=== PATIENT | female | born 1950 | race Caucasian/White ===

== ENCOUNTER → 2018-03-23 08:08 | Outpatient (CLI) | payer MEDICARE, OTHER, SELFPAY ==
[2018-03-23 09:52] LABS: BUN Creatinine Ratio 26.4 (6-22); Estimated Glomerular Filt Rate 49.2 mL/min (>60)
== END ==
PROVIDERS: Family Provider Internal Medicine; PCP Internal Medicine; Visit Provider Specialist
DX: G43.909 Migraine, unspecified, not intractable, without status migrainosus (principal)
CPT/HCPCS: 36415; 82565; 84520

== ENCOUNTER → 2018-03-27 08:02 | Outpatient (CLI) | payer MEDICARE, OTHER, SELFPAY ==
--- NOTE | 2018-03-27 08:05 | DI.MRI.S_ITS ---
PROCEDURE: MR HEAD/BRAIN WO CON INDICATIONS: New onset and worsening head pain, with new gait distruance TECHNIQUE: Non-contrast axial T1 spin echo, axial T2 fast spin echo, sagittal and axial FLAIR, coronal T2 fast spin echo, axial gradient echo, axial diffusion and ADC through the brain. COMPARISON: [facility], MR, STROKE PROTOCOL, 02/09/2013, 11:54. [facility], CT, HEAD WITHOUT CONTRAST, 02/09/2013, 10:01. [facility], MR, STROKE PROTOCOL A, 04/29/2010, 10:59. FINDINGS: Image quality: Excellent. CSF spaces: Ventricles appear symmetric in size and shape. Basal cisterns are patent. No extra-axial fluid collections. Brain: No intracranial bleeds or mass effects. There is mild cerebral volume loss for age. There are mild periventricular and deep white matter chronic small vessel ischemic changes. Brainstem appears normal. Diffusion-weighted images show no acute ischemic insults. No chronic ischemic insults. Normal intravascular flow voids are present. Skull and face: Calvarial bone marrow is normal in signal. Orbits are normal. Sinuses: Sinuses and mastoids are clear. IMPRESSION: 1. No acute intracranial disease process. 2. Mild, diffuse cerebral long loss. 3. Mild periventricular and subcortical white matter chronic microvascular ischemic changes. Dictated by: Saida Meade MD, PhD on 03/27/2018 at 9:22 Approved by: Saida Meade MD, PhD on 03/27/2018 at 9:27
== END ==
PROVIDERS: Family Provider Internal Medicine; PCP Internal Medicine; Visit Provider Specialist
DX: R51 Headache (principal); R26.9 Unspecified abnormalities of gait and mobility
CPT/HCPCS: 70551; 99215

== ENCOUNTER → 2018-04-12 09:51 | Outpatient (CLI) | payer MEDICARE, OTHER, SELFPAY ==
--- NOTE | 2018-04-12 09:53 | DI.MG.S_ITS ---
UNILATERAL RIGHT DIGITAL DIAGNOSTIC MAMMOGRAM SHORT-TERM FOLLOW-UP: 04/12/2018 CLINICAL: Patient returns for a 6 month follow up of the right breast. Family history of breast cancer. Comparison is made to exams dated: 10/08/2017 mammogram, 10/03/2017 mammogram, and 10/19/2015 mammogram - [facility]. The tissue of the right breast is predominantly fatty. There is a stable 3 mm area of clustered dystrophic calcifications in the right breast at 8 o'clock in the retroareolar region. No other significant masses or calcifications are seen in the breast. IMPRESSION: PROBABLY BENIGN The stable 3 mm area of clustered dystrophic calcifications in the right breast are consistent with a degenerating fibroadenoma and are probably benign. A follow-up mammogram in 6 months is recommended. A follow-up mammogram in 6 months is recommended to demonstrate stability. This exam was interpreted at Station ID: [id number]. NOTE: For mammograms, a report in lay terms will be sent to the patient. Approximately 15% of breast malignancies will not be visualized mammographically. In the management of a palpable breast mass, a negative mammogram must not discourage biopsy of a clinically suspicious lesion. Electronically Signed By: Scott [email or web address]:04/12/2018 11:41:52 copy to: [facility] letter sent: Followup Recommended ACR BI-RADS Category 3: Probably benign [id number]
== END ==
PROVIDERS: PCP Internal Medicine
DX: R92.1 Mammographic calcification found on diagnostic imaging of breast (principal); D24.1 Benign neoplasm of right breast; Z80.3 Family history of malignant neoplasm of breast
CPT/HCPCS: 77065; G0279

== ENCOUNTER → 2018-04-19 06:49 | Outpatient (CLI) | payer MEDICARE, OTHER, SELFPAY ==
[2018-04-19 07:59] LABS: Hemoglobin A1C% w Est Avg Glu 6.2 % (4.0-6.0)
[2018-04-19 08:14] LABS: Alanine Aminotransferase 34 IU/L (9-52); Albumin 4.3 g/dL (3.5-5.0); Albumin Globulin Ratio 1.5 (1.0-2.8); Alkaline Phosphatase 89 U/L (38-126); Aspartate Aminotransferase 26 IU/L (14-36); BUN Creatinine Ratio 15.6 (6-22); Bilirubin Total 0.4 mg/dL (0.2-1.3); Blood Urea Nitrogen 14 mg/dL (7-17); Calcium 9.6 mg/dL (8.4-10.2); Carbon Dioxide 28 mmol/L (22-32); Chloride 103 mmol/L (98-107); Estimated Glomerular Filt Rate > 60.0 mL/min (>60); Globulin 2.9 g/dL (1.7-4.1); Glucose 177 mg/dL (80-110); HEMOLYSIS < 15 (0-50); Potassium 5.3 mmol/L (3.4-5.1); Sodium 143 mmol/L (137-145); Total Protein 7.2 g/dL (6.3-8.2)
== END ==
PROVIDERS: PCP Internal Medicine; Visit Provider Internal Medicine
DX: E11.65 Type 2 diabetes mellitus with hyperglycemia (principal)
CPT/HCPCS: 36415; 80053; 83036

== ENCOUNTER 2018-07-10 09:45 | Outpatient (RCR) | payer MEDICARE, OTHER, SELFPAY ==
--- NOTE | 2018-05-15 07:25 | PT.OIE ---
Current Diagnoses Migraine, unspecified, not intractable, without status migrainosus (05/13/18) Cervicalgia (05/13/18) Dizziness and giddiness (05/13/18) Past Surgical History (Last Reviewed 05/14/18 @ 08:01 by Maite Cuellar, PT) History of bilateral salpingo-oophorectomy (BSO) Status post hysterectomy Status post knee surgery Provider Visit Care Team Role Provider Type Misha Jacobson PA-C Primary Care Provider Advanced Water/Wastewater Engineer Specialty: Pain Management Address: [address] [place] [address], [address] Email: Kelvin Crawfrod MD Attending Provider Physician Specialty: Ear, Nose, Throat Address: [address] [place] [address], [id number] Email: Physical Therapy Initial Evaluation PT-OP-A Visit Information Start: 05/13/18 12:41 Freq: Status: Active Protocol: Document 05/13/18 12:45 AMB (Rec: 05/14/18 08:13 AMB [email or web address]) Out-Patient Physical Therapy Visit Information Visit Information Visit Type Initial Evaluation Visit Start Time 12:45 Visit Stop Time 13:30 Total Visit Minutes 45 Visit Number 1 Evaluation Information Evaluation Date 05/13/18 PT-OP-B Current Condition Start: 05/13/18 12:41 Freq: Status: Active Protocol: Document 05/13/18 12:45 AMB (Rec: 05/14/18 10:06 AMB [email or web address]) Current Condition History of Current Condition Current Complaints Falling to the right when turning in the kitchen History of Current Condition The patient has a complicated medical history with autoimmune problems 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 Over the past few years she has had a number of falls, having 2-3 falls in the last 6 months. She also reports a constant headache for the past 4 months that came on suddenly with rolling over in bed to the right (left temporal headache) . She does have a migraine history, but those stopped 12 years ago when she had a hysterectomy. She also reports neck pain, and is unsure if the neck pain came on first and caused the headache, or if the headache is causing the neck pain. History of Sjogren's. Denies nausea/spinning dizziness. Feels like she is being pulled over when turning. Prior Treatments and Tests Brain MRI did not show any cause for dizziness or headache Treatment Goals Patient/Caregiver Goals Decrease falls, imbalance Current Functional Impairments (Reported) Functional Limitations- Mobility/Gait Difficulty walking, cooking ( turning in kitchen) Personal Factors Other Personal Factors That May Effect Neck pain, previous history of Therapy/Recovery migraines, current chronic headache, chronic body pain ( fibromyalgia diagnosis but pt unsure) PT-OP-C Subjective Start: 05/13/18 12:41 Freq: Status: Active Protocol: Document 05/13/18 12:45 AMB (Rec: 05/14/18 08:15 AMB [email or web address]) Patient Questionnaires Dizziness Handicap Inventory DHI Score 44 DHI Functional Impairment 40 to 59% Impaired (Score 40- 59) OP-PT Pain Assessment Comments Pain Comments Chronic pain throughout all 4 extremities is not the focus of this bout of physical therapy PT-OP-D Balance Start: 05/13/18 12:41 Freq: Status: Active Protocol: Document 05/13/18 12:45 AMB (Rec: 05/14/18 08:12 AMB [email or web address]) Balance Tests Romberg Romberg increased ankle sway- unsafe Single Limb Standing Single Limb- Right unable Single Limb- Left unable Tandem Tandem Standing unable PT-OP-E Functional Tests Start: 05/13/18 12:41 Freq: Status: Active Protocol: Document 05/13/18 12:45 AMB (Rec: 05/14/18 10:11 AMB [email or web address]) Functional Tests Dynamic Gait Index (DGI) Score 13 DGI Impairment Rating 40 to <60% Impaired (Score 10- 14) PT-OP-O Vestibular Start: 05/13/18 12:41 Freq: Status: Active Protocol: Document 05/13/18 12:45 AMB (Rec: 05/14/18 08:12 AMB [email or web address]) Vestibular Assessment Visual Testing Smooth Pursuits Horizontal Increased sx Smooth Pursuits Vertical Increased sx Saccades Horizontal WFL Saccades Vertical WFL Thrust Head neck pain Convergence Test Impaired Head Shake unable Vestibulo-Ocular Reflex (VOR1) Negative PT-OP-T Assessment and Plan Start: 05/13/18 12:41 Freq: Status: Active Protocol: Document 07/09/18 12:45 AMB (Rec: 05/14/18 10:15 AMB [email or web address]) Physical Therapy Assessment Rehab Potential Rehabilitation Potential Good Evaluation Complexity Number of Personal Factors/Comorbidities 3 or More Number of Body Systems Impaired 4 or More Clinical Presentation at Evaluation Evolving Impairments Impairments Activity Tolerance Balance Pain Vestibular Goals 2 Impairment Falls Short Term Goal (STG) The patient will improve her DGI score from 13/24 to 18/24 to show improved dynamic balance and reduce her risk of falling. STG Duration 4 weeks Alf Goal (LTG) The patient will perform a pivot turn without loss of balance. LTG Duration 10 weeks 1 Impairment Balance Short Term Goal (STG) The patient will balance with a narrow base of support and turn her head without increasing dizziness. STG Duration 4 weeks Alf Goal (LTG) The patient will turn quickly in the kitchen without a loss of balance. LTG Duration 10 weeks Assessment Summary Assessment The patient attends physical therapy with worsening imbalance over the past few months. She reports chronic imbalance and falls over the past few years. She is not really sure that her balance is worse with the new onset of headache, but is sure that she falls to the right when she turns. Interestingly, her VOR did not initiate symptoms , but pivot turning and turning her head without visual fixation did. She will benefit from vestibular therapy to reduce her risk of falling. Physical Therapy Plan Frequency and Duration Frequency of Treatment 2x/Week Duration of Treatment 10 weeks Plan of Care Start Date 05/13/18 Plan of Care End Date 07/22/18 Therapeutic Interventions Therapeutic Interventions Balance Training Gait Training Home Exercise Program Manual Therapy Neuromuscular Re-education Self-Care/Home Management Therapeutic Activities Therapeutic Exercises Vestibular Rehabilitation Next Visit Focus/Plan Next Note Type Treatment Note
--- NOTE | 2018-05-15 07:25 | PT.OPPOC ---
Current Diagnoses Migraine, unspecified, not intractable, without status migrainosus (05/13/18) Cervicalgia (05/13/18) Dizziness and giddiness (05/13/18) Provider Visit Care Team Role Provider Type Misha Jacobson PA-C Primary Care Provider Advanced Interlacer Specialty: Pain Management Address: [facility] [address], [address] Email: Kelvin Crawford MD Attending Provider Physician Specialty: Ear, Nose, Throat Address: [address] [place] [address], [address] Email: Plan Of Care PT-OP-T Assessment and Plan Start: 05/13/18 12:41 Freq: Status: Active Protocol: Document 05/13/18 12:45 AMB (Rec: 05/14/18 10:15 AMB [email or web address]) Physical Therapy Assessment Rehab Potential Rehabilitation Potential Good Evaluation Complexity Number of Personal Factors/Comorbidities 3 or More Number of Body Systems Impaired 4 or More Clinical Presentation at Evaluation Evolving Impairments Impairments Activity Tolerance Balance Pain Vestibular Goals 2 Impairment Falls Short Term Goal (STG) The patient will improve her DGI score from to 18 to show improved dynamic balance and reduce her risk of falling. STG Duration 4 weeks [facility] Goal (LTG) The patient will perform a pivot turn without loss of balance. LTG Duration 10 weeks 1 Impairment Balance Short Term Goal (STG) The patient will balance with a narrow base of support and turn her head without increasing dizziness. STG Duration 4 weeks [facility] Goal (LTG) The patient will turn quickly in the kitchen without a loss of balance. LTG Duration 10 weeks Assessment Summary Assessment The patient attends physical therapy with worsening imbalance over the past few months. She reports chronic imbalance and falls over the past few years. She is not really sure that her balance is worse with the new onset of headache, but is sure that she falls to the right when she turns. Interestingly, her VOR did not initiate symptoms , but pivot turning and turning her head without visual fixation did. She will benefit from vestibular therapy to reduce her risk of falling. Physical Therapy Plan Frequency and Duration Frequency of Treatment 2x/Week Duration of Treatment 10 weeks Plan of Care Start Date 05/13/18 Plan of Care End Date 07/22/18 Therapeutic Interventions Therapeutic Interventions Balance Training Gait Training Home Exercise Program Manual Therapy Neuromuscular Re-education Self-Care/Home Management Therapeutic Activities Therapeutic Exercises Vestibular Rehabilitation Next Visit Focus/Plan Next Note Type Treatment Note Plan of Care Dates Plan of Care Start Date 05/13/18 Plan of Care End Date 07/22/18 Please Sign and Return: I have reviewed this Plan of Care and certify that the skilled therapy services above are required to meet the patient?s needs. Physician Signature Date Printed Name and Credentials Clinical Instructor Signature Printed Name and Credentials
--- NOTE | 2018-06-24 12:50 | PT.OTN ---
Current Diagnoses Migraine, unspecified, not intractable, without status migrainosus (06/24/18) Cervicalgia (06/24/18) Dizziness and giddiness (06/24/18) Physical Therapy Treatment Note PT-OP-A Visit Information Start: 05/13/18 12:41 Freq: Status: Active Protocol: Document 06/24/18 09:45 AMB (Rec: 06/24/18 12:49 AMB [email or web address]) Out-Patient Physical Therapy Visit Information Visit Information Visit Type Treatment Note Visit Start Time 09:45 Visit Stop Time 10:30 Total Visit Minutes 45 Visit Number 2 Evaluation Information Evaluation Date 05/13/18 PT-OP-B Current Condition Start: 05/13/18 12:41 Freq: Status: Active Protocol: Document 05/13/18 12:45 AMB (Rec: 05/14/18 10:06 AMB [email or web address]) Current Condition History of Current Condition Current Complaints Falling to the right when turning in the kitchen History of Current Condition The patient has a complicated medical history with autoimmune problems 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 Over the past few years she has had a number of falls, having 2-3 falls in the last 6 months. She also reports a constant headache for the past 4 months that came on suddenly with rolling over in bed to the right (left temporal headache) . She does have a migraine history, but those stopped 12 years ago when she had a hysterectomy. She also reports neck pain, and is unsure if the neck pain came on first and caused the headache, or if the headache is causing the neck pain. History of Sjogren's. Denies nausea/spinning dizziness. Feels like she is being pulled over when turning. Prior Treatments and Tests Brain MRI did not show any cause for dizziness or headache Treatment Goals Patient/Caregiver Goals Decrease falls, imbalance Current Functional Impairments (Reported) Functional Limitations- Mobility/Gait Difficulty walking, cooking ( turning in kitchen) Personal Factors Other Personal Factors That May Effect Neck pain, previous history of Therapy/Recovery migraines, current chronic headache, chronic body pain ( fibromyalgia diagnosis but pt unsure) PT-OP-C Subjective Start: 05/13/18 12:41 Freq: Status: Active Protocol: Document 06/24/18 09:45 AMB (Rec: 06/24/18 12:49 AMB [email or web address]) OP-PT Subjective Patient Comments Patient Comments Pt states she went to a chiropractor who was able to get rid of her headache. She has been careful about turning with less speed, so she has had no falls or near falls. PT-OP-D Balance Start: 05/13/18 12:41 Freq: Status: Active Protocol: Document 05/13/18 12:45 AMB (Rec: 05/14/18 08:12 AMB [email or web address]) Balance Tests Romberg Romberg increased ankle sway- unsafe Single Limb Standing Single Limb- Right unable Single Limb- Left unable Tandem Tandem Standing unable PT-OP-E Functional Tests Start: 05/13/18 12:41 Freq: Status: Active Protocol: Document 05/13/18 12:45 AMB (Rec: 05/14/18 10:11 AMB [email or web address]) Functional Tests Dynamic Gait Index (DGI) Score 13 DGI Impairment Rating 40 to <60% Impaired (Score 10- 14) PT-OP-O Vestibular Start: 05/13/18 12:41 Freq: Status: Active Protocol: Document 05/13/18 12:45 AMB (Rec: 05/14/18 08:12 AMB [email or web address]) Vestibular Assessment Visual Testing Smooth Pursuits Horizontal Increased sx Smooth Pursuits Vertical Increased sx Saccades Horizontal WFL Saccades Vertical WFL Thrust Head neck pain Convergence Test Impaired Head Shake unable Vestibulo-Ocular Reflex (VOR1) Negative PT-OP-Q Treatments Start: 05/13/18 12:41 Freq: Status: Active Protocol: Document 06/24/18 09:45 AMB (Rec: 06/24/18 12:49 AMB [email or web address]) Neuro Re-Education Treatment Balance Activities 2 Details Stride stance with HT Comments horizontal/vertical. R foot back more stable. 1 Details Powell foam Reps/Duration 1 min x 4 Comments Eyes closed, eyes open- tends to lose balance L. Vestibular Rehabilitation X1 Viewing Distance From Target 10' Position NBOS, stride stance, WBOS Reps/Duration 30x5 Comments dizziness reproduced PT-OP-T Assessment and Plan Start: 05/13/18 12:41 Freq: Status: Active Protocol: Document 06/24/18 09:45 AMB (Rec: 06/24/18 12:49 AMB [email or web address]) Physical Therapy Assessment Assessment Summary Assessment Pt's headache sx decreased, but continues to have dizziness with head turn activities. Reduced sensation in feet also impairs balance. Physical Therapy Plan Next Visit Focus/Plan Next Note Type Treatment Note Next Visit Plan Progress head turns, eyes closed, foam balance.
--- NOTE | 2018-07-01 13:30 | PT.OTN ---
Current Diagnoses Migraine, unspecified, not intractable, without status migrainosus (07/01/18) Cervicalgia (07/01/18) Dizziness and giddiness (07/01/18) Physical Therapy Treatment Note PT-OP-A Visit Information Start: 05/13/18 12:41 Freq: Status: Active Protocol: Document 07/01/18 09:45 AMB (Rec: 07/01/18 09:46 AMB [id number]) Out-Patient Physical Therapy Visit Information Visit Information Visit Type Treatment Note Visit Start Time 09:45 Visit Stop Time 10:30 Total Visit Minutes 45 Visit Number 3 PT-OP-B Current Condition Start: 05/13/18 12:41 Freq: Status: Active Protocol: Document 05/13/18 12:45 AMB (Rec: 05/14/18 10:06 AMB [email or web address]) Current Condition History of Current Condition Current Complaints Falling to the right when turning in the kitchen History of Current Condition The patient has a complicated medical history with autoimmune problems 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 Over the past few years she has had a number of falls, having 2-3 falls in the last 6 months. She also reports a constant headache for the past 4 months that came on suddenly with rolling over in bed to the right (left temporal headache) . She does have a migraine history, but those stopped 12 years ago when she had a hysterectomy. She also reports neck pain, and is unsure if the neck pain came on first and caused the headache, or if the headache is causing the neck pain. History of Sjogren's. Denies nausea/spinning dizziness. Feels like she is being pulled over when turning. Prior Treatments and Tests Brain MRI did not show any cause for dizziness or headache Treatment Goals Patient/Caregiver Goals Decrease falls, imbalance Current Functional Impairments (Reported) Functional Limitations- Mobility/Gait Difficulty walking, cooking ( turning in kitchen) Personal Factors Other Personal Factors That May Effect Neck pain, previous history of Therapy/Recovery migraines, current chronic headache, chronic body pain ( fibromyalgia diagnosis but pt unsure) PT-OP-C Subjective Start: 05/13/18 12:41 Freq: Status: Active Protocol: Document 07/01/18 09:45 AMB (Rec: 07/01/18 13:28 AMB [email or web address]) OP-PT Subjective Patient Comments Patient Comments Pt reports she had 3 days of headache after last appointment. She feels a clicking in her neck with head turns. PT-OP-D Balance Start: 05/13/18 12:41 Freq: Status: Active Protocol: Document 05/13/18 12:45 AMB (Rec: 05/14/18 08:12 AMB [email or web address]) Balance Tests Romberg Romberg increased ankle sway- unsafe Single Limb Standing Single Limb- Right unable Single Limb- Left unable Tandem Tandem Standing unable PT-OP-E Functional Tests Start: 05/13/18 12:41 Freq: Status: Active Protocol: Document 05/13/18 12:45 AMB (Rec: 05/14/18 10:11 AMB [email or web address]) Functional Tests Dynamic Gait Index (DGI) Score 13 DGI Impairment Rating 40 to <60% Impaired (Score 10- 14) PT-OP-O Vestibular Start: 05/13/18 12:41 Freq: Status: Active Protocol: Document 05/13/18 12:45 AMB (Rec: 05/14/18 08:12 AMB [email or web address]) Vestibular Assessment Visual Testing Smooth Pursuits Horizontal Increased sx Smooth Pursuits Vertical Increased sx Saccades Horizontal WFL Saccades Vertical WFL Thrust Head neck pain Convergence Test Impaired Head Shake unable Vestibulo-Ocular Reflex (VOR1) Negative PT-OP-Q Treatments Start: 05/13/18 12:41 Freq: Status: Active Protocol: Document 07/01/18 09:45 AMB (Rec: 07/01/18 13:28 AMB [email or web address]) Therapeutic Exercises Sitting Exercises 1 Sitting Exercise Name calf, hamstring stretch Comments 30x2 Neuro Re-Education Treatment Balance Activities 4 Details walking with head turns Reps/Duration 10 min Comments horizontal, vertical, diagonal 3 Details Blue foam Comments stride stance, eyes open, eyes closed 2 Details Stride stance with HT Comments horizontal/vertical. R foot back more stable. Vestibular Rehabilitation X1 Viewing Distance From Target 10' Position NBOS, stride stance, WBOS Reps/Duration 30x5 Comments dizziness reproduced PT-OP-T Assessment and Plan Start: 05/13/18 12:41 Freq: Status: Active Protocol: Document 07/01/18 13:29 AMB (Rec: 07/01/18 13:30 AMB [email or web address]) Physical Therapy Assessment Assessment Summary Assessment Did not progress HEP extensively given pt's reaction to last treatment, but did add walking in hallway with headturns. Physical Therapy Plan Next Visit Focus/Plan Next Note Type Treatment Note Next Visit Plan Progress as tolerated.
--- NOTE | 2018-07-12 13:01 | PT.OTN ---
Current Diagnoses Migraine, unspecified, not intractable, without status migrainosus (07/10/18) Cervicalgia (07/10/18) Dizziness and giddiness (07/10/18) Physical Therapy Treatment Note PT-OP-A Visit Information Start: 05/13/18 12:41 Freq: Status: Active Protocol: Document 07/10/18 09:45 AMB (Rec: 07/12/18 13:00 AMB [email or web address]) Out-Patient Physical Therapy Visit Information Visit Information Visit Type Discharge Summary Visit Start Time 09:45 Visit Stop Time 10:30 Total Visit Minutes 45 Visit Number 4 Evaluation Information Evaluation Date 05/13/18 PT-OP-B Current Condition Start: 05/13/18 12:41 Freq: Status: Active Protocol: Document 05/13/18 12:45 AMB (Rec: 05/14/18 10:06 AMB [email or web address]) Current Condition History of Current Condition Current Complaints Falling to the right when turning in the kitchen History of Current Condition The patient has a complicated medical history with autoimmune problems 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 Over the past few years she has had a number of falls, having 2-3 falls in the last 6 months. She also reports a constant headache for the past 4 months that came on suddenly with rolling over in bed to the right (left temporal headache) . She does have a migraine history, but those stopped 12 years ago when she had a hysterectomy. She also reports neck pain, and is unsure if the neck pain came on first and caused the headache, or if the headache is causing the neck pain. History of Sjogren's. Denies nausea/spinning dizziness. Feels like she is being pulled over when turning. Prior Treatments and Tests Brain MRI did not show any cause for dizziness or headache Treatment Goals Patient/Caregiver Goals Decrease falls, imbalance Current Functional Impairments (Reported) Functional Limitations- Mobility/Gait Difficulty walking, cooking ( turning in kitchen) Personal Factors Other Personal Factors That May Effect Neck pain, previous history of Therapy/Recovery migraines, current chronic headache, chronic body pain ( fibromyalgia diagnosis but pt unsure) PT-OP-C Subjective Start: 05/13/18 12:41 Freq: Status: Active Protocol: Document 07/10/18 09:45 AMB (Rec: 07/12/18 13:00 AMB [email or web address]) OP-PT Subjective Patient Comments Patient Comments Pt reports she has been doing well and is ready for d/c. She has not had any feeling of being pulled over lately, she needs to be careful with her balance due to her neuropathy. PT-OP-D Balance Start: 05/13/18 12:41 Freq: Status: Active Protocol: Document 05/13/18 12:45 AMB (Rec: 05/14/18 08:12 AMB [email or web address]) Balance Tests Romberg Romberg increased ankle sway- unsafe Single Limb Standing Single Limb- Right unable Single Limb- Left unable Tandem Tandem Standing unable PT-OP-E Functional Tests Start: 05/13/18 12:41 Freq: Status: Active Protocol: Document 07/10/18 09:45 AMB (Rec: 07/12/18 13:00 AMB [email or web address]) Functional Tests Dynamic Gait Index (DGI) Score 20 DGI Impairment Rating 1 to <20% Impaired (Score 20- 23) PT-OP-O Vestibular Start: 05/13/18 12:41 Freq: Status: Active Protocol: Document 05/13/18 12:45 AMB (Rec: 05/14/18 08:12 AMB [email or web address]) Vestibular Assessment Visual Testing Smooth Pursuits Horizontal Increased sx Smooth Pursuits Vertical Increased sx Saccades Horizontal WFL Saccades Vertical WFL Thrust Head neck pain Convergence Test Impaired Head Shake unable Vestibulo-Ocular Reflex (VOR1) Negative PT-OP-Q Treatments Start: 05/13/18 12:41 Freq: Status: Active Protocol: Document 07/10/18 09:45 AMB (Rec: 07/12/18 13:00 AMB [email or web address]) Neuro Re-Education Treatment Balance Activities 4 Details walking with head turns Reps/Duration 10 min Comments horizontal, vertical, diagonal 3 Details Blue foam Comments stride stance, eyes open, eyes closed 2 Details Stride stance with HT Comments horizontal/vertical. R foot back more stable. Vestibular Rehabilitation X1 Viewing Distance From Target 10' Position NBOS, stride stance, WBOS Reps/Duration 30x5 Comments dizziness reproduced PT-OP-T Assessment and Plan Start: 05/13/18 12:41 Freq: Status: Active Protocol: Document 07/10/18 09:45 AMB (Rec: 07/12/18 13:00 AMB [email or web address]) Physical Therapy Assessment Goals 2 Impairment Falls Short Term Goal (STG) The patient will improve her DGI score from to 18 to show improved dynamic balance and reduce her risk of falling. STG Duration MET Prison Goal (LTG) The patient will perform a pivot turn without loss of balance. LTG Duration MET 1 Impairment Balance Short Term Goal (STG) The patient will balance with a narrow base of support and turn her head without increasing dizziness. STG Duration Progress made Basket Operator Goal (LTG) The patient will turn quickly in the kitchen without a loss of balance. LTG Duration Progress made Assessment Summary Assessment Pt's dynamic gait index score improved dramatically. She no longer has neck pain due to chiropractic treatment, but does have increased dizziness with head turns. Encouraged her to continue with her HEP and to return to walking as she is able. Physical Therapy Plan Discharge Physical Therapy Discharge Reasons Goals Met Discharge Comments Pt is managing her symptoms well, although she continues to have difficulty with head turns and balance due to her neuropathy, she is managing it .
== END 2018-07-24 12:25 ==
LOC: PHYS 09:45
PROVIDERS: PCP Specialist; Visit Provider Otolaryngology
DX: R42 Dizziness and giddiness (principal); G43.909 Migraine, unspecified, not intractable, without status migrainosus; M54.2 Cervicalgia
CPT/HCPCS: 97112; 97162

== ENCOUNTER 2018-07-16 16:48 | Emergency (ER) | payer MEDICARE, OTHER, SELFPAY ==
[2018-07-16 16:50] VITALS: BP 148/75; PULSE 80; RESP 14; TEMP 36.4; O2SAT 98; BMI 31.7
--- NOTE | 2018-07-16 17:04 | ED.NAVMDI ---
HPI - Nausea/Vomiting/Diarrhea <MOY Lopez - Last Filed: 07/16/18 21:26> General Chief complaint: Nausea/Vomiting/Diarrhea Stated complaint: SEVERE DIARRHEA Time Seen by Provider: 07/16/18 17:04 Source: patient Mode of arrival: ambulatory Limitations: no limitations History of Present Illness HPI Narrative: 67-year-old female with history of type 1 diabetes that is a former smoker here for complaint of having diarrhea this afternoon. She reports having a generalized lower left abdominal pain that started yesterday. She denies any trauma to the area. No fevers no chills. Positive p.o. intake. No vomiting. She does report having slight nausea. She denies any flank pain. No urinary symptoms. She describes the diarrhea as being watery. She denies any recent antibiotic use. No recent travel. She denies any other concerns or complaints at this time. Related Data Home Medications Medication Instructions Recorded Confirmed carboxymethylcellulose sodium 2 gtt OU PRN #0 05/09/12 07/16/18 [Refresh Liquigel] sodium chloride [Deep Sea Nasal] 2 spray INTRANASAL PRN PRN #0 05/09/12 07/16/18 aspirin 81 mg PO QDAY #0 05/11/17 07/16/18 niacin 500 mg tablet 500 mg PO DAILY 03/20/18 07/16/18 Disabled [address]ing Permit 1 ea MISCELLANEOUS PRN PRN 07/16/18 07/16/18 [place] 5/16 Inch 1 ea SQ DIRECTED 07/16/18 07/16/18 fluconazole [Diflucan] 150 mg PO QDAY PRN 07/16/18 07/16/18 fluticasone [Flonase Allergy 2 spray INTRANASAL BEDTIME PRN 07/16/18 07/16/18 Relief] insulin aspart U-100 [Novolog 5 - 15 units SQ Q4H PRN 07/16/18 07/16/18 Flexpen U-100 Insulin] insulin detemir U-100 [Levemir 50 units SC QPM 07/16/18 07/16/18 FlexTouch U-100 Insuln] sulfamethoxazole-trimethoprim 1 tab PO BID PRN 07/16/18 07/16/18 Previous Rx's Medication Instructions Recorded lansoprazole 30 mg PO BID #180 ecc 01/14/18 blood sugar diagnostic strips #250 each 03/22/18 clonazepam 1 mg tablet 1 mg PO BID #180 tab 04/22/18 pldzwtkv-drpuwrzle-riezqjjiz 3.5 4 drop OTIC (EAR) TID PRN #10 ml 04/23/18 mg/mL-10,000 unit/mL-1 % ear solution gabapentin 600 mg tablet 600 mg PO QDAY #90 tab 06/07/18 hydrocodone 10 mg-acetaminophen 1 - 2 tab PO Q4HP PRN #200 tab 06/07/18 325 mg tablet nadolol 40 mg tablet 40 mg PO DAILY #90 tab 06/07/18 losartan 100 mg tablet 100 mg PO DAILY #90 tab 06/10/18 albuterol sulfate [Ventolin HFA] 2 puff INH Q4H PRN #8 gm 06/19/18 Allergies Allergy/AdvReac Type Severity Reaction Status Date / Time atorvastatin [ATORVASTATIN] Allergy Unknown Verified 06/14/18 10:04 gemfibrozil [GEMFIBROZIL] Allergy Unknown Verified 06/14/18 10:04 rosuvastatin [ROSUVASTATIN] Allergy Unknown Verified 06/14/18 10:04 tetracycline [TETRACYCLINE] Allergy Unknown Verified 06/14/18 10:04 Milk Containing Products AdvReac Severe GI issues Verified 06/14/18 10:04 [MILK CONTAINING PRODUCTS] carisoprodol [CARISOPRODOL] AdvReac Intermediate DIZZINESS Verified 06/14/18 10:04 duloxetine [DULOXETINE] AdvReac Intermediate DIARRHEA Verified 06/14/18 10:04 fenofibrate [FENOFIBRATE] AdvReac Intermediate rash Verified 06/14/18 10:04 indomethacin [INDOMETHACIN] AdvReac Intermediate GI DISTRESS Verified 06/14/18 10:04 lisinopril [LISINOPRIL] AdvReac Intermediate EDEMA LEGS Verified 06/14/18 10:04 amoxicillin [AMOXICILLIN] AdvReac Mild itching Verified 06/14/18 10:04 Review of Systems <MOY Lopez - Last Filed: 07/16/18 21:26> Constitutional Denies chills, Denies fever(s), Denies lethargy and Denies weakness Eyes Denies change in vision, Denies eye discharge, Denies irritation and Denies loss of vision ENT Ears, Nose, Mouth, and Throat: Denies change in voice, Denies neck pain and Denies sore throat Cardiovascular Denies chest pain, Denies irregular heart rhythm, Denies lightheadedness, Denies palpitations, Denies dyspnea, Denies dyspnea on exertion and Denies orthopnea Respiratory Denies cough, Denies dyspnea, Denies dyspnea on exertion and Denies wheezing Gastrointestinal Gastrointestinal: Reports abdominal pain and Reports diarrhea Genitourinary Denies hematuria, Denies flank pain, Denies urinary incontinence and Denies urinary urgency Musculoskeletal Denies neck pain Integumentary/Breasts Denies pruritus, Denies erythema, Denies rash and Denies wounds Neurologic Denies confusion, Denies loss of vision and Denies weakness Psychiatric Denies anxiety, Denies confusion, Denies depression, Denies homicidal ideation and Denies suicidal ideation Endocrine Denies palpitations Hematologic/Lymphatic Denies easy bruising Allergic/Immunologic Denies wheezing Exam <MOY Lopez - Last Filed: 07/16/18 21:26> Initial Vital Signs Initial Vital Signs: Vital Signs Temperature 97.6 F 07/16/18 16:50 Pulse Rate 80 07/16/18 16:50 Respiratory Rate 14 07/16/18 16:50 Blood Pressure 148/75 H 07/16/18 16:50 Pulse Oximetry 98 07/16/18 16:50 Const General: cooperative and well developed Nutritional Appearance: well nourished Orientation: alert, awake, oriented x3 and not confused [facility] Mouth: oral mucosae normal, oropharynx normal and moist mucous membranes Eyes Conjunctivae: conjunctivae normal Sclera: sclerae normal Pupils: PERRL EOM: EOM intact bilaterally Resp Effort & Inspection: normal respiratory effort, able to speak in complete sentences, no respiratory distress and no use of accessory muscles Auscultation: clear to auscultation bilaterally, no rales, no rhonchi and no wheezes Cardio Rate: regular rate Rhythm: regular rhythm Heart Sounds: no click, no gallops, no murmurs and no rubs Pulses: normal peripheral pulses GI Inspection: non-distended Palpation: soft, no hepatosplenomegaly, No guarding, No pulsatile mass and tender (Tenderness left lower quadrant) Auscultation: normal bowel sounds General: No CVA tenderness Skin General: no rashes or lesions noted, No jaundice and No petechiae Neuro General: alert, oriented x3, gait normal and no focal motor deficits Speech: speech normal <Huang Lanker, DO - Last Filed: 07/16/18 21:49> Initial Vital Signs Initial Vital Signs: Vital Signs Temperature 97.6 F 07/16/18 16:50 Pulse Rate 80 07/16/18 16:50 Respiratory Rate 14 07/16/18 16:50 Blood Pressure 148/75 H 07/16/18 16:50 Pulse Oximetry 98 07/16/18 16:50 Course <MOY Lopez - Last Filed: 07/16/18 21:26> Orders Ordered: ED Orders 07/16/18 17:11 Complete Blood Count AUTO DIFF Stat Comprehensive Metabolic Panel Stat Lipase Stat 07/16/18 17:16 CT abdomen pelvis w con Stat 07/16/18 18:09 Urine Microscopic Stat Discontinued Medications Hydromorphone HCl (Dilaudid) 0.5 mg IV NOW ONE Stop: 07/16/18 17:15 Last Admin: 07/16/18 17:38 Dose: 0.5 mg Sodium Chloride (Normal Saline 0.9%) 1,000 mls @ 1,000 mls/hr IV BOLUS ONE Stop: 07/16/18 18:13 Last Infusion: 07/16/18 19:16 Dose: 0 mls/hr Admin: 07/16/18 17:38 Dose: 1,000 mls/hr Ondansetron HCl (Zofran) 4 mg IV NOW ONE Stop: 07/16/18 17:15 Last Admin: 07/16/18 17:39 Dose: 4 mg Vital Signs - 8 hr 07/16/18 16:50 07/16/18 18:32 07/16/18 19:21 Temperature 97.6 F Pulse Rate 80 74 72 Respiratory Rate 14 17 16 Blood Pressure 148/75 H 129/54 L Blood Pressure [Right Arm] 137/61 Pulse Oximetry 98 97 96 <Huang Zamudio DO - Last Filed: 07/16/18 21:49> Orders Ordered: ED Orders 07/16/18 17:11 Complete Blood Count AUTO DIFF Stat Comprehensive Metabolic Panel Stat Lipase Stat 07/16/18 17:16 CT abdomen pelvis w con Stat 07/16/18 18:09 Urine Microscopic Stat Discontinued Medications Hydromorphone HCl (Dilaudid) 0.5 mg IV NOW ONE Stop: 07/16/18 17:15 Last Admin: 07/16/18 17:38 Dose: 0.5 mg Sodium Chloride (Normal Saline 0.9%) 1,000 mls @ 1,000 mls/hr IV BOLUS ONE Stop: 07/16/18 18:13 Last Infusion: 07/16/18 19:16 Dose: 0 mls/hr Admin: 07/16/18 17:38 Dose: 1,000 mls/hr Ondansetron HCl (Zofran) 4 mg IV NOW ONE Stop: 07/16/18 17:15 Last Admin: 07/16/18 17:39 Dose: 4 mg Vital Signs - 8 hr 07/16/18 16:50 07/16/18 18:32 07/16/18 19:21 Temperature 97.6 F Pulse Rate 80 74 72 Respiratory Rate 14 17 16 Blood Pressure 148/75 H 129/54 L Blood Pressure [Right Arm] 137/61 Pulse Oximetry 98 97 96 MDM - Nausea/Vomiting/Diarrhea <MOY Lopez - Last Filed: 07/16/18 21:26> Lab Data Result diagrams: 07/16/18 17:11 07/16/18 17:11 Lab Results 07/16/18 07/16/18 07/16/18 Range/Units 17:11 17:11 18:09 WBC 9.6 (4.5-11.0) X10^3/uL RBC 4.84 (4.0-5.2) X10^6/uL Hgb 12.2 (12.0-16.0) g/dL Hct 38.3 (36-46) % MCV 79.0 L (80-100) fL MCH 25.1 L (26-34) PG MCHC 31.8 (30-36) % RDW 15.0 H (11.6-14.8) % Plt Count 342 (150-400) X10^3/uL Neut % (Auto) 58.0 (50-75) % Lymph % (Auto) 31.6 (25-40) % [place] % (Auto) 7.2 (3-14) % Eos % (Auto) 2.1 (2-4) % Baso % (Auto) 1.1 (0-2) % Neut # (Auto) 5500 (0723-6634) /uL Sodium 142 (137-145) mmol/L Potassium 4.3 (3.4-5.1) mmol/L Chloride 102 (98-107) mmol/L Carbon Dioxide 27 (22-32) mmol/L BUN 19 H (7-17) mg/dL Creatinine 1.00 (0.52-1.04) mg/dL Estimated GFR 55.0 L (>60) mL/min BUN/Creatinine Ratio 19.0 (6-22) Glucose 186 H (80-110) mg/dL Calcium 9.8 (8.4-10.2) mg/dL Total Bilirubin 0.6 (0.2-1.3) mg/dL AST 29 (14-36) IU/L ALT 25 (9-52) IU/L Alkaline Phosphatase 104 (38-126) U/L Total Protein 8.0 (6.3-8.2) g/dL Albumin 4.7 (3.5-5.0) g/dL Globulin 3.3 (1.7-4.1) g/dL Albumin/Globulin Ratio 1.4 (1.0-2.8) Lipase 112 (23-300) U/L Urine RBC 0-1/hpf (0-5/HPF) Urine WBC 1-5/hpf (0-5/HPF) Ur Squamous Epith Cells 0-1 /hpf Ur Transition Epith Cell 0-1/hpf (0-5/HPF) Urine Bacteria None seen (None) Ur Culture Indicated? Cult not indicated Micro UA Comment Not Reportable Imaging Data CT scan - abdomen: Radiologist's impression: PROCEDURE: CT ABDOMEN PELVIS W CON INDICATIONS: Pain to left lower quadrant. Nausea. Diarrhea TECHNIQUE: After the administration of intravenous contrast, 5 mm thick sections acquired from the diaphragm to the symphysis. 5 mm coronal and sagittal reformats were acquired. For radiation dose reduction, the following was used: automated exposure control, adjustment of mA and/or kV according to patient size. COMPARISON: [facility], CT ABDOMEN/PELVIS WITH CONTRAST, 07/19/2005, 10:46. [facility], CT ABDOMEN/PELVIS WITH CONTRAST, 09/15/2004, 12:45. [facility], CT ABDOMEN/PELVIS WITH CONTRAST, 08/24/2004, 14:35. [facility], CT ABDOMEN/PELVIS WITH CONTRAST, 08/20/2004, 11:31. [facility] , ABDOMEN ACUTE SERIES, 08/12/2017, 7:43. [facility], CR, ABDOMEN ACUTE SERIES, 12/18/2015, 15:08. [facility] CR, ABDOMEN ACUTE SERIES, 10/26/2014, 13:15. [facility], CT, ABDOMEN/PELVIS WITH CONTRAST, 10/09/2014, 15:05. [facility], CR, ABDOMEN ACUTE SERIES, 10/05/2014, 10:40. [facility], US, ABDOMEN COMPLETE, 05/08/2012, 8:34. [facility], CT, ABDOMEN/PELVIS WITH CONTRAST, 08/08/2010, 6:45. [facility], CT, ABDOMEN/PELVIS WITH CONTRAST, 09/28/2006, 13:09. [facility], RG, CT ABDOMEN/PELVIS WITH CONTRAST, 09/11/2006, 9:40. FINDINGS: Image quality: Excellent. ABDOMEN: Lung bases: Lung bases are clear of acute opacities. Calcified granulomas noted in the right lung base which are stable compared to prior examinations. Calcified paraesophageal mediastinal lymph nodes are noted which are stable compared to prior exams.. Heart size is normal. Solid organs: Liver is normal in size and enhancement. Gallbladder is within normal limits. Biliary system is non dilated. Pancreas enhances normally. Spleen is normal in size and enhancement. No adrenal nodules. Kidneys demonstrate normal size and enhancement, without hydronephrosis. Peritoneum and bowel: Circumferential wall thickening involving the distal esophagus. The appendix is normal. Numerous diverticuli noted in the sigmoid colon without evidence of diverticulitis. Circumferential wall thickening noted in the sigmoid colon which we do to under distention versus nonspecific colitis. No abscess identified. No free fluid or air. Nodes and vessels: No retroperitoneal or mesenteric adenopathy by size criteria. Aorta and inferior vena cava are normal in size. Miscellaneous: No ventral hernias. PELVIS: Genitourinary: Bladder wall thickness is normal. Uterus is absent. Miscellaneous: No inguinal hernias or adenopathy. Bones: No suspicious bony lesions. No vertebral body compression fractures. IMPRESSION: 1. Circumferential wall thickening involving the distal esophagus which could represent inflammatory neoplastic process. Recommend endoscopy for further evaluation. 2. Colonic diverticulosis without evidence of acute diverticulitis. 3. Circumferential wall thickening involving the sigmoid colon compatible with under distention versus a nonspecific colitis. 4. The appendix is normal. 5. No free fluid or free air. 6. No dilated loops of bowel. Dictated by: Saida Meade MD, PhD on 07/16/2018 at 18:17 Approved by: Saida Meade MD, PhD on 07/16/2018 at 18:24 [facility] Narrative Medical decision making narrative: CT scan of the abdomen was obtained and shows diverticulosis with no signs of diverticulitis. Small amount of circumferential wall thickening involving the sigmoid colon. CT also showed compression wall thickening of the distal esophagus will have patient see primary care provider for discussion of endoscopy. [id number] Tylenol or Motrin as needed for any discomfort. Cmcl-scb-apiuykn Imodium as needed for diarrhea. CBC and Chem panel were obtained and were unremarkable. Urinalysis was negative for urinary tract infection. Patient was unable to give a stool sample while in the emergency room. She had no diarrhea for the timeframe that she was here. Will have follow-up with primary care provider in the next few days for re-evaluation. For any worsening symptoms return to the emergency room. Will treat conservatively for viral illness. <Huang Zamudio, DO - Last Filed: 07/16/18 21:49> Lab Data Lab Results 07/16/18 07/16/18 07/16/18 Range/Units 17:11 17:11 18:09 WBC 9.6 (4.5-11.0) X10^3/uL RBC 4.84 (4.0-5.2) X10^6/uL Hgb 12.2 (12.0-16.0) g/dL Hct 38.3 (36-46) % MCV 79.0 L (80-100) fL MCH 25.1 L (26-34) PG MCHC 31.8 (30-36) % RDW 15.0 H (11.6-14.8) % Plt Count 342 (150-400) X10^3/uL Neut % (Auto) 58.0 (50-75) % Lymph % (Auto) 31.6 (25-40) % [place] % (Auto) 7.2 (3-14) % Eos % (Auto) 2.1 (2-4) % Baso % (Auto) 1.1 (0-2) % Neut # (Auto) 5500 (7406-9951) /uL Sodium 142 (137-145) mmol/L Potassium 4.3 (3.4-5.1) mmol/L Chloride 102 (98-107) mmol/L Carbon Dioxide 27 (22-32) mmol/L BUN 19 H (7-17) mg/dL Creatinine 1.00 (0.52-1.04) mg/dL Estimated GFR 55.0 L (>60) mL/min BUN/Creatinine Ratio 19.0 (6-22) Glucose 186 H (80-110) mg/dL Calcium 9.8 (8.4-10.2) mg/dL Total Bilirubin 0.6 (0.2-1.3) mg/dL AST 29 (14-36) IU/L ALT 25 (9-52) IU/L Alkaline Phosphatase 104 (38-126) U/L Total Protein 8.0 (6.3-8.2) g/dL Albumin 4.7 (3.5-5.0) g/dL Globulin 3.3 (1.7-4.1) g/dL Albumin/Globulin Ratio 1.4 (1.0-2.8) Lipase 112 (23-300) U/L Urine RBC 0-1/hpf (0-5/HPF) Urine WBC 1-5/hpf (0-5/HPF) Ur Squamous Epith Cells 0-1 /hpf Ur Transition Epith Cell 0-1/hpf (0-5/HPF) Urine Bacteria None seen (None) Ur Culture Indicated? Cult not indicated Micro UA Comment Not Reportable Discharge Plan Departure Patient Disposition: Home Clinical Impression: Diarrhea Discharge Date/Time: 07/16/18 19:22 Interventions: ED Discharge Assessment Last Done: 07/16/18 19:21 Instructions: Diarrhea Activity Restrictions/Additional Instructions: CT the abdomen shows mild thickening of the wall of the sigmoid colon suggesting mild colitis. CT also shows some wall thickening of the distal esophagus recommend obtaining endoscopy discuss this with her primary care provider when you follow up with this for further evaluation. Laboratory results were unremarkable. Signs symptoms presents as viral illness. Use vojj-fhy-zoyyfkz Imodium as needed for diarrhea. Use jzve-jnq-wwiyihk Tylenol or Motrin as needed for any discomfort. Plenty of fluids. Follow up with her primary care provider jules in this week. For any worsening symptoms return to the emergency room. Prescriptions: No Action carboxymethylcellulose sodium [Refresh Liquigel] 1 % Drops, Liquid Gel 2 gtt OU PRN Qty: 0 RF: 0 sodium chloride [Deep Sea Nasal] 44 ML aerosol,spray 2 spray Intranasal PRN PRN (Reason: Congestion) Qty: 0 RF: 0 aspirin 81 MG tablet,delayed release (DR/EC) 81 mg PO QDAY Qty: 0 RF: 0 lansoprazole 30 MG capsule,delayed release(DR/EC) 30 mg PO BID Qty: 180 RF: 3 blood sugar diagnostic [OneTouch Ultra Blue Test Strip] strip .ROUTE .MEDSUPPLY Qty: 250 RF: 11 clonazepam [Klonopin] 1 mg tablet 1 mg PO BID Qty: 180 RF: 1 mfdthili-yvojvzuyi-PY 3.5-10,000-1 mg/mL-unit/mL-% solution 4 drop otic (ear) TID PRN (Reason: ear pain) Qty: 10 RF: 0 gabapentin [Neurontin] 600 mg tablet 600 mg PO QDAY Qty: 90 RF: 3 hydrocodone-acetaminophen 10-325 mg tablet 1 - 2 tab PO Q4HP PRN (Reason: pain) Qty: 200 RF: 0 nadolol 40 mg tablet 40 mg PO DAILY Qty: 90 RF: 3 losartan 100 mg tablet 100 mg PO DAILY Qty: 90 RF: 1 albuterol sulfate [Ventolin HFA] 90 mcg/actuation HFA aerosol inhaler 2 puff INH Q4H PRNQty: 8 RF: 11 fluconazole [Diflucan] 150 MG tablet 150 mg PO QDAY PRN (Reason: YEAST) RF: 0 sulfamethoxazole-trimethoprim 800 MG/160 MG tablet 1 tab PO BID PRN (Reason: INFECTION) RF: 0 fluticasone [Flonase Allergy Relief] 50 mcg/actuation spray,suspension 2 spray Intranasal BEDTIME PRN (Reason: Allergy Symptoms) RF: 0 insulin aspart U-100 [Novolog Flexpen U-100 Insulin] 100 UNIT/1 ML insulin pen 5 - 15 units SQ Q4H PRN (Reason: HIGH BLOOD SUGAR) RF: 0 insulin detemir U-100 [Levemir FlexTouch U-100 Insuln] 100 UNIT/1 ML insulin pen 50 units SC QPM RF: 0 Disabled Parking Permit 1 ea miscellaneous PRN PRN (Reason: PARKING) RF: 0 [place] 5/16 Inch 1 ea SQ DIRECTED RF: 0 niacin 500 mg tablet 500 mg PO DAILY RF: 0 Referrals: Miller,Good R, MD [Primary Care Provider] - <Huang Zamudio DO - Last Filed: 07/16/18 21:49> Cosign ED Attending Makennaature Attestation: I was available for consultation during this patient's emergency department encounter
--- NOTE | 2018-07-16 17:08 | ED_ITS ---
HPI - Nausea/Vomiting/Diarrhea <MOY Lopez - Last Filed: 07/16/18 21:26> General Chief complaint: Nausea/Vomiting/Diarrhea Stated complaint: SEVERE DIARRHEA Time Seen by Provider: 07/16/18 17:04 Source: patient Mode of arrival: ambulatory Limitations: no limitations History of Present Illness HPI Narrative: 67-year-old female with history of type 1 diabetes that is a former smoker here for complaint of having diarrhea this afternoon. She reports having a generalized lower left abdominal pain that started yesterday. She denies any trauma to the area. No fevers no chills. Positive p.o. intake. No vomiting. She does report having slight nausea. She denies any flank pain. No urinary symptoms. She describes the diarrhea as being watery. She denies any recent antibiotic use. No recent travel. She denies any other concerns or complaints at this time. Related Data Home Medications Medication Instructions Recorded Confirmed carboxymethylcellulose sodium 2 gtt OU PRN #0 05/09/12 07/16/18 [Refresh Liquigel] sodium chloride [Deep Sea Nasal] 2 spray INTRANASAL PRN PRN #0 05/09/12 07/16/18 aspirin 81 mg PO QDAY #0 05/11/17 07/16/18 niacin 500 mg tablet 500 mg PO DAILY 03/20/18 07/16/18 Disabled [address]ing Permit 1 ea MISCELLANEOUS PRN PRN 07/16/18 07/16/18 [place] 5/16 Inch 1 ea SQ DIRECTED 07/16/18 07/16/18 fluconazole [Diflucan] 150 mg PO QDAY PRN 07/16/18 07/16/18 fluticasone [Flonase Allergy 2 spray INTRANASAL BEDTIME PRN 07/16/18 07/16/18 Relief] insulin aspart U-100 [Novolog 5 - 15 units SQ Q4H PRN 07/16/18 07/16/18 Flexpen U-100 Insulin] insulin detemir U-100 [Levemir 50 units SC QPM 07/16/18 07/16/18 FlexTouch U-100 Insuln] sulfamethoxazole-trimethoprim 1 tab PO BID PRN 07/16/18 07/16/18 Previous Rx's Medication Instructions Recorded lansoprazole 30 mg PO BID #180 ecc 01/14/18 blood sugar diagnostic strips #250 each 03/22/18 clonazepam 1 mg tablet 1 mg PO BID #180 tab 04/22/18 rhhtembb-puailnqzo-csnmwront 3.5 4 drop OTIC (EAR) TID PRN #10 ml 04/23/18 mg/mL-10,000 unit/mL-1 % ear solution gabapentin 600 mg tablet 600 mg PO QDAY #90 tab 06/07/18 hydrocodone 10 mg-acetaminophen 1 - 2 tab PO Q4HP PRN #200 tab 06/07/18 325 mg tablet nadolol 40 mg tablet 40 mg PO DAILY #90 tab 06/07/18 losartan 100 mg tablet 100 mg PO DAILY #90 tab 06/10/18 albuterol sulfate [Ventolin HFA] 2 puff INH Q4H PRN #8 gm 06/19/18 Allergies Allergy/AdvReac Type Severity Reaction Status Date / Time atorvastatin [ATORVASTATIN] Allergy Unknown Verified 06/14/18 10:04 gemfibrozil [GEMFIBROZIL] Allergy Unknown Verified 06/14/18 10:04 rosuvastatin [ROSUVASTATIN] Allergy Unknown Verified 06/14/18 10:04 tetracycline [TETRACYCLINE] Allergy Unknown Verified 06/14/18 10:04 Milk Containing Products AdvReac Severe GI issues Verified 06/14/18 10:04 [MILK CONTAINING PRODUCTS] carisoprodol [CARISOPRODOL] AdvReac Intermediate DIZZINESS Verified 06/14/18 10: 04 duloxetine [DULOXETINE] AdvReac Intermediate DIARRHEA Verified 06/14/18 10:04 fenofibrate [FENOFIBRATE] AdvReac Intermediate rash Verified 06/14/18 10:04 indomethacin [INDOMETHACIN] AdvReac Intermediate GI DISTRESS Verified 06/14/18 10:04 lisinopril [LISINOPRIL] AdvReac Intermediate EDEMA LEGS Verified 06/14/18 10:04 amoxicillin [AMOXICILLIN] AdvReac Mild itching Verified 06/14/18 10:04 Review of Systems <MOY Lopez - Last Filed: 07/16/18 21:26> Constitutional Denies chills, Denies fever(s), Denies lethargy and Denies weakness Eyes Denies change in vision, Denies eye discharge, Denies irritation and Denies loss of vision ENT Ears, Nose, Mouth, and Throat: Denies change in voice, Denies neck pain and Denies sore throat Cardiovascular Denies chest pain, Denies irregular heart rhythm, Denies lightheadedness, Denies palpitations, Denies dyspnea, Denies dyspnea on exertion and Denies orthopnea Respiratory Denies cough, Denies dyspnea, Denies dyspnea on exertion and Denies wheezing Gastrointestinal Gastrointestinal: Reports abdominal pain and Reports diarrhea Genitourinary Denies hematuria, Denies flank pain, Denies urinary incontinence and Denies urinary urgency Musculoskeletal Denies neck pain Integumentary/Breasts Denies pruritus, Denies erythema, Denies rash and Denies wounds Neurologic Denies confusion, Denies loss of vision and Denies weakness Psychiatric Denies anxiety, Denies confusion, Denies depression, Denies homicidal ideation and Denies suicidal ideation Endocrine Denies palpitations Hematologic/Lymphatic Denies easy bruising Allergic/Immunologic Denies wheezing Exam <MOY Lopez - Last Filed: 07/16/18 21:26> Initial Vital Signs Initial Vital Signs: Vital Signs Temperature 97.6 F 07/16/18 16:50 Pulse Rate 80 07/16/18 16:50 Respiratory Rate 14 07/16/18 16:50 Blood Pressure 148/75 H 07/16/18 16:50 Pulse Oximetry 98 07/16/18 16:50 Const General: cooperative and well developed Nutritional Appearance: well nourished Orientation: alert, awake, oriented x3 and not confused [facility] Mouth: oral mucosae normal, oropharynx normal and moist mucous membranes Eyes Conjunctivae: conjunctivae normal Sclera: sclerae normal Pupils: PERRL EOM: EOM intact bilaterally Resp Effort & Inspection: normal respiratory effort, able to speak in complete sentences, no respiratory distress and no use of accessory muscles Auscultation: clear to auscultation bilaterally, no rales, no rhonchi and no wheezes Cardio Rate: regular rate Rhythm: regular rhythm Heart Sounds: no click, no gallops, no murmurs and no rubs Pulses: normal peripheral pulses GI Inspection: non-distended Palpation: soft, no hepatosplenomegaly, No guarding, No pulsatile mass and tender (Tenderness left lower quadrant) Auscultation: normal bowel sounds General: No CVA tenderness Skin General: no rashes or lesions noted, No jaundice and No petechiae Neuro General: alert, oriented x3, gait normal and no focal motor deficits Speech: speech normal <Huang Lanker, DO - Last Filed: 07/16/18 21:49> Initial Vital Signs Initial Vital Signs: Vital Signs Temperature 97.6 F 07/16/18 16:50 Pulse Rate 80 07/16/18 16:50 Respiratory Rate 14 07/16/18 16:50 Blood Pressure 148/75 H 07/16/18 16:50 Pulse Oximetry 98 07/16/18 16:50 Course <MOY Lopez - Last Filed: 07/16/18 21:26> Orders Ordered: ED Orders 07/16/18 17:11 Complete Blood Count AUTO DIFF Stat Comprehensive Metabolic Panel Stat Lipase Stat 07/16/18 17:16 CT abdomen pelvis w con Stat 07/16/18 18:09 Urine Microscopic Stat Discontinued Medications Hydromorphone HCl (Dilaudid) 0.5 mg IV NOW ONE Stop: 07/16/18 17:15 Last Admin: 07/16/18 17:38 Dose: 0.5 mg Sodium Chloride (Normal Saline 0.9%) 1,000 mls @ 1,000 mls/hr IV BOLUS ONE Stop: 07/16/18 18:13 Last Infusion: 07/16/18 19:16 Dose: 0 mls/hr Admin: 07/16/18 17:38 Dose: 1,000 mls/hr Ondansetron HCl (Zofran) 4 mg IV NOW ONE Stop: 07/16/18 17:15 Last Admin: 07/16/18 17:39 Dose: 4 mg Vital Signs - 8 hr 07/16/18 16:50 07/16/18 18:32 07/16/18 19:21 Temperature 97.6 F Pulse Rate 80 74 72 Respiratory Rate 14 17 16 Blood Pressure 148/75 H 129/54 L Blood Pressure [Right Arm] 137/61 Pulse Oximetry 98 97 96 <Huang Zamudio DO - Last Filed: 07/16/18 21:49> Orders Ordered: ED Orders 07/16/18 17:11 Complete Blood Count AUTO DIFF Stat Comprehensive Metabolic Panel Stat Lipase Stat 07/16/18 17:16 CT abdomen pelvis w con Stat 07/16/18 18:09 Urine Microscopic Stat Discontinued Medications Hydromorphone HCl (Dilaudid) 0.5 mg IV NOW ONE Stop: 07/16/18 17:15 Last Admin: 07/16/18 17:38 Dose: 0.5 mg Sodium Chloride (Normal Saline 0.9%) 1,000 mls @ 1,000 mls/hr IV BOLUS ONE Stop: 07/16/18 18:13 Last Infusion: 07/16/18 19:16 Dose: 0 mls/hr Admin: 07/16/18 17:38 Dose: 1,000 mls/hr Ondansetron HCl (Zofran) 4 mg IV NOW ONE Stop: 07/16/18 17:15 Last Admin: 07/16/18 17:39 Dose: 4 mg Vital Signs - 8 hr 07/16/18 16:50 07/16/18 18:32 07/16/18 19:21 Temperature 97.6 F Pulse Rate 80 74 72 Respiratory Rate 14 17 16 Blood Pressure 148/75 H 129/54 L Blood Pressure [Right Arm] 137/61 Pulse Oximetry 98 97 96 MDM - Nausea/Vomiting/Diarrhea <MOY Lopez - Last Filed: 07/16/18 21:26> Lab Data Result diagrams: 07/16/18 17:11 07/16/18 17:11 Lab Results 07/16/18 07/16/18 07/16/18 Range/Units 17:11 17:11 18:09 WBC 9.6 (4.5-11.0) X10^3/uL RBC 4.84 (4.0-5.2) X10^6/uL Hgb 12.2 (12.0-16.0) g/dL Hct 38.3 (36-46) % MCV 79.0 L (80-100) fL MCH 25.1 L (26-34) PG MCHC 31.8 (30-36) % RDW 15.0 H (11.6-14.8) % Plt Count 342 (150-400) X10^3/uL Neut % (Auto) 58.0 (50-75) % Lymph % (Auto) 31.6 (25-40) % [place] % (Auto) 7.2 (3-14) % Eos % (Auto) 2.1 (2-4) % Baso % (Auto) 1.1 (0-2) % Neut # (Auto) 5500 (6760-9823) /uL Sodium 142 (137-145) mmol/L Potassium 4.3 (3.4-5.1) mmol/L Chloride 102 (98-107) mmol/L Carbon Dioxide 27 (22-32) mmol/L BUN 19 H (7-17) mg/dL Creatinine 1.00 (0.52-1.04) mg/dL Estimated GFR 55.0 L (>60) mL/min BUN/Creatinine Ratio 19.0 (6-22) Glucose 186 H (80-110) mg/dL Calcium 9.8 (8.4-10.2) mg/dL Total Bilirubin 0.6 (0.2-1.3) mg/dL AST 29 (14-36) IU/L ALT 25 (9-52) IU/L Alkaline Phosphatase 104 (38-126) U/L Total Protein 8.0 (6.3-8.2) g/dL Albumin 4.7 (3.5-5.0) g/dL Globulin 3.3 (1.7-4.1) g/dL Albumin/Globulin Ratio 1.4 (1.0-2.8) Lipase 112 (23-300) U/L Urine RBC 0-1/hpf (0-5/HPF) Urine WBC 1-5/hpf (0-5/HPF) Ur Squamous Epith Cells 0-1 /hpf Ur Transition Epith Cell 0-1/hpf (0-5/HPF) Urine Bacteria None seen (None) Ur Culture Indicated? Cult not indicated Micro UA Comment Not Reportable Imaging Data CT scan - abdomen: Radiologist's impression: PROCEDURE: CT ABDOMEN PELVIS W CON INDICATIONS: Pain to left lower quadrant. Nausea. Diarrhea TECHNIQUE: After the administration of intravenous contrast, 5 mm thick sections acquired from the diaphragm to the symphysis. 5 mm coronal and sagittal reformats were acquired. For radiation dose reduction, the following was used: automated exposure control, adjustment of mA and/or kV according to patient size. COMPARISON: [facility], CT ABDOMEN/PELVIS WITH CONTRAST, 07/19/2005, 10 :46. [facility], CT ABDOMEN/PELVIS WITH CONTRAST, 09/15/2004, 12:45. [facility], CT ABDOMEN/PELVIS WITH CONTRAST, 08/24/2004, 14:35. [facility], CT ABDOMEN/PELVIS WITH CONTRAST, 08/20/2004, 11:31. [facility] , ABDOMEN ACUTE SERIES, 08/12/2017, 7:43. [facility], CR, ABDOMEN ACUTE SERIES, 12/18/2015 , 15:08. [facility] CR, ABDOMEN ACUTE SERIES, 10/26/2014, 13:15. [facility], CT, ABDOMEN/PELVIS WITH CONTRAST, 10/09/2014, 15:05. [facility], CR, ABDOMEN ACUTE SERIES, 10/05/2014, 10:40. [facility], [place], ABDOMEN COMPLETE, 05/08/2012, 8: 34. [facility], CT, ABDOMEN/PELVIS WITH CONTRAST, 08/08/2010, 6:45. [facility], CT, ABDOMEN/PELVIS WITH CONTRAST, 09/28/2006, 13:09. [facility], [facility], CT ABDOMEN/PELVIS WITH CONTRAST, 09/11/2006, 9:40. FINDINGS: Image quality: Excellent. ABDOMEN: Lung bases: Lung bases are clear of acute opacities. Calcified granulomas noted in the right lung base which are stable compared to prior examinations. Calcified paraesophageal mediastinal lymph nodes are noted which are stable compared to prior exams.. Heart size is normal. Solid organs: Liver is normal in size and enhancement. Gallbladder is within normal limits. Biliary system is non dilated. Pancreas enhances normally. Spleen is normal in size and enhancement. No adrenal nodules. Kidneys demonstrate normal size and enhancement, without hydronephrosis. Peritoneum and bowel: Circumferential wall thickening involving the distal esophagus. The appendix is normal. Numerous diverticuli noted in the sigmoid colon without evidence of diverticulitis. Circumferential wall thickening noted in the sigmoid colon which we do to under distention versus nonspecific colitis. No abscess identified. No free fluid or air. Nodes and vessels: No retroperitoneal or mesenteric adenopathy by size criteria. Aorta and inferior vena cava are normal in size. Miscellaneous: No ventral hernias. PELVIS: Genitourinary: Bladder wall thickness is normal. Uterus is absent. Miscellaneous: No inguinal hernias or adenopathy. Bones: No suspicious bony lesions. No vertebral body compression fractures. IMPRESSION: 1. Circumferential wall thickening involving the distal esophagus which could represent inflammatory neoplastic process. Recommend endoscopy for further evaluation. 2. Colonic diverticulosis without evidence of acute diverticulitis. 3. Circumferential wall thickening involving the sigmoid colon compatible with under distention versus a nonspecific colitis. 4. The appendix is normal. 5. No free fluid or free air. 6. No dilated loops of bowel. Dictated by: Saida Meade MD, PhD on 07/16/2018 at 18:17 Approved by: Saida Meade MD, PhD on 07/16/2018 at 18:24 [facility] Narrative Medical decision making narrative: CT scan of the abdomen was obtained and shows diverticulosis with no signs of diverticulitis. Small amount of circumferential wall thickening involving the sigmoid colon. CT also showed compression wall thickening of the distal esophagus will have patient see primary care provider for discussion of endoscopy. Nmsi-[id number] Tylenol or Motrin as needed for any discomfort. Bvfz-[id number] Imodium as needed for diarrhea. CBC and Chem panel were obtained and were unremarkable. Urinalysis was negative for urinary tract infection. Patient was unable to give a stool sample while in the emergency room. She had no diarrhea for the timeframe that she was here. Will have follow-up with primary care provider in the next few days for re-evaluation. For any worsening symptoms return to the emergency room. Will treat conservatively for viral illness. <Huang Zamudio, DO - Last Filed: 07/16/18 21:49> Lab Data Lab Results 07/16/18 07/16/18 07/16/18 Range/Units 17:11 17:11 18:09 WBC 9.6 (4.5-11.0) X10^3/uL RBC 4.84 (4.0-5.2) X10^6/uL Hgb 12.2 (12.0-16.0) g/dL Hct 38.3 (36-46) % MCV 79.0 L (80-100) fL MCH 25.1 L (26-34) PG MCHC 31.8 (30-36) % RDW 15.0 H (11.6-14.8) % Plt Count 342 (150-400) X10^3/uL Neut % (Auto) 58.0 (50-75) % Lymph % (Auto) 31.6 (25-40) % [place] % (Auto) 7.2 (3-14) % Eos % (Auto) 2.1 (2-4) % Baso % (Auto) 1.1 (0-2) % Neut # (Auto) 5500 (0509-6736) /uL Sodium 142 (137-145) mmol/L Potassium 4.3 (3.4-5.1) mmol/L Chloride 102 (98-107) mmol/L Carbon Dioxide 27 (22-32) mmol/L BUN 19 H (7-17) mg/dL Creatinine 1.00 (0.52-1.04) mg/dL Estimated GFR 55.0 L (>60) mL/min BUN/Creatinine Ratio 19.0 (6-22) Glucose 186 H (80-110) mg/dL Calcium 9.8 (8.4-10.2) mg/dL Total Bilirubin 0.6 (0.2-1.3) mg/dL AST 29 (14-36) IU/L ALT 25 (9-52) IU/L Alkaline Phosphatase 104 (38-126) U/L Total Protein 8.0 (6.3-8.2) g/dL Albumin 4.7 (3.5-5.0) g/dL Globulin 3.3 (1.7-4.1) g/dL Albumin/Globulin Ratio 1.4 (1.0-2.8) Lipase 112 (23-300) U/L Urine RBC 0-1/hpf (0-5/HPF) Urine WBC 1-5/hpf (0-5/HPF) Ur Squamous Epith Cells 0-1 /hpf Ur Transition Epith Cell 0-1/hpf (0-5/HPF) Urine Bacteria None seen (None) Ur Culture Indicated? Cult not indicated Micro UA Comment Not Reportable Discharge Plan Departure Patient Disposition: Home Clinical Impression: Diarrhea Discharge Date/Time: 07/16/18 19:22 Interventions: ED Discharge Assessment Last Done: 07/16/18 19:21 Instructions: Diarrhea Activity Restrictions/Additional Instructions: CT the abdomen shows mild thickening of the wall of the sigmoid colon suggesting mild colitis. CT also shows some wall thickening of the distal esophagus recommend obtaining endoscopy discuss this with her primary care provider when you follow up with this for further evaluation. Laboratory results were unremarkable. Signs symptoms presents as viral illness. Use over- the-counter Imodium as needed for diarrhea. Use [id number] Tylenol or Motrin as needed for any discomfort. Plenty of fluids. Follow up with her primary care provider jules in this week. For any worsening symptoms return to the emergency room. Prescriptions: No Action carboxymethylcellulose sodium [Refresh Liquigel] 1 % Drops, Liquid Gel 2 gtt OU PRN Qty: 0 RF: 0 sodium chloride [Deep Sea Nasal] 44 ML aerosol,spray 2 spray Intranasal PRN PRN (Reason: Congestion) Qty: 0 RF: 0 aspirin 81 MG tablet,delayed release (DR/EC) 81 mg PO QDAY Qty: 0 RF: 0 lansoprazole 30 MG capsule,delayed release(DR/EC) 30 mg PO BID Qty: 180 RF: 3 blood sugar diagnostic [OneTouch Ultra Blue Test Strip] strip .ROUTE .MEDSUPPLY Qty: 250 RF: 11 clonazepam [Klonopin] 1 mg tablet 1 mg PO BID Qty: 180 RF: 1 fcvjjpyl-aiujpldjx-JX 3.5-10,000-1 mg/mL-unit/mL-% solution 4 drop otic (ear) TID PRN (Reason: ear pain) Qty: 10 RF: 0 gabapentin [Neurontin] 600 mg tablet 600 mg PO QDAY Qty: 90 RF: 3 hydrocodone-acetaminophen 10-325 mg tablet 1 - 2 tab PO Q4HP PRN (Reason: pain) Qty: 200 RF: 0 nadolol 40 mg tablet 40 mg PO DAILY Qty: 90 RF: 3 losartan 100 mg tablet 100 mg PO DAILY Qty: 90 RF: 1 albuterol sulfate [Ventolin HFA] 90 mcg/actuation HFA aerosol inhaler 2 puff INH Q4H PRNQty: 8 RF: 11 fluconazole [Diflucan] 150 MG tablet 150 mg PO QDAY PRN (Reason: YEAST) RF: 0 sulfamethoxazole-trimethoprim 800 MG/160 MG tablet 1 tab PO BID PRN (Reason: INFECTION) RF: 0 fluticasone [Flonase Allergy Relief] 50 mcg/actuation spray,suspension 2 spray Intranasal BEDTIME PRN (Reason: Allergy Symptoms) RF: 0 insulin aspart U-100 [Novolog Flexpen U-100 Insulin] 100 UNIT/1 ML insulin pen 5 - 15 units SQ Q4H PRN (Reason: HIGH BLOOD SUGAR) RF: 0 insulin detemir U-100 [Levemir FlexTouch U-100 Insuln] 100 UNIT/1 ML insulin pen 50 units SC QPM RF: 0 Disabled Parking Permit 1 ea miscellaneous PRN PRN (Reason: PARKING) RF: 0 [place] 5/16 Inch 1 ea SQ DIRECTED RF: 0 niacin 500 mg tablet 500 mg PO DAILY RF: 0 Referrals: Miller,Good R, MD [Primary Care Provider] - <Huang Zamudio DO - Last Filed: 07/16/18 21:49> Cosign ED Attending Makennaature Attestation: I was available for consultation during this patient's emergency department encounter
--- NOTE | 2018-07-16 17:16 | DI.CT.S_ITS ---
PROCEDURE: CT ABDOMEN PELVIS W CON INDICATIONS: Pain to left lower quadrant. Nausea. Diarrhea TECHNIQUE: After the administration of intravenous contrast, 5 mm thick sections acquired from the diaphragm to the symphysis. 5 mm coronal and sagittal reformats were acquired. For radiation dose reduction, the following was used: automated exposure control, adjustment of mA and/or kV according to patient size. COMPARISON: [facility], , CT ABDOMEN/PELVIS WITH CONTRAST, 07/19/2005, 10:46. [facility], , CT ABDOMEN/PELVIS WITH CONTRAST, 09/15/2004, 12:45. [facility], CT ABDOMEN/PELVIS WITH CONTRAST, 08/24/2004, 14:35. [facility], CT ABDOMEN/PELVIS WITH CONTRAST, 08/20/2004, 11:31. [facility], ABDOMEN ACUTE SERIES, 08/12/2017, 7:43. [facility], ABDOMEN ACUTE SERIES, 12/18/2015, 15:08. [facility], ABDOMEN ACUTE SERIES, 10/26/2014, 13:15. [facility], CT, ABDOMEN/PELVIS WITH CONTRAST, 10/09/2014, 15:05. [facility], ABDOMEN ACUTE SERIES, 10/05/2014, 10:40. [facility], [place], ABDOMEN COMPLETE, 05/08/2012, 8:34. [facility], CT, ABDOMEN/PELVIS WITH CONTRAST, 08/08/2010, 6:45. [facility], CT, ABDOMEN/PELVIS WITH CONTRAST, 09/28/2006, 13:09. [facility], CT ABDOMEN/PELVIS WITH CONTRAST, 09/11/2006, 9:40. FINDINGS: Image quality: Excellent. ABDOMEN: Lung bases: Lung bases are clear of acute opacities. Calcified granulomas noted in the right lung base which are stable compared to prior examinations. Calcified paraesophageal mediastinal lymph nodes are noted which are stable compared to prior exams.. Heart size is normal. Solid organs: Liver is normal in size and enhancement. Gallbladder is within normal limits. Biliary system is non dilated. Pancreas enhances normally. Spleen is normal in size and enhancement. No adrenal nodules. Kidneys demonstrate normal size and enhancement, without hydronephrosis. Peritoneum and bowel: Circumferential wall thickening involving the distal esophagus. The appendix is normal. Numerous diverticuli noted in the sigmoid colon without evidence of diverticulitis. Circumferential wall thickening noted in the sigmoid colon which we do to under distention versus nonspecific colitis. No abscess identified. No free fluid or air. Nodes and vessels: No retroperitoneal or mesenteric adenopathy by size criteria. Aorta and inferior vena cava are normal in size. Miscellaneous: No ventral hernias. PELVIS: Genitourinary: Bladder wall thickness is normal. Uterus is absent. Miscellaneous: No inguinal hernias or adenopathy. Bones: No suspicious bony lesions. No vertebral body compression fractures. IMPRESSION: 1. Circumferential wall thickening involving the distal esophagus which could represent inflammatory neoplastic process. Recommend endoscopy for further evaluation. 2. Colonic diverticulosis without evidence of acute diverticulitis. 3. Circumferential wall thickening involving the sigmoid colon compatible with under distention versus a nonspecific colitis. 4. The appendix is normal. 5. No free fluid or free air. 6. No dilated loops of bowel. Dictated by: Saida Meade MD, PhD on 07/16/2018 at 18:17 Approved by: Saida Meade MD, PhD on 07/16/2018 at 18:24
[2018-07-16 17:24] LABS: Add Manual Diff / Slide Review NO; Basophils Percent Auto 1.1 % (0-2); Eosinophils Percent Auto 2.1 % (2-4); Hematocrit 38.3 % (36-46); Hemoglobin 12.2 g/dL (12.0-16.0); Lymphocytes Percent Auto 31.6 % (25-40); Mean Corpuscular HGB Conc 31.8 % (30-36); Mean Corpuscular Hemoglobin 25.1 PG (26-34); Monocytes Percent Auto 7.2 % (3-14); Neutrophils Absolute Auto 5500 /uL (3000-5900); Platelet Count 342 X10^3/uL (150-400); Red Blood Cell Count 4.84 X10^6/uL (4.0-5.2); White Blood Cell Count 9.6 X10^3/uL (4.5-11.0)
[2018-07-16 17:35] LABS: Alanine Aminotransferase 25 IU/L (9-52); Albumin 4.7 g/dL (3.5-5.0); Albumin Globulin Ratio 1.4 (1.0-2.8); Alkaline Phosphatase 104 U/L (38-126); Aspartate Aminotransferase 29 IU/L (14-36); Bilirubin Total 0.6 mg/dL (0.2-1.3); Blood Urea Nitrogen 19 mg/dL (7-17); Calcium 9.8 mg/dL (8.4-10.2); Carbon Dioxide 27 mmol/L (22-32); Chloride 102 mmol/L (98-107); Globulin 3.3 g/dL (1.7-4.1); Glucose 186 mg/dL (80-110); HEMOLYSIS < 15 (0-50); Lipase 112 U/L (23-300); Potassium 4.3 mmol/L (3.4-5.1); Sodium 142 mmol/L (137-145)
[2018-07-16] MEDS: SODIUM CHLORIDE 0.9% 1,000 ML 1000 ML IV (17:38)
[2018-07-16] MEDS: HYDROMORPHONE 1 MG INJ 0.5 MG IV (17:38)
[2018-07-16] MEDS: ONDANSETRON 4 MG/2 ML INJ IV (17:39)
[2018-07-16 18:22] LABS: Bacteria Urine None Seen
[2018-07-16 18:32] VITALS: BP 137/61; PULSE 74; RESP 17; O2SAT 97
[2018-07-16 18:58] LABS: Culture Indicated Urine Cult Not Indicated; RBC Urine 0-1/HPF (0-5/HPF); Squamous Epithelial Cell Urine 0-1 /HPF; Transitional Epi Cells Urine 0-1/HPF (0-5/HPF); WBC Urine 1-5/HPF (0-5/HPF)
[2018-07-16 19:21] VITALS: BP 129/54; PULSE 72; RESP 16; O2SAT 96
== END 2018-07-16 19:22 | disposition home or self-care (01) ==
PROVIDERS: Emergency Provider Nurse Practitioner Family; PCP Internal Medicine
DX: R19.7 Diarrhea, unspecified (principal)
CPT/HCPCS: 36591; 74177; 80053; 81015; 83690; 85025; 96361; 96374; 96375; 99283; 99285; J1170; J2405; Q9967

== ENCOUNTER → 2018-07-17 11:24 | Outpatient (CLI) | payer MEDICARE, OTHER, SELFPAY | PROVIDERS: PCP Internal Medicine; Visit Provider Internal Medicine | DX: R19.7 Diarrhea, unspecified (principal) | CPT/HCPCS: 87015; 87045; 87205; 87427; 87899 ==

== ENCOUNTER → 2018-07-17 14:14 | Outpatient (CLI) | payer MEDICARE, OTHER, SELFPAY | PROVIDERS: PCP Internal Medicine; Visit Provider Internal Medicine | DX: R19.7 Diarrhea, unspecified (principal) | CPT/HCPCS: 86677 ==

== ENCOUNTER → 2018-07-19 13:49 | Outpatient (CLI) | payer MEDICARE, OTHER, SELFPAY | PROVIDERS: Family Provider Nurse Practitioner Family; PCP Internal Medicine; Visit Provider Internal Medicine | DX: R10.9 Unspecified abdominal pain (principal); R14.2 Eructation; R19.7 Diarrhea, unspecified | CPT/HCPCS: 83013 ==

== ENCOUNTER 2018-07-25 09:45 | Emergency (ER) | payer MEDICARE, OTHER, SELFPAY ==
[2018-07-25] VITALS (7 sets, daily range): BP systolic 125–142; BP diastolic 48–71; PULSE 68–78; RESP 13–18; TEMP 37.2; O2SAT 97–100
[2018-07-25] MEDS: SODIUM CHLORIDE 0.9% 1,000 ML 150 ML IV (11:49)
[2018-07-25 11:55] LABS: Add Manual Diff / Slide Review NO; Basophils Percent Auto 0.8 % (0-2); Eosinophils Percent Auto 1.7 % (2-4); Hematocrit 36.3 % (36-46); Hemoglobin 11.7 g/dL (12.0-16.0); Lymphocytes Percent Auto 28.2 % (25-40); Mean Corpuscular HGB Conc 32.1 % (30-36); Mean Corpuscular Hemoglobin 25.4 PG (26-34); Mean Corpuscular Volume 79.2 fL (80-100); Monocytes Percent Auto 6.9 % (3-14); Neutrophils Absolute Auto 4900 /uL (3000-5900); Neutrophils Percent Auto 62.4 % (50-75); Platelet Count 301 X10^3/uL (150-400); Red Blood Cell Count 4.59 X10^6/uL (4.0-5.2); Red Cell Distribution Width 15.6 % (11.6-14.8); White Blood Cell Count 7.9 X10^3/uL (4.5-11.0)
[2018-07-25 12:11] LABS: Alanine Aminotransferase 24 IU/L (9-52); Albumin 4.5 g/dL (3.5-5.0); Albumin Globulin Ratio 1.4 (1.0-2.8); Alkaline Phosphatase 93 U/L (38-126); Aspartate Aminotransferase 31 IU/L (14-36); BUN Creatinine Ratio 15.5 (6-22); Bilirubin Total 0.4 mg/dL (0.2-1.3); Blood Urea Nitrogen 17 mg/dL (7-17); Calcium 9.6 mg/dL (8.4-10.2); Carbon Dioxide 25 mmol/L (22-32); Chloride 105 mmol/L (98-107); Estimated Glomerular Filt Rate 49.2 mL/min (>60); Globulin 3.2 g/dL (1.7-4.1); Glucose 108 mg/dL (80-110); HEMOLYSIS < 15 (0-50); Lipase 92 U/L (23-300); Potassium 4.7 mmol/L (3.4-5.1); Sodium 142 mmol/L (137-145); Total Protein 7.7 g/dL (6.3-8.2)
--- NOTE | 2018-07-25 12:51 | ED.ABDPAIN ---
HPI - Abdominal Pain <MOY Lopez - Last Filed: 07/25/18 21:40> General Chief Complaint: Abdominal Pain Stated Complaint: DEHYDRATED, PAIN IN STOMACH Time Seen by Provider: 07/25/18 12:51 Source: patient Mode of arrival: ambulatory Limitations: no limitations History of Present Illness HPI narrative: 67-year-old female with history of type 2 diabetes and fibromyalgia as a former smoker. here for complaint of generalized abdominal pain over the past couple of weeks. She also reports that she is having sinus congestion. She was seen by me for same symptoms on the 16 of July. She had a complete workup at that time with normal lab results. CT did show some thickening of the esophageal wall and colon wall. She reports that she did give a stool sample to the lab and was negative for pathogens. However they were not able to complete a C diff is a did not have anough sample. She also reports she has had continued diarrhea for the same timeframe. She denies any fevers over she states she does has some chills. She was recently put on a Bactrim to treat her sinus condition by her primary care provider Dr. Miller. Positive p.o. intake. She states that she is currently eating soft foods. MD complaint: abdominal pain Related Data Home Medications Medication Instructions Recorded Confirmed carboxymethylcellulose sodium 2 gtt OU PRN #0 05/09/12 07/25/18 [Refresh Liquigel] sodium chloride [Deep Sea Nasal] 2 spray INTRANASAL PRN PRN #0 05/09/12 07/25/18 aspirin 81 mg PO QDAY #0 05/11/17 07/25/18 niacin 500 mg tablet 500 mg PO DAILY 03/20/18 07/25/18 Disabled [address]ing Permit 1 ea MISCELLANEOUS PRN PRN 07/16/18 07/25/18 [place] 5/16 Inch 1 ea SQ DIRECTED 07/16/18 07/25/18 fluconazole [Diflucan] 150 mg PO QDAY PRN 07/16/18 07/25/18 fluticasone [Flonase Allergy 2 spray INTRANASAL BEDTIME PRN 07/16/18 07/25/18 Relief] insulin aspart U-100 [Novolog 5 - 15 units SQ Q4H PRN 07/16/18 07/25/18 Flexpen U-100 Insulin] insulin detemir U-100 [Levemir 50 units SC QPM 07/16/18 07/25/18 FlexTouch U-100 Insuln] sulfamethoxazole-trimethoprim 1 tab PO BID PRN 07/16/18 07/25/18 albuterol sulfate [Ventolin HFA] 2 puff INH Q4H PRN 07/25/18 07/25/18 Previous Rx's Medication Instructions Recorded lansoprazole 30 mg PO BID #180 ecc 01/14/18 blood sugar diagnostic strips #250 each 03/22/18 clonazepam 1 mg tablet 1 mg PO BID #180 tab 04/22/18 ehqbtsto-[id number]-ynygxduxs 3.5 4 drop OTIC (EAR) TID PRN #10 ml 04/23/18 mg/mL-10,000 unit/mL-1 % ear solution gabapentin 600 mg tablet 600 mg PO QDAY #90 tab 06/07/18 hydrocodone 10 mg-acetaminophen 1 - 2 tab PO Q4HP PRN #200 tab 06/07/18 325 mg tablet nadolol 40 mg tablet 40 mg PO DAILY #90 tab 06/07/18 valsartan 160 mg tablet 160 mg PO DAILY #90 tab 07/19/18 Allergies Allergy/AdvReac Type Severity Reaction Status Date / Time atorvastatin [ATORVASTATIN] Allergy Unknown Verified 07/19/18 13:58 gemfibrozil [GEMFIBROZIL] Allergy Unknown Verified 07/19/18 13:58 rosuvastatin [ROSUVASTATIN] Allergy Unknown Verified 07/19/18 13:58 tetracycline [TETRACYCLINE] Allergy Unknown Verified 07/19/18 13:58 Milk Containing Products AdvReac Severe GI issues Verified 07/19/18 13:58 [MILK CONTAINING PRODUCTS] carisoprodol [CARISOPRODOL] AdvReac Intermediate DIZZINESS Verified 07/19/18 13:58 duloxetine [DULOXETINE] AdvReac Intermediate DIARRHEA Verified 07/19/18 13:58 fenofibrate [FENOFIBRATE] AdvReac Intermediate rash Verified 07/19/18 13:58 indomethacin [INDOMETHACIN] AdvReac Intermediate GI DISTRESS Verified 07/19/18 13:58 lisinopril [LISINOPRIL] AdvReac Intermediate EDEMA LEGS Verified 07/19/18 13:58 amoxicillin [AMOXICILLIN] AdvReac Mild itching Verified 07/19/18 13:58 Review of Systems <MOY Lopez - Last Filed: 07/25/18 21:40> Constitutional Reports chills and Denies fever(s) Eyes Denies change in vision, Denies eye discharge, Denies irritation and Denies loss of vision ENT Ears, Nose, Mouth, and Throat: Denies change in voice, Reports nasal discharge, Denies neck pain and Reports sore throat Cardiovascular Denies chest pain, Denies irregular heart rhythm, Denies lightheadedness, Denies palpitations, Denies dyspnea, Denies dyspnea on exertion and Denies orthopnea Respiratory Denies cough, Denies dyspnea, Denies dyspnea on exertion and Denies wheezing Gastrointestinal Gastrointestinal: Reports abdominal pain and Reports diarrhea Genitourinary Denies hematuria, Denies flank pain, Denies urinary incontinence and Denies urinary urgency Musculoskeletal Denies neck pain Integumentary/Breasts Denies pruritus, Denies erythema, Denies rash and Denies wounds Neurologic Denies confusion and Denies loss of vision Psychiatric Denies anxiety, Denies confusion, Denies depression, Denies homicidal ideation and Denies suicidal ideation Endocrine Denies palpitations Allergic/Immunologic Denies wheezing Exam <Chase Mittal [facility] [place] - Last Filed: 07/25/18 21:40> Initial Vital Signs Initial Vital Signs: Vital Signs Temperature 99.0 F 07/25/18 10:23 Pulse Rate 71 07/25/18 10:23 Respiratory Rate 16 07/25/18 10:23 Blood Pressure 133/60 07/25/18 10:23 Pulse Oximetry 99 07/25/18 10:23 Const General: cooperative and well developed Nutritional Appearance: well nourished Orientation: alert, awake, oriented x3 and not confused [facility] Mouth: oral mucosae normal, oropharynx normal and moist mucous membranes Eyes General: appearance normal, both eyes and all related structures Eyelids: eyelids normal Conjunctivae: conjunctivae normal Sclera: sclerae normal Pupils: PERRL EOM: EOM intact bilaterally Resp Effort & Inspection: normal respiratory effort, able to speak in complete sentences, no respiratory distress and no use of accessory muscles Auscultation: clear to auscultation bilaterally, no rales, no rhonchi and no wheezes Cardio Rate: regular rate Rhythm: regular rhythm Heart Sounds: no click, no gallops, no murmurs and no rubs Pulses: normal peripheral pulses GI Inspection: non-distended Palpation: soft, no hepatosplenomegaly, No guarding, No pulsatile mass and tender (Generalized tenderness) Auscultation: normal bowel sounds General: No CVA tenderness Skin General: no rashes or lesions noted, No jaundice and No petechiae Neuro General: alert, oriented x3, gait normal and no focal motor deficits Speech: speech normal <Chika Blue DO - Last Filed: 07/28/18 07:51> Initial Vital Signs Initial Vital Signs: Vital Signs Temperature 99.0 F 07/25/18 10:23 Pulse Rate 71 07/25/18 10:23 Respiratory Rate 16 07/25/18 10:23 Blood Pressure 133/60 07/25/18 10:23 Pulse Oximetry 99 07/25/18 10:23 Course <MOY Lopez - Last Filed: 07/25/18 21:40> Orders Ordered: Discontinued Medications Sodium Chloride (Normal Saline 0.9%) 1,000 mls @ 150 mls/hr IV CONT RUBY Last Infusion: 07/25/18 14:51 Dose: 150 mls/hr Admin: 07/25/18 11:49 Dose: 150 mls/hr Vital Signs - 8 hr 07/25/18 14:43 07/25/18 14:52 Pulse Rate 78 76 Respiratory Rate 18 17 Blood Pressure 132/64 Blood Pressure [Right Arm] 132/64 Pulse Oximetry 100 99 <Chika Blue DO - Last Filed: 07/28/18 07:51> Orders Ordered: Discontinued Medications Sodium Chloride (Normal Saline 0.9%) 1,000 mls @ 150 mls/hr IV CONT RUBY Last Infusion: 07/25/18 14:51 Dose: 150 mls/hr Admin: 07/25/18 11:49 Dose: 150 mls/hr Vital Signs - 8 hr 07/25/18 14:43 07/25/18 14:52 Pulse Rate 78 76 Respiratory Rate 18 17 Blood Pressure 132/64 Blood Pressure [Right Arm] 132/64 Pulse Oximetry 100 99 MDM - Abdominal Pain <MOY Lopez - Last Filed: 07/25/18 21:40> Lab Data Result diagrams: 07/25/18 11:40 07/25/18 11:40 Lab Results 07/25/18 07/25/18 07/27/18 Range/Units 11:40 11:40 11:18 WBC 7.9 (4.5-11.0) X10^3/uL RBC 4.59 (4.0-5.2) X10^6/uL Hgb 11.7 L (12.0-16.0) g/dL Hct 36.3 (36-46) % MCV 79.2 L (80-100) fL MCH 25.4 L (26-34) PG MCHC 32.1 (30-36) % RDW 15.6 H (11.6-14.8) % Plt Count 301 (150-400) X10^3/uL Neut % (Auto) 62.4 (50-75) % Lymph % (Auto) 28.2 (25-40) % [place] % (Auto) 6.9 (3-14) % Eos % (Auto) 1.7 L (2-4) % Baso % (Auto) 0.8 (0-2) % Neut # (Auto) 4900 (7413-3738) /uL Sodium 142 (137-145) mmol/L Potassium 4.7 (3.4-5.1) mmol/L Chloride 105 (98-107) mmol/L Carbon Dioxide 25 (22-32) mmol/L BUN 17 (7-17) mg/dL Creatinine 1.10 H (0.52-1.04) mg/dL Estimated GFR 49.2 L (>60) mL/min BUN/Creatinine Ratio 15.5 (6-22) Glucose 108 (80-110) mg/dL Calcium 9.6 (8.4-10.2) mg/dL Total Bilirubin 0.4 (0.2-1.3) mg/dL AST 31 (14-36) IU/L ALT 24 (9-52) IU/L Alkaline Phosphatase 93 (38-126) U/L Total Protein 7.7 (6.3-8.2) g/dL Albumin 4.5 (3.5-5.0) g/dL Globulin 3.2 (1.7-4.1) g/dL Albumin/Globulin Ratio 1.4 (1.0-2.8) Lipase 92 (23-300) U/L C. difficile Tox (PCR) Negative for c. diff Point of care testing: Urine Dip Bedside Urine Glucose Negative Bedside Urine Bilirubin - Negative Bedside Urine Ketone - Negative Urine Specific [place] 1.025 Bedside Urine Occult Blood - Negative Bedside Urine pH 5.5 Bedside Urine Protein - Negative Bedside Urine Urobilinogen - Negative Bedside Urine Nitrite - Negative Bedside Urine Leukocytes - Negative Esterase MDM Narrative Medical decision making narrative: Laboratory results today were unremarkable. Acute abdominal series was obtained and shows Mild interstitial prominence throughout no infiltrate is seen. Abdominal x-ray was negative for any acute findings. Discussed case with Dr. Jacobo who is induction heat treater for Dr. Miller who recommends the patient give C diff sample and have follow-up with primary care office. in the next couple of days. C diff was ordered. She was given a few cups to provide sample. She will see the primary care office beginning of next week. She will also follow up for surgery for endoscopy. Current prescribed medications as prescribed. For any worsening symptoms return to the emergency room. <Chika Blue, DO - Last Filed: 07/28/18 07:51> Lab Data Lab Results 07/25/18 07/25/18 07/27/18 Range/Units 11:40 11:40 11:18 WBC 7.9 (4.5-11.0) X10^3/uL RBC 4.59 (4.0-5.2) X10^6/uL Hgb 11.7 L (12.0-16.0) g/dL Hct 36.3 (36-46) % MCV 79.2 L (80-100) fL MCH 25.4 L (26-34) PG MCHC 32.1 (30-36) % RDW 15.6 H (11.6-14.8) % Plt Count 301 (150-400) X10^3/uL Neut % (Auto) 62.4 (50-75) % Lymph % (Auto) 28.2 (25-40) % [place] % (Auto) 6.9 (3-14) % Eos % (Auto) 1.7 L (2-4) % Baso % (Auto) 0.8 (0-2) % Neut # (Auto) 4900 (6650-0233) /uL Sodium 142 (137-145) mmol/L Potassium 4.7 (3.4-5.1) mmol/L Chloride 105 (98-107) mmol/L Carbon Dioxide 25 (22-32) mmol/L BUN 17 (7-17) mg/dL Creatinine 1.10 H (0.52-1.04) mg/dL Estimated GFR 49.2 L (>60) mL/min BUN/Creatinine Ratio 15.5 (6-22) Glucose 108 (80-110) mg/dL Calcium 9.6 (8.4-10.2) mg/dL Total Bilirubin 0.4 (0.2-1.3) mg/dL AST 31 (14-36) IU/L ALT 24 (9-52) IU/L Alkaline Phosphatase 93 (38-126) U/L Total Protein 7.7 (6.3-8.2) g/dL Albumin 4.5 (3.5-5.0) g/dL Globulin 3.2 (1.7-4.1) g/dL Albumin/Globulin Ratio 1.4 (1.0-2.8) Lipase 92 (23-300) U/L C. difficile Tox (PCR) Negative for c. diff Point of care testing: Urine Dip Bedside Urine Glucose Negative Bedside Urine Bilirubin - Negative Bedside Urine Ketone - Negative Urine Specific [place] 1.025 Bedside Urine Occult Blood - Negative Bedside Urine pH 5.5 Bedside Urine Protein - Negative Bedside Urine Urobilinogen - Negative Bedside Urine Nitrite - Negative Bedside Urine Leukocytes - Negative Esterase Discharge Plan Departure Patient Disposition: Home Clinical Impression: Abdominal pain Discharge Date/Time: 07/25/18 14:54 Interventions: ED Discharge Assessment Last Done: 07/25/18 14:52 Instructions: DI for Abdominal Pain-Adult Activity Restrictions/Additional Instructions: Laboratory results today were unremarkable. Abdominal and chest x-ray shows mild interstitial prominence no signs of pneumonia otherwise is normal. Discussed case with the primary care office who recommends C diff testing. Provide sample to the laboratory for further evaluation. Follow up with primary care office in the next few days for re-evaluation. Follow up with surgery to continue process for endoscopy. Currently prescribed medications as prescribed and pain management regimen as needed for discomfort for any worsening symptoms return to the emergency room. Prescriptions: No Action carboxymethylcellulose sodium [Refresh Liquigel] 1 % Drops, Liquid Gel 2 gtt OU PRN Qty: 0 RF: 0 sodium chloride [Deep Sea Nasal] 44 ML aerosol,spray 2 spray Intranasal PRN PRN (Reason: Congestion) Qty: 0 RF: 0 aspirin 81 MG tablet,delayed release (DR/EC) 81 mg PO QDAY Qty: 0 RF: 0 lansoprazole 30 MG capsule,delayed release(DR/EC) 30 mg PO BID Qty: 180 RF: 3 blood sugar diagnostic [OneTouch Ultra Blue Test Strip] strip .ROUTE .MEDSUPPLY Qty: 250 RF: 11 clonazepam [Klonopin] 1 mg tablet 1 mg PO BID Qty: 180 RF: 1 rghmspic-xwmjsvutk-FU 3.5-10,000-1 mg/mL-unit/mL-% solution 4 drop otic (ear) TID PRN (Reason: ear pain) Qty: 10 RF: 0 gabapentin [Neurontin] 600 mg tablet 600 mg PO QDAY Qty: 90 RF: 3 hydrocodone-acetaminophen 10-325 mg tablet 1 - 2 tab PO Q4HP PRN (Reason: pain) Qty: 200 RF: 0 nadolol 40 mg tablet 40 mg PO DAILY Qty: 90 RF: 3 valsartan 160 mg tablet 160 mg PO DAILY Qty: 90 RF: 1 albuterol sulfate [Ventolin HFA] 90 mcg/actuation HFA aerosol inhaler 2 puff INH Q4H PRN (Reason: Shortness Of Breath) RF: 0 fluconazole [Diflucan] 150 MG tablet 150 mg PO QDAY PRN (Reason: YEAST) RF: 0 sulfamethoxazole-trimethoprim 800 MG/160 MG tablet 1 tab PO BID PRN (Reason: INFECTION) RF: 0 fluticasone [Flonase Allergy Relief] 50 mcg/actuation spray,suspension 2 spray Intranasal BEDTIME PRN (Reason: Allergy Symptoms) RF: 0 insulin aspart U-100 [Novolog Flexpen U-100 Insulin] 100 UNIT/1 ML insulin pen 5 - 15 units SQ Q4H PRN (Reason: HIGH BLOOD SUGAR) RF: 0 insulin detemir U-100 [Levemir FlexTouch U-100 Insuln] 100 UNIT/1 ML insulin pen 50 units SC QPM RF: 0 Disabled Parking Permit 1 ea miscellaneous PRN PRN (Reason: PARKING) RF: 0 [place] 5/16 Inch 1 ea SQ DIRECTED RF: 0 niacin 500 mg tablet 500 mg PO DAILY RF: 0 Referrals: Good Miller MD [Primary Care Provider] - <Chika Blue, DO - Last Filed: 07/28/18 07:51> Cosign ED Attending Cosignature Attestation: I was immediately available in the department for consultation. This documentation has been reviewed and I agree with assessment and plan. Supervised by Chika Blue DO
--- NOTE | 2018-07-25 12:57 | DI.RAD.S_ITS ---
PROCEDURE: XR ACUTE ABDOMEN SERIES INDICATIONS: Cough and abdominal pain TECHNIQUE: One view chest and two views of the abdomen were acquired. COMPARISON: [facility], CR, CHEST 2 VIEW, 07/06/2016, 11:58. [facility], CT, CT ABDOMEN PELVIS W CON, 07/16/2018, 17:46. [facility], CR, ABDOMEN ACUTE SERIES, 08/12/2017, 7:43. FINDINGS: Surgical changes and devices: None. Chest: Mild interstitial prominence is seen. No focal infiltrates are seen. Heart size is normal. No pleural effusions. No pneumoperitoneum. Abdomen: Bowel gas pattern is normal. No suspicious calcifications. Visualized solid organ contours appear normal. Bones: No suspicious bony lesions. Age-appropriate bony degenerative changes are seen. IMPRESSION: Interstitial prominence is seen throughout. The interstitial prominence is nonspecific, yet may be related to pulmonary edema. A nonobstructive bowel gas pattern is seen. As clinically appropriate, please consider a repeat plain film study or a dedicated CT of the abdomen and pelvis, if the patient's symptoms persist or worsen. Dictated by: Emmanuel Mejia M.D. on 07/25/2018 at 13:47 Approved by: Emmanuel Mejia M.D. on 07/25/2018 at 13:49
[2018-07-27 12:30] LABS: Clostridium Difficile Tox PCR Negative for C. diff
== END 2018-07-25 14:54 | disposition home or self-care (01) ==
PROVIDERS: Emergency Medicine; Emergency Provider Nurse Practitioner Family; Family Provider Nurse Practitioner Family; PCP Internal Medicine
DX: R10.9 Unspecified abdominal pain (principal)
CPT/HCPCS: 36415; 36591; 74022; 80053; 81003; 83690; 85025; 87493; 96360; 96361; 99284

== ENCOUNTER → 2018-07-27 11:12 | Outpatient (CLI) | payer MEDICARE, OTHER, SELFPAY | PROVIDERS: PCP Internal Medicine; Visit Provider Internal Medicine | DX: Z53.9 Procedure and treatment not carried out, unspecified reason (principal) ==

== ENCOUNTER → 2018-08-09 11:04 | Outpatient (CLI) | payer MEDICARE, OTHER, SELFPAY ==
--- NOTE | 2018-08-09 11:07 | DI.CT.S_ITS ---
PROCEDURE: CT CHEST HIGH RESOLUTION INDICATIONS: Interstitial lung disease, dyspnea TECHNIQUE: Noncontrast 1.0 and 5.0 mm thick contiguous axial sections from the pulmonary apex to the posterior costophrenic angles, with 7 mm thick coronal and sagittal MIP reformats. 1 mm thick dynamic expiratory images acquired through the upper, mid, and lower lungs. 1.0 mm thick axial sections acquired from the micha to the posterior costophrenic angles in the prone end-inspiration position. For radiation dose reduction, the following was used: automated exposure control, adjustment of mA and/or kV according to patient size. COMPARISON: None. FINDINGS: Image quality: Excellent. Lungs: Biapical scarring is seen. Thickened interlobular septa and periphery of bilateral lung barriga are seen with patchy ground glass opacities predominantly in upper lobes suggestive of small airway disease/pneumonitis. Scarring/atelectasis in right lower lung field is seen with small calcified granuloma in right lower lobe measures 8 and 4 mm in size. Small calcified granuloma also seen in left lung base along oblique fissure, and measures 2-3 mm in size. No gross soft tissue density nodule is seen. Central and peripheral airways are patent and are normal in caliber. Pleura: No pleural effusions or pneumothorax. Mediastinum: Heart size is normal. No pericardial effusion. Thoracic aorta and central pulmonary arteries are normal in size. Esophagus is normal in caliber. Bones and chest wall: No suspicious bony lesions. No vertebral body compression fractures. Abdomen: Visualized upper abdominal solid organs and bowel loops appear normal. IMPRESSION: 1. Mildly increased interstitial lung reticular markings and subtle patchy groundglass opacity scattered in the periphery of bilateral lung barriga with normally involving bilateral upper lobes suggestive of mild pneumonitis versus early small airway disease. No focal infiltrate, pleural effusion or pneumothorax. 2. No gross mediastinal or hilar adenopathy. 3. Calcified granuloma seen in bilateral lower lung barriga likely represent prior granulomatous disease. Dictated by: Yimi Alfaro M.D. on 08/09/2018 at 13:18 Approved by: Yimi Alfaro M.D. on 08/09/2018 at 13:27
== END ==
PROVIDERS: PCP Internal Medicine; Visit Provider Internal Medicine
DX: J84.9 Interstitial pulmonary disease, unspecified (principal); R06.00 Dyspnea, unspecified
CPT/HCPCS: 71250

== ENCOUNTER 2018-08-23 07:47 | Day surgery (SDC) | payer MEDICARE, OTHER, SELFPAY ==
[2018-08-23 08:22] VITALS: BP 122/62; PULSE 62; RESP 17; TEMP 35.9; O2SAT 95; BMI 31.7
[2018-08-23] MEDS: SODIUM CHLORIDE 0.9% 1,000 ML 200 ML IV (08:22)
--- NOTE | 2018-08-23 10:23 | PM.PREOP ---
Pre-operative Note Interval Note Pre-op Check: Yes History & Physical Reviewed by Physician and Yes Exam Performed Changes: Yes H&P completed within 30 days and has changed as indicated here:: Glucose 146 this morning
--- NOTE | 2018-08-23 10:50 | PM.OP.ENDO ---
Operative Date/Time/Diagnoses Date of procedure: 08/23/18 Time of procedure: 10:50 Pre-op diagnosis: Abnormal CT scan. Occasional dysphagia. Post-op diagnosis: same Procedure & Clinicians Study performed: EGD with through the scope balloon dilatation to 15 mm diameter Same procedure as scheduled: Yes Indications: Evaluate abnormality seen on CT scan. Treat any cause of dysphagia. Surgeon: Gabriele Gardiner Procedure Notes SCOAP/Timeout: Performed Procedure in detail: The patient had topical anesthetic applied to oropharynx. She was placed in left lateral decubitus position and underwent IV sedation directed by the surgeon consisting of fentanyl and Versed. A bite block was inserted and the scope was advanced through it into the esophagus. The proximal esophagus was unremarkable. GE junction was noted at 38 cm from the incisors. It was difficult to dilate with air of the distal esophagus. There was no abnormality though of the mucosal lining.. The stomach insufflated well. There were no lesions seen in the body, antrum or at the incisura. The pyloric channel was patent. The duodenum was unremarkable to the 3rd part. The scope was brought back into the stomach and retroflexed. The proximal stomach normal in appearance. There was no hiatal hernia seen.. The scope was straightened and brought out through the esophagus again. No lesions were seen at the GE junction. I passed a 12-15 mm diameter balloon dilator through the scope and gradually dilated the distal esophagus. At 15 mm the balloon did seem to dilate the distal esophagus and was not against the arzola. The balloon dilator was removed and the area examined. There was no evidence of any perforation or split. The scope was removed and the patient tolerated the procedure well. Scope withdrawal time: Not applicable Sedation minutes: 14 Findings: other findings (Difficult to insufflate distal esophagus. Dilated to 15 mm diameter.) Specimen(s): none sent Complications: none Recommendations: Continue medication(s) Follow up: as needed Disposition: PACU
[2018-08-23 11:00] VITALS: BP 107/64; PULSE 65; RESP 13; TEMP 36.3; O2SAT 95
[2018-08-23] MEDS: TETRACAINE/BENZOCAINE/BUTAMBEN (CETACAINE) BOTTLE 1 SPRAY TOP (11:04)
[2018-08-23] MEDS: LIDOCAINE 4% SOLN 50 ML 20 ML TOP (11:05)
[2018-08-23] MEDS: MIDAZOLAM 5 MG/5 ML VIAL IV (11:06)
[2018-08-23] MEDS: fentaNYL 250 MCG/5 ML INJ IV (11:07)
[2018-08-23 11:25] VITALS: BP 124/64; PULSE 65; RESP 15; TEMP 35.9; O2SAT 98
== END 2018-08-23 11:30 | disposition home or self-care (01) ==
PROVIDERS: PCP Internal Medicine; Visit Provider Specialist
PROC: 0DJ08ZZ Inspection of Upper Intestinal Tract, Via Natural or Artificial Opening Endoscopic (ICD-10-PCS; CPT 43235; principal; 2018-08-23 09:45)
DX: R13.10 Dysphagia, unspecified (principal); R93.3 Abnormal findings on diagnostic imaging of other parts of digestive tract; Z87.891 Personal history of nicotine dependence; E11.9 Type 2 diabetes mellitus without complications; Z79.4 Long term (current) use of insulin; M35.00 Sjogren syndrome, unspecified; I10 Essential (primary) hypertension
CPT/HCPCS: 43249; 99152; J2250; J3010

== ENCOUNTER → 2018-09-11 06:57 | Outpatient (CLI) | payer MEDICARE, OTHER, SELFPAY ==
[2018-09-11 08:33] LABS: Add Manual Diff / Slide Review NO; Basophils Percent Auto 0.4 % (0-2); Hematocrit 38.3 % (36-46); Hemoglobin 11.9 g/dL (12.0-16.0); Lymphocytes Percent Auto 29.3 % (25-40); Mean Corpuscular HGB Conc 31.2 % (30-36); Mean Corpuscular Hemoglobin 24.7 PG (26-34); Mean Corpuscular Volume 79.4 fL (80-100); Monocytes Percent Auto 6.2 % (3-14); Neutrophils Absolute Auto 4500 /uL (3000-5900); Neutrophils Percent Auto 61.1 % (50-75); Platelet Count 290 X10^3/uL (150-400); Red Blood Cell Count 4.82 X10^6/uL (4.0-5.2); Red Cell Distribution Width 15.4 % (11.6-14.8); White Blood Cell Count 7.3 X10^3/uL (4.5-11.0)
[2018-09-11 08:55] LABS: Hemoglobin A1C% w Est Avg Glu 6.5 % (4.0-6.0)
[2018-09-11 08:58] LABS: Alanine Aminotransferase 23 IU/L (9-52); Albumin 4.5 g/dL (3.5-5.0); Albumin Globulin Ratio 1.4 (1.0-2.8); Alkaline Phosphatase 80 U/L (38-126); Aspartate Aminotransferase 23 IU/L (14-36); BUN Creatinine Ratio 21.1 (6-22); Bilirubin Total 0.3 mg/dL (0.2-1.3); Blood Urea Nitrogen 19 mg/dL (7-17); Calcium 9.2 mg/dL (8.4-10.2); Carbon Dioxide 27 mmol/L (22-32); Chloride 105 mmol/L (98-107); Estimated Glomerular Filt Rate > 60.0 mL/min (>60); Globulin 3.2 g/dL (1.7-4.1); Glucose 140 mg/dL (80-110); HEMOLYSIS < 15 (0-50); Potassium 4.6 mmol/L (3.4-5.1); Sodium 144 mmol/L (137-145); Total Protein 7.7 g/dL (6.3-8.2)
[2018-09-11 09:06] LABS: Free T4, Direct Thyroxine 1.03 ng/dL (0.78-2.19)
[2018-09-11 09:20] LABS: Thyroid Stimulating Hormone 0.64 uIU/mL (0.47-4.68)
== END ==
PROVIDERS: PCP Internal Medicine; Visit Provider Internal Medicine
DX: E11.9 Type 2 diabetes mellitus without complications (principal); J84.9 Interstitial pulmonary disease, unspecified; R06.02 Shortness of breath
CPT/HCPCS: 36415; 80053; 83036; 84439; 84443; 85025

== ENCOUNTER → 2018-10-10 11:12 | Outpatient (CLI) | payer MEDICARE, OTHER, SELFPAY ==
[2018-10-10 13:19] LABS: HEMOLYSIS < 15 (0-50); Iron 37 ug/dL (37-170)
[2018-10-10 13:31] LABS: Percent Iron Saturation 9 % (15-50); Total Iron Binding Capacity 408 ug/dL (265-497); Transferrin 330 mg/dL (206-381)
[2018-10-10 17:00] LABS: Ferritin 10.2 ng/mL (11.1-264)
== END ==
PROVIDERS: PCP Internal Medicine; Visit Provider Internal Medicine
DX: D64.9 Anemia, unspecified (principal); E61.1 Iron deficiency
CPT/HCPCS: 36415; 82728; 83540; 83550

== ENCOUNTER → 2018-10-23 14:39 | Outpatient (CLI) | payer MEDICARE, OTHER, SELFPAY ==
--- NOTE | 2018-10-23 14:40 | DI.MG.S_ITS ---
BILATERAL DIGITAL DIAGNOSTIC MAMMOGRAM 3D/2D: 10/23/2018 CLINICAL: Patient returns for 6 month follow up of right breast, due for bilateral exam. Family history of breast cancer. Comparison is made to exams dated: 04/12/2018 mammogram, 10/08/2017 mammogram, and 10/03/2017 mammogram - Located [facility]. The tissue of both breasts is predominantly fatty. There is a stable 3 mm area of clustered dystrophic calcifications in the right breast at 8 o'clock in the retroareolar region. No other significant masses, calcifications, or other findings are seen in either breast. IMPRESSION: The stable 3 mm area of clustered dystrophic calcifications in the right breast are benign. There is no mammographic evidence of malignancy. A 1 year screening mammogram is recommended. This exam was interpreted at Station ID: [id number]. NOTE: For mammograms, a report in lay terms will be sent to the patient. Approximately 15% of breast malignancies will not be visualized mammographically. In the management of a palpable breast mass, a negative mammogram must not discourage biopsy of a clinically suspicious lesion. Electronically Signed By: Monique Portillo M.D. lk/:10/23/2018 15:14:00 copy to: Good Miller letter sent: Normal Exam ACR BI-RADS Category 2: Benign Finding(s) [id number]
== END ==
PROVIDERS: PCP Internal Medicine
DX: R92.1 Mammographic calcification found on diagnostic imaging of breast (principal); Z80.3 Family history of malignant neoplasm of breast
CPT/HCPCS: 77066; G0279

== ENCOUNTER → 2019-03-18 06:54 | Outpatient (CLI) | payer MEDICARE, OTHER, SELFPAY ==
[2019-03-18 08:25] LABS: Add Manual Diff / Slide Review NO; Basophils Absolute Auto 0 /uL (0-100); Basophils Percent Auto 0.6 % (0-2); Eosinophils Absolute Auto 200 /uL (0-450); Eosinophils Percent Auto 4.2 % (2-4); Hematocrit 41.6 % (36-46); Hemoglobin 13.7 g/dL (12.0-16.0); Lymphocytes Absolute Auto 2000 /uL (1100-4500); Lymphocytes Percent Auto 33.9 % (25-40); Mean Corpuscular HGB Conc 32.8 % (30-36); Mean Corpuscular Hemoglobin 28.9 PG (26-34); Mean Corpuscular Volume 87.9 fL (80-100); Monocytes Absolute Auto 500 /uL (0-900); Monocytes Percent Auto 7.7 % (3-14); Neutrophils Absolute Auto 3100 /uL (1500-7000); Neutrophils Percent Auto 53.6 % (50-75); Platelet Count 270 X10^3/uL (150-400); Red Blood Cell Count 4.73 X10^6/uL (4.0-5.2); Red Cell Distribution Width 13.9 % (11.6-14.8); White Blood Cell Count 5.8 X10^3/uL (4.5-11.0)
[2019-03-18 08:33] LABS: Hemoglobin A1C% w Est Avg Glu 6.1 % (4.0-6.0)
[2019-03-18 09:06] LABS: HEMOLYSIS < 15 (0-50); Iron 61 ug/dL (37-170)
[2019-03-18 09:08] LABS: Alanine Aminotransferase 21 IU/L (9-52); Albumin 4.2 g/dL (3.5-5.0); Albumin Globulin Ratio 1.4 (1.0-2.8); Alkaline Phosphatase 78 U/L (38-126); Aspartate Aminotransferase 24 IU/L (14-36); BUN Creatinine Ratio 17.8 (6-22); Bilirubin Total 0.5 mg/dL (0.2-1.3); Blood Urea Nitrogen 16 mg/dL (7-17); Calcium 9.3 mg/dL (8.4-10.2); Carbon Dioxide 29 mmol/L (22-32); Chloride 101 mmol/L (98-107); Estimated Glomerular Filt Rate > 60.0 mL/min (>60); Glucose 121 mg/dL (80-110); HEMOLYSIS < 15 (0-50); Potassium 4.5 mmol/L (3.4-5.1); Sodium 138 mmol/L (137-145); Total Protein 7.2 g/dL (6.3-8.2)
[2019-03-18 09:18] LABS: Percent Iron Saturation 19 % (15-50); Total Iron Binding Capacity 317 ug/dL (265-497); Transferrin 247 mg/dL (206-381)
== END ==
PROVIDERS: PCP Internal Medicine; Visit Provider Internal Medicine
DX: D50.9 Iron deficiency anemia, unspecified (principal); D86.9 Sarcoidosis, unspecified; E11.9 Type 2 diabetes mellitus without complications
CPT/HCPCS: 36415; 80053; 83036; 83540; 83550; 85025

== ENCOUNTER → 2019-06-19 12:21 | Outpatient (CLI) | payer MEDICARE, OTHER, SELFPAY ==
[2019-06-19 12:46] LABS: Blood Urea Nitrogen 19 mg/dL (7-17); Estimated Glomerular Filt Rate 54.8 mL/min (>60)
--- NOTE | 2019-06-19 13:00 | DI.CT.S_ITS ---
PROCEDURE: CT ABDOMEN PELVIS W CON INDICATIONS: GENERALIZED ABDOMINAL PAIN TECHNIQUE: After the administration of oral and intravenous contrast, 5 mm thick sections acquired from the diaphragms to the symphysis. 5 mm thick coronal and sagittal reformats were performed. For radiation dose reduction, the following was used: automated exposure control, adjustment of mA and/or kV according to patient size. COMPARISON: [facility], CT, CT ABDOMEN PELVIS W CON, 07/16/2018, 17:46. FINDINGS: Image quality: Excellent. ABDOMEN: Lung bases: Lung bases are clear. Heart size is normal. Solid organs: Moderate hepatic steatosis Gallbladder contracted otherwise unremarkable. Biliary system is non-dilated. Pancreas enhances normally. Spleen is normal in size and enhancement. No adrenal nodules. Kidneys are normal in size and enhancement, without hydronephrosis. Peritoneum and bowel: There is circumferential lower esophageal wall thickening. No free fluid or air. The appendix is within normal limits. Colonic diverticulosis is seen without evidence of acute complication. Possible long segment wall thickening of the sigmoid colon suggestive of colitis although minimal if any adjacent inflammatory fat stranding. Furthermore, this appears unchanged since 07/06/18. Nodes and vessels: No retroperitoneal or mesenteric adenopathy. Aorta and inferior vena cava are normal in caliber. Miscellaneous: No ventral hernias. There is anterior abdominal wall skin thickening and subcutaneous stranding PELVIS: Genitourinary: Bladder wall thickness is normal. Miscellaneous: No inguinal hernias or adenopathy. Bones: No suspicious bony lesions. No vertebral body compression fractures. 1 cm lytic vertebral body lesion is unchanged. IMPRESSION: Abdominal wall superficial cellulitis, non-specific etiology. Normal appendix. Colonic diverticulosis without evidence of acute diverticulitis. Mild hepatic steatosis. Lower esophageal wall thickening, which could be infectious or inflammatory however cannot exclude esophageal neoplasm. Of note, the appearance is grossly unchanged since 07/16/18. This could be further assessed with endoscopy as clinically warranted. Dictated by: Bimal Zhu M.D. on 06/19/2019 at 17:23 Approved by: Bimal Zhu M.D. on 06/19/2019 at 17:29
== END ==
PROVIDERS: PCP Internal Medicine; Visit Provider Internal Medicine Rheumatology
DX: R10.84 Generalized abdominal pain (principal); M25.50 Pain in unspecified joint; L03.311 Cellulitis of abdominal wall; K57.90 Diverticulosis of intestine, part unspecified, without perforation or abscess without bleeding; K76.0 Fatty (change of) liver, not elsewhere classified
CPT/HCPCS: 36415; 74177; 82565; 84520

== ENCOUNTER 2019-10-13 06:10 | Emergency (ER) | payer MEDICARE, OTHER, SELFPAY ==
[2019-10-13 06:46] VITALS: BP 131/56; PULSE 71; RESP 20; TEMP 36.4; O2SAT 98
[2019-10-13 06:49] LABS: Appearance Urine UA CLOUDY; Bilirubin Urine UA NEGATIVE (NEGATIVE); Color Urine UA YELLOW; Glucose Urine UA NEGATIVE (Negative); Ketones Urine UA NEGATIVE (NEGATIVE); Leukocyte Esterase Urine UA 3+ (NEGATIVE); Nitrite Urine UA NEGATIVE (Negative); Occult Blood Urine UA 1+ (Negative); Protein Urine UA TRACE (Negative); Urobilinogen Urine UA 0.2 E.U./dL (0.2)
[2019-10-13 06:58] VITALS: PULSE 71; RESP 20; TEMP 36.4; O2SAT 98
[2019-10-13 06:58] LABS: Bacteria Urine Many (>30); RBC Urine 1-5/HPF (0-5/HPF); WBC Urine >100/HPF (0-5/HPF)
[2019-10-13 06:59] LABS: Culture Indicated Urine Specimen Cultured
--- NOTE | 2019-10-13 07:45 | ED_ITS ---
HPI - Female Genitourinary General Chief complaint: Urogenital-Female Stated complaint: Thinks she has uti, unable to urinate Time Seen by Provider: 10/13/19 07:11 Source: patient Mode of arrival: Ambulatory Limitations: no limitations History of Present Illness HPI Narrative: Patient is a 68-year-old female who presents with painful frequent urination ongoing for the last 2-3 days. She says that she has been chilled she denies any fever she has no nausea vomiting no flank pain. She has had some left upper quadrant pain ongoing for the last 4-5 days you can actually feel something underneath the skin it is tender in 1 particular area. No erythema no gross drainage. MD Complaint: dysuria and UTI Related Data Home Medications Medication Instructions Recorded Confirmed carboxymethylcellulose sodium 2 gtt OU PRN #0 05/09/12 09/18/19 [Refresh Liquigel] aspirin 81 mg PO QDAY #0 05/11/17 09/18/19 Disabled Parking Permit 1 ea MISCELLANEOUS PRN PRN 07/16/18 09/18/19 [place] 5/16 Inch 1 ea SQ DIRECTED 07/16/18 09/18/19 albuterol sulfate [Ventolin HFA] 2 puff INH Q4H PRN 07/25/18 09/18/19 CBD Oil 20 mg SUBLINGUAL DAILY 04/24/19 09/18/19 desonide 0.05 % topical cream 1 applictn TOP .PRN #30 gram 04/24/19 09/18/19 insulin detemir U-100 100 unit/mL See Rx Instructions SUBCUT DAILY 04/24/19 09/18/19 (3 mL) subcutaneous pen ml prednisone 10 mg tablet 10 mg PO DAILY 04/24/19 09/18/19 cholecalciferol (vitamin D3) 50,000 unit PO QWEEK 09/18/19 09/18/19 50,000 unit capsule Previous Rx's Medication Instructions Recorded dywyvycl-ouzqgoiwg-zclulikzk 3.5 4 drop OTIC (EAR) TID PRN #10 ml 10/08/18 mg/mL-10,000 unit/mL-1 % ear solution estradiol 1 vaginalrin VAG [id number] #1 each 11/12/18 pen needle, diabetic 29 gauge x #30 each 11/19/18 1/2 lansoprazole 30 mg PO BID #180 ecc 12/31/18 fluticasone propionate 50 2 spray INTRANASAL BEDTIME PRN #16 02/18/19 mcg/actuation nasal gram spray,suspension insulin aspart U-100 100 unit/mL See Rx Instructions SUBCUT Q4H PRN 03/11/19 (3 mL) subcutaneous pen #45 ml [place] 31g x 03/20 #300 each 03/27/19 blood sugar diagnostic #250 each 03/27/19 diphenhydramine-viscous 5 - 10 ml PO Q6H PRN #100 ml 04/24/19 lidocain-maalox 1:1:1 fluconazole 150 mg tablet 150 mg PO QDAY PRN #4 tab 04/24/19 nadolol 40 mg tablet 40 mg PO DAILY #90 tab 05/06/19 clonazepam 1 mg tablet 1 mg PO BID #180 tab 06/02/19 Lancets #250 each 06/05/19 valsartan 160 mg tablet 160 mg PO DAILY #90 tab 06/30/19 hydrocodone 10 mg-acetaminophen 1 - 2 tab PO Q4HP PRN #200 tab 08/19/19 325 mg tablet fwrytltbsg-avsghyxcoosmj-geefkxkt 1 cap PO Q8H PRN #90 cap 08/21/19 50 mg-300 mg-40 mg capsule cyclobenzaprine 10 mg tablet 10 mg PO BEDTIME #30 tab 08/21/19 phenazopyridine [Pyridium] 100 mg PO TID PRN #6 tab 10/13/19 sulfamethoxazole-trimethoprim 1 tab PO BID 5 Days #10 tab 10/13/19 [Bactrim DS] Allergies Allergy/AdvReac Type Severity Reaction Status Date / Time atorvastatin [ATORVASTATIN] Allergy Unknown Verified 09/18/19 11:24 gemfibrozil [GEMFIBROZIL] Allergy Unknown Verified 09/18/19 11:24 rosuvastatin [ROSUVASTATIN] Allergy Unknown Verified 09/18/19 11:24 tetracycline [TETRACYCLINE] Allergy Unknown Verified 09/18/19 11:24 Milk Containing Products AdvReac Severe GI issues Verified 09/18/19 11:24 [MILK CONTAINING PRODUCTS] carisoprodol [CARISOPRODOL] AdvReac Intermediate DIZZINESS Verified 09/18/19 11: 24 duloxetine [DULOXETINE] AdvReac Intermediate DIARRHEA Verified 09/18/19 11:24 fenofibrate [FENOFIBRATE] AdvReac Intermediate rash Verified 09/18/19 11:24 indomethacin [INDOMETHACIN] AdvReac Intermediate GI DISTRESS Verified 09/18/19 11:24 lisinopril [LISINOPRIL] AdvReac Intermediate EDEMA LEGS Verified 09/18/19 11:24 amoxicillin [AMOXICILLIN] AdvReac Mild itching Verified 09/18/19 11:24 Review of Systems Review of Systems Narrative: GENERAL: Denies chills, fatigue, malaise, fever, sweats, travel HEENT: Denies sinus pain, ear pain, sore throat, difficulty swallowing, neck pain RESPIRATORY: Denies dyspnea, cough, wheezing, hemoptysis, sputum. CARDIOVASCULAR: Denies chest pain, palpitations, orthopnea, edema GASTROINTESTINAL: Denies nausea, vomiting, abdominal pain, diarrhea, constipation, melena. : See HPI MUSCULOSKELETAL: Denies weakness, joint pain, or bony pain SKIN: No rash, no erythema, no pruritus NEUROLOGIC: Denies weakness, dizziness, headache, numbness, change in speech, confusion PSYCHIATRIC: No concerning psychosocial issues. 12 point review of systems is negative except for those stated above and HPI Patient History Medical History (Updated 10/13/19 @ 07:50 by Angelica Navarro DO) Abnormal CXR (chest x-ray) (Inactive 1981) Abnormal Pap smear of cervix (Resolved 1984) Anemia (Resolved) Ankle pain (Inactive 1994) Asthma (Chronic) Atrophic vaginitis (Chronic 11/24/14) Chronic back pain (Chronic 1999) Diverticular disease (Inactive 1999) Diverticulosis of colon (Chronic 06/16/11) Eczema (Chronic) Essential hypertension (Chronic 11/23/15) Fibroids (Resolved 2002) Fibromyalgia (Chronic 06/16/11) Foot pain (Inactive 2004) Fractures (Inactive 1972) Gastroparesis (Chronic 2009) GERD (gastroesophageal reflux disease) (Chronic) Hayfever (Chronic) Hepatitis A (Resolved 1989) History of heavy periods (Resolved) Hyperlipidemia (Inactive) Hypertension (Inactive 2004) Inner ear inflammation (Inactive) Intractable migraine without aura and with status migrainosus (Chronic) Irritable bowel syndrome (Chronic 06/16/11) Legionella pneumonia (Inactive 1981) Liver disease (Inactive) Malaise and fatigue (Chronic 07/13/15) MCTD (mixed connective tissue disease) (Inactive) Measles (Resolved 1958) Mixed hyperlipidemia (Chronic 06/16/11) Mumps (Resolved 1958) Ovarian cyst (Inactive 1984) Painful menstrual periods (Resolved) Polymyalgia rheumatica (Inactive) Recurrent sinusitis (Inactive 2004) RLS (restless legs syndrome) (Chronic 2004) Rubella (Resolved 1958) Sarcoidosis (Inactive 1983) Seizure, temporal lobe (Inactive 1984) Sjogren's syndrome (Chronic 10/01/15) Sjogren's syndrome (Inactive) Type 2 diabetes mellitus with hyperglycemia (Chronic 06/16/11) Type 2 diabetes mellitus without complication (Chronic 04/10/16) Vitamin deficiency (Chronic) Surgical History Anesthesia complication (Resolved) History of abdominal surgery (Resolved 2008) History of abdominal surgery (Resolved 1981) History of bilateral salpingo-oophorectomy (BSO) History of colonoscopy (Resolved 12/17/14) History of esophagogastroduodenoscopy (EGD) (Resolved 12/2014) History of lung biopsy (Resolved 1983) History of lung biopsy (Resolved 1981) History of oophorectomy (Resolved) Status post hysterectomy (Resolved 2004) Status post knee surgery (Resolved 2012) alcohol intake frequency: 0-2 drinks per day Substance Use Type: does not use Exam Initial Vital Signs Initial Vital Signs: Vital Signs Temperature 97.6 F 10/13/19 06:46 Pulse Rate 71 10/13/19 06:46 Respiratory Rate 20 10/13/19 06:46 Blood Pressure 131/56 L 10/13/19 06:46 Pulse Oximetry 98 10/13/19 06:46 GENERAL: Alert well-appearing female HEENT: Head atraumatic,EOMI, pupils reactive, face symmetric CARDIOVASCULAR: Regular rate and rhythm without murmurs, rubs or gallops. RESPIRATORY: Breath sounds equal bilaterally, no wheezes rales or rhonchi. ABDOMEN: Soft, nontender. Normoactive bowel sounds all 4 quadrants. No guarding or rebound. Tender left upper quadrant small possible 1 cm cyst or lipoma felt. No erythema no abscess no induration : No flank pain EXTREMITIES: Normal range of motion, no clubbing or edema. Neurovascularly intact NEUROLOGICAL: Alert and oriented x4.Normal gait and speech. Cranial nerves II through XII grossly intact. SKIN: Warm, dry, no laceration, no petechiae, no rashes or lesions. Course Orders Ordered: ED Orders 10/13/19 06:40 Urinalysis and Microscopic Stat Urine Culture Stat Vital Signs Vital signs: Vital Signs - 8 hr 10/13/19 06:46 10/13/19 06:58 Temperature 97.6 F 97.6 F Pulse Rate 71 71 Respiratory Rate 20 20 Blood Pressure [Left Arm] 131/56 L Pulse Oximetry 98 98 MDM - Female Genitourinary Lab Data Labs: Lab Results 10/13/19 Range/Units 06:40 Urine Color Yellow Urine Appearance Cloudy Urine pH 6.0 (4.5-8.0) Ur Specific [place] 1.010 (1.000-1.035) Urine Protein Trace H (Negative) Urine Glucose (UA) Negative (Negative) g/dL Urine Ketones Negative (NEGATIVE) Urine Occult Blood 1+ H (Negative) Urine Nitrate Negative (Negative) Urine Bilirubin Negative (NEGATIVE) Urine Urobilinogen 0.2 (0.2) E.U./dL Ur Leukocyte Esterase 3+ H (NEGATIVE) Urine RBC 1-5/hpf (0-5/HPF) Urine WBC >100/hpf H (0-5/HPF) Urine Bacteria Many (>30) H (None) Ur Culture Indicated? Specimen cultured Point of Care Testing Glucose POC 130 MDM Narrative Medical decision making narrative: Patient is afebrile does not appear septic or toxic. She already has an appointment with her PCP in 2-3 days. Discharge Plan Departure Patient Disposition: Home Clinical Impression: Acute UTI Instructions: DI for Urinary Tract Infection (UTI) Activity Restrictions/Additional Instructions: *You have been diagnosed with UTI *What to do: Increase fluid intake *Continue to take medications as directed Bactrim 1 tablet twice a day for 5 days Primary DM 3 times a day only needed to for painful or burning sensation *Follow up with your primary care provider in 2-3 days *Return to ER if you should have increasing chills, persistent vomiting, increasing abdominal pain or any new, worsening or concerning symptoms Prescriptions: New sulfamethoxazole-trimethoprim [Bactrim DS] 800-160 mg tablet 1 tab PO BID 5 Days Qty: 10 RF: 0 phenazopyridine [Pyridium] 100 mg tablet 100 mg PO TID PRN (Reason: pain) Qty: 6 RF: 0 No Action carboxymethylcellulose sodium [Refresh Liquigel] 1 % Drops, Liquid Gel 2 gtt OU PRN Qty: 0 RF: 0 aspirin 81 MG tablet,delayed release (DR/EC) 81 mg PO QDAY Qty: 0 RF: 0 panosrhr-kjpgyhnis-KS 3.5-10,000-1 mg/mL-unit/mL-% solution 4 drop otic (ear) TID PRN (Reason: ear pain) Qty: 10 RF: 3 estradiol [Estring] 2 mg (7.5 mcg /24 hour) ring 1 vaginalrin VAG [id number] Qty: 1 RF: 3 (DME) pen needle, diabetic [Ultra-Thin II Ins Pen [place]] 29 gauge x 1/2 needle See Dose Instructions .ROUTE .MEDSUPPLY Qty: 30 RF: 0 lansoprazole 30 mg capsule,delayed release(DR/EC) 30 mg PO BID Qty: 180 RF: 3 fluticasone propionate [Flonase Allergy Relief] 50 mcg/actuation spray,suspension 2 spray Intranasal BEDTIME PRN (Reason: Allergy Symptoms) Qty: 16 RF: 3 Novolog Flexpen U-100 Insulin 100 unit/mL insulin pen See Rx Instructions subcut Q4H PRN (Reason: HIGH BLOOD SUGAR) Qty: 45 RF: 11 nadolol 40 mg tablet 40 mg PO DAILY Qty: 90 RF: 3 clonazepam [Klonopin] 1 mg tablet 1 mg PO BID Qty: 180 RF: 1 valsartan 160 mg tablet 160 mg PO DAILY Qty: 90 RF: 1 hydrocodone-acetaminophen 10-325 mg tablet 1 - 2 tab PO Q4HP PRN (Reason: pain) Qty: 200 RF: 0 Levemir FlexTouch U-100 Insuln 100 unit/mL (3 mL) insulin pen See Rx Instructions SUBCUT DAILY RF: 0 prednisone 10 mg tablet 10 mg PO DAILY RF: 0 CBD Oil 20 mg sublingual DAILY RF: 0 desonide 0.05 % cream 1 applictn TOP .PRN Qty: 30 RF: 0 diphenhydramine-viscous lidocain-maalox 1:1:1 5 - 10 ml PO Q6H PRN (Reason: mouth pain) Qty: 100 RF: 0 fluconazole [Diflucan] 150 mg tablet 150 mg PO QDAY PRN (Reason: YEAST) Qty: 4 RF: 2 cholecalciferol (vitamin D3) 50,000 unit capsule 50,000 unit PO QWEEK RF: 0 (DME) OneTouch Ultra Blue Test Strip strip See Dose Instructions .ROUTE .MEDSUPPLY Qty: 250 RF: 11 (DME) [place] 31g x 5/16 Qty: 300 RF: 3 (DME) Lancets Qty: 250 RF: 4 sadufcdnqg-wvgajfrbldiry-oahg [Fioricet] 50-300-40 mg capsule 1 cap PO Q8H PRN (Reason: headache) Qty: 90 RF: 0 cyclobenzaprine 10 mg tablet 10 mg PO BEDTIME Qty: 30 RF: 3 albuterol sulfate [Ventolin HFA] 90 mcg/actuation HFA aerosol inhaler 2 puff INH Q4H PRN (Reason: Shortness Of Breath) RF: 0 Disabled Parking Permit 1 ea miscellaneous PRN PRN (Reason: PARKING) RF: 0 [place] 5/16 Inch 1 ea SQ DIRECTED RF: 0 Referrals: Good Miller MD [Primary Care Provider] -
[2019-10-13 08:30] VITALS: RESP 18
== END 2019-10-13 08:30 | disposition home or self-care (01) ==
PROVIDERS: Emergency Provider Emergency Medicine; PCP Internal Medicine
DX: N39.0 Urinary tract infection, site not specified (principal)
CPT/HCPCS: 81001; 82962; 87077; 87086; 87186; 99282; 99283

== ENCOUNTER → 2019-11-14 10:07 | Outpatient (CLI) | payer MEDICARE, OTHER, SELFPAY ==
[2019-11-14 12:16] LABS: Vitamin D 25 Hydroxy (D3) 29.9 ng/mL (30.0-100.0)
== END ==
PROVIDERS: Family Provider Internal Medicine; PCP Internal Medicine; Visit Provider Internal Medicine Rheumatology
DX: E55.9 Vitamin D deficiency, unspecified (principal)
CPT/HCPCS: 36415; 82306

== ENCOUNTER → 2019-12-15 07:02 | Outpatient (CLI) | payer MEDICARE, OTHER, SELFPAY ==
[2019-12-15 08:47] LABS: Alanine Aminotransferase 26 IU/L (<35); Albumin 4.6 g/dL (3.5-5.0); Albumin Globulin Ratio 1.4 (1.0-2.8); Alkaline Phosphatase 97 U/L (38-126); Aspartate Aminotransferase 31 IU/L (14-36); BUN Creatinine Ratio 18.8 (6-22); Bilirubin Total 0.6 mg/dL (0.2-1.3); Blood Urea Nitrogen 15 mg/dL (7-17); Calcium 9.7 mg/dL (8.4-10.2); Carbon Dioxide 28 mmol/L (22-32); Chloride 103 mmol/L (98-107); Estimated Glomerular Filt Rate > 60.0 mL/min (>60); Globulin 3.4 g/dL (1.7-4.1); Glucose 164 mg/dL (80-110); HEMOLYSIS < 15 (0-50); Potassium 4.7 mmol/L (3.4-5.1); Sodium 141 mmol/L (137-145)
[2019-12-15 09:21] LABS: TSH w/ Reflex to FT4 0.77 uIU/mL (0.47-4.68)
== END ==
PROVIDERS: Family Provider Internal Medicine; PCP Internal Medicine; Referring Provider Internal Medicine; Visit Provider Internal Medicine
DX: E11.9 Type 2 diabetes mellitus without complications (principal); E78.2 Mixed hyperlipidemia; G89.29 Other chronic pain; M54.9 Dorsalgia, unspecified; R53.81 Other malaise; R53.83 Other fatigue
CPT/HCPCS: 36415; 80053; 83036; 84443

== ENCOUNTER 2019-12-28 13:22 | Emergency (ER) | payer MEDICARE, OTHER, SELFPAY ==
[2019-12-28 13:26] VITALS: BP 129/71; PULSE 78; RESP 20; TEMP 36.3; O2SAT 96
[2019-12-28 14:21] LABS: Add Manual Diff / Slide Review NO; Basophils Absolute Auto 0 /uL (0-100); Basophils Percent Auto 0.4 % (0-2); Eosinophils Absolute Auto 100 /uL (0-450); Eosinophils Percent Auto 1.6 % (2-4); Hematocrit 41.8 % (36-46); Hemoglobin 13.7 g/dL (12.0-16.0); Lymphocytes Absolute Auto 2100 /uL (1100-4500); Lymphocytes Percent Auto 23.2 % (25-40); Mean Corpuscular HGB Conc 32.7 % (30-36); Mean Corpuscular Hemoglobin 29.1 PG (26-34); Mean Corpuscular Volume 89.2 fL (80-100); Monocytes Absolute Auto 600 /uL (0-900); Monocytes Percent Auto 6.4 % (3-14); Neutrophils Absolute Auto 6100 /uL (1500-7000); Neutrophils Percent Auto 68.4 % (50-75); Platelet Count 248 X10^3/uL (150-400); Red Blood Cell Count 4.69 X10^6/uL (4.0-5.2); Red Cell Distribution Width 13.7 % (11.6-14.8); White Blood Cell Count 8.9 X10^3/uL (4.5-11.0)
[2019-12-28 14:30] LABS: Appearance Urine UA CLEAR; Bilirubin Urine UA NEGATIVE (NEGATIVE); Color Urine UA YELLOW; Glucose Urine UA NEGATIVE (Negative); Ketones Urine UA NEGATIVE (NEGATIVE); Leukocyte Esterase Urine UA TRACE (NEGATIVE); Nitrite Urine UA NEGATIVE (Negative); Occult Blood Urine UA TRACE-INTACT (Negative); Protein Urine UA NEGATIVE (Negative); Urobilinogen Urine UA 0.2 E.U./dL (0.2)
[2019-12-28 14:31] LABS: RBC Urine None Seen (0-5/HPF)
[2019-12-28 14:33] LABS: Amylase 59 U/L (30-110)
[2019-12-28 14:34] LABS: pH Urine UA 5.5 (4.5-8.0)
[2019-12-28 14:34] LABS: Alanine Aminotransferase 23 IU/L (<35); Albumin 4.3 g/dL (3.5-5.0); Albumin Globulin Ratio 1.3 (1.0-2.8); Alkaline Phosphatase 89 U/L (38-126); Aspartate Aminotransferase 27 IU/L (14-36); BUN Creatinine Ratio 18.6 (6-22); Bilirubin Total 0.2 mg/dL (0.2-1.3); Blood Urea Nitrogen 13 mg/dL (7-17); Calcium 9.6 mg/dL (8.4-10.2); Carbon Dioxide 27 mmol/L (22-32); Chloride 104 mmol/L (98-107); Estimated Glomerular Filt Rate > 60.0 mL/min (>60); Globulin 3.2 g/dL (1.7-4.1); Glucose 185 mg/dL (80-110); HEMOLYSIS < 15 (0-50); Lipase 108 U/L (23-300); Potassium 4.2 mmol/L (3.4-5.1); Sodium 141 mmol/L (137-145); Total Protein 7.5 g/dL (6.3-8.2)
[2019-12-28 14:36] LABS: Amorphous Sediment Urine 1+; Squamous Epithelial Cell Urine 0-1 /HPF (0-5/HPF); WBC Urine 1-5/HPF (0-5/HPF)
[2019-12-28 14:37] LABS: Bacteria Urine Occasional (0-1); Culture Indicated Urine Specimen Cultured
--- NOTE | 2019-12-28 14:44 | DI.CT.S_ITS ---
PROCEDURE: CT ABDOMEN PELVIS W CON INDICATIONS: LLQ pain TECHNIQUE: After the administration of oral and intravenous contrast, 5 mm thick sections acquired from the diaphragms to the symphysis. 5 mm thick coronal and sagittal reformats were performed. For radiation dose reduction, the following was used: automated exposure control, adjustment of mA and/or kV according to patient size. COMPARISON: [facility], CT, CT ABDOMEN PELVIS W CON, 06/19/2019, 13:13. [facility], CT, CT ABDOMEN PELVIS W CON, 07/16/2018, 17:46. [facility], CT, ABDOMEN/PELVIS WITH CONTRAST, 08/08/2010, 6:45. FINDINGS: Image quality: Diagnostic. ABDOMEN: Lung bases: Lung bases are clear. Heart size is normal. Solid organs: Liver is normal in size and enhancement. Gallbladder is not enlarged rather quickly evaluated on CT. Biliary system is non-dilated. Pancreas enhances normally. Spleen is normal in size and enhancement. No adrenal nodules. Kidneys are normal in size and enhancement, without hydronephrosis. Peritoneum and bowel: Mild prominence of the wall of the distal esophagus is evident. There is a small hiatal hernia. The stomach is otherwise unremarkable. The small bowel loops are nondilated. An appendicolith is seen within the appendix, which is otherwise within normal limits. Extensive distal colonic diverticulosis is identified. Areas of wall thickening are present involving the sigmoid colon with mild adjacent hyperemia within the mesentery. Moderate residual stool seen within the colon. There is no free fluid, loculated fluid collection or free air. Subcutaneous edema overlying the anterior margins of the abdomen within the supraumbilical region is similar to the previous exam and probably represents injection sites. Nodes and vessels: No retroperitoneal or mesenteric adenopathy. Aorta and inferior vena cava are normal in caliber. There is aortic atherosclerosis. Bones: No acute fracture or suspicious osseous lesion is identified. Age-appropriate degenerative changes are noted. PELVIS: Genitourinary: Bladder wall thickness is normal. The uterus is surgically absent. The ovaries are not definitely identified, which may be related to atrophy or prior surgical excision. Miscellaneous: No inguinal hernias or adenopathy. No free fluid or loculated fluid collections are present. Bones: No suspicious bony lesions. No acute pelvic fractures are identified. IMPRESSION: 1. Extensive distal colonic diverticulosis with mild areas of patchy wall thickening of the sigmoid colon. Very early diverticulitis cannot be completely excluded and clinical correlation is recommended. 2. Possible constipation. No bowel obstruction. 3. Wall thickening of the distal esophagus may represent esophagitis. There is a small hiatal hernia. Dictated by: Nathanael Garcia M.D. on 12/28/2019 at 14:26 Approved by: Nathanael Garcia M.D. on 12/28/2019 at 14:29
[2019-12-28 14:49] LABS: Lactate (Lactic Acid) 1.2 mmol/L (0.7-2.1)
[2019-12-28] MEDS: ONDANSETRON 4 MG/2 ML INJ IV (15:04)
[2019-12-28] MEDS: MORPHINE 2 MG/ML INJ IV (15:05)
[2019-12-28] MEDS: SODIUM CHLORIDE 0.9% 1,000 ML 1000 ML IV (15:05)
[2019-12-28 15:10] VITALS: BP 162/77; PULSE 67; RESP 18; O2SAT 99
[2019-12-28 15:30] VITALS: BP 168/70; PULSE 70; RESP 18; O2SAT 98
[2019-12-28 15:59] VITALS: BP 172/76; PULSE 68; RESP 18; O2SAT 98
[2019-12-28 16:00] VITALS: BP 169/80; PULSE 69; RESP 18; O2SAT 97
--- NOTE | 2019-12-28 16:15 | ED.ABDPAIN ---
HPI - Abdominal Pain <Chika FernandesMIRIAM bernalP-BC - Last Filed: 12/28/19 18:25> General Chief Complaint: Abdominal Pain Stated Complaint: abd pain, loose stools Time Seen by Provider: 12/28/19 13:40 Source: patient and family Mode of arrival: Ambulatory Limitations: no limitations History of Present Illness HPI narrative: The patient is a 69-year-old female nonsmoker with history of diverticulitis who presents with a chief complaint of lower abdominal pain, loose stools for 2 days, nausea no vomiting. She tried Pepto-Bismol and it did not help. She denies any blood in her stool. She states she is able to eat and drink okay. She denies any fevers. She denies any chest pain or shortness of breath. She denies any dysuria urgency or frequency. She states that the pain is in her left lower quadrant, radiating across her abdomen. Related Data Home Medications Medication Instructions Recorded Confirmed carboxymethylcellulose sodium 2 gtt OU PRN #0 05/09/12 12/22/19 [Refresh Liquigel] aspirin 81 mg PO QDAY #0 05/11/17 12/22/19 Disabled Parking Permit 1 ea MISCELLANEOUS PRN PRN 07/16/18 12/22/19 Cornelia 5/16 Inch 1 ea SQ DIRECTED 07/16/18 12/22/19 albuterol sulfate [Ventolin HFA] 2 puff INH Q4H PRN 07/25/18 12/22/19 CBD Oil 20 mg SUBLINGUAL DAILY 04/24/19 12/22/19 desonide 0.05 % topical cream 1 applictn TOP .PRN #30 gram 04/24/19 12/22/19 insulin detemir U-100 100 unit/mL See Rx Instructions SUBCUT DAILY 04/24/19 12/22/19 (3 mL) subcutaneous pen ml vit C 250 mg-E 200 unit-zinc 40 1 tab PO BID 10/16/19 12/22/19 mg-copper 1 mf-vpimgs-hirkpd capsule olmesartan 40 mg tablet 40 mg PO DAILY tab 11/14/19 12/22/19 Previous Rx's Medication Instructions Recorded nzlvaotk-apissyfrq-csvokenyk 3.5 4 drop OTIC (EAR) TID PRN #10 ml 10/08/18 mg/mL-10,000 unit/mL-1 % ear solution estradiol 1 vaginalrin VAG [id number] #1 each 11/12/18 pen needle, diabetic 29 gauge x #30 each 11/19/18 1/2 lansoprazole 30 mg PO BID #180 ecc 12/31/18 fluticasone propionate 50 2 spray INTRANASAL BEDTIME PRN #16 02/18/19 mcg/actuation nasal gram spray,suspension insulin aspart U-100 100 unit/mL See Rx Instructions SUBCUT Q4H PRN 03/11/19 (3 mL) subcutaneous pen #45 ml Cornelia 31g x 03/20 #300 each 03/27/19 blood sugar diagnostic #250 each 03/27/19 diphenhydramine-viscous 5 - 10 ml PO Q6H PRN #100 ml 04/24/19 lidocain-maalox 1:1:1 fluconazole 150 mg tablet 150 mg PO QDAY PRN #4 tab 04/24/19 nadolol 40 mg tablet 40 mg PO DAILY #90 tab 05/06/19 Lancets #250 each 06/05/19 nmkcwkxsdm-ngjrrbvopixrb-dswzplyc 1 cap PO Q8H PRN #90 cap 08/21/19 50 mg-300 mg-40 mg capsule cyclobenzaprine 10 mg tablet 10 mg PO BEDTIME #30 tab 08/21/19 clonazepam 1 mg tablet 1 mg PO BID #180 tab 12/22/19 hydrocodone 10 mg-acetaminophen 1 - 2 tab PO Q4HP PRN #200 tab 12/22/19 325 mg tablet ciprofloxacin HCl [Cipro] 500 mg PO BID #20 tab 12/28/19 metronidazole 500 mg PO Q8H 10 Days #30 tab 12/28/19 ondansetron 4 mg PO Q6H PRN #20 tab 12/28/19 Allergies Allergy/AdvReac Type Severity Reaction Status Date / Time atorvastatin [ATORVASTATIN] Allergy Unknown Verified 12/22/19 11:16 gemfibrozil [GEMFIBROZIL] Allergy Unknown Verified 12/22/19 11:16 rosuvastatin [ROSUVASTATIN] Allergy Unknown Verified 12/22/19 11:16 tetracycline [TETRACYCLINE] Allergy Unknown Verified 12/22/19 11:16 Milk Containing Products AdvReac Severe GI issues Verified 12/22/19 11:16 [MILK CONTAINING PRODUCTS] carisoprodol [CARISOPRODOL] AdvReac Intermediate DIZZINESS Verified 12/22/19 11:16 duloxetine [DULOXETINE] AdvReac Intermediate DIARRHEA Verified 12/22/19 11:16 fenofibrate [FENOFIBRATE] AdvReac Intermediate rash Verified 12/22/19 11:16 indomethacin [INDOMETHACIN] AdvReac Intermediate GI DISTRESS Verified 12/22/19 11:16 lisinopril [LISINOPRIL] AdvReac Intermediate EDEMA LEGS Verified 12/22/19 11:16 amoxicillin [AMOXICILLIN] AdvReac Mild itching Verified 12/22/19 11:16 Review of Systems <EILEEN Hatch - Last Filed: 12/28/19 18:25> Review of Systems Narrative: GENERAL: See HPI HEENT: Denies sinus pain, ear pain, sore throat, difficulty swallowing, dizziness. RESPIRATORY: Denies dyspnea, cough, wheezing, hemoptysis, sputum. CARDIOVASCULAR: Denies chest pain, palpitations, orthopnea, edema, GASTROINTESTINAL: See HPI : Denies dysuria, frequency, incontinence, hematuria, urinary retention. MUSCULOSKELETAL: denies weakness, joint pain, or bony pain SKIN: Denies rash, skin lesions, or other NEUROLOGIC: Denies weakness, headache, numbness, change in speech, confusion, seizures, incoordination. PSYCHIATRIC: No concerning psychosocial issues. 12 point review of systems is negative except for those stated above Patient History <EILEEN Hatch - Last Filed: 12/28/19 18:25> Medical History Abnormal CXR (chest x-ray) (Inactive 1981) Abnormal Pap smear of cervix (Resolved 1984) Anemia (Resolved) Ankle pain (Inactive 1994) Asthma (Chronic) Atrophic vaginitis (Chronic 11/24/14) Chronic back pain (Chronic 1999) Diverticular disease (Inactive 1999) Diverticulosis of colon (Chronic 06/16/11) Eczema (Chronic) Essential hypertension (Chronic 11/23/15) Fibroids (Resolved 2002) Fibromyalgia (Chronic 06/16/11) Foot pain (Inactive 2004) Fractures (Inactive 1972) Gastroparesis (Chronic 2009) GERD (gastroesophageal reflux disease) (Chronic) Hayfever (Chronic) Hepatitis A (Resolved 1989) History of heavy periods (Resolved) Hyperlipidemia (Inactive) Hypertension (Inactive 2004) Inner ear inflammation (Inactive) Intractable migraine without aura and with status migrainosus (Chronic) Irritable bowel syndrome (Chronic 06/16/11) Legionella pneumonia (Inactive 1981) Liver disease (Inactive) Malaise and fatigue (Chronic 07/13/15) MCTD (mixed connective tissue disease) (Inactive) Measles (Resolved 1958) Mixed hyperlipidemia (Chronic 06/16/11) Mumps (Resolved 1958) Ovarian cyst (Inactive 1984) Painful menstrual periods (Resolved) Polymyalgia rheumatica (Inactive) Recurrent sinusitis (Inactive 2004) RLS (restless legs syndrome) (Chronic 2004) Rubella (Resolved 1958) Sarcoidosis (Inactive 1983) Seizure, temporal lobe (Inactive 1984) Sjogren's syndrome (Chronic 10/01/15) Sjogren's syndrome (Inactive) Type 2 diabetes mellitus with hyperglycemia (Chronic 06/16/11) Type 2 diabetes mellitus without complication (Chronic 04/10/16) Vitamin deficiency (Chronic) Surgical History Anesthesia complication (Resolved) History of abdominal surgery (Resolved 2008) History of abdominal surgery (Resolved 1981) History of bilateral salpingo-oophorectomy (BSO) History of colonoscopy (Resolved 12/17/14) History of esophagogastroduodenoscopy (EGD) (Resolved 12/2014) History of lung biopsy (Resolved 1983) History of lung biopsy (Resolved 1981) History of oophorectomy (Resolved) Status post hysterectomy (Resolved 2004) Status post knee surgery (Resolved 2012) Family History Child Age: 50 Hx of Sjogren's disease Child Age: 48 Migraines Father Prostate cancer Cancer Heart disease Stroke Mother Diabetes mellitus Heart disease Hypertension Sister Uterine cancer Grandmother No problems noted. Grandfather Sepsis Grandmother No problems noted. Grandfather Bright's disease Sister Heart block Heart disease Social History marital status: number of children: 3 household members: spouse lives independently: Yes caregiver/support person: No housing: house pets and animals: Yes education level: college (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 fredrick/sikhism: Nondenominational leisure activities: exercise, reading and other (Photography, drawing, cooking, gardening) Smoking Status: Former smoker Tobacco: How many years used: 18 (off and on) Smokeless tobacco user: other (cigarettes) quit status: quit date established (1985) second hand exposure: No alcohol intake: never substance use type: does not use and marijuana (For headaches.) Smoking Status: Former smoker alcohol intake frequency: 0-2 drinks per day Substance Use Type: does not use Exam <XIOMARA Hatch-BC - Last Filed: 12/28/19 18:25> Narrative Exam Narrative: GENERAL: This is a well-nourished, well-developed patient, in no acute distress HEAD: Atraumatic. Normocephalic. No temporal or scalp tenderness. EYES: Pupils equal round and reactive. Extraocular motions intact. No scleral icterus. No injection or drainage. ENT: Nose without bleeding, purulent drainage or septal hematoma. Throat without erythema, tonsillar hypertrophy or exudate. Uvula midline. Airway patent. NECK: Trachea midline. No JVD or lymphadenopathy. Supple, nontender, no meningeal signs. CARDIOVASCULAR: Regular rate and rhythm without murmurs, gallops, or rubs. RESPIRATORY: Clear to auscultation. Breath sounds equal bilaterally. No wheezes, rales, or rhonchi. No cough. No increased respiratory effort. No accessory muscle use. GASTROINTESTINAL: Abdomen soft, active bowel sounds all 4 quadrants, nondistended. No hepato-splenomegaly, or palpable masses. Pain to palpation with left lower quadrant palpation with guarding. Otherwise abdomen soft and nontender EXTREMITIES: No clubbing, cyanosis, or edema. No joint tenderness, effusion, or edema noted. BACK: Nontender without deformity or crepitance. No flank tenderness. NEURO: AOx3. SKIN: No rash or erythema. Initial Vital Signs Initial Vital Signs: Vital Signs Temperature 97.4 F L 12/28/19 13:26 Pulse Rate 78 12/28/19 13:26 Respiratory Rate 20 12/28/19 13:26 Blood Pressure 129/71 12/28/19 13:26 Pulse Oximetry 96 12/28/19 13:26 <Jamir Julien DO - Last Filed: 12/28/19 20:00> Initial Vital Signs Initial Vital Signs: Vital Signs Temperature 97.4 F L 12/28/19 13:26 Pulse Rate 78 12/28/19 13:26 Respiratory Rate 20 12/28/19 13:26 Blood Pressure 129/71 12/28/19 13:26 Pulse Oximetry 96 12/28/19 13:26 Course <Chika Menchaca VOCATIONAL REHABILITATION TECHNICIAN-BC - Last Filed: 12/28/19 18:25> Orders Ordered: ED Orders 12/28/19 14:06 Urinalysis and Microscopic Stat Urine Culture Stat 12/28/19 14:09 Amylase Stat Complete Blood Count AUTO DIFF Stat Comprehensive Metabolic Panel Stat Lactate (Lactic Acid) Stat Lipase Stat 12/28/19 14:44 CT abdomen pelvis w con Stat Discontinued Medications Hydrocodone Bitart/Acetaminophen ([place] 5/325) 2 tab PO NOW ONE Stop: 12/28/19 15:50 Last Admin: 12/28/19 16:30 Dose: 2 tab Documented by: LAUREN Ciprofloxacin (Cipro) 500 mg PO NOW ONE Stop: 12/28/19 15:50 Last Admin: 12/28/19 16:30 Dose: 500 mg Documented by: LAUREN Sodium Chloride (Normal Saline 0.9%) 1,000 mls @ 1,000 mls/hr IV BOLUS ONE Stop: 12/28/19 15:18 Last Infusion: 12/28/19 16:30 Dose: 0 mls/hr Documented by: Admin: 12/28/19 15:05 Dose: 1,000 mls/hr Documented by: JUSTIN Metronidazole (Metronidazole) 500 mg PO NOW ONE Stop: 12/28/19 15:50 Last Admin: 12/28/19 16:30 Dose: 500 mg Documented by: LAUREN Morphine Sulfate (Morphine) 2 mg IV NOW ONE Stop: 12/28/19 13:59 Last Admin: 12/28/19 15:05 Dose: 2 mg Documented by: JUSTIN Ondansetron HCl (Zofran) 4 mg IV NOW ONE Stop: 12/28/19 13:59 Last Admin: 12/28/19 15:04 Dose: 4 mg Documented by: JUSTIN Vital Signs Vital signs: Vital Signs - 8 hr 12/28/19 13:26 12/28/19 15:10 12/28/19 15:30 Temperature 97.4 F L Pulse Rate 78 67 70 Respiratory Rate 20 18 18 Blood Pressure 129/71 Blood Pressure [Left Arm] 162/77 H 168/70 H Pulse Oximetry 96 99 98 12/28/19 15:59 12/28/19 16:00 Temperature Pulse Rate 68 69 Respiratory Rate 18 18 Blood Pressure Blood Pressure [Left Arm] 172/76 H 169/80 H Pulse Oximetry 98 97 <Jamir Julien, DO - Last Filed: 12/28/19 20:00> Orders Ordered: ED Orders 12/28/19 14:06 Urinalysis and Microscopic Stat Urine Culture Stat 12/28/19 14:09 Amylase Stat Complete Blood Count AUTO DIFF Stat Comprehensive Metabolic Panel Stat Lactate (Lactic Acid) Stat Lipase Stat 12/28/19 14:44 CT abdomen pelvis w con Stat Discontinued Medications Hydrocodone Bitart/Acetaminophen ([place] 5/325) 2 tab PO NOW ONE Stop: 12/28/19 15:50 Last Admin: 12/28/19 16:30 Dose: 2 tab Documented by: LAUREN Ciprofloxacin (Cipro) 500 mg PO NOW ONE Stop: 12/28/19 15:50 Last Admin: 12/28/19 16:30 Dose: 500 mg Documented by: LAUREN Sodium Chloride (Normal Saline 0.9%) 1,000 mls @ 1,000 mls/hr IV BOLUS ONE Stop: 12/28/19 15:18 Last Infusion: 12/28/19 16:30 Dose: 0 mls/hr Documented by: Admin: 12/28/19 15:05 Dose: 1,000 mls/hr Documented by: JUSTIN Metronidazole (Metronidazole) 500 mg PO NOW ONE Stop: 12/28/19 15:50 Last Admin: 12/28/19 16:30 Dose: 500 mg Documented by: LAUREN Morphine Sulfate (Morphine) 2 mg IV NOW ONE Stop: 12/28/19 13:59 Last Admin: 12/28/19 15:05 Dose: 2 mg Documented by: JUSTIN Ondansetron HCl (Zofran) 4 mg IV NOW ONE Stop: 12/28/19 13:59 Last Admin: 12/28/19 15:04 Dose: 4 mg Documented by: JUSTIN Vital Signs Vital signs: Vital Signs - 8 hr 12/28/19 13:26 12/28/19 15:10 12/28/19 15:30 Temperature 97.4 F L Pulse Rate 78 67 70 Respiratory Rate 20 18 18 Blood Pressure 129/71 Blood Pressure [Left Arm] 162/77 H 168/70 H Pulse Oximetry 96 99 98 12/28/19 15:59 12/28/19 16:00 Temperature Pulse Rate 68 69 Respiratory Rate 18 18 Blood Pressure Blood Pressure [Left Arm] 172/76 H 169/80 H Pulse Oximetry 98 97 MDM - Abdominal Pain <MIRIAM HatchP- - Last Filed: 12/28/19 18:25> Lab Data Result diagrams: 12/28/19 14:09 12/28/19 14:09 Labs: Lab Results 12/28/19 12/28/19 12/28/19 Range/Units 14:06 14:09 14:09 WBC 8.9 (4.5-11.0) X10^3/uL RBC 4.69 (4.0-5.2) X10^6/uL Hgb 13.7 (12.0-16.0) g/dL Hct 41.8 (36-46) % MCV 89.2 (80-100) fL MCH 29.1 (26-34) PG MCHC 32.7 (30-36) % RDW 13.7 (11.6-14.8) % Plt Count 248 (150-400) X10^3/uL Neut % (Auto) 68.4 (50-75) % Lymph % (Auto) 23.2 L (25-40) % Lipscomb % (Auto) 6.4 (3-14) % Eos % (Auto) 1.6 L (2-4) % Baso % (Auto) 0.4 (0-2) % Neut # (Auto) 6100 (5285-2981) /uL Lymph # (Auto) 2100 (9966-8854) /uL Lipscomb # (Auto) 600 (0-900) /uL Eos # (Auto) 100 (0-450) /uL Baso # (Auto) 0 (0-100) /uL Sodium 141 (137-145) mmol/L Potassium 4.2 (3.4-5.1) mmol/L Chloride 104 (98-107) mmol/L Carbon Dioxide 27 (22-32) mmol/L BUN 13 (7-17) mg/dL Creatinine 0.70 (0.52-1.04) mg/dL Estimated GFR > 60.0 (>60) mL/min BUN/Creatinine Ratio 18.6 (6-22) Glucose 185 H (80-110) mg/dL Lactate (0.7-2.1) mmol/L Calcium 9.6 (8.4-10.2) mg/dL Total Bilirubin 0.2 (0.2-1.3) mg/dL AST 27 (14-36) IU/L ALT 23 (<35) IU/L Alkaline Phosphatase 89 (38-126) U/L Total Protein 7.5 (6.3-8.2) g/dL Albumin 4.3 (3.5-5.0) g/dL Globulin 3.2 (1.7-4.1) g/dL Albumin/Globulin Ratio 1.3 (1.0-2.8) Amylase (30-110) U/L Lipase 108 (23-300) U/L Urine Color Yellow Urine Appearance Clear Urine pH 5.5 (4.5-8.0) Ur Specific [place] 1.010 (1.000-1.035) Urine Protein Negative (Negative) Urine Glucose (UA) Negative (Negative) g/dL Urine Ketones Negative (NEGATIVE) Urine Occult Blood Trace-intact (Negative) Urine Nitrate Negative (Negative) Urine Bilirubin Negative (NEGATIVE) Urine Urobilinogen 0.2 (0.2) E.U./dL Ur Leukocyte Esterase Trace H (NEGATIVE) Urine RBC None seen (0-5/HPF) Urine WBC 1-5/hpf (0-5/HPF) Ur Squamous Epith Cells 0-1 /hpf (0-5/HPF) Amorphous Sediment 1+ Urine Bacteria Occasional (0-1) D (None) Ur Culture Indicated? Specimen cultured 12/28/19 12/28/19 Range/Units 14:09 14:09 WBC (4.5-11.0) X10^3/uL RBC (4.0-5.2) X10^6/uL Hgb (12.0-16.0) g/dL Hct (36-46) % MCV (80-100) fL MCH (26-34) PG MCHC (30-36) % RDW (11.6-14.8) % Plt Count (150-400) X10^3/uL Neut % (Auto) (50-75) % Lymph % (Auto) (25-40) % Lipscomb % (Auto) (3-14) % Eos % (Auto) (2-4) % Baso % (Auto) (0-2) % Neut # (Auto) (2601-1160) /uL Lymph # (Auto) (3742-9384) /uL Lipscomb # (Auto) (0-900) /uL Eos # (Auto) (0-450) /uL Baso # (Auto) (0-100) /uL Sodium (137-145) mmol/L Potassium (3.4-5.1) mmol/L Chloride (98-107) mmol/L Carbon Dioxide (22-32) mmol/L BUN (7-17) mg/dL Creatinine (0.52-1.04) mg/dL Estimated GFR (>60) mL/min BUN/Creatinine Ratio (6-22) Glucose (80-110) mg/dL Lactate 1.2 (0.7-2.1) mmol/L Calcium (8.4-10.2) mg/dL Total Bilirubin (0.2-1.3) mg/dL AST (14-36) IU/L ALT (<35) IU/L Alkaline Phosphatase (38-126) U/L Total Protein (6.3-8.2) g/dL Albumin (3.5-5.0) g/dL Globulin (1.7-4.1) g/dL Albumin/Globulin Ratio (1.0-2.8) Amylase 59 (30-110) U/L Lipase (23-300) U/L Urine Color Urine Appearance Urine pH (4.5-8.0) Ur Specific [place] (1.000-1.035) Urine Protein (Negative) Urine Glucose (UA) (Negative) g/dL Urine Ketones (NEGATIVE) Urine Occult Blood (Negative) Urine Nitrate (Negative) Urine Bilirubin (NEGATIVE) Urine Urobilinogen (0.2) E.U./dL Ur Leukocyte Esterase (NEGATIVE) Urine RBC (0-5/HPF) Urine WBC (0-5/HPF) Ur Squamous Epith Cells (0-5/HPF) Amorphous Sediment Urine Bacteria (None) Ur Culture Indicated? Imaging Data CT scan - abdomen/pelvis: Radiologist's Impression: [address] [place] [id number] Scan Report Signed Patient: Nuris Sanchez [facility]#: [id number] : 9Acct:[id number] Age/Sex: 69 / FDate of Service: 12/28/19 Loc: ED Accession Number: [id number] Procedure: CT abdomen pelvis w con Ordering Provider: Chika Menchaca [facility]- PROCEDURE: CT ABDOMEN PELVIS W CON INDICATIONS: LLQ pain TECHNIQUE: After the administration of oral and intravenous contrast, 5 mm thick sections acquired from the diaphragms to the symphysis. 5 mm thick coronal and sagittal reformats were performed. For radiation dose reduction, the following was used: automated exposure control, adjustment of mA and/or kV according to patient size. COMPARISON: [facility], CT, CT ABDOMEN PELVIS W CON, 06/19/2019, 13:13. [facility], CT, CT ABDOMEN PELVIS W CON, 07/16/2018, 17:46. [facility], CT, ABDOMEN/PELVIS WITH CONTRAST, 08/08/2010, 6:45. FINDINGS: Image quality: Diagnostic. ABDOMEN: Lung bases: Lung bases are clear. Heart size is normal. Solid organs: Liver is normal in size and enhancement. Gallbladder is not enlarged rather quickly evaluated on CT. Biliary system is non-dilated. Pancreas enhances normally. Spleen is normal in size and enhancement. No adrenal nodules. Kidneys are normal in size and enhancement, without hydronephrosis. Peritoneum and bowel: Mild prominence of the wall of the distal esophagus is evident. There is a small hiatal hernia. The stomach is otherwise unremarkable. The small bowel loops are nondilated. An appendicolith is seen within the appendix, which is otherwise within normal limits. Extensive distal colonic diverticulosis is identified. Areas of wall thickening are present involving the sigmoid colon with mild adjacent hyperemia within the mesentery. Moderate residual stool seen within the colon. There is no free fluid, loculated fluid collection or free air. Subcutaneous edema overlying the anterior margins of the abdomen within the supraumbilical region is similar to the previous exam and probably represents injection sites. Nodes and vessels: No retroperitoneal or mesenteric adenopathy. Aorta and inferior vena cava are normal in caliber. There is aortic atherosclerosis. Bones: No acute fracture or suspicious osseous lesion is identified. Age-appropriate degenerative changes are noted. PELVIS: Genitourinary: Bladder wall thickness is normal. The uterus is surgically absent. The ovaries are not definitely identified, which may be related to atrophy or prior surgical excision. Miscellaneous: No inguinal hernias or adenopathy. No free fluid or loculated fluid collections are present. Bones: No suspicious bony lesions. No acute pelvic fractures are identified. IMPRESSION: 1. Extensive distal colonic diverticulosis with mild areas of patchy wall thickening of the sigmoid colon. Very early diverticulitis cannot be completely excluded and clinical correlation is recommended. 2. Possible constipation. No bowel obstruction. 3. Wall thickening of the distal esophagus may represent esophagitis. There is a small hiatal hernia. Dictated by: Nathanael Garcia M.D. on 12/28/2019 at 14:26 Approved by: Nathanael Garcia M.D. on 12/28/2019 at 14:29 MDM Narrative Medical decision making narrative: The patient is a 69-year-old female with history of diverticulitis who presents with a chief complaint of lower abdominal pain, soft stools, nausea no vomiting. She is afebrile and hemodynamically stable throughout her stay in the emergency department. She has significant pain to left lower quadrant palpation, and her CT cannot rule out very early diverticulitis. She does have clinical correlation for diverticulitis. Thus we elected to treat for diverticulitis with Flagyl and Cipro, which the patient states she has tolerated before. She was able to tolerate 1st dose of Flagyl and Cipro in the emergency department. It is reassuring that she has no fever, no leukocytosis, is able to tolerate food and fluids. I discussed at length dietary changes with diverticulitis. Encourage PCP follow-up in the next few days. Patient states understanding. Of note the patient has a urinary tract infection on urinalysis and micro, and the Cipro used to treat her diverticulitis should provide coverage for this. Patient has no questions or concerns upon discharge and states understanding of return precautions as well as follow-up care. She was discharged home with her <Jamir Julien, DO - Last Filed: 12/28/19 20:00> Lab Data Labs: Lab Results 12/28/19 12/28/19 12/28/19 Range/Units 14:06 14:09 14:09 WBC 8.9 (4.5-11.0) X10^3/uL RBC 4.69 (4.0-5.2) X10^6/uL Hgb 13.7 (12.0-16.0) g/dL Hct 41.8 (36-46) % MCV 89.2 (80-100) fL MCH 29.1 (26-34) PG MCHC 32.7 (30-36) % RDW 13.7 (11.6-14.8) % Plt Count 248 (150-400) X10^3/uL Neut % (Auto) 68.4 (50-75) % Lymph % (Auto) 23.2 L (25-40) % [place]comb % (Auto) 6.4 (3-14) % Eos % (Auto) 1.6 L (2-4) % Baso % (Auto) 0.4 (0-2) % Neut # (Auto) 6100 (1644-6482) /uL Lymph # (Auto) 2100 (0455-5913) /uL [place]comb # (Auto) 600 (0-900) /uL Eos # (Auto) 100 (0-450) /uL Baso # (Auto) 0 (0-100) /uL Sodium 141 (137-145) mmol/L Potassium 4.2 (3.4-5.1) mmol/L Chloride 104 (98-107) mmol/L Carbon Dioxide 27 (22-32) mmol/L BUN 13 (7-17) mg/dL Creatinine 0.70 (0.52-1.04) mg/dL Estimated GFR > 60.0 (>60) mL/min BUN/Creatinine Ratio 18.6 (6-22) Glucose 185 H (80-110) mg/dL Lactate (0.7-2.1) mmol/L Calcium 9.6 (8.4-10.2) mg/dL Total Bilirubin 0.2 (0.2-1.3) mg/dL AST 27 (14-36) IU/L ALT 23 (<35) IU/L Alkaline Phosphatase 89 (38-126) U/L Total Protein 7.5 (6.3-8.2) g/dL Albumin 4.3 (3.5-5.0) g/dL Globulin 3.2 (1.7-4.1) g/dL Albumin/Globulin Ratio 1.3 (1.0-2.8) Amylase (30-110) U/L Lipase 108 (23-300) U/L Urine Color Yellow Urine Appearance Clear Urine pH 5.5 (4.5-8.0) Ur Specific [place] 1.010 (1.000-1.035) Urine Protein Negative (Negative) Urine Glucose (UA) Negative (Negative) g/dL Urine Ketones Negative (NEGATIVE) Urine Occult Blood Trace-intact (Negative) Urine Nitrate Negative (Negative) Urine Bilirubin Negative (NEGATIVE) Urine Urobilinogen 0.2 (0.2) E.U./dL Ur Leukocyte Esterase Trace H (NEGATIVE) Urine RBC None seen (0-5/HPF) Urine WBC 1-5/hpf (0-5/HPF) Ur Squamous Epith Cells 0-1 /hpf (0-5/HPF) Amorphous Sediment 1+ Urine Bacteria Occasional (0-1) D (None) Ur Culture Indicated? Specimen cultured 12/28/19 12/28/19 Range/Units 14:09 14:09 WBC (4.5-11.0) X10^3/uL RBC (4.0-5.2) X10^6/uL Hgb (12.0-16.0) g/dL Hct (36-46) % MCV (80-100) fL MCH (26-34) PG MCHC (30-36) % RDW (11.6-14.8) % Plt Count (150-400) X10^3/uL Neut % (Auto) (50-75) % Lymph % (Auto) (25-40) % [place] % (Auto) (3-14) % Eos % (Auto) (2-4) % Baso % (Auto) (0-2) % Neut # (Auto) (1480-1032) /uL Lymph # (Auto) (1012-7443) /uL [place]comb # (Auto) (0-900) /uL Eos # (Auto) (0-450) /uL Baso # (Auto) (0-100) /uL Sodium (137-145) mmol/L Potassium (3.4-5.1) mmol/L Chloride (98-107) mmol/L Carbon Dioxide (22-32) mmol/L BUN (7-17) mg/dL Creatinine (0.52-1.04) mg/dL Estimated GFR (>60) mL/min BUN/Creatinine Ratio (6-22) Glucose (80-110) mg/dL Lactate 1.2 (0.7-2.1) mmol/L Calcium (8.4-10.2) mg/dL Total Bilirubin (0.2-1.3) mg/dL AST (14-36) IU/L ALT (<35) IU/L Alkaline Phosphatase (38-126) U/L Total Protein (6.3-8.2) g/dL Albumin (3.5-5.0) g/dL Globulin (1.7-4.1) g/dL Albumin/Globulin Ratio (1.0-2.8) Amylase 59 (30-110) U/L Lipase (23-300) U/L Urine Color Urine Appearance Urine pH (4.5-8.0) Ur Specific [place] (1.000-1.035) Urine Protein (Negative) Urine Glucose (UA) (Negative) g/dL Urine Ketones (NEGATIVE) Urine Occult Blood (Negative) Urine Nitrate (Negative) Urine Bilirubin (NEGATIVE) Urine Urobilinogen (0.2) E.U./dL Ur Leukocyte Esterase (NEGATIVE) Urine RBC (0-5/HPF) Urine WBC (0-5/HPF) Ur Squamous Epith Cells (0-5/HPF) Amorphous Sediment Urine Bacteria (None) Ur Culture Indicated? Discharge Plan Departure Patient Disposition: Home Clinical Impression: Diverticulitis, Acute UTI Discharge Date/Time: 12/28/19 16:50 Instructions: Diverticulitis, DI for Diverticulitis, DI for Urinary Tract Infection (UTI) Activity Restrictions/Additional Instructions: As discussed, your CT is concerning for early diverticulitis. Urine also shows signs of infection. I sent two antibiotics to [facility] in [facility]. I also sent a prescription of nausea medication. Please come back to the emergency department for any acute concerns such as inability keep down your fluids or antibiotics Please follow-up with primary care provider in the next few days Prescriptions: New ondansetron 4 mg tablet,disintegrating 4 mg PO Q6H PRN (Reason: nausea and vomiting) Qty: 20 RF: 0 ciprofloxacin HCl [Cipro] 500 mg tablet 500 mg PO BID Qty: 20 RF: 0 metronidazole 500 mg tablet 500 mg PO Q8H 10 Days Qty: 30 RF: 0 No Action carboxymethylcellulose sodium [Refresh Liquigel] 1 % Drops, Liquid Gel 2 gtt OU PRN Qty: 0 RF: 0 aspirin 81 MG tablet,delayed release (DR/EC) 81 mg PO QDAY Qty: 0 RF: 0 nbdfxnqt-awnsbwewi-BG 3.5-10,000-1 mg/mL-unit/mL-% solution 4 drop otic (ear) TID PRN (Reason: ear pain) Qty: 10 RF: 3 estradiol [Estring] 2 mg (7.5 mcg /24 hour) ring 1 vaginalrin VAG [id number] Qty: 1 RF: 3 (DME) pen needle, diabetic [Ultra-Thin II Ins Pen Cornelia] 29 gauge x 1/2 needle See Dose Instructions .ROUTE .MEDSUPPLY Qty: 30 RF: 0 lansoprazole 30 mg capsule,delayed release(DR/EC) 30 mg PO BID Qty: 180 RF: 3 fluticasone propionate [Flonase Allergy Relief] 50 mcg/actuation spray,suspension 2 spray Intranasal BEDTIME PRN (Reason: Allergy Symptoms) Qty: 16 RF: 3 Novolog Flexpen U-100 Insulin 100 unit/mL insulin pen See Rx Instructions subcut Q4H PRN (Reason: HIGH BLOOD SUGAR) Qty: 45 RF: 11 nadolol 40 mg tablet 40 mg PO DAILY Qty: 90 RF: 3 Levemir FlexTouch U-100 Insuln 100 unit/mL (3 mL) insulin pen See Rx Instructions SUBCUT DAILY RF: 0 CBD Oil 20 mg sublingual DAILY RF: 0 desonide 0.05 % cream 1 applictn TOP .PRN Qty: 30 RF: 0 diphenhydramine-viscous lidocain-maalox 1:1:1 5 - 10 ml PO Q6H PRN (Reason: mouth pain) Qty: 100 RF: 0 fluconazole [Diflucan] 150 mg tablet 150 mg PO QDAY PRN (Reason: YEAST) Qty: 4 RF: 2 PreserVision AREDS-2 [id number] ez-igza-eq-mg capsule 1 tab PO BID RF: 0 olmesartan 40 mg tablet 40 mg PO DAILY RF: 0 clonazepam [Klonopin] 1 mg tablet 1 mg PO BID Qty: 180 RF: 1 hydrocodone-acetaminophen 10-325 mg tablet 1 - 2 tab PO Q4HP PRN (Reason: pain) Qty: 200 RF: 0 (DME) OneTouch Ultra Blue Test Strip strip See Dose Instructions .ROUTE .MEDSUPPLY Qty: 250 RF: 11 (DME) Cornelia 31g x 5/16 Qty: 300 RF: 3 (DME) Lancets Qty: 250 RF: 4 pvahtfwryp-csofwrtyjttnh-gmly [Fioricet] 50-300-40 mg capsule 1 cap PO Q8H PRN (Reason: headache) Qty: 90 RF: 0 cyclobenzaprine 10 mg tablet 10 mg PO BEDTIME Qty: 30 RF: 3 albuterol sulfate [Ventolin HFA] 90 mcg/actuation HFA aerosol inhaler 2 puff INH Q4H PRN (Reason: Shortness Of Breath) RF: 0 Disabled Parking Permit 1 ea miscellaneous PRN PRN (Reason: PARKING) RF: 0 Cornelia 5/16 Inch 1 ea SQ DIRECTED RF: 0 Referrals: Good Miller MD [Primary Care Provider] -
[2019-12-28] MEDS: CIPROFLOXACIN 500 MG TABLET PO (16:30)
[2019-12-28] MEDS: metroNIDAZOLE 250 MG TABLET 500 MG PO (16:30)
[2019-12-28] MEDS: HYDROCODONE/ACET 5/325 TABLET 2 TAB PO (16:30)
== END 2019-12-28 16:50 | disposition home or self-care (01) ==
PROVIDERS: Emergency Medicine; Emergency Provider Nurse Practitioner Family; Family Provider Internal Medicine; PCP Internal Medicine
DX: K57.92 Diverticulitis of intestine, part unspecified, without perforation or abscess without bleeding (principal); N39.0 Urinary tract infection, site not specified; R11.0 Nausea
CPT/HCPCS: 36415; 74177; 80053; 81001; 82150; 83605; 83690; 85025; 87086; 96361; 96374; 96375; 99284; 99285; J2270; J2405; Q9967

== ENCOUNTER 2020-01-16 09:11 | Emergency (ER) | payer MEDICARE, OTHER, SELFPAY ==
[2020-01-16 09:22] VITALS: BP 165/70; PULSE 73; RESP 16; TEMP 36.9; O2SAT 96; BMI 29.9
[2020-01-16 09:54] LABS: Add Manual Diff / Slide Review NO; Basophils Absolute Auto 100 /uL (0-100); Basophils Percent Auto 0.8 % (0-2); Eosinophils Absolute Auto 200 /uL (0-450); Eosinophils Percent Auto 2.3 % (2-4); Hematocrit 41.1 % (36-46); Hemoglobin 13.6 g/dL (12.0-16.0); Lymphocytes Absolute Auto 2200 /uL (1100-4500); Lymphocytes Percent Auto 28.9 % (25-40); Mean Corpuscular HGB Conc 33.1 % (30-36); Mean Corpuscular Hemoglobin 29.5 PG (26-34); Mean Corpuscular Volume 89.1 fL (80-100); Monocytes Absolute Auto 500 /uL (0-900); Monocytes Percent Auto 7.1 % (3-14); Neutrophils Absolute Auto 4500 /uL (1500-7000); Neutrophils Percent Auto 60.9 % (50-75); Platelet Count 261 X10^3/uL (150-400); Red Blood Cell Count 4.61 X10^6/uL (4.0-5.2); Red Cell Distribution Width 13.9 % (11.6-14.8); White Blood Cell Count 7.4 X10^3/uL (4.5-11.0)
[2020-01-16 09:59] LABS: Prothrombin Time 11.5 SECONDS (10.1-12.7)
[2020-01-16 10:02] LABS: Bacteria Urine Few (2-10); Culture Indicated Urine Specimen Cultured; PTT Partial Thromboplastin Tim 31 SECONDS (26.4-36.2); RBC Urine 5-10/HPF (0-5/HPF); Squamous Epithelial Cell Urine 1-5 /HPF (0-5/HPF); WBC Urine 10-30/HPF (0-5/HPF)
[2020-01-16 10:04] LABS: Alanine Aminotransferase 22 IU/L (<35); Albumin 4.2 g/dL (3.5-5.0); Albumin Globulin Ratio 1.3 (1.0-2.8); Alkaline Phosphatase 80 U/L (38-126); Aspartate Aminotransferase 32 IU/L (14-36); BUN Creatinine Ratio 14.7 (6-22); Bilirubin Total 0.4 mg/dL (0.2-1.3); Blood Urea Nitrogen 10 mg/dL (7-17); Calcium 9.3 mg/dL (8.4-10.2); Carbon Dioxide 26 mmol/L (22-32); Chloride 104 mmol/L (98-107); Estimated Glomerular Filt Rate > 60.0 mL/min (>60); Globulin 3.3 g/dL (1.7-4.1); Glucose 173 mg/dL (80-110); HEMOLYSIS 21 (0-50); Lipase 82 U/L (23-300); Potassium 4.4 mmol/L (3.4-5.1); Sodium 137 mmol/L (137-145); Total Protein 7.5 g/dL (6.3-8.2)
--- NOTE | 2020-01-16 10:23 | ED_ITS ---
HPI - Abdominal Pain General Chief Complaint: Abdominal Pain Stated Complaint: symptoms came back from diverticulitis Time Seen by Provider: 01/16/20 10:02 Source: patient Mode of arrival: Ambulatory History of Present Illness HPI narrative: HPI: The patient is a 69-year-old female who presents to the emergency department with diffuse abdominal pain and diarrhea. The patient states that she was diagnosed to have diverticulitis on December 29 admitted to the hospital in treated. She states that she has been on a liquid diet and slowly has advanced her diet. She states that she was treated with antibiotics through January 07. Her her diarrhea never went away. It eventually became soft. She has had a couple of normal bowel movements but most often her stool is a consistency of a liquid paced to watery. She has even tried probiotics. For the last several days prior to admission she has had liquid bowel movements. She has been admitted in the past for diverticulitis and was diagnosed to have Clostridium difficile. She currently has had intermittent chills but denies any fever sweats. She has a mild headache. She has had nausea but no vomiting. Her abdominal pain is consistent with cramps. She has had no urinary symptoms. She states that she just feels sick and ill. Most of her discomfort is on the left side. The patient is a former smoker quitting 37 years ago. She does not vapor drink alcohol or use any drugs. She states that she has an autoimmune disorder Sjogren's syndrome but denies crest syndrome. She has had Legionella before and sarcoidosis of the lung. The patient complains of left ear pain and earache. Related Data Home Medications Medication Instructions Recorded Confirmed carboxymethylcellulose sodium 2 gtt OU PRN #0 05/09/12 12/22/19 [Refresh Liquigel] aspirin 81 mg PO QDAY #0 05/11/17 12/22/19 Disabled Parking Permit 1 ea MISCELLANEOUS PRN PRN 07/16/18 12/22/19 Napoleon 5/16 Inch 1 ea SQ DIRECTED 07/16/18 12/22/19 albuterol sulfate [Ventolin HFA] 2 puff INH Q4H PRN 07/25/18 12/22/19 CBD Oil 20 mg SUBLINGUAL DAILY 04/24/19 12/22/19 desonide 0.05 % topical cream 1 applictn TOP .PRN #30 gram 04/24/19 12/22/19 insulin detemir U-100 100 unit/mL 70 SUBCUT DAILY ml 04/24/19 12/22/19 (3 mL) subcutaneous pen vit C 250 mg-E 200 unit-zinc 40 1 tab PO BID 10/16/19 12/22/19 mg-copper 1 ej-ozauza-ttinup capsule ciclopirox 1 % TOPICAL QPM 01/16/20 01/16/20 clobetasol 1 applic TOPICAL DIRECTED PRN 01/16/20 01/16/20 olmesartan 40 mg PO DAILY 01/16/20 01/16/20 Previous Rx's Medication Instructions Recorded estradiol 1 vaginalrin VAG [id number] #1 each 11/12/18 pen needle, diabetic 29 gauge x #30 each 11/19/18 1/ lansoprazole 30 mg PO BID #180 ecc 12/31/18 fluticasone propionate 50 2 spray INTRANASAL BEDTIME PRN #16 02/18/19 mcg/actuation nasal gram spray,suspension insulin aspart U-100 100 unit/mL See Rx Instructions SUBCUT Q4H PRN 03/11/19 (3 mL) subcutaneous pen #45 ml blood sugar diagnostic #250 each 03/27/19 diphenhydramine-viscous 5 - 10 ml PO Q6H PRN #100 ml 04/24/19 lidocain-maalox 1:1:1 fluconazole 150 mg tablet 150 mg PO QDAY PRN #4 tab 04/24/19 nadolol 40 mg tablet 40 mg PO DAILY #90 tab 05/06/19 Lancets #250 each 06/05/19 ebtzmgfjxv-fbjxculcrkcyr-xwjmhvjd 1 cap PO Q8H PRN #90 cap 08/21/19 50 mg-300 mg-40 mg capsule cyclobenzaprine 10 mg tablet 10 mg PO BEDTIME #30 tab 08/21/19 clonazepam 1 mg tablet 1 mg PO BID #180 tab 12/22/19 hydrocodone 10 mg-acetaminophen 1 - 2 tab PO Q4HP PRN #200 tab 12/22/19 325 mg tablet ondansetron 4 mg PO Q6H PRN #20 tab 12/28/19 Napoleon 31g x 03/20 #300 each 01/13/20 myxthwqg-nzkahozbn-wktnkumup 3.5 4 drop OTIC (EAR) TID PRN #10 ml 01/13/20 mg/mL-10,000 unit/mL-1 % ear solution dicyclomine 20 mg PO QID #15 tab 01/16/20 ibuprofen 600 mg PO Q6H PRN #20 tab 01/16/20 loperamide 2 mg PO Q4H PRN #14 tab 01/16/20 ondansetron HCl [Zofran] 4 mg PO Q6H PRN #10 tab 01/16/20 vancomycin 125 mg capsule 125 mg PO QID 10 Days #40 cap 01/17/20 Allergies Allergy/AdvReac Type Severity Reaction Status Date / Time atorvastatin [ATORVASTATIN] Allergy Unknown Verified 01/16/20 09:22 gemfibrozil [GEMFIBROZIL] Allergy Unknown Verified 01/16/20 09:22 rosuvastatin [ROSUVASTATIN] Allergy Unknown Verified 01/16/20 09:22 tetracycline [TETRACYCLINE] Allergy Unknown Verified 01/16/20 09:22 Milk Containing Products AdvReac Severe GI issues Verified 01/16/20 09:22 [MILK CONTAINING PRODUCTS] carisoprodol [CARISOPRODOL] AdvReac Intermediate DIZZINESS Verified 01/16/20 0 9:22 duloxetine [DULOXETINE] AdvReac Intermediate DIARRHEA Verified 01/16/20 09:22 fenofibrate [FENOFIBRATE] AdvReac Intermediate rash Verified 01/16/20 09:22 indomethacin [INDOMETHACIN] AdvReac Intermediate GI DISTRESS Verified 01/16/20 09:22 lisinopril [LISINOPRIL] AdvReac Intermediate EDEMA LEGS Verified 01/16/20 09:22 amoxicillin [AMOXICILLIN] AdvReac Mild itching Verified 01/16/20 09:22 Review of Systems Review of Systems Narrative: Her review of systems were all negative except for those mentioned in the history of present illness. Patient History Medical History Abnormal CXR (chest x-ray) (Inactive 1981) Abnormal Pap smear of cervix (Resolved 1984) Anemia (Resolved) Ankle pain (Inactive 1994) Asthma (Chronic) Atrophic vaginitis (Chronic 11/24/14) Chronic back pain (Chronic 1999) Diverticular disease (Inactive 1999) Diverticulosis of colon (Chronic 06/16/11) Eczema (Chronic) Essential hypertension (Chronic 11/23/15) Fibroids (Resolved 2002) Fibromyalgia (Chronic 06/16/11) Foot pain (Inactive 2004) Fractures (Inactive 1972) Gastroparesis (Chronic 2009) GERD (gastroesophageal reflux disease) (Chronic) Hayfever (Chronic) Hepatitis A (Resolved 1989) History of heavy periods (Resolved) Hyperlipidemia (Inactive) Hypertension (Inactive 2004) Inner ear inflammation (Inactive) Intractable migraine without aura and with status migrainosus (Chronic) Irritable bowel syndrome (Chronic 06/16/11) Legionella pneumonia (Inactive 1981) Liver disease (Inactive) Malaise and fatigue (Chronic 07/13/15) MCTD (mixed connective tissue disease) (Inactive) Measles (Resolved 1958) Mixed hyperlipidemia (Chronic 06/16/11) Mumps (Resolved 1958) Ovarian cyst (Inactive 1984) Painful menstrual periods (Resolved) Polymyalgia rheumatica (Inactive) Recurrent sinusitis (Inactive 2004) RLS (restless legs syndrome) (Chronic 2004) Rubella (Resolved 1958) Sarcoidosis (Inactive 1983) Seizure, temporal lobe (Inactive 1984) Sjogren's syndrome (Chronic 10/01/15) Sjogren's syndrome (Inactive) Type 2 diabetes mellitus with hyperglycemia (Chronic 06/16/11) Type 2 diabetes mellitus without complication (Chronic 04/10/16) Vitamin deficiency (Chronic) Surgical History Anesthesia complication (Resolved) History of abdominal surgery (Resolved 2008) History of abdominal surgery (Resolved 1981) History of bilateral salpingo-oophorectomy (BSO) History of colonoscopy (Resolved 12/17/14) History of esophagogastroduodenoscopy (EGD) (Resolved 12/2014) History of lung biopsy (Resolved 1983) History of lung biopsy (Resolved 1981) History of oophorectomy (Resolved) Status post hysterectomy (Resolved 2004) Status post knee surgery (Resolved 2012) Family History Child Age: 50 Hx of Sjogren's disease Child Age: 48 Migraines Father Prostate cancer Cancer Heart disease Stroke Mother Diabetes mellitus Heart disease Hypertension Sister Uterine cancer Grandmother No problems noted. Grandfather Sepsis Grandmother No problems noted. Grandfather Bright's disease Sister Heart block Heart disease Social History marital status: number of children: 3 household members: spouse lives independently: Yes caregiver/support person: No housing: house pets and animals: Yes education level: college ([employer].) occupational status: other (Retired) Previous occupational history: [employer] and [employer] work fredrick/orthodoxy: [employer] leisure activities: exercise, reading and other (Photography, drawing, cooking, gardening) Smoking Status: Former smoker Tobacco: How many years used: 18 (off and on) Smokeless tobacco user: other (cigarettes) quit status: quit date established (1985) second hand exposure: No alcohol intake: never substance use type: does not use and marijuana (For headaches.) Smoking Status: Former smoker alcohol intake frequency: 0-2 drinks per day Substance Use Type: does not use Exam Narrative Exam Narrative: PHYSICAL EXAM: CONSTITUTIONAL: Awake, Alert, Oriented, Coherent, Cooperative in NAD. Does not appear toxic or ill. HEAD: AT/NC EENT: PERRL, FROM of eyes, no discharge, the patient is tender over her left mastoid and tender over her left temporomandibular joint. Her tympanic membrane is dull and quite but there is no erythema or signs of infection. Oral mucosa is moist and pink, posterior pharynx is without erythema or exudate. NECK: Supple, no obvious JVD, Trachea is midline without stridor, no palpable LN . SPINE: No gross deformity, no palpable tenderness of the cervical, thoracic, lumbar or sacral spine. No CVA tenderness. THORAX: No deformity, retractions, chest wall tenderness LUNGS: Clear with symmetrical breath sounds without respiratory distress HEART: Normal heart tones, regular rhythm and rate without murmur. ABDOMEN: Soft exquisitely tender in the epigastrium with mild guarding. She is tender in the left lower quadrant right upper quadrant. Bowel sounds are normal. At no costovertebral angle tenderness. EXTREMITIES: No edema, cyanosis, deformity or tenderness. SKIN: No rash, bruising, petechiae or purpura. NEURO: Awake, alert, oriented, conversive, cranial nerves II-XII are symmetrical and normal, moves all 4 extremities and is ambulatory Initial Vital Signs Initial Vital Signs: Vital Signs Temperature 98.5 F 01/16/20 09:22 Pulse Rate 73 01/16/20 09:22 Respiratory Rate 16 01/16/20 09:22 Blood Pressure 165/70 H 01/16/20 09:22 Pulse Oximetry 96 01/16/20 09:22 Course Course Course Narrative: [address] of her abdomen again she shows concent juan mural thickening in the far distal esophagus but this pattern has been previously seen on multiple prior abdominal pelvic CT scans. It remains stable. There is debris within the distention of the esophagus but this level is not seen. Endoscopies would provide the most accurate assessment of that area. Sigmoid diverticulosis moderate in severity is again seen without acute diverticulitis. CTs of the patient's mastoids right and left are both negative and unremarkable. The patient's stool screen remains pending as well as the Clostridium difficile. The patient has been informed of these findings. 1409 Dr. Miller was called and will call back to discuss the patient. She has chronic problems with chronic diarrhea and persistent diverticulosis without evidence of diverticulitis. She has left otalgia as well as I urinary tract infection. The patient has a history of C diff and treating her with antibiotics main make this worse. I will discuss the patient and his plan of care with Dr. Miller. 1418 I discussed the patient with Dr. kelle dawkins. He states to discharge the patient home he agrees with my up plan to place her on Bentyl for a cramps arm loperamide for her diarrhea and arm Zofran for nausea and or vomiting. He advised her to call the office and they will follow-up with the GI panel and further evaluation. Orders Ordered: Discontinued Medications Dicyclomine HCl (Bentyl) 20 mg PO NOW ONE Stop: 01/16/20 10: Last Admin: 01/16/20 10:45 Dose: 20 mg Documented by: ANDERSON Morphine Sulfate (Morphine) 4 mg IV NOW ONE Stop: 01/16/20 10: Last Admin: 01/16/20 10:45 Dose: 4 mg Documented by: ANDERSON Ondansetron HCl (Zofran) 4 mg IV NOW ONE Stop: 01/16/20 10: Last Admin: 01/16/20 10:45 Dose: 4 mg Documented by: SCANSHON Vital Signs Vital signs: Vital Signs - 8 hr 01/16/20 09:22 01/16/20 12:49 Temperature 98.5 F Pulse Rate 73 63 Respiratory Rate 16 12 Blood Pressure 165/70 H Blood Pressure [Left Arm] 146/66 H Pulse Oximetry 96 97 MDM - Abdominal Pain Lab Data Result diagrams: 01/16/20 09:40 01/16/20 09:40 Labs: Lab Results 01/16/20 01/16/20 01/16/20 Range/Units 09:40 09:40 09:40 WBC 7.4 (4.5-11.0) X10^3/uL RBC 4.61 (4.0-5.2) X10^6/uL Hgb 13.6 (12.0-16.0) g/dL Hct 41.1 (36-46) % MCV 89.1 (80-100) fL MCH 29.5 (26-34) PG MCHC 33.1 (30-36) % RDW 13.9 (11.6-14.8) % Plt Count 261 (150-400) X10^3/uL Neut % (Auto) 60.9 (50-75) % Lymph % (Auto) 28.9 (25-40) % [place] % (Auto) 7.1 (3-14) % Eos % (Auto) 2.3 (2-4) % Baso % (Auto) 0.8 (0-2) % Neut # (Auto) 4500 (8217-5917) /uL Lymph # (Auto) 2200 (4173-6312) /uL [place] # (Auto) 500 (0-900) /uL Eos # (Auto) 200 (0-450) /uL Baso # (Auto) 100 (0-100) /uL PT 11.5 (10.1-12.7) SECONDS INR 1.0 (0.9-1.3) APTT 31 (26.4-36.2) SECONDS Sodium 137 (137-145) mmol/L Potassium 4.4 (3.4-5.1) mmol/L Chloride 104 (98-107) mmol/L Carbon Dioxide 26 (22-32) mmol/L BUN 10 (7-17) mg/dL Creatinine 0.68 (0.52-1.04) mg/dL Estimated GFR > 60.0 (>60) mL/min BUN/Creatinine Ratio 14.7 (6-22) Glucose 173 H (80-110) mg/dL Calcium 9.3 (8.4-10.2) mg/dL Total Bilirubin 0.4 (0.2-1.3) mg/dL AST 32 (14-36) IU/L ALT 22 (<35) IU/L Alkaline Phosphatase 80 (38-126) U/L Total Protein 7.5 (6.3-8.2) g/dL Albumin 4.2 (3.5-5.0) g/dL Globulin 3.3 (1.7-4.1) g/dL Albumin/Globulin Ratio 1.3 (1.0-2.8) Lipase 82 (23-300) U/L Urine RBC (0-5/HPF) Urine WBC (0-5/HPF) Ur Squamous Epith Cells (0-5/HPF) Urine Bacteria (None) Ur Culture Indicated? 01/16/20 Range/Units 09:40 WBC (4.5-11.0) X10^3/uL RBC (4.0-5.2) X10^6/uL Hgb (12.0-16.0) g/dL Hct (36-46) % MCV (80-100) fL MCH (26-34) PG MCHC (30-36) % RDW (11.6-14.8) % Plt Count (150-400) X10^3/uL Neut % (Auto) (50-75) % Lymph % (Auto) (25-40) % [place] % (Auto) (3-14) % Eos % (Auto) (2-4) % Baso % (Auto) (0-2) % Neut # (Auto) (1018-6315) /uL Lymph # (Auto) (8494-9120) /uL [place] # (Auto) (0-900) /uL Eos # (Auto) (0-450) /uL Baso # (Auto) (0-100) /uL PT (10.1-12.7) SECONDS INR (0.9-1.3) APTT (26.4-36.2) SECONDS Sodium (137-145) mmol/L Potassium (3.4-5.1) mmol/L Chloride (98-107) mmol/L Carbon Dioxide (22-32) mmol/L BUN (7-17) mg/dL Creatinine (0.52-1.04) mg/dL Estimated GFR (>60) mL/min BUN/Creatinine Ratio (6-22) Glucose (80-110) mg/dL Calcium (8.4-10.2) mg/dL Total Bilirubin (0.2-1.3) mg/dL AST (14-36) IU/L ALT (<35) IU/L Alkaline Phosphatase (38-126) U/L Total Protein (6.3-8.2) g/dL Albumin (3.5-5.0) g/dL Globulin (1.7-4.1) g/dL Albumin/Globulin Ratio (1.0-2.8) Lipase (23-300) U/L Urine RBC 5-10/hpf H (0-5/HPF) Urine WBC 10-30/hpf H (0-5/HPF) Ur Squamous Epith Cells 1-5 /hpf (0-5/HPF) Urine Bacteria Few (2-10) H (None) Ur Culture Indicated? Specimen cultured Point of care testing: Urine Dip Bedside Urine Glucose Negative Bedside Urine Bilirubin - Negative Bedside Urine Ketone - Negative Urine Specific [place] 1.020 Bedside Urine Occult Blood +/- Bedside Urine pH 5.5 Bedside Urine Protein - Negative Bedside Urine Urobilinogen - Negative Bedside Urine Nitrite - Negative Bedside Urine Leukocytes + 70 Esterase Discharge Plan Departure Patient Disposition: Home Clinical Impression: Fibromyalgia, Diarrhea in adult patient, Diverticulosis of colon without diverticulitis Otalgia Qualifiers: Laterality: left Qualified Code(s): H92.02 - Otalgia, left ear Sjogren's syndrome Qualifiers: Sjogren's organ involvement: unspecified organ involvement Qualified Code(s): M35.00 - Sicca syndrome, unspecified TMJ arthralgia Qualifiers: Laterality: left Qualified Code(s): M26.622 - Arthralgia of left temporomandi bular joint Discharge Date/Time: 01/16/20 15:12 Instructions: Diarrhea (Alternative Therapy), DI for Temporomandibular Disorder, DI for Diverticulosis Activity Restrictions/Additional Instructions: 1. Make sure you are not taking any antibiotics at this time. Your records suggest that you are still on Cipro. 2. Follow-up with Dr. Miller and call his office for follow-up appointment. He will follow-up with the stool cultures and GI panel. 3. Keep herself hydrated by drinking for 2-4 L of fluid per day. 4. As we previously discussed your CT of the abdomen shows that you have d iverticulosis without diverticulitis and that you have a dilated esophagus. The CTs of your mastoid process and external auditory canals are normal. You will need to follow-up with ENT as referred. For the pain and discomfort take ibuprofen 600 mg every 6 hours. 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 Take Zofran as prescribed for nausea and vomiting. Take the loperamide for diarrhea as prescribed. Take Bentyl/dicyclomine for abdominal cramps and pain a s prescribed. Prescriptions: New ibuprofen 600 mg tablet 600 mg PO Q6H PRN (Reason: fever or pain) Qty: 20 RF: 0 dicyclomine 20 mg tablet 20 mg PO QID Qty: 15 RF: 0 loperamide 2 mg tablet 2 mg PO Q4H PRN (Reason: loose stool) Qty: 14 RF: 0 ondansetron HCl [Zofran] 4 mg tablet 4 mg PO Q6H PRN (Reason: nausea and vomiting) Qty: 10 RF: 0 No Action carboxymethylcellulose sodium [Refresh Liquigel] 1 % Drops, Liquid Gel 2 gtt OU PRN Qty: 0 RF: 0 aspirin 81 MG tablet,delayed release (DR/EC) 81 mg PO QDAY Qty: 0 RF: 0 estradiol [Estring] 2 mg (7.5 mcg /24 hour) ring 1 vaginalrin VAG [id number] Qty: 1 RF: 3 (DME) pen needle, diabetic [Ultra-Thin II Ins Pen Napoleon] 29 gauge x 1/2 needle See Dose Instructions .ROUTE .MEDSUPPLY Qty: 30 RF: 0 lansoprazole 30 mg capsule,delayed release(DR/EC) 30 mg PO BID Qty: 180 RF: 3 fluticasone propionate [Flonase Allergy Relief] 50 mcg/actuation spray,suspension 2 spray Intranasal BEDTIME PRN (Reason: Allergy Symptoms) Qty: 16 RF: 3 Novolog Flexpen U-100 Insulin 100 unit/mL insulin pen See Rx Instructions subcut Q4H PRN (Reason: HIGH BLOOD SUGAR) Qty: 45 RF: 11 nadolol 40 mg tablet 40 mg PO DAILY Qty: 90 RF: 3 eemzrfqb-lodkdfxhz-FL 3.5-10,000-1 mg/mL-unit/mL-% solution 4 drop otic (ear) TID PRN (Reason: ear pain) Qty: 10 RF: 3 (DME) Napoleon 31g x 5/16 Qty: 300 RF: 3 vancomycin [Vancocin] 125 mg capsule 125 mg PO QID 10 Days Qty: 40 RF: 2 Levemir FlexTouch U-100 Insuln 100 unit/mL (3 mL) insulin pen 70 SUBCUT DAILY RF: 0 CBD Oil 20 mg sublingual DAILY RF: 0 desonide 0.05 % cream 1 applictn TOP .PRN Qty: 30 RF: 0 diphenhydramine-viscous lidocain-maalox 1:1:1 5 - 10 ml PO Q6H PRN (Reason: mouth pain) Qty: 100 RF: 0 fluconazole [Diflucan] 150 mg tablet 150 mg PO QDAY PRN (Reason: YEAST) Qty: 4 RF: 2 PreserVision AREDS-2 [id number] vw-ghuq-qx-mg capsule 1 tab PO BID RF: 0 clonazepam [Klonopin] 1 mg tablet 1 mg PO BID Qty: 180 RF: 1 hydrocodone-acetaminophen 10-325 mg tablet 1 - 2 tab PO Q4HP PRN (Reason: pain) Qty: 200 RF: 0 (DME) OneTouch Ultra Blue Test Strip strip See Dose Instructions .ROUTE .MEDSUPPLY Qty: 250 RF: 11 (DME) Lancets Qty: 250 RF: 4 sxkasnrrsi-zmhtpmmzeqsxd-qbup [Fioricet] 50-300-40 mg capsule 1 cap PO Q8H PRN (Reason: headache) Qty: 90 RF: 0 cyclobenzaprine 10 mg tablet 10 mg PO BEDTIME Qty: 30 RF: 3 albuterol sulfate [Ventolin HFA] 90 mcg/actuation HFA aerosol inhaler 2 puff INH Q4H PRN (Reason: Shortness Of Breath) RF: 0 clobetasol 0.05 % solution 1 applic TOPICAL DIRECTED PRN (Reason: as directed) RF: 0 olmesartan 40 mg tablet 40 mg PO DAILY RF: 0 ciclopirox 1 % shampoo 1 % TOPICAL QPM RF: 0 Disabled [address]ing Permit 1 ea miscellaneous PRN PRN (Reason: PARKING) RF: 0 Napoleon 5/16 Inch 1 ea SQ DIRECTED RF: 0 ondansetron 4 mg tablet,disintegrating 4 mg PO Q6H PRN (Reason: nausea and vomiting) Qty: 20 RF: 0 Referrals: Good Miller MD [Primary Care Provider] -
--- NOTE | 2020-01-16 10:24 | DI.CT.S_ITS ---
PROCEDURE: CT MASTOID TEMPORAL INDICATIONS: severe left ear pain tender mastoid process COMPARISON: None. TECHNIQUE: Noncontrast 0.6 mm thick direct axial and coronal sections acquired through each temporal bone separately. FINDINGS: Image quality: Excellent. RIGHT: External auditory canal: Canal has a normal appearance. Middle ear: The middle ear structures, including the ossicles and tympanic membrane, appear normal. No abnormal fluid or soft tissue density. Inner ear: Inner ear is normally formed and appears unremarkable. Facial nerve appears normal throughout is course. Mastoids: Mastoid air cells are clear. LEFT: External auditory canal: Canal has a normal appearance. Middle ear: The middle ear structures, including the ossicles and tympanic membrane, appear normal. No abnormal fluid or soft tissue density. Inner ear: Inner ear is normally formed and appears unremarkable. Facial nerve appears normal throughout its course. Mastoids: Mastoid air cells are clear. MISCELLANEOUS: Visualized surrounding bones appear unremarkable. Visualized intracranial structures, including the cerebellopontine angle cisterns, appear normal. IMPRESSION: Unremarkable exam. Dictated by: Cassy Mccray M.D. on 01/16/2020 at 12:11 Approved by: Cassy Mccray M.D. on 01/16/2020 at 12:24
[2020-01-16] MEDS: MORPHINE 4 MG/ML INJ IV (10:45)
[2020-01-16] MEDS: ONDANSETRON 4 MG/2 ML INJ IV (10:45)
[2020-01-16] MEDS: DICYCLOMINE 10 MG CAPSULE 20 MG PO (10:45)
--- NOTE | 2020-01-16 10:53 | DI.CT.S_ITS ---
PROCEDURE: CT ABDOMEN PELVIS W CON INDICATIONS: persistent abdominal pain, LLQ, epigastrium with diarrhea hx diverticulitis TECHNIQUE: After the administration of intravenous contrast, 5 mm thick sections acquired from the diaphragm to the symphysis. 5 mm coronal and sagittal reformats were acquired. For radiation dose reduction, the following was used: automated exposure control, adjustment of mA and/or kV according to patient size. COMPARISON: [facility], CT, ABDOMEN/PELVIS WITH CONTRAST, 08/08/2010, 6:45. [facility], CT, ABDOMEN/PELVIS WITH CONTRAST, 10/09/2014, 15:05. [facility], CT, CT ABDOMEN PELVIS W CON, 07/16/2018, 17:46. [facility], CT, CT ABDOMEN PELVIS W CON, 12/28/2019, 15:06. [facility], CT, CT ABDOMEN PELVIS W CON, 06/19/2019, 13:13. FINDINGS: Image quality: Excellent. ABDOMEN: Lung bases: Lung bases are clear. Heart size is normal. 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 Solid organs: Liver is normal in size and enhancement. Gallbladder appears normal. Biliary system is non dilated. Pancreas enhances normally. Spleen is normal in size and enhancement. No adrenal nodules. Kidneys demonstrate normal size and enhancement, without hydronephrosis. Peritoneum and bowel: Bowel loops demonstrate normal wall thickness and caliber. No free fluid or air. Nodes and vessels: No retroperitoneal or mesenteric adenopathy by size criteria. Aorta and inferior vena cava are normal in size. Miscellaneous: No ventral hernias. PELVIS: Genitourinary: Bladder wall thickness is normal. Miscellaneous: No inguinal hernias or adenopathy. Moderate diverticulosis but without evidence of acute diverticulitis. Bones: No suspicious bony lesions. No vertebral body compression fractures. IMPRESSION: 1. Again noted is concentric mural thickening of the far distal esophagus but this pattern has been previously seen on multiple prior abdominal/pelvic CT scans and has remained stable in appearance since approximately 2009. Debris within and distention of the esophagus above this level is not seen. Endoscopy would provide the most accurate assessment of that area if clinically warranted. 2. Sigmoid diverticulosis, moderate in severity, is again seen without acute diverticulitis. Dictated by: Duran Brown M.D. on 01/16/2020 at 11:50 Approved by: Duran Brown M.D. on 01/16/2020 at 11:54
[2020-01-16 12:49] VITALS: BP 146/66; PULSE 63; RESP 12; O2SAT 97
[2020-01-16 14:56] VITALS: PULSE 91; RESP 16; O2SAT 94
[2020-01-16 15:02] VITALS: BP 141/103; PULSE 70; RESP 18; O2SAT 98
== END 2020-01-16 15:12 | disposition home or self-care (01) ==
PROVIDERS: Emergency Provider Emergency Medicine; Family Provider Internal Medicine; PCP Internal Medicine
DX: K57.90 Diverticulosis of intestine, part unspecified, without perforation or abscess without bleeding (principal); R19.7 Diarrhea, unspecified; M79.7 Fibromyalgia; H92.02 Otalgia, left ear; M35.00 Sjogren syndrome, unspecified; M26.622 Arthralgia of left temporomandibular joint
CPT/HCPCS: 36415; 70480; 74177; 80053; 81003; 81015; 83690; 85025; 85610; 85730; 87086; 96374; 96375; 99284; J2270; J2405; Q9967

== ENCOUNTER → 2020-01-17 07:49 | Outpatient (CLI) | payer MEDICARE, OTHER, SELFPAY ==
[2020-01-17 12:21] LABS: Adenovirus F 40/41 Not Detected (Not Detect); Astrovirus Not Detected (Not Detect); Campylobacter Not Detected (Not Detect); Clostridium difficile toxin AB Detected (Not Detect); Cryptosporidium Not Detected (Not Detect); Cyclospora cayetanensis Not Detected (Not Detect); Entamoeba histolytica Not Detected (Not Detect); Enteroaggregative E.coli Not Detected (Not Detect); Enteropathogenic E.coli Not Detected (Not Detect); Enterotoxigenic E.coli It/st Not Detected (Not Detect); Giardia lamblia Not Detected (Not Detect); Norovirus GI/GII Not Detected (Not Detect); Plesiomonsa shigelloides Not Detected (Not Detect); Rotavirus A Not Detected (Not Detect); Salmonella Not Detected (Not Detect); Sapovirus Not Detected (Not Detect); Shiga-like toxin-prod E.coli Not Detected (Not Detect); Shigella/Enteroinvasive E.coli Not Detected (Not Detect); Vibrio Not Detected (Not Detect); Vibrio cholerae Not Detected (Not Detect); Yersinia enterocolitica Not Detected (Not Detect)
== END ==
PROVIDERS: Family Provider Internal Medicine; PCP Internal Medicine; Referring Provider Emergency Medicine; Visit Provider Emergency Medicine
DX: A09 Infectious gastroenteritis and colitis, unspecified (principal); R19.7 Diarrhea, unspecified
CPT/HCPCS: 87177; 87507

== ENCOUNTER → 2020-04-20 12:49 | Outpatient (CLI) | payer MEDICARE, OTHER, SELFPAY ==
--- NOTE | 2020-04-20 12:51 | DI.RAD.S_ITS ---
PROCEDURE: XR CHEST 2V INDICATIONS: shortness of breath TECHNIQUE: 2 views of the chest were acquired. COMPARISON: [facility], CHEST 2 VIEW, 07/06/2016, 11:58. [facility], CHEST 1 VIEW, 10/09/2014, 14:10. FINDINGS: Surgical changes and devices: None. Lungs and pleura: Lungs are clear. No pleural effusions or pneumothorax. Mediastinum: Mediastinal contours are normal. Heart size is normal. Bones and chest wall: No suspicious bony abnormalities. Soft tissues appear unremarkable. IMPRESSION: Normal for age, source of current shortness of breath symptoms is not seen. Dictated by: Duran Brown M.D. on 04/20/2020 at 12:39 Approved by: Duran Brown M.D. on 04/20/2020 at 12:40
[2020-04-20 13:49] LABS: Add Manual Diff / Slide Review NO; Basophils Absolute Auto 0 /uL (0-100); Basophils Percent Auto 0.4 % (0-2); Eosinophils Absolute Auto 200 /uL (0-450); Eosinophils Percent Auto 2.3 % (2-4); Hematocrit 43.3 % (36-46); Hemoglobin 14.5 g/dL (12.0-16.0); Lymphocytes Absolute Auto 2500 /uL (1100-4500); Lymphocytes Percent Auto 31.9 % (25-40); Mean Corpuscular HGB Conc 33.4 % (30-36); Mean Corpuscular Hemoglobin 29.7 PG (26-34); Mean Corpuscular Volume 88.8 fL (80-100); Monocytes Absolute Auto 600 /uL (0-900); Monocytes Percent Auto 7.3 % (3-14); Neutrophils Absolute Auto 4600 /uL (1500-7000); Neutrophils Percent Auto 58.1 % (50-75); Platelet Count 303 X10^3/uL (150-400); Red Blood Cell Count 4.88 X10^6/uL (4.0-5.2); Red Cell Distribution Width 13.9 % (11.6-14.8); White Blood Cell Count 7.8 X10^3/uL (4.5-11.0)
[2020-04-20 14:09] LABS: Hemoglobin A1C% w Est Avg Glu 6.7 % (4.0-6.0)
[2020-04-20 14:23] LABS: Free T4, Direct Thyroxine 1.23 ng/dL (0.78-2.19)
[2020-04-20 14:37] LABS: Thyroid Stimulating Hormone 1.11 uIU/mL (0.47-4.68)
[2020-04-20 15:31] LABS: Alanine Aminotransferase 27 IU/L (<35); Albumin 4.6 g/dL (3.5-5.0); Albumin Globulin Ratio 1.4 (1.0-2.8); Alkaline Phosphatase 92 U/L (38-126); Aspartate Aminotransferase 31 IU/L (14-36); BUN Creatinine Ratio 22.4 (6-22); Bilirubin Total 0.3 mg/dL (0.2-1.3); Blood Urea Nitrogen 19 mg/dL (7-17); Calcium 10.2 mg/dL (8.4-10.2); Carbon Dioxide 28 mmol/L (22-32); Chloride 101 mmol/L (98-107); Estimated Glomerular Filt Rate > 60.0 mL/min (>60); Globulin 3.3 g/dL (1.7-4.1); Glucose 126 mg/dL (80-110); HEMOLYSIS < 15 (0-50); Potassium 4.9 mmol/L (3.4-5.1); Sodium 137 mmol/L (137-145); Total Protein 7.9 g/dL (6.3-8.2)
[2020-04-29 13:03] LABS: SARS CoV19 IgG Negative
== END ==
PROVIDERS: Family Provider Internal Medicine; PCP Internal Medicine; Referring Provider Internal Medicine; Visit Provider Internal Medicine
DX: R06.02 Shortness of breath (principal); E11.65 Type 2 diabetes mellitus with hyperglycemia; E78.2 Mixed hyperlipidemia; I10 Essential (primary) hypertension; Z79.4 Long term (current) use of insulin; B34.9 Viral infection, unspecified
CPT/HCPCS: 36415; 71046; 80053; 83036; 84439; 84443; 85025; 86769

== ENCOUNTER → 2020-04-24 14:31 | Outpatient (CLI) | payer MEDICARE, OTHER, SELFPAY ==
--- NOTE | 2020-04-24 14:33 | DI.MRI.S_ITS ---
PROCEDURE: MR HEAD/BRAIN WO CON INDICATIONS: headache, occipital TECHNIQUE: Non-contrast axial T1 spin echo, axial T2 fast spin echo, sagittal and axial FLAIR, coronal T2 fast spin echo, axial gradient echo, axial diffusion and ADC through the brain. COMPARISON: [facility], , MR HEAD/BRAIN WO CON, 03/27/2018, 8:19. FINDINGS: Image quality: Excellent. CSF spaces: Ventricles appear symmetric in size and shape. Basal cisterns are patent. No extra-axial fluid collections. Brain: No intracranial bleeds or mass effects. There is mild cerebral volume loss for age. There are minimal periventricular and deep white matter chronic small vessel ischemic changes. Brainstem appears normal. Diffusion-weighted images show no acute ischemic insults. No chronic ischemic insults. Normal intravascular flow voids are present. Skull and face: Calvarial bone marrow is normal in signal. Orbits are normal. Sinuses: Sinuses and mastoids are clear. IMPRESSION: 1. No acute process. No explanation for headache. 2. No recent infarct. 3. Mild volume loss and minimal small vessel ischemic disease. Dictated by: Demian Berry M.D. on 04/26/2020 at 8:59 Approved by: Demian Berry M.D. on 04/26/2020 at 9:00
== END ==
PROVIDERS: Family Provider Internal Medicine; PCP Internal Medicine; Referring Provider Internal Medicine; Visit Provider Internal Medicine
DX: R51 Headache (principal)
CPT/HCPCS: 70551

== ENCOUNTER → 2020-05-22 08:23 | Outpatient (CLI) | payer MEDICARE, OTHER, SELFPAY ==
--- NOTE | 2020-05-22 | DI.MG.S_ITS ---
BILATERAL DIGITAL SCREENING MAMMOGRAM 3D/2D WITH CAD: 05/22/2020 CLINICAL: Routine screening. Comparison is made to exams dated: 10/23/2018 mammogram, 04/12/2018 mammogram, 10/08/2017 mammogram, 10/03/2017 mammogram, and 10/19/2015 mammogram - [facility]. There are scattered fibroglandular elements in both breasts. Current study was also evaluated with a Computer Aided Detection (CAD) system. No significant masses, calcifications, or other findings are seen in either breast. There has been no significant interval change. IMPRESSION: NEGATIVE There is no mammographic evidence of malignancy. A 1 year screening mammogram is recommended. This exam was interpreted at Station ID: [id number]. NOTE: For mammograms, a report in lay terms will be sent to the patient. Approximately 15% of breast malignancies will not be visualized mammographically. In the management of a palpable breast mass, a negative mammogram must not discourage biopsy of a clinically suspicious lesion. Electronically Signed By: Nelson [email or web address]:05/24/2020 07:43:25 copy to: [facility] letter sent: Normal Exam ACR BI-RADS Category 1: Negative [id number]
== END ==
PROVIDERS: Family Provider Internal Medicine; PCP Internal Medicine
DX: Z12.31 Encounter for screening mammogram for malignant neoplasm of breast (principal)
CPT/HCPCS: 77063; 77067

== ENCOUNTER 2020-09-13 15:29 | Emergency (ER) | payer MEDICARE, OTHER, SELFPAY ==
[2020-09-13] VITALS (9 sets, daily range): BP systolic 126–159; BP diastolic 59–70; PULSE 68–74; RESP 12–21; TEMP 36.7; O2SAT 95–97; BMI 29.8
--- NOTE | 2020-09-13 15:38 | DI.RAD.S_ITS ---
PROCEDURE: XR CHEST 1V INDICATIONS: chest pain TECHNIQUE: One view of the chest was acquired. COMPARISON: [facility], CR, XR CHEST 2V, 04/20/2020, 13:02. FINDINGS: Surgical changes and devices: None. Lungs and pleura: Lungs are clear. No pleural effusions or pneumothorax. Mediastinum: Mediastinal contours appear normal. Heart size is mildly enlarged. Bones and chest wall: No suspicious bony lesions. Overlying soft tissues appear unremarkable. IMPRESSION: No acute cardiopulmonary pathology. Dictated by: Yimi Alfaro M.D. on 09/13/2020 at 15:22 Approved by: Yimi Alfaro M.D. on 09/13/2020 at 15:22
[2020-09-13 16:08] LABS: Add Manual Diff / Slide Review NO; Basophils Absolute Auto 100 /uL (0-100); Basophils Percent Auto 0.9 % (0-2); Eosinophils Absolute Auto 200 /uL (0-450); Eosinophils Percent Auto 2.6 % (2-4); Hematocrit 40.8 % (36-46); Hemoglobin 13.5 g/dL (12.0-16.0); Lymphocytes Absolute Auto 2800 /uL (1100-4500); Lymphocytes Percent Auto 38.3 % (25-40); Mean Corpuscular Hemoglobin 29.5 PG (26-34); Mean Corpuscular Volume 89.6 fL (80-100); Monocytes Absolute Auto 500 /uL (0-900); Monocytes Percent Auto 7.2 % (3-14); Neutrophils Absolute Auto 3700 /uL (1500-7000); Platelet Count 273 X10^3/uL (150-400); Red Blood Cell Count 4.56 X10^6/uL (4.0-5.2); Red Cell Distribution Width 14.2 % (11.6-14.8); White Blood Cell Count 7.2 X10^3/uL (4.5-11.0)
[2020-09-13 16:18] LABS: INR 0.9 (0.9-1.3); Prothrombin Time 10.6 SECONDS (10.1-12.7)
[2020-09-13 16:21] LABS: PTT Partial Thromboplastin Tim 32 SECONDS (26.4-36.2)
[2020-09-13 16:22] LABS: Alanine Aminotransferase 28 IU/L (<35); Albumin 4.3 g/dL (3.5-5.0); Albumin Globulin Ratio 1.3 (1.0-2.8); Alkaline Phosphatase 92 U/L (38-126); Aspartate Aminotransferase 32 IU/L (14-36); BUN Creatinine Ratio 15.9 (6-22); Bilirubin Total 0.3 mg/dL (0.2-1.3); Blood Urea Nitrogen 14 mg/dL (7-17); Calcium 9.2 mg/dL (8.4-10.2); Carbon Dioxide 27 mmol/L (22-32); Chloride 104 mmol/L (98-107); Creatine Kinase 49 U/L (30-135); Estimated Glomerular Filt Rate > 60.0 mL/min (>60); Globulin 3.3 g/dL (1.7-4.1); Glucose 199 mg/dL (80-110); HEMOLYSIS < 15 (0-50); Lipase 91 U/L (23-300); Potassium 4.5 mmol/L (3.4-5.1); Sodium 137 mmol/L (137-145); Total Protein 7.6 g/dL (6.3-8.2)
[2020-09-13] MEDS: ONDANSETRON 4 MG/2 ML INJ IV (16:24)
--- NOTE | 2020-09-13 16:27 | DI.CT.S_ITS ---
PROCEDURE: CT HEAD/BRAIN WO CON INDICATIONS: severe headache TECHNIQUE: Noncontrast 4.5 mm thick angled axial sections acquired from the foramen magnum to the vertex, with coronal and sagittal reformats. For radiation dose reduction, the following was used: automated exposure control, adjustment of mA and/or kV according to patient size. COMPARISON: [facility], MR, MR HEAD/BRAIN WO CON, 04/24/2020, 14:42. [facility], CT, HEAD WITHOUT CONTRAST, 02/09/2013, 10:01. FINDINGS: Image quality: Excellent. CSF spaces: Basal cisterns are patent. No extra-axial fluid collections. The ventricles are symmetric in size and shape. Brain: No intracranial bleeds or masses. There is cerebral volume loss for age, with resultant ventricular and sulcal prominence. There are periventricular and deep white matter chronic small vessel ischemic changes. There is intracranial internal carotid artery atherosclerosis. Skull and face: Calvarium and visualized facial bones appear intact, without suspicious lesions. Sinuses: Visualized sinuses and mastoids are clear. IMPRESSION: 1. No CT evidence of acute intracranial pathology. 2. Age-appropriate atrophy and mild white matter chronic small vessel ischemic changes. Finding is not significantly changed from recent MR of the brain. Dictated by: Yimi Alfaro M.D. on 09/13/2020 at 16:21 Approved by: Yimi Alfaro M.D. on 09/13/2020 at 16:23
[2020-09-13 16:33] LABS: Troponin I < 0.012 ng/mL (0.01-0.034)
--- NOTE | 2020-09-13 16:33 | ED.CHESTPAIN ---
HPI - Chest Pain <Sheila Mora PA-C - Last Filed: 09/13/20 20:03> General Chief Complaint: Chest Pain Stated Complaint: HEADACHE NECK AND BACK ACHE Time Seen by Provider: 09/13/20 15:43 Source: patient Mode of arrival: Ambulatory History of Present Illness HPI narrative: Nuris is a 69 yo female that presents with chest tightness, headache, neck pain , and back pain. She denies any known injury. She reports that she just finished a 10 day course of bactrim for a sinus infection. She explains that sinus pain has resolved. After finishing the medication, she developed a severe headache that started behind her eyes, some light sensitivity, nausea. History of migraines but none since she had a hysterectomy years ago. She reports that this headache feels different and is causing her to shake all over. She reports pain is 9/10. She has been self medicating at home with hydrocodone with no relief. She denies hitting her head or fall leading to the pain. She reports that she can't take NSAIDs due to gastroperesis. She reports chest tightness that does not radiate. She denies cardiac history. She has hyperlipidemia, hypertension, and diabetes. She takes determir and aspart for glucose control. She is NPO right now. Pt has taken bactrim in the past without issue. She denies vomiting, diarrhea, abdominal pain. Related Data Home Medications Medication Instructions Recorded Confirmed carboxymethylcellulose sodium 2 gtt OU PRN #0 05/09/12 04/20/20 [Refresh Liquigel] aspirin 81 mg PO QDAY #0 05/11/17 04/20/20 Disabled Parking Permit 1 ea MISCELLANEOUS PRN PRN 07/16/18 04/20/20 [place] 5/16 Inch 1 ea SQ DIRECTED 07/16/18 04/20/20 albuterol sulfate [Ventolin HFA] 2 puff INH Q4H PRN 07/25/18 04/20/20 CBD Oil 20 mg SUBLINGUAL DAILY 04/24/19 04/20/20 desonide 0.05 % topical cream 1 applictn TOP .PRN #30 gram 04/24/19 04/20/20 vit C 250 mg-E 200 unit-zinc 40 1 tab PO BID 10/16/19 04/20/20 mg-copper 1 qt-ypmwan-plicng capsule ciclopirox 1 % TOPICAL QPM 01/16/20 04/20/20 clobetasol 1 applic TOPICAL DIRECTED PRN 01/16/20 04/20/20 Previous Rx's Medication Instructions Recorded estradiol 1 vaginalrin VAG P2TEUBAP #1 each 11/12/18 pen needle, diabetic 29 gauge x #30 each 11/19/18 1/2 diphenhydramine-viscous 5 - 10 ml PO Q6H PRN #100 ml 04/24/19 lidocain-maalox 1:1:1 azucmaxurc-hpxyjmnqiwiaa-hvbqonvt 1 cap PO Q8H PRN #90 cap 08/21/19 50 mg-300 mg-40 mg capsule cyclobenzaprine 10 mg tablet 10 mg PO BEDTIME #30 tab 08/21/19 ondansetron 4 mg PO Q6H PRN #20 tab 12/28/19 [place] 31g x / #300 each 01/13/20 pmevndwf-ouzkhokpv-bxeujkhzm 3.5 4 drop OTIC (EAR) TID PRN #10 ml 01/13/20 mg/mL-10,000 unit/mL-1 % ear solution dicyclomine 20 mg PO QID #15 tab 01/16/20 ibuprofen 600 mg PO Q6H PRN #20 tab 01/16/20 loperamide 2 mg PO Q4H PRN #14 tab 01/16/20 ondansetron HCl [Zofran] 4 mg PO Q6H PRN #10 tab 01/16/20 Lancets #250 each 04/14/20 blood sugar diagnostic See Rx Instructions .ROUTE 04/16/20 .COMPLEX #250 each nadolol 40 mg tablet 40 mg PO DAILY #90 tab 04/27/20 olmesartan 40 mg tablet 40 mg PO DAILY #90 tab 04/27/20 fluconazole 150 mg tablet 150 mg PO QDAY PRN #4 tab 05/19/20 fluticasone propionate 50 2 spray INTRANASAL BEDTIME PRN #16 05/19/20 mcg/actuation nasal gram spray,suspension lansoprazole 30 mg capsule,delayed 30 mg PO BID #180 ecc 05/19/20 release clonazepam 1 mg tablet 1 mg PO BID #180 tab 06/01/20 hydrocodone 10 mg-acetaminophen 1 - 2 tab PO Q4HP PRN #200 tab 07/27/20 325 mg tablet insulin aspart U-100 100 unit/mL 5 - 15 unit SUBCUT Q4H PRN #45 ml 08/17/20 (3 mL) subcutaneous pen insulin detemir U-100 100 unit/mL 70 - 75 unit SUBCUT DAILY #15 ml 08/17/20 (3 mL) subcutaneous pen sulfamethoxazole 800 1 tab PO BID #20 tab 08/31/20 mg-trimethoprim 160 mg tablet Allergies Allergy/AdvReac Type Severity Reaction Status Date / Time atorvastatin [ATORVASTATIN] Allergy Unknown Verified 09/13/20 15:36 gemfibrozil [GEMFIBROZIL] Allergy Unknown Verified 09/13/20 15:36 rosuvastatin [ROSUVASTATIN] Allergy Unknown Verified 09/13/20 15:36 tetracycline [TETRACYCLINE] Allergy Unknown Verified 09/13/20 15:36 Milk Containing Products AdvReac Severe GI issues Verified 09/13/20 15:36 [MILK CONTAINING PRODUCTS] carisoprodol [CARISOPRODOL] AdvReac Intermediate DIZZINESS Verified 09/13/20 15:36 duloxetine [DULOXETINE] AdvReac Intermediate DIARRHEA Verified 09/13/20 15:36 fenofibrate [FENOFIBRATE] AdvReac Intermediate rash Verified 09/13/20 15:36 indomethacin [INDOMETHACIN] AdvReac Intermediate GI DISTRESS Verified 09/13/20 15:36 lisinopril [LISINOPRIL] AdvReac Intermediate EDEMA LEGS Verified 09/13/20 15:36 amoxicillin [AMOXICILLIN] AdvReac Mild itching Verified 04/20/20 11:37 Review of Systems <Sheila Mora PA-C - Last Filed: 09/13/20 20:03> Constitutional Constitutional: Reports chills and Reports headache(s) Eyes Eyes: Reports photophobia ENT Ears, Nose, Mouth, and Throat: Denies dizziness, Reports headache(s) and Reports neck pain Cardiovascular Cardiovascular: Denies dyspnea Comments: chest tightness Respiratory Respiratory: Denies cough and Denies dyspnea Gastrointestinal Gastrointestinal: Reports abdominal pain and Denies belching Genitourinary Genitourinary: Reports system reviewed and no additional complaints, except as documented Musculoskeletal Musculoskeletal: Reports back pain and Reports neck pain Integumentary/Breasts Skin/Breast: Denies rash Neurologic Neurologic: Denies dizziness and Reports headache(s) Hematologic/Lymphatic Hematologic/Lymphatic: Denies easy bleeding and Denies easy bruising Patient History <Sheila Mora PA-C - Last Filed: 09/13/20 20:03> Medical History (Updated 09/13/20 @ 18:18 by Sheila Mora PA-C) Abnormal CXR (chest x-ray) (Inactive 1981) Abnormal Pap smear of cervix (Resolved 1984) Anemia (Resolved) Ankle pain (Inactive 1994) Asthma (Chronic) Atrophic vaginitis (Chronic 11/24/14) Chronic back pain (Chronic 1999) Diverticular disease (Inactive 1999) Diverticulosis of colon (Chronic 06/16/11) Eczema (Chronic) Essential hypertension (Chronic 11/23/15) Fibroids (Resolved 2002) Fibromyalgia (Chronic 06/16/11) Foot pain (Inactive 2004) Fractures (Inactive 1972) Gastroparesis (Chronic 2009) GERD (gastroesophageal reflux disease) (Chronic) Hayfever (Chronic) Hepatitis A (Resolved 1989) History of heavy periods (Resolved) Hyperlipidemia (Inactive) Hypertension (Inactive 2004) Inner ear inflammation (Inactive) Intractable migraine without aura and with status migrainosus (Chronic) Irritable bowel syndrome (Chronic 06/16/11) Legionella pneumonia (Inactive 1981) Liver disease (Inactive) Malaise and fatigue (Chronic 07/13/15) MCTD (mixed connective tissue disease) (Inactive) Measles (Resolved 1958) Mixed hyperlipidemia (Chronic 06/16/11) Mumps (Resolved 1958) Ovarian cyst (Inactive 1984) Painful menstrual periods (Resolved) Polymyalgia rheumatica (Inactive) Recurrent sinusitis (Inactive 2004) RLS (restless legs syndrome) (Chronic 2004) Rubella (Resolved 1958) Sarcoidosis (Inactive 1983) Seizure, temporal lobe (Inactive 1984) Sjogren's syndrome (Chronic 10/01/15) Sjogren's syndrome (Inactive) Type 2 diabetes mellitus with hyperglycemia (Chronic 06/16/11) Type 2 diabetes mellitus without complication (Chronic 04/10/16) Vitamin deficiency (Chronic) Surgical History Anesthesia complication (Resolved) History of abdominal surgery (Resolved 2008) History of abdominal surgery (Resolved 1981) History of bilateral salpingo-oophorectomy (BSO) History of colonoscopy (Resolved 12/17/14) History of esophagogastroduodenoscopy (EGD) (Resolved 12/2014) History of lung biopsy (Resolved 1983) History of lung biopsy (Resolved 1981) History of oophorectomy (Resolved) Status post hysterectomy (Resolved 2004) Status post knee surgery (Resolved 2012) Family History Child Age: 50 Hx of Sjogren's disease Child Age: 48 Migraines Father Prostate cancer Cancer Heart disease Stroke Mother Diabetes mellitus Heart disease Hypertension Sister Uterine cancer Grandmother No problems noted. Grandfather Sepsis Grandmother No problems noted. Grandfather Bright's disease Sister Heart block Heart disease Social History marital status: number of children: 3 household members: spouse lives independently: Yes caregiver/support person: No housing: house pets and animals: Yes education level: college (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1 F 09/13/20 15:36 Pulse Rate 74 09/13/20 15:36 Respiratory Rate 16 09/13/20 15:36 Blood Pressure 159/70 H 09/13/20 15:36 Pulse Oximetry 97 09/13/20 15:36 . Const General: cooperative, healthy appearing, comfortable, well developed and well groomed HENMT Head: normal to inspection Ears: hearing grossly normal bilaterally, external ears normal and TM's normal bilaterally Nose: external nose normal Face and sinus: normal facial exam Mouth: oral mucosae normal Teeth and gingiva: dentition normal and gingiva normal Eyes Eyelids: eyelids normal Conjunctivae: conjunctivae normal Sclera: sclerae normal Neck Neck: full ROM, No anterior neck swelling, No positive Brudzinski's sign and No positive Kernig's sign Chest Chest: normal inspection of the chest Resp Effort & Inspection: normal respiratory effort and able to speak in complete sentences Auscultation: clear to auscultation bilaterally and no wheezes Cardio Rate: regular rate Rhythm: regular rhythm GI Palpation: soft, no hepatosplenomegaly, No firm, No guarding and No tender Back/Spine/Pelvis Cervical Spine: cervical muscular tenderness and cervical spinal tenderness Thoracic/Lumbar Spine: paraspinal tenderness Skin General: no rashes or lesions noted Neuro General: patient alert, patient awake and patient oriented x3 Cognition: normal cognition Speech: speech normal Extrem General: normal to inspection, full ROM and capillary refill normal Psych Appearance: grossly normal Mental Status: mental status grossly normal Speech and Movement: speech and movement normal <Huang Zamudio DO - Last Filed: 09/14/20 07:30> Initial Vital Signs Initial Vital Signs: Vital Signs Temperature 98.1 F 09/13/20 15:36 Pulse Rate 74 09/13/20 15:36 Respiratory Rate 16 09/13/20 15:36 Blood Pressure 159/70 H 09/13/20 15:36 Pulse Oximetry 97 09/13/20 15:36 Scores <Sheila Mora PA-C - Last Filed: 09/13/20 20:03> GCS Holcomb coma scale eye opening: Spontaneous Josy coma scale verbal response: Orientated Josy coma scale motor response: Obey commands Holcomb coma scale total score: 15 Wells' Criteria for PE Clinical signs and symptoms of DVT: No PE is #1 Dx or equally likely: No Heart rate > 100: No Immobilization at least 3 days or surg in previous 4 weeks: No History of PE or DVT: No Hemoptysis: No Malignancy w/Treatment within 6 months or palliative: No Wells' PE Score total: 0 Course <Sheila Mora PA-C - Last Filed: 09/13/20 20:03> Course Course Narrative: 1615: evaluated pt initially, pt had head,neck,back pain. Head CT, cervical and lumbar spine ordered. Pt given zofran for nausea. Reglan and bendadryl ordered for headache. Fluids ordered 1735: evaluted pt again, discused with her that all labs, ekg, and imaging has been normal at this point. She reports that nausea has improved, head, neck and back pain persist, toradol has been ordered, fluids are running 1800: pt reports remarkable improvement with toradol. She would like to be discharged. All labs, imaging returned normal. Orders Ordered: Discontinued Medications Diphenhydramine HCl (Benadryl) 25 mg IV NOW ONE Stop: 09/13/20 16:35 Last Admin: 09/13/20 16:50 Dose: 25 mg Documented by: AV Sodium Chloride (Normal Saline 0.9%) 1,000 mls @ 1,000 mls/hr IV BOLUS ONE Stop: 09/13/20 17:36 Last Infusion: 09/13/20 18:18 Dose: 0 mls/hr Documented by: Admin: 09/13/20 16:50 Dose: 1,000 mls/hr Documented by: AV Ketorolac Tromethamine (Toradol) 30 mg IV NOW ONE Stop: 09/13/20 17:38 Last Admin: 09/13/20 17:42 Dose: 30 mg Documented by: ANDERSON Metoclopramide HCl (Reglan) 10 mg IV NOW ONE Stop: 09/13/20 16:35 Last Admin: 09/13/20 16:51 Dose: 10 mg Documented by: AV Ondansetron HCl (Zofran) 4 mg IV NOW ONE Stop: 09/13/20 16:22 Last Admin: 09/13/20 16:24 Dose: 4 mg Documented by: AV Consultations Consultation #1: Staffed with Dr. Zamudio on presentation, examination, and plan of care Vital Signs Vital signs: Vital Signs - 8 hr 09/13/20 15:36 09/13/20 15:40 09/13/20 16:00 Temperature 98.1 F Pulse Rate 74 74 71 Respiratory Rate 16 18 12 Blood Pressure 159/70 H Pulse Oximetry 97 96 96 09/13/20 16:01 09/13/20 16:30 09/13/20 17:14 Temperature Pulse Rate 71 70 69 Respiratory Rate 14 21 Blood Pressure 155/69 H 126/70 Pulse Oximetry 96 95 97 09/13/20 17:30 09/13/20 17:32 09/13/20 18:00 Temperature Pulse Rate 69 73 68 Respiratory Rate 15 17 15 Blood Pressure 139/64 128/59 L Pulse Oximetry 97 97 97 <Huang Zamudio DO - Last Filed: 09/14/20 07:30> Orders Ordered: Discontinued Medications Diphenhydramine HCl (Benadryl) 25 mg IV NOW ONE Stop: 09/13/20 16:35 Last Admin: 09/13/20 16:50 Dose: 25 mg Documented by: AV Sodium Chloride (Normal Saline 0.9%) 1,000 mls @ 1,000 mls/hr IV BOLUS ONE Stop: 09/13/20 17:36 Last Infusion: 09/13/20 18:18 Dose: 0 mls/hr Documented by: Admin: 09/13/20 16:50 Dose: 1,000 mls/hr Documented by: AV Ketorolac Tromethamine (Toradol) 30 mg IV NOW ONE Stop: 09/13/20 17:38 Last Admin: 09/13/20 17:42 Dose: 30 mg Documented by: ANDERSON Metoclopramide HCl (Reglan) 10 mg IV NOW ONE Stop: 09/13/20 16:35 Last Admin: 09/13/20 16:51 Dose: 10 mg Documented by: AV Ondansetron HCl (Zofran) 4 mg IV NOW ONE Stop: 09/13/20 16:22 Last Admin: 09/13/20 16:24 Dose: 4 mg Documented by: AV Vital Signs Vital signs: Vital Signs - 8 hr 09/13/20 15:36 09/13/20 15:40 09/13/20 16:00 Temperature 98.1 F Pulse Rate 74 74 71 Respiratory Rate 16 18 12 Blood Pressure 159/70 H Pulse Oximetry 97 96 96 09/13/20 16:01 09/13/20 16:30 09/13/20 17:14 Temperature Pulse Rate 71 70 69 Respiratory Rate 14 21 Blood Pressure 155/69 H 126/70 Pulse Oximetry 96 95 97 09/13/20 17:30 09/13/20 17:32 09/13/20 18:00 Temperature Pulse Rate 69 73 68 Respiratory Rate 15 17 15 Blood Pressure 139/64 128/59 L Pulse Oximetry 97 97 97 MDM - Chest Pain <Sheila Mroa PA-C - Last Filed: 09/13/20 20:03> Medical Records Data Attestation: I reviewed the patient's medical records. Lab Data Attestation: I reviewed the patient's lab results. Result diagrams: 09/13/20 15:56 09/13/20 15:56 Labs: Lab Results 09/13/20 09/13/20 09/13/20 Range/Units 15:56 15:56 15:56 WBC 7.2 (4.5-11.0) X10^3/uL RBC 4.56 (4.0-5.2) X10^6/uL Hgb 13.5 (12.0-16.0) g/dL Hct 40.8 (36-46) % MCV 89.6 (80-100) fL MCH 29.5 (26-34) PG MCHC 33.0 (30-36) % RDW 14.2 (11.6-14.8) % Plt Count 273 (150-400) X10^3/uL Neut % (Auto) 51.0 (50-75) % Lymph % (Auto) 38.3 (25-40) % [place] % (Auto) 7.2 (3-14) % Eos % (Auto) 2.6 (2-4) % Baso % (Auto) 0.9 (0-2) % Neut # (Auto) 3700 (3820-1790) /uL Lymph # (Auto) 2800 (8907-4452) /uL [place] # (Auto) 500 (0-900) /uL Eos # (Auto) 200 (0-450) /uL Baso # (Auto) 100 (0-100) /uL PT 10.6 (10.1-12.7) SECONDS INR 0.9 (0.9-1.3) APTT 32 (26.4-36.2) SECONDS Sodium 137 (137-145) mmol/L Potassium 4.5 (3.4-5.1) mmol/L Chloride 104 (98-107) mmol/L Carbon Dioxide 27 (22-32) mmol/L BUN 14 (7-17) mg/dL Creatinine 0.88 (0.52-1.04) mg/dL Estimated GFR > 60.0 (>60) mL/min BUN/Creatinine Ratio 15.9 (6-22) Glucose 199 H (80-110) mg/dL Calcium 9.2 (8.4-10.2) mg/dL Total Bilirubin 0.3 (0.2-1.3) mg/dL AST 32 (14-36) IU/L ALT 28 (<35) IU/L Alkaline Phosphatase 92 (38-126) U/L Total Creatine Kinase 49 (30-135) U/L CK-MB (CK-2) TNP CK-MB (CK-2) Rel Index TNP Troponin I < 0.012 (0.01-0.034) ng/mL Total Protein 7.6 (6.3-8.2) g/dL Albumin 4.3 (3.5-5.0) g/dL Globulin 3.3 (1.7-4.1) g/dL Albumin/Globulin Ratio 1.3 (1.0-2.8) Lipase 91 (23-300) U/L COVID-19 PCR (Negative) 09/13/20 Range/Units 15:56 WBC (4.5-11.0) X10^3/uL RBC (4.0-5.2) X10^6/uL Hgb (12.0-16.0) g/dL Hct (36-46) % MCV (80-100) fL MCH (26-34) PG MCHC (30-36) % RDW (11.6-14.8) % Plt Count (150-400) X10^3/uL Neut % (Auto) (50-75) % Lymph % (Auto) (25-40) % [place] % (Auto) (3-14) % Eos % (Auto) (2-4) % Baso % (Auto) (0-2) % Neut # (Auto) (1828-6918) /uL Lymph # (Auto) (1889-1852) /uL [place] # (Auto) (0-900) /uL Eos # (Auto) (0-450) /uL Baso # (Auto) (0-100) /uL PT (10.1-12.7) SECONDS INR (0.9-1.3) APTT (26.4-36.2) SECONDS Sodium (137-145) mmol/L Potassium (3.4-5.1) mmol/L Chloride (98-107) mmol/L Carbon Dioxide (22-32) mmol/L BUN (7-17) mg/dL Creatinine (0.52-1.04) mg/dL Estimated GFR (>60) mL/min BUN/Creatinine Ratio (6-22) Glucose (80-110) mg/dL Calcium (8.4-10.2) mg/dL Total Bilirubin (0.2-1.3) mg/dL AST (14-36) IU/L ALT (<35) IU/L Alkaline Phosphatase (38-126) U/L Total Creatine Kinase (30-135) U/L CK-MB (CK-2) CK-MB (CK-2) Rel Index Troponin I (0.01-0.034) ng/mL Total Protein (6.3-8.2) g/dL Albumin (3.5-5.0) g/dL Globulin (1.7-4.1) g/dL Albumin/Globulin Ratio (1.0-2.8) Lipase (23-300) U/L COVID-19 PCR Negative (Negative) Imaging Data spine xray #1: Attestation: I personally reviewed and interpreted this imaging study as follows: Radiologist's Impression: [place] [address] XRay Report Signed Patient: Nuris Sanchez MMR#: [id number] : 9Acct:[id number] Age/Sex: 69 / FDate of Service: 09/13/20 Loc: ED Accession Number: [id number] Procedure: XR thoracic spine 3V Ordering Provider: Sheila Mora P.A-C PROCEDURE: XR THORACIC SPINE 3V INDICATIONS: thoracic pain TECHNIQUE: 3 views of the thoracic spine were acquired. COMPARISON: [facility], CT, CT CHEST HIGH RESOLUTION, 08/09/2018, 11:06. FINDINGS: Bones: No fractures or dislocations. No suspicious bony lesions. Twelve pairs of ribs are noted, and appear intact where visualized. The T12 ribs are rudimentary. Soft tissues: No paravertebral stripe thickening. IMPRESSION: No acute thoracic spine fracture identified. Dictated by: Mervin Snyder M.D. on 09/13/2020 at 17:12 Approved by: Mervin Snyder M.D. on 09/13/2020 at 17:15 spine xray #2: Attestation: I personally reviewed and interpreted this imaging study as follows: Radiologist's Impression: [address] [address] XRay Report Signed Patient: Nuris Sanchez [facility]#: [id number] : 9Acct:[id number] Age/Sex: 69 / FDate of Service: 09/13/20 Loc: ED Accession Number: [id number] Procedure: XR cervical spine 2V or 3V Ordering Provider: Sheila Mora P.A-C PROCEDURE: XR CERVICAL SPINE 2V OR 3V INDICATIONS: neck pain TECHNIQUE: 3 views of the cervical spine were acquired. COMPARISON: None. FINDINGS: Bones: No acute fractures or dislocations to the C6 level. The shoulders partially obscure the C7 vertebra. The lateral masses of C1 appear intact on the odontoid view. No suspicious bony lesions. Soft tissues: No prevertebral soft tissue swelling. IMPRESSION: No acute fracture or subluxation in the cervical spine. Dictated by: Mervin Snyder M.D. on 09/13/2020 at 17:10 Approved by: Mervin Snyder M.D. on 09/13/2020 at 17:12 CT scan - head: Attestation: I personally reviewed and interpreted this imaging study as follows: Radiologist's Impression: [address] [address] [address] Scan Report Signed Patient: Nuris Sanchez MMR#: [id number] : 9Acct:[id number] Age/Sex: 69 / FDate of Service: 09/13/20 Loc: ED Accession Number: [id number] Procedure: CT head/brain wo con Ordering Provider: Sheila Mora P.A-C PROCEDURE: CT HEAD/BRAIN WO CON INDICATIONS: severe headache TECHNIQUE: Noncontrast 4.5 mm thick angled axial sections acquired from the foramen magnum to the vertex, with coronal and sagittal reformats. For radiation dose reduction, the following was used: automated exposure control, adjustment of mA and/or kV according to patient size. COMPARISON: [facility], MR, MR HEAD/BRAIN WO CON, 04/24/2020, 14:42. [facility], CT, HEAD WITHOUT CONTRAST, 02/09/2013, 10:01. FINDINGS: Image quality: Excellent. CSF spaces: Basal cisterns are patent. No extra-axial fluid collections. The ventricles are symmetric in size and shape. Brain: No intracranial bleeds or masses. There is cerebral volume loss for age, with resultant ventricular and sulcal prominence. There are periventricular and deep white matter chronic small vessel ischemic changes. There is intracranial internal carotid artery atherosclerosis. Skull and face: Calvarium and visualized facial bones appear intact, without suspicious lesions. Sinuses: Visualized sinuses and mastoids are clear. IMPRESSION: 1. No CT evidence of acute intracranial pathology. 2. Age-appropriate atrophy and mild white matter chronic small vessel ischemic changes. Finding is not significantly changed from recent MR of the brain. Dictated by: Yimi Alfaro M.D. on 09/13/2020 at 16:21 Approved by: Yimi Alfaro M.D. on 09/13/2020 at 16:23 Chest x-ray: Attestation: I personally reviewed and interpreted this imaging study as follows: Radiologist's Impression: [address] [address] XRay Report Signed Patient: Nuris Sanchez MMR#: [id number] : 9Acct:[id number] Age/Sex: 69 / FDate of Service: 09/13/20 Loc: ED Accession Number: [id number] Procedure: XR chest 1V Ordering Provider: Huang Zamudio D.O. PROCEDURE: XR CHEST 1V INDICATIONS: chest pain TECHNIQUE: One view of the chest was acquired. COMPARISON: [facility], , XR CHEST 2V, 04/20/2020, 13:02. FINDINGS: Surgical changes and devices: None. Lungs and pleura: Lungs are clear. No pleural effusions or pneumothorax. Mediastinum: Mediastinal contours appear normal. Heart size is mildly enlarged. Bones and chest wall: No suspicious bony lesions. Overlying soft tissues appear unremarkable. IMPRESSION: No acute cardiopulmonary pathology. Dictated by: Yimi Alfaro M.D. on 09/13/2020 at 15:22 Approved by: Yimi Alfaro M.D. on 09/13/2020 at 15:22 ECG Data Attestation: I personally reviewed and interpreted this ECG as follows: Interpretation: Normal Sinus Rhythm. Vent Rate of [address] changes. HI interval of 178 ms. R bundle branch block identified. Reviewed by Dr. Zamudio per protocol. MDM Narrative Medical decision making narrative: 69 yo female presents with chest, neck, headache, and back pain. Symptoms most likely caused by headache and MSK neck/back pain. Considered acute KS, PE, pneumonia, migraine, brain bleed, or compression fracture. Troponin, chest xray, EKG were not concerning for acute cardiac event. Pt was not tachycardic, not tachypneic, non-hypoxic, low risk for Wells score for PE. Chest xray did not reveal pneumonia. No evidence of systemic infection. Neuro exam was normal. All labs were normal. CT was negative for brain bleed. Point tenderness was not exact. Spine xrays revealed no evidence of abnormalities. All pain improved with toradol. <Huang Zamudio, DO - Last Filed: 09/14/20 07:30> Lab Data Labs: Lab Results 09/13/20 09/13/20 09/13/20 Range/Units 15:56 15:56 15:56 WBC 7.2 (4.5-11.0) X10^3/uL RBC 4.56 (4.0-5.2) X10^6/uL Hgb 13.5 (12.0-16.0) g/dL Hct 40.8 (36-46) % MCV 89.6 (80-100) fL MCH 29.5 (26-34) PG MCHC 33.0 (30-36) % RDW 14.2 (11.6-14.8) % Plt Count 273 (150-400) X10^3/uL Neut % (Auto) 51.0 (50-75) % Lymph % (Auto) 38.3 (25-40) % [place] % (Auto) 7.2 (3-14) % Eos % (Auto) 2.6 (2-4) % Baso % (Auto) 0.9 (0-2) % Neut # (Auto) 3700 (9500-5522) /uL Lymph # (Auto) 2800 (3360-9132) /uL [place] # (Auto) 500 (0-900) /uL Eos # (Auto) 200 (0-450) /uL Baso # (Auto) 100 (0-100) /uL PT 10.6 (10.1-12.7) SECONDS INR 0.9 (0.9-1.3) APTT 32 (26.4-36.2) SECONDS Sodium 137 (137-145) mmol/L Potassium 4.5 (3.4-5.1) mmol/L Chloride 104 (98-107) mmol/L Carbon Dioxide 27 (22-32) mmol/L BUN 14 (7-17) mg/dL Creatinine 0.88 (0.52-1.04) mg/dL Estimated GFR > 60.0 (>60) mL/min BUN/Creatinine Ratio 15.9 (6-22) Glucose 199 H (80-110) mg/dL Calcium 9.2 (8.4-10.2) mg/dL Total Bilirubin 0.3 (0.2-1.3) mg/dL AST 32 (14-36) IU/L ALT 28 (<35) IU/L Alkaline Phosphatase 92 (38-126) U/L Total Creatine Kinase 49 (30-135) U/L CK-MB (CK-2) TNP CK-MB (CK-2) Rel Index TNP Troponin I < 0.012 (0.01-0.034) ng/mL Total Protein 7.6 (6.3-8.2) g/dL Albumin 4.3 (3.5-5.0) g/dL Globulin 3.3 (1.7-4.1) g/dL Albumin/Globulin Ratio 1.3 (1.0-2.8) Lipase 91 (23-300) U/L COVID-19 PCR (Negative) 09/13/20 Range/Units 15:56 WBC (4.5-11.0) X10^3/uL RBC (4.0-5.2) X10^6/uL Hgb (12.0-16.0) g/dL Hct (36-46) % MCV (80-100) fL MCH (26-34) PG MCHC (30-36) % RDW (11.6-14.8) % Plt Count (150-400) X10^3/uL Neut % (Auto) (50-75) % Lymph % (Auto) (25-40) % [place] % (Auto) (3-14) % Eos % (Auto) (2-4) % Baso % (Auto) (0-2) % Neut # (Auto) (9657-7689) /uL Lymph # (Auto) (1559-6860) /uL [place] # (Auto) (0-900) /uL Eos # (Auto) (0-450) /uL Baso # (Auto) (0-100) /uL PT (10.1-12.7) SECONDS INR (0.9-1.3) APTT (26.4-36.2) SECONDS Sodium (137-145) mmol/L Potassium (3.4-5.1) mmol/L Chloride (98-107) mmol/L Carbon Dioxide (22-32) mmol/L BUN (7-17) mg/dL Creatinine (0.52-1.04) mg/dL Estimated GFR (>60) mL/min BUN/Creatinine Ratio (6-22) Glucose (80-110) mg/dL Calcium (8.4-10.2) mg/dL Total Bilirubin (0.2-1.3) mg/dL AST (14-36) IU/L ALT (<35) IU/L Alkaline Phosphatase (38-126) U/L Total Creatine Kinase (30-135) U/L CK-MB (CK-2) CK-MB (CK-2) Rel Index Troponin I (0.01-0.034) ng/mL Total Protein (6.3-8.2) g/dL Albumin (3.5-5.0) g/dL Globulin (1.7-4.1) g/dL Albumin/Globulin Ratio (1.0-2.8) Lipase (23-300) U/L COVID-19 PCR Negative (Negative) Discharge Plan Departure Patient Disposition: Home Clinical Impression: Neck pain Headache Qualifiers: Headache type: unspecified Headache chronicity pattern: acute headache Intractability: not intractable Qualified Code(s): R51.9 - Headache, unspecified Back pain Qualifiers: Back pain location: thoracic back pain Chronicity: acute Back pain laterality: unspecified Qualified Code(s): M54.6 - Pain in thoracic spine Chest pain Qualifiers: Chest pain type: unspecified Qualified Code(s): R07.9 - Chest pain, unspecified Discharge Date/Time: 09/13/20 18:23 Instructions: DI for Low Back Pain, DI for Atypical Chest Pain, DI for Headache, DI for Neck Pain Activity Restrictions/Additional Instructions: Thank you for entrusting me with your care. As discussed, labs, CT, and xrays were all normal. EKG did not show evidence of acute cardiac event. Your symptoms improved with toradol injection, reglan, benadryl, and zofran. You are to f/u within the week with your PCP for further evaluation and management. Return to Ed with any new or worsening symptoms such as worsening chest pain, neck pain, back pain, abdominal pain, fever, shortness of breath, or nausea. Prescriptions: No Action carboxymethylcellulose sodium [Refresh Liquigel] 1 % Drops, Liquid Gel 2 gtt OU PRN Qty: 0 RF: 0 aspirin 81 MG tablet,delayed release (DR/EC) 81 mg PO QDAY Qty: 0 RF: 0 estradiol [Estring] 2 mg (7.5 mcg /24 hour) ring 1 vaginalrin VAG [id number] Qty: 1 RF: 3 (DME) pen needle, diabetic [Ultra-Thin II Ins Pen [place]] 29 gauge x 1/2 needle See Dose Instructions .ROUTE .MEDSUPPLY Qty: 30 RF: 0 gvcpjtmd-vrzdluiyr-GS 3.5-10,000-1 mg/mL-unit/mL-% solution 4 drop otic (ear) TID PRN (Reason: ear pain) Qty: 10 RF: 3 (DME) [place] 31g x 5/16 Qty: 300 RF: 3 (DME) Lancets Qty: 250 RF: 4 blood sugar diagnostic [Glucocard Expression] Strip See Rx Instructions .ROUTE .COMPLEX Qty: 250 RF: 11 nadolol 40 mg tablet 40 mg PO DAILY Qty: 90 RF: 3 olmesartan 40 mg tablet 40 mg PO DAILY Qty: 90 RF: 3 fluconazole [Diflucan] 150 mg tablet 150 mg PO QDAY PRN (Reason: YEAST) Qty: 4 RF: 2 lansoprazole 30 mg capsule,delayed release(DR/EC) 30 mg PO BID Qty: 180 RF: 3 fluticasone propionate [Flonase Allergy Relief] 50 mcg/actuation spray,suspension 2 spray Intranasal BEDTIME PRN (Reason: Allergy Symptoms) Qty: 16 RF: 3 clonazepam [Klonopin] 1 mg tablet 1 mg PO BID Qty: 180 RF: 1 hydrocodone-acetaminophen 10-325 mg tablet 1 - 2 tab PO Q4HP PRN (Reason: pain) Qty: 200 RF: 0 Novolog Flexpen U-100 Insulin 100 unit/mL (3 mL) insulin pen 5 - 15 unit subcut Q4H PRN (Reason: HIGH BLOOD SUGAR) Qty: 45 RF: 11 Levemir FlexTouch U-100 Insuln 100 unit/mL (3 mL) insulin pen 70 - 75 unit SUBCUT DAILY Qty: 15 RF: 11 sulfamethoxazole-trimethoprim 800-160 mg tablet 1 tab PO BID Qty: 20 RF: 2 CBD Oil 20 mg sublingual DAILY RF: 0 desonide 0.05 % cream 1 applictn TOP .PRN Qty: 30 RF: 0 diphenhydramine-viscous lidocain-maalox 1:1:1 5 - 10 ml PO Q6H PRN (Reason: mouth pain) Qty: 100 RF: 0 PreserVision AREDS-2 457-437-73-1 is-bzbo-ie-mg capsule 1 tab PO BID RF: 0 ndwthoheyt-chdxnrbebkblb-rjmw [Fioricet] 50-300-40 mg capsule 1 cap PO Q8H PRN (Reason: headache) Qty: 90 RF: 0 cyclobenzaprine 10 mg tablet 10 mg PO BEDTIME Qty: 30 RF: 3 albuterol sulfate [Ventolin HFA] 90 mcg/actuation HFA aerosol inhaler 2 puff INH Q4H PRN (Reason: Shortness Of Breath) RF: 0 clobetasol 0.05 % solution 1 applic TOPICAL DIRECTED PRN (Reason: as directed) RF: 0 ciclopirox 1 % shampoo 1 % TOPICAL QPM RF: 0 ibuprofen 600 mg tablet 600 mg PO Q6H PRN (Reason: fever or pain) Qty: 20 RF: 0 dicyclomine 20 mg tablet 20 mg PO QID Qty: 15 RF: 0 loperamide 2 mg tablet 2 mg PO Q4H PRN (Reason: loose stool) Qty: 14 RF: 0 ondansetron HCl [Zofran] 4 mg tablet 4 mg PO Q6H PRN (Reason: nausea and vomiting) Qty: 10 RF: 0 Disabled Parking Permit 1 ea miscellaneous PRN PRN (Reason: PARKING) RF: 0 [place] 5/16 Inch 1 ea SQ DIRECTED RF: 0 ondansetron 4 mg tablet,disintegrating 4 mg PO Q6H PRN (Reason: nausea and vomiting) Qty: 20 RF: 0 Referrals: Good Miller MD [Primary Care Provider] - <Huang Zamudio DO - Last Filed: 09/14/20 07:30> Cosign ED Attending Cosignature Attestation: Dr Zamudio Co-Sign Statement: I was available for consultation during this patient's emergency department visit. This chart is signed by myself for administrative purposes only. I did not have direct contact with this patient during this visit. They were seen independently by the APC.
[2020-09-13 16:38] LABS: COVID19 -Nasal RAPID Negative (Negative)
[2020-09-13] MEDS: SODIUM CHLORIDE 0.9% 1,000 ML 1000 ML IV (16:50)
[2020-09-13] MEDS: diphenhydrAMINE 50 MG/ML VIAL 25 MG IV (16:50)
--- NOTE | 2020-09-13 16:50 | DI.RAD.S_ITS ---
PROCEDURE: XR THORACIC SPINE 3V INDICATIONS: thoracic pain TECHNIQUE: 3 views of the thoracic spine were acquired. COMPARISON: [facility], CT, CT CHEST HIGH RESOLUTION, 08/09/2018, 11:06. FINDINGS: Bones: No fractures or dislocations. No suspicious bony lesions. Twelve pairs of ribs are noted, and appear intact where visualized. The T12 ribs are rudimentary. Soft tissues: No paravertebral stripe thickening. IMPRESSION: No acute thoracic spine fracture identified. Dictated by: Mervin Snyder M.D. on 09/13/2020 at 17:12 Approved by: Mervin Snyder M.D. on 09/13/2020 at 17:15
--- NOTE | 2020-09-13 16:50 | DI.RAD.S_ITS ---
PROCEDURE: XR CERVICAL SPINE 2V OR 3V INDICATIONS: neck pain TECHNIQUE: 3 views of the cervical spine were acquired. COMPARISON: None. FINDINGS: Bones: No acute fractures or dislocations to the C6 level. The shoulders partially obscure the C7 vertebra. The lateral masses of C1 appear intact on the odontoid view. No suspicious bony lesions. Soft tissues: No prevertebral soft tissue swelling. IMPRESSION: No acute fracture or subluxation in the cervical spine. Dictated by: Mervin Snyder M.D. on 09/13/2020 at 17:10 Approved by: Mervin Snyder M.D. on 09/13/2020 at 17:12
[2020-09-13] MEDS: METOCLOPRAMIDE 10 MG/2 ML INJ IV (16:51)
[2020-09-13] MEDS: KETOROLAC 60 MG/2 ML VIAL 30 MG IV (17:42)
== END 2020-09-13 18:23 | disposition home or self-care (01) ==
PROVIDERS: Emergency Medicine; Emergency Provider Physician Assistant; Family Provider Internal Medicine; PCP Internal Medicine
DX: R07.9 Chest pain, unspecified (principal); R51.9 Headache, unspecified; M54.2 Cervicalgia; M54.6 Pain in thoracic spine
CPT/HCPCS: 36415; 70450; 71045; 72040; 72072; 80053; 82550; 83690; 84484; 85025; 85610; 85730; 87635; 93005; 96361; 96374; 96375; 99284; J1200; J1885; J2405; J2765

== ENCOUNTER → 2020-11-26 16:52 | Outpatient (CLI) | payer MEDICARE, OTHER, SELFPAY ==
[2020-11-26] MEDS: COVID-19 VACC #1, MRNA(MOD) 100 MCG/0.5 ML VIAL IM (17:11)
== END ==
PROVIDERS: Family Provider Internal Medicine; PCP Internal Medicine; Visit Provider Internal Medicine
DX: Z23 Encounter for immunization (principal)
CPT/HCPCS: 0011A; 91301

== ENCOUNTER → 2020-12-24 10:17 | Outpatient (CLI) | payer MEDICARE, OTHER, SELFPAY ==
[2020-12-24] MEDS: COVID-19 VACC #2, MRNA(MOD) 100 MCG/0.5 ML VIAL IM (10:21)
== END ==
PROVIDERS: Family Provider Internal Medicine; PCP Internal Medicine; Visit Provider Internal Medicine
DX: Z23 Encounter for immunization (principal)
CPT/HCPCS: 0012A; 91301

== ENCOUNTER → 2021-03-14 11:31 | Outpatient (CLI) | payer MEDICARE, OTHER, SELFPAY ==
[2021-03-14 12:18] LABS: Hematocrit 43.7 % (36-46); Hemoglobin 14.3 g/dL (12.0-16.0); Mean Corpuscular HGB Conc 32.7 % (30-36); Mean Corpuscular Hemoglobin 28.8 PG (26-34); Mean Corpuscular Volume 88.1 fL (80-100); Platelet Count 298 X10^3/uL (150-400); Red Blood Cell Count 4.97 X10^6/uL (4.0-5.2); White Blood Cell Count 7.9 X10^3/uL (4.5-11.0)
[2021-03-14 12:36] LABS: Erythrocyte Sedimentation Rate 4 MM/HR (0-20)
[2021-03-14 12:52] LABS: Alanine Aminotransferase 47 IU/L (<35); Albumin 4.5 g/dL (3.5-5.0); Albumin Globulin Ratio 1.5 (1.0-2.8); Alkaline Phosphatase 99 U/L (38-126); Aspartate Aminotransferase 41 IU/L (14-36); BUN Creatinine Ratio 18.3 (6-22); Bilirubin Total 0.3 mg/dL (0.2-1.3); Blood Urea Nitrogen 17 mg/dL (7-17); Calcium 10.3 mg/dL (8.4-10.2); Carbon Dioxide 29 mmol/L (22-32); Chloride 99 mmol/L (98-107); Creatine Kinase 38 U/L (30-135); Estimated Glomerular Filt Rate 59.3 mL/min (>60); Globulin 3.1 g/dL (1.7-4.1); Glucose 125 mg/dL (80-110); HEMOLYSIS < 15 (0-50); Potassium 4.9 mmol/L (3.4-5.1); Sodium 137 mmol/L (137-145); Total Protein 7.6 g/dL (6.3-8.2)
[2021-03-14 12:54] LABS: Rheumatoid Factor < 8.6 IU/mL (<12.0)
[2021-03-14 13:02] LABS: TSH w/ Reflex to FT4 1.08 uIU/mL (0.47-4.68)
[2021-03-16 14:36] LABS: ANA Screen, IFA Negative (.)
== END ==
PROVIDERS: Family Provider Internal Medicine; PCP Internal Medicine; Referring Provider Internal Medicine; Visit Provider Internal Medicine
DX: M25.552 Pain in left hip (principal); M35.00 Sjogren syndrome, unspecified; M79.602 Pain in left arm; M79.10 Myalgia, unspecified site
CPT/HCPCS: 36415; 80053; 82550; 84443; 85027; 85651; 86038; 86140; 86430

== ENCOUNTER 2021-06-25 10:12 | Emergency (ER) | payer MEDICARE, OTHER, SELFPAY ==
[2021-06-25] VITALS (12 sets, daily range): BP systolic 122–166; BP diastolic 65–72; PULSE 60–71; RESP 13–19; TEMP 36.7; O2SAT 95–99; BMI 32.3
[2021-06-25 11:01] LABS: Add Manual Diff / Slide Review NO; Basophils Absolute Auto 100 /uL (0-100); Basophils Percent Auto 0.8 % (0-2); Eosinophils Absolute Auto 200 /uL (0-450); Eosinophils Percent Auto 2.8 % (2-4); Hematocrit 43.1 % (36-46); Hemoglobin 14.1 g/dL (12.0-16.0); Lymphocytes Absolute Auto 2200 /uL (1100-4500); Lymphocytes Percent Auto 25.6 % (25-40); Mean Corpuscular HGB Conc 32.7 % (30-36); Mean Corpuscular Hemoglobin 28.8 PG (26-34); Mean Corpuscular Volume 88.2 fL (80-100); Monocytes Absolute Auto 700 /uL (0-900); Monocytes Percent Auto 7.9 % (3-14); Neutrophils Absolute Auto 5300 /uL (1500-7000); Neutrophils Percent Auto 62.9 % (50-75); Platelet Count 282 X10^3/uL (150-400); Red Blood Cell Count 4.89 X10^6/uL (4.0-5.2); White Blood Cell Count 8.4 X10^3/uL (4.5-11.0)
[2021-06-25] MEDS: SODIUM CHLORIDE 0.9% 1,000 ML 150 ML IV (11:02)
[2021-06-25 11:07] LABS: Alanine Aminotransferase 39 IU/L (<35); Albumin 4.4 g/dL (3.5-5.0); Albumin Globulin Ratio 1.3 (1.0-2.8); Alkaline Phosphatase 91 U/L (38-126); Aspartate Aminotransferase 40 IU/L (14-36); BUN Creatinine Ratio 17.6 (6-22); Bilirubin Total 0.4 mg/dL (0.2-1.3); Blood Urea Nitrogen 16 mg/dL (7-17); Calcium 9.8 mg/dL (8.4-10.2); Carbon Dioxide 26 mmol/L (22-32); Chloride 103 mmol/L (98-107); Estimated Glomerular Filt Rate > 60.0 mL/min (>60); Globulin 3.4 g/dL (1.7-4.1); Glucose 180 mg/dL (80-110); HEMOLYSIS 23 (0-50); Lipase 104 U/L (23-300); Sodium 137 mmol/L (137-145); Total Protein 7.8 g/dL (6.3-8.2)
--- NOTE | 2021-06-25 11:22 | ED.ABDPAIN ---
HPI - Abdominal Pain General Chief Complaint: Abdominal Pain Stated Complaint: Lower Left abd side pain Time Seen by Provider: 06/25/21 11:16 Source: patient Mode of arrival: Ambulatory Limitations: no limitations History of Present Illness HPI narrative: This is a 70-year-old female who comes emergency department with complaint of a couple weeks of right-sided abdominal pain with bloating and feeling her abdomen is hard. Patient states she have a couple bowel movements in would feel better. The pain has since moved to the left side particularly the lower and somewhat in the center. She finds it is worse when she has food. She has had initially normal bowel movements but developed watery diarrhea in the last 12 hours. She is not appreciate any bright red blood or melena. She denies any back or flank pain. She has had some nausea but no vomiting she has been belching or regularly. She has had no fevers but felt slightly chilled. No chest pain. No new shortness of breath. She states she has chronic shortness of breath from her Sjogren's and pulmonary sarcoid which is stable and had actually improved and saw her administrative services assistant last week. She takes chronic pain medication for chronic pain syndrome related to her Sjogren's and joint issues. Two medications for hypertension, she has a history of temporal lobe seizures which she states she takes clonazepam for and is on insulin for diabetes. She does state that she had hysterectomy that required 3 surgeries, initially they attempted to remove multiple fibroids, and a partial hysterectomy, her cervix adhesed to her bowel and they had to be and this was in 3 separate surgeries. She believe she still has her appendix she is not 100% sure she states they may have taken it out with her prior surgeries. She quit smoking tobacco 36 years ago, rare alcohol, no illicit her primary care is Dr. Miller and she follows with pulmonology as well as rheumatology. Related Data Home Medications Medication Instructions Recorded Confirmed carboxymethylcellulose sodium 1 % 2 gtt OU PRN #0 05/09/12 03/14/21 eye liquid gel drops (Refresh Liquigel) aspirin 81 mg tablet,delayed 81 mg PO QDAY #0 05/11/17 03/14/21 release Disabled Parking Permit 1 ea MISCELLANEOUS PRN PRN 07/16/18 03/14/21 Triangle 5/16 Inch 1 ea SQ DIRECTED 07/16/18 03/14/21 desonide 0.05 % topical cream 1 applictn TOP .PRN #30 gram 04/24/19 03/14/21 vit C 250 mg-vit E 90 mg-zinc 40 1 tab PO BID 10/16/19 03/14/21 mg-copper 1 dx-zvtoqo-xyjdcr capsule (PreserVision AREDS-2) clobetasol 0.05 % scalp solution 1 applic TOPICAL DIRECTED PRN 01/16/20 03/14/21 Eyelid Cleansing Wipes 1 ea TOPICAL .once - bid PRN 03/14/21 03/14/21 cyclosporine 0.05 % eye drops in a See Rx Instructions .ROUTE 03/14/21 03/14/21 dropperette .COMPLEX ea ergocalciferol (vitamin D2) 1,250 1,250 mcg PO QWEEK cap 03/14/21 03/14/21 mcg (50,000 unit) capsule ketoconazole 2 % topical cream 1 applic TOPICAL BID g 03/14/21 03/14/21 Previous Rx's Medication Instructions Recorded pen needle, diabetic 29 gauge x #30 each 11/19/18 1/2 (Ultra-Thin II Insulin Pen Triangle) cxlqiymlmf-sqhmudbjkxrjr-qdtgzrmr 1 cap PO Q8H PRN #90 cap 08/21/19 50 mg-300 mg-40 mg capsule (Fioricet) ondansetron 4 mg disintegrating 4 mg PO Q6H PRN #20 tab 12/28/19 tablet ondansetron HCl 4 mg tablet 4 mg PO Q6H PRN #10 tab 01/16/20 (Zofran) Lancets #250 each 04/14/20 fluconazole 150 mg tablet 150 mg PO QDAY PRN #4 tab 05/19/20 (Diflucan) lansoprazole 30 mg capsule,delayed 30 mg PO BID #180 ecc 05/19/20 release insulin aspart U-100 100 unit/mL 5 - 15 unit SUBCUT Q4H PRN #45 ml 08/17/20 (3 mL) subcutaneous pen (Novolog Flexpen U-100 Insulin aspart) unzoqrdg-ogeqexvse-nllyuatyf 3.5 4 drp OTIC (EAR) TID PRN #10 ml 11/09/20 mg/mL-10,000 unit/mL-1 % ear solution albuterol sulfate 90 mcg/actuation 2 puff INHALATION Q4H PRN #18 g 11/25/20 aerosol inhaler (Ventolin HFA) fluticasone propionate 50 2 spray INTRANASAL BEDTIME PRN #16 02/08/21 mcg/actuation nasal gram spray,suspension (Flonase Allergy Relief) blood sugar diagnostic (Glucocard See Rx Instructions .ROUTE 04/20/21 Expression) .COMPLEX #250 each hydrocodone 10 mg-acetaminophen 1 - 2 tab PO Q4HP PRN #200 tab 04/27/21 325 mg tablet nadolol 40 mg tablet 40 mg PO DAILY #90 tab 04/27/21 olmesartan 40 mg tablet 40 mg PO DAILY #90 tab 04/27/21 Triangle 31g x 5/16 #300 each 05/23/21 clonazepam 1 mg tablet (Klonopin) 1 mg PO BID #180 tab 06/07/21 insulin detemir U-100 100 unit/mL 70 - 75 unit SUBCUT DAILY #15 ml 06/09/21 (3 mL) subcutaneous pen (Levemir FlexTouch U-100 Insulin) ciprofloxacin HCl 500 mg tablet 500 mg PO Q12H #20 tab 06/25/21 metronidazole 500 mg tablet 500 mg PO TID #30 tab 06/25/21 (Flagyl) oxycodone 5 mg tablet 5 mg PO Q6H PRN #5 tab 06/25/21 Allergies Allergy/AdvReac Type Severity Reaction Status Date / Time atorvastatin [ATORVASTATIN] Allergy Unknown Verified 03/14/21 10:45 gemfibrozil [GEMFIBROZIL] Allergy Unknown Verified 03/14/21 10:45 rosuvastatin [ROSUVASTATIN] Allergy Unknown Verified 03/14/21 10:45 tetracycline [TETRACYCLINE] Allergy Unknown Verified 03/14/21 10:45 Milk Containing Products AdvReac Severe GI issues Verified 03/14/21 10:45 [MILK CONTAINING PRODUCTS] carisoprodol [CARISOPRODOL] AdvReac Intermediate DIZZINESS Verified 03/14/21 10:45 duloxetine [DULOXETINE] AdvReac Intermediate DIARRHEA Verified 03/14/21 10:45 fenofibrate [FENOFIBRATE] AdvReac Intermediate rash Verified 03/14/21 10:45 indomethacin [INDOMETHACIN] AdvReac Intermediate GI DISTRESS Verified 03/14/21 10:45 influenza virus vaccine tvs AdvReac Intermediate severe sx, Verified 03/14/21 10:45 [id number](65 years up) RAI, N/V, [From Fluzone High-Dose SINUS, (PF)] PLEGM, etc. lisinopril [LISINOPRIL] AdvReac Intermediate EDEMA LEGS Verified 03/14/21 10:45 amoxicillin [AMOXICILLIN] AdvReac Mild itching Verified 03/14/21 10:45 Review of Systems Review of Systems ROS Unobtainable: All systems reviewed & are unremarkable except as noted in HPI and below Patient History Medical History Abnormal CXR (chest x-ray) (1981) Abnormal Pap smear of cervix (1984) Anemia Ankle pain (1994) Asthma Atrophic vaginitis (11/24/14) Chronic back pain (1999) Diverticular disease (1999) Diverticulosis of colon (06/16/11) Eczema Essential hypertension (11/23/15) Fibroids (2002) Fibromyalgia (06/16/11) Foot pain (2004) Fractures (1972) Gastroparesis (2009) GERD (gastroesophageal reflux disease) Hayfever Hepatitis A (1989) History of heavy periods Hyperlipidemia Hypertension (2004) Inner ear inflammation Irritable bowel syndrome (06/16/11) Legionella pneumonia (1981) Liver disease Malaise and fatigue (07/13/15) MCTD (mixed connective tissue disease) Measles (1958) Mixed hyperlipidemia (06/16/11) Mumps (1958) Ovarian cyst (1984) Painful menstrual periods Polymyalgia rheumatica Recurrent sinusitis (2004) RLS (restless legs syndrome) (2004) Rubella (1958) Sarcoidosis (1983) Seizure, temporal lobe (1984) Sjogren's syndrome (10/01/15) Sjogren's syndrome Type 2 diabetes mellitus with hyperglycemia (06/16/11) Type 2 diabetes mellitus without complication (04/10/16) Vitamin deficiency Surgical History Anesthesia complication History of abdominal surgery (2008) History of abdominal surgery (1981) History of bilateral salpingo-oophorectomy (BSO) History of colonoscopy (12/17/14) History of esophagogastroduodenoscopy (EGD) (12/2014) History of lung biopsy (1983) History of lung biopsy (1981) History of oophorectomy Status post hysterectomy (2004) Status post knee surgery (2012) Family History Child Age: 51 Hx of Sjogren's disease Child Age: 49 Migraines Father Prostate cancer Cancer Heart disease Stroke Mother Diabetes mellitus Heart disease Hypertension Sister Uterine cancer Grandmother No problems noted. Grandfather Sepsis Grandmother No problems noted. Grandfather Bright's disease Sister Heart block Heart disease Social History marital status: number of children: 3 household members: spouse lives independently: Yes caregiver/support person: No housing: house pets and animals: Yes education level: college ([employer].) occupational status: other (Retired) Previous occupational history: [employer] and [employer] work [place]/[employer]ism: [employer] leisure activities: exercise, reading and other (Photography, drawing, cooking, gardening) Smoking Status: Former smoker Tobacco: How many years used: 18 (off and on) Smokeless tobacco user: other (cigarettes) quit status: quit date established (1985) second hand exposure: No alcohol intake: never substance use type: does not use and marijuana (For headaches.) Smoking Status: Former smoker alcohol intake frequency: 0-2 drinks per day Substance Use Type: does not use Exam Narrative Exam Narrative: GENERAL: Alert and oriented x three, elderly female in mild distress. HEENT: Head normocephalic, atraumatic, EOMI, pupils reactive, face symmetric, moist mucous membranes NECK: Supple, full range of motion CARDIOVASCULAR: Regular rate and rhythm without murmurs, rubs or gallops. RESPIRATORY: Breath sounds equal bilaterally, no wheezes rales or rhonchi. ABDOMEN: Soft, nondistended, generalized tenderness patient's does tender in right lower, left upper and lower quadrant and suprapubically. Normoactive bowel sounds all 4 quadrants. No guarding or rebound, rigidity, no mass, pulsatile bruit or mass. : No CVA tenderness EXTREMITIES: Normal range of motion, no edema. Neurovascularly intact NEUROLOGICAL: Cranial nerves II through XII grossly intact. Moving all extremities SKIN: Warm, dry, no petechiae, no rashes or lesions. Initial Vital Signs Initial Vital Signs: Vital Signs Temperature 98.1 F 06/25/21 10:36 Pulse Rate 71 06/25/21 10:36 Respiratory Rate 14 06/25/21 10:36 Blood Pressure 143/66 H 06/25/21 10:36 Pulse Oximetry 97 06/25/21 10:36 Course Orders Ordered: ED Orders 06/25/21 10:32 Complete Blood Count AUTO DIFF Stat Comprehensive Metabolic Panel Stat Lipase Stat 06/25/21 10:40 COVID19 -Nasal swab/Pre-Proc Stat 06/25/21 10:51 EKG-12 Lead Stat 06/25/21 11:46 CT abdomen pelvis w con Stat Discontinued Medications Sodium Chloride (Normal Saline 0.9%) 1,000 mls @ 150 mls/hr IV CONT RUBY Last Infusion: 06/25/21 14:11 Dose: 0 mls/hr Documented by: Admin: 06/25/21 11:02 Dose: 150 mls/hr Documented by: ANDREW Morphine Sulfate (Morphine 4 Mg/Ml Inj) 4 mg IV NOW ONE Stop: 06/25/21 11:47 Last Admin: 06/25/21 11:51 Dose: 4 mg Documented by: ANDREW Vital Signs Vital signs: Vital Signs - 8 hr 06/25/21 11:30 06/25/21 11:58 06/25/21 12:00 Pulse Rate 67 67 68 Respiratory Rate 14 19 16 Blood Pressure 122/70 139/72 Pulse Oximetry 98 98 98 06/25/21 12:30 06/25/21 12:55 06/25/21 13:00 Pulse Rate 65 65 61 Respiratory Rate 13 14 13 Blood Pressure 148/68 H 141/65 H Pulse Oximetry 95 96 95 06/25/21 13:30 06/25/21 13:31 06/25/21 14:11 Pulse Rate 62 60 64 Respiratory Rate 14 13 14 Blood Pressure 166/72 H 158/67 H Pulse Oximetry 96 96 99 MDM - Abdominal Pain Lab Data Result diagrams: 06/25/21 10:32 06/25/21 10:32 Labs: Lab Results 06/25/21 06/25/21 06/25/21 Range/Units 10:32 10:32 10:40 WBC 8.4 (4.5-11.0) X10^3/uL RBC 4.89 (4.0-5.2) X10^6/uL Hgb 14.1 (12.0-16.0) g/dL Hct 43.1 (36-46) % MCV 88.2 (80-100) fL MCH 28.8 (26-34) PG MCHC 32.7 (30-36) % RDW 14.0 (11.6-14.8) % Plt Count 282 (150-400) X10^3/uL Neut % (Auto) 62.9 (50-75) % Lymph % (Auto) 25.6 (25-40) % Carlton % (Auto) 7.9 (3-14) % Eos % (Auto) 2.8 (2-4) % Baso % (Auto) 0.8 (0-2) % Neut # (Auto) 5300 (0563-5508) /uL Lymph # (Auto) 2200 (5011-9146) /uL Carlton # (Auto) 700 (0-900) /uL Eos # (Auto) 200 (0-450) /uL Baso # (Auto) 100 (0-100) /uL Sodium 137 (137-145) mmol/L Potassium 5.0 (3.4-5.1) mmol/L Chloride 103 (98-107) mmol/L Carbon Dioxide 26 (22-32) mmol/L BUN 16 (7-17) mg/dL Creatinine 0.91 (0.52-1.04) mg/dL Estimated GFR > 60.0 (>60) mL/min BUN/Creatinine Ratio 17.6 (6-22) Glucose 180 H (80-110) mg/dL Calcium 9.8 (8.4-10.2) mg/dL Total Bilirubin 0.4 (0.2-1.3) mg/dL AST 40 H (14-36) IU/L ALT 39 H (<35) IU/L Alkaline Phosphatase 91 (38-126) U/L Total Protein 7.8 (6.3-8.2) g/dL Albumin 4.4 (3.5-5.0) g/dL Globulin 3.4 (1.7-4.1) g/dL Albumin/Globulin Ratio 1.3 (1.0-2.8) Lipase 104 (23-300) U/L SARS-CoV-2 (PCR) Negative (Negative) Point of care testing: Urine Dip Bedside Urine Glucose Negative Bedside Urine Bilirubin - Negative Bedside Urine Ketone - Negative Bedside Urine Occult Blood - Negative Bedside Urine pH 6 Bedside Urine Protein - Negative Bedside Urine Urobilinogen - Negative Bedside Urine Nitrite - Negative Bedside Urine Leukocytes - Negative Esterase ECG Data Attestation: I personally reviewed and interpreted this ECG as follows: Prior ECG tracings: available for review Interpretation: Patient's EKG is sinus with a right bundle branch which is present on prior EKG [place] 07/25/[address] changes appreciated. Rate of 70 P are 182 QRS of 126 and QTC 442. MDM Narrative Medical decision making narrative: This is a 70-year-old female who comes with complaint of lower abdominal pain for several weeks which has been increasing in intensity, worse with food intake and she has developed watery diarrhea. Location is changed from the right more to the left side and is more generalized on exam. Labs show very mild bump in her 60s which are stable with no other major lab abnormalities. Point of care urine was obtained. CT abdomen pelvis with occluded as patient has had diarrhea with nausea and with her left lower quadrant pain diverticulitis, adhesions or possible partial bowel obstruction are all possibilities. Patient has chronic thickening with diverticulosis but no obvious acute inflammation. No other major changes. Point of care urine is negative. Discharge Plan Departure Patient Disposition: Home Clinical Impression: Mural thickening of sigmoid colon, Abdominal pain Instructions: DI for Abdominal Pain-Adult Activity Restrictions/Additional Instructions: Today shows thickening in the sigmoid, colon/diverticulosis. There is not clear infection this appears stable but after discussion you might benefit from antibiotics. I do recommend that you follow-up for colonoscopy for further evaluation and potential biopsies, chronic thickening can be related to infection, inflammation and autoimmune diseases as well as cancer. Included is referral for General surgery. Call for an appointment. You may take pain medication as prescribed. This medication can make you sleepy do not drive, perform hazardous activities or make any major decisions while taking it. This medication will make you constipated please take a stool softener once to twice daily until stools are soft and regular. Take antibiotics as prescribed. [facility] [place]. Please return for fevers, rapidly worsening pain, persistent vomiting, lightheadedness or passing out, new chest pain, shortness of breath, black or bloody stools or other new or concerning symptoms. Prescriptions: New oxycodone 5 mg tablet 5 mg PO Q6H PRN (Reason: pain) Qty: 5 RF: 0 metronidazole [Flagyl] 500 mg tablet 500 mg PO TID Qty: 30 RF: 0 ciprofloxacin HCl 500 mg tablet 500 mg PO Q12H Qty: 20 RF: 0 No Action carboxymethylcellulose sodium [Refresh Liquigel] 1 % Drops, Liquid Gel 2 gtt OU PRN Qty: 0 RF: 0 aspirin 81 MG tablet,delayed release (DR/EC) 81 mg PO QDAY Qty: 0 RF: 0 (DME) pen needle, diabetic [Ultra-Thin II Ins Pen Triangle] 29 gauge x 1/2 needle See Dose Instructions .ROUTE .MEDSUPPLY Qty: 30 RF: 0 (DME) Lancets Qty: 250 RF: 4 fluconazole [Diflucan] 150 mg tablet 150 mg PO QDAY PRN (Reason: YEAST) Qty: 4 RF: 2 lansoprazole 30 mg capsule,delayed release(DR/EC) 30 mg PO BID Qty: 180 RF: 3 Novolog Flexpen U-100 Insulin 100 unit/mL (3 mL) insulin pen 5 - 15 unit subcut Q4H PRN (Reason: HIGH BLOOD SUGAR) Qty: 45 RF: 11 homngxed-ilvynufoz-BU 3.5-10,000-1 mg/mL-unit/mL-% solution 4 drp otic (ear) TID PRN (Reason: ear pain) Qty: 10 RF: 3 albuterol sulfate [Ventolin HFA] 90 mcg/actuation HFA aerosol inhaler 2 puff inhalation Q4H PRN (Reason: Shortness Of Breath) Qty: 18 RF: 3 fluticasone propionate [Flonase Allergy Relief] 50 mcg/actuation spray,suspension 2 spray Intranasal BEDTIME PRN (Reason: Allergy Symptoms) Qty: 16 RF: 3 Glucocard Expression Strip See Rx Instructions .ROUTE .COMPLEX Qty: 250 RF: 11 olmesartan 40 mg tablet 40 mg PO DAILY Qty: 90 RF: 3 hydrocodone-acetaminophen 10-325 mg tablet 1 - 2 tab PO Q4HP PRN (Reason: pain) Qty: 200 RF: 0 nadolol 40 mg tablet 40 mg PO DAILY Qty: 90 RF: 3 (DME) Triangle 31g x 5/16 Qty: 300 RF: 3 clonazepam [Klonopin] 1 mg tablet 1 mg PO BID Qty: 180 RF: 1 Levemir FlexTouch U-100 Insuln 100 unit/mL (3 mL) insulin pen 70 - 75 unit SUBCUT DAILY Qty: 15 RF: 11 desonide 0.05 % cream 1 applictn TOP .PRN Qty: 30 RF: 0 PreserVision AREDS-2 318-655-90-1 hw-tihx-ht-mg capsule 1 tab PO BID RF: 0 ergocalciferol (vitamin D2) 1,250 mcg (50,000 unit) capsule 1,250 mcg PO QWEEK RF: 0 ketoconazole 2 % cream 1 applic topical BID RF: 0 Restasis 0.05 % dropperette See Rx Instructions .ROUTE .COMPLEX RF: 0 Eyelid Cleansing Wipes 1 ea topical .once - bid PRNRF: 0 ahptrxrmft-odepcnolsfufl-jcgv [Fioricet] 50-300-40 mg capsule 1 cap PO Q8H PRN (Reason: headache) Qty: 90 RF: 0 clobetasol 0.05 % solution 1 applic TOPICAL DIRECTED PRN (Reason: as directed) RF: 0 ondansetron HCl [Zofran] 4 mg tablet 4 mg PO Q6H PRN (Reason: nausea and vomiting) Qty: 10 RF: 0 Disabled Parking Permit 1 ea miscellaneous PRN PRN (Reason: PARKING) RF: 0 Triangle 5/16 Inch 1 ea SQ DIRECTED RF: 0 ondansetron 4 mg tablet,disintegrating 4 mg PO Q6H PRN (Reason: nausea and vomiting) Qty: 20 RF: 0 Referrals: Good Miller MD [Primary Care Provider] -
[2021-06-25 11:28] LABS: COVID19 -Nasal RAPID Negative (Negative)
--- NOTE | 2021-06-25 11:46 | DI.CT.S_ITS ---
PROCEDURE: CT ABDOMEN PELVIS W CON INDICATIONS: first right now LLQ pain, hx adhesions after hyst TECHNIQUE: After the administration of IV contrast, axial sections were acquired from the lung bases to the pubic symphysis. Coronal and sagittal reformats were performed. For radiation dose reduction, the following was used: automated exposure control, adjustment of mA and/or kV according to patient size. COMPARISON: [facility], CT, CT ABDOMEN PELVIS W CON, 01/16/2020, 10:54. FINDINGS: Image quality: Excellent. Lung bases: Unremarkable. A small hiatal hernia is incidentally noted. Heart: No significant findings. ABDOMEN: Liver: Diffuse fatty liver infiltration is noted. Gallbladder: Unremarkable. Biliary ducts: Unremarkable. Pancreas: Unremarkable. Spleen: Unremarkable. Adrenal Glands: Unremarkable. Kidneys and Ureters: Unremarkable. Stomach and Bowel: Stomach, small bowel loops, and colon are unremarkable. Moderate colonic diverticulosis is seen, with chronic appearing wall thickening, which is similar to the prior examination. No significant surrounding inflammatory changes are seen. A normal appendix is incidentally noted. Peritoneum: No abnormal intraperitoneal fluid. No free air. Ventral Wall: No hernia. Soft tissue thickening can be seen involving areas of the anterior abdominal wall. Abdominal Nodes: No retroperitoneal or mesenteric adenopathy by size criteria. Vessels: Aorta and inferior vena cava are normal in size. Atherosclerotic calcification is noted. PELVIS: Pelvic Organs: This patient is status post hysterectomy. No adnexal masses are seen. No significant pelvic inflammatory changes are seen. Bladder: Unremarkable. Pelvic Nodes: No enlarged lymph nodes. Miscellaneous: No inguinal hernias are seen. Bones: This patient has transitional lumbar anatomy. For the purposes of this examination, the level with the vestigial ribs is considered to be T12. By this numbering scheme, the S1 level is partially lumbarized. There is a transitional, rudimentary disc seen at S1-S2. IMPRESSION: No significant left lower quadrant inflammatory changes are seen. Negative for abscess or other significant postoperative complication no significant free fluid can be seen. Generalized sigmoid diverticulosis is seen, with chronic appearing sigmoid thickening and no significant surrounding inflammatory change. The appearance of sigmoid colon is similar to the 01/16/2020 examination. Incidental note is made of: Small hiatal hernia Fatty liver infiltration Normal appendix Transitional lumbar anatomy Dictated by: Emmanuel Mejia M.D. on 06/25/2021 at 11:30 Approved by: Emmanuel Mejia M.D. on 06/25/2021 at 11:34
[2021-06-25] MEDS: MORPHINE 4 MG/ML INJ IV (11:51)
== END 2021-06-25 14:13 | disposition home or self-care (01) ==
PROVIDERS: Emergency Provider Emergency Medicine; Family Provider Internal Medicine; PCP Internal Medicine
DX: R10.30 Lower abdominal pain, unspecified (principal); K63.9 Disease of intestine, unspecified; R19.7 Diarrhea, unspecified; R11.0 Nausea; Z20.822 Contact with and (suspected) exposure to COVID-19
CPT/HCPCS: 36415; 74177; 80053; 81003; 83690; 85025; 87635; 93005; 93010; 96361; 96374; 99284; C9803; J2270; Q9967

== ENCOUNTER → 2021-07-04 14:16 | Outpatient (CLI) | payer MEDICARE, OTHER, SELFPAY ==
[2021-07-04 17:46] LABS: Clostridium Difficile Tox PCR Negative for C. diff (Negative)
== END ==
PROVIDERS: Family Provider Internal Medicine; PCP Internal Medicine; Referring Provider Internal Medicine; Visit Provider Internal Medicine
DX: R19.7 Diarrhea, unspecified (principal)
CPT/HCPCS: 87493

== ENCOUNTER 2021-07-06 09:19 | Emergency (ER) | payer MEDICARE, OTHER, SELFPAY ==
[2021-07-06] VITALS (14 sets, daily range): BP systolic 124–166; BP diastolic 58–77; PULSE 68–80; RESP 16–18; TEMP 35.8; O2SAT 94–99; BMI 30.7
[2021-07-06 10:02] LABS: Add Manual Diff / Slide Review NO; Basophils Absolute Auto 100 /uL (0-100); Basophils Percent Auto 0.7 % (0-2); Eosinophils Absolute Auto 100 /uL (0-450); Eosinophils Percent Auto 1.5 % (2-4); Hematocrit 42.5 % (36-46); Hemoglobin 13.9 g/dL (12.0-16.0); Lymphocytes Absolute Auto 1700 /uL (1100-4500); Lymphocytes Percent Auto 17.1 % (25-40); Mean Corpuscular HGB Conc 32.6 % (30-36); Mean Corpuscular Hemoglobin 28.6 PG (26-34); Mean Corpuscular Volume 87.6 fL (80-100); Monocytes Absolute Auto 600 /uL (0-900); Monocytes Percent Auto 5.9 % (3-14); Neutrophils Absolute Auto 7500 /uL (1500-7000); Neutrophils Percent Auto 74.8 % (50-75); Platelet Count 272 X10^3/uL (150-400); Red Blood Cell Count 4.85 X10^6/uL (4.0-5.2); Red Cell Distribution Width 14.3 % (11.6-14.8); White Blood Cell Count 10.1 X10^3/uL (4.5-11.0)
[2021-07-06 10:13] LABS: Alanine Aminotransferase 23 IU/L (<35); Albumin 4.3 g/dL (3.5-5.0); Albumin Globulin Ratio 1.4 (1.0-2.8); Alkaline Phosphatase 67 U/L (38-126); Aspartate Aminotransferase 42 IU/L (14-36); BUN Creatinine Ratio 13.6 (6-22); Bilirubin Total 0.5 mg/dL (0.2-1.3); Blood Urea Nitrogen 11 mg/dL (7-17); Calcium 8.9 mg/dL (8.4-10.2); Carbon Dioxide 24 mmol/L (22-32); Chloride 105 mmol/L (98-107); Estimated Glomerular Filt Rate > 60.0 mL/min (>60); Globulin 3.1 g/dL (1.7-4.1); Glucose 202 mg/dL (80-110); Lipase 148 U/L (23-300); Potassium 4.9 mmol/L (3.4-5.1); Sodium 137 mmol/L (137-145); Total Protein 7.4 g/dL (6.3-8.2)
[2021-07-06 10:22] LABS: HEMOLYSIS 90 (0-50)
--- NOTE | 2021-07-06 11:18 | ED.ABDPAIN ---
HPI - Abdominal Pain General Chief Complaint: Abdominal Pain Stated Complaint: ABD PAIN/DIAHRREA/POST MEDS Time Seen by Provider: 07/06/21 10:36 Source: patient Mode of arrival: Ambulatory Limitations: no limitations History of Present Illness HPI narrative: This is a 70-year-old female who was seen by myself on June 25, 2010 days prior. Patient returns for complaint of abdominal pain. She states initially started right upper quadrant but has now moved more to the left upper quadrant and left lower. Patient has been afebrile. She has had nausea. She states symptoms seem worse when she eats or takes food. She does note today that she has been told she might have gastroparesis in the past. She has not had vomiting. She has had occasional intermittent diarrhea. No black or bloody stools but notes the angelo coloration and something that looked like leaves. Patient denies any rectal pain. She has had some back pain. She has not any dysuria, urgency or frequency. Patient does have a history of Sjogren and has some chronic shortness of breath which has not worsened. She has not had any cough cold or congestion. She has been afebrile. Of hypertension, temporal lobe seizures an insulin-dependent diabetic. She has had a prior hysterectomy with complications requiring 3 surgeries in total and ultimately was a total hysterectomy. She is unsure if they removed her appendix at that time. Patient has remote use of tobacco, rare alcohol and no illicit. She did have C diff testing on 07/04 which was negative. She has been in contact with her primary care and they are attempting to get her set up with Gastroenterology. It was noted on her last CT have thickening of the sigmoid colon which was chronic and appeared unchanged without other acute changes. At that time patient was covered with antibiotics. She has not had any improvement in her symptoms. Related Data Home Medications Medication Instructions Recorded Confirmed carboxymethylcellulose sodium 1 % 2 gtt OU PRN #0 05/09/12 06/27/21 eye liquid gel drops (Refresh Liquigel) aspirin 81 mg tablet,delayed 81 mg PO QDAY #0 05/11/17 06/27/21 release Disabled Parking Permit 1 ea MISCELLANEOUS PRN PRN 07/16/18 06/27/21 [place] 5/16 Inch 1 ea SQ DIRECTED 07/16/18 06/27/21 desonide 0.05 % topical cream 1 applictn TOP .PRN #30 gram 04/24/19 06/27/21 vit C 250 mg-vit E 90 mg-zinc 40 1 tab PO BID 10/16/19 06/27/21 mg-copper 1 pd-vlwugd-tmvdiq capsule (PreserVision AREDS-2) clobetasol 0.05 % scalp solution 1 applic TOPICAL DIRECTED PRN 01/16/20 06/27/21 Eyelid Cleansing Wipes 1 ea TOPICAL .once - bid PRN 03/14/21 06/27/21 cyclosporine 0.05 % eye drops in a See Rx Instructions .ROUTE 03/14/21 06/27/21 dropperette .COMPLEX ea ergocalciferol (vitamin D2) 1,250 1,250 mcg PO QWEEK cap 03/14/21 06/27/21 mcg (50,000 unit) capsule ketoconazole 2 % topical cream 1 applic TOPICAL BID g 03/14/21 06/27/21 Previous Rx's Medication Instructions Recorded pen needle, diabetic 29 gauge x #30 each 11/19/18 1/2 (Ultra-Thin II Insulin Pen [place]) xjqiyumkne-ngmqrooidtilw-boweddmm 1 cap PO Q8H PRN #90 cap 08/21/19 50 mg-300 mg-40 mg capsule (Fioricet) Lancets #250 each 04/14/20 fluconazole 150 mg tablet 150 mg PO QDAY PRN #4 tab 05/19/20 (Diflucan) insulin aspart U-100 100 unit/mL 5 - 15 unit SUBCUT Q4H PRN #45 ml 08/17/20 (3 mL) subcutaneous pen (Novolog Flexpen U-100 Insulin aspart) xsocvoha-bhmlvobrt-luyyhzxrb 3.5 4 drp OTIC (EAR) TID PRN #10 ml 11/09/20 mg/mL-10,000 unit/mL-1 % ear solution albuterol sulfate 90 mcg/actuation 2 puff INHALATION Q4H PRN #18 g 11/25/20 aerosol inhaler (Ventolin HFA) fluticasone propionate 50 2 spray INTRANASAL BEDTIME PRN #16 02/08/21 mcg/actuation nasal gram spray,suspension (Flonase Allergy Relief) blood sugar diagnostic (Glucocard See Rx Instructions .ROUTE 04/20/21 Expression) .COMPLEX #250 each hydrocodone 10 mg-acetaminophen 1 - 2 tab PO Q4HP PRN #200 tab 04/27/21 325 mg tablet nadolol 40 mg tablet 40 mg PO DAILY #90 tab 04/27/21 olmesartan 40 mg tablet 40 mg PO DAILY #90 tab 04/27/21 [place] 31g x 5/16 #300 each 05/23/21 clonazepam 1 mg tablet (Klonopin) 1 mg PO BID #180 tab 06/07/21 insulin detemir U-100 100 unit/mL 70 - 75 unit SUBCUT DAILY #15 ml 06/09/21 (3 mL) subcutaneous pen (Levemir FlexTouch U-100 Insulin) ciprofloxacin HCl 500 mg tablet 500 mg PO Q12H #20 tab 06/25/21 metronidazole 500 mg tablet 500 mg PO TID #30 tab 06/25/21 (Flagyl) ondansetron 8 mg disintegrating 8 mg PO Q8H PRN 10 Days #30 tab 06/27/21 tablet lansoprazole 30 mg capsule,delayed 30 mg PO BID #180 cap 06/30/21 release oxycodone 5 mg tablet 5 mg PO QID PRN #10 tab 07/06/21 sucralfate 1 gram tablet (Carafate) 1 g PO QACHS #40 tab 07/06/21 Allergies Allergy/AdvReac Type Severity Reaction Status Date / Time atorvastatin [ATORVASTATIN] Allergy Unknown Verified 03/14/21 10:45 gemfibrozil [GEMFIBROZIL] Allergy Unknown Verified 03/14/21 10:45 rosuvastatin [ROSUVASTATIN] Allergy Unknown Verified 03/14/21 10:45 tetracycline [TETRACYCLINE] Allergy Unknown Verified 03/14/21 10:45 Milk Containing Products AdvReac Severe GI issues Verified 03/14/21 10:45 [MILK CONTAINING PRODUCTS] carisoprodol [CARISOPRODOL] AdvReac Intermediate DIZZINESS Verified 03/14/21 10:45 duloxetine [DULOXETINE] AdvReac Intermediate DIARRHEA Verified 03/14/21 10:45 fenofibrate [FENOFIBRATE] AdvReac Intermediate rash Verified 03/14/21 10:45 indomethacin [INDOMETHACIN] AdvReac Intermediate GI DISTRESS Verified 03/14/21 10:45 influenza virus vaccine tvs AdvReac Intermediate severe sx, Verified 03/14/21 10:45 [id number](65 years up) RAI, N/V, [From Fluzone High-Dose SINUS, 2018- (PF)] PLEGM, etc. lisinopril [LISINOPRIL] AdvReac Intermediate EDEMA LEGS Verified 03/14/21 10:45 amoxicillin [AMOXICILLIN] AdvReac Mild itching Verified 03/14/21 10:45 Review of Systems Review of Systems ROS Unobtainable: All systems reviewed & are unremarkable except as noted in HPI and below Patient History Medical History Abnormal CXR (chest x-ray) (1981) Abnormal Pap smear of cervix (1984) Anemia Ankle pain (1994) Asthma Atrophic vaginitis (11/24/14) Chronic back pain (1999) Diverticular disease (1999) Diverticulosis of colon (06/16/11) Eczema Essential hypertension (11/23/15) Fibroids (2002) Fibromyalgia (06/16/11) Foot pain (2004) Fractures (1972) Gastroparesis (2009) GERD (gastroesophageal reflux disease) Hayfever Hepatitis A (1989) History of heavy periods Hyperlipidemia Hypertension (2004) Inner ear inflammation Irritable bowel syndrome (06/16/11) Legionella pneumonia (1981) Liver disease Malaise and fatigue (07/13/15) MCTD (mixed connective tissue disease) Measles (1958) Mixed hyperlipidemia (06/16/11) Mumps (1958) Ovarian cyst (1984) Painful menstrual periods Polymyalgia rheumatica Recurrent sinusitis (2004) RLS (restless legs syndrome) (2004) Rubella (1958) Sarcoidosis (1983) Seizure, temporal lobe (1984) Sjogren's syndrome (10/01/15) Sjogren's syndrome Type 2 diabetes mellitus with hyperglycemia (06/16/11) Type 2 diabetes mellitus without complication (04/10/16) Vitamin deficiency Surgical History Anesthesia complication History of abdominal surgery (2008) History of abdominal surgery (1981) History of bilateral salpingo-oophorectomy (BSO) History of colonoscopy (12/17/14) History of esophagogastroduodenoscopy (EGD) (12/2014) History of lung biopsy (1983) History of lung biopsy (1981) History of oophorectomy Status post hysterectomy (2004) Status post knee surgery (2012) Family History Child Age: 51 Hx of Sjogren's disease Child Age: 49 Migraines Father Prostate cancer Cancer Heart disease Stroke Mother Diabetes mellitus Heart disease Hypertension Sister Uterine cancer Grandmother No problems noted. Grandfather Sepsis Grandmother No problems noted. Grandfather Bright's disease Sister Heart block Heart disease Social History marital status: number of children: 3 household members: spouse lives independently: Yes caregiver/support person: No housing: house pets and animals: Yes education level: college ([employer].) occupational status: other (Retired) Previous occupational history: [employer] and [employer] work [employer]oration: [employer] leisure activities: exercise, reading and other (Photography, drawing, cooking, gardening) Smoking Status: Former smoker Tobacco: How many years used: 18 (off and on) Smokeless tobacco user: other (cigarettes) quit status: quit date established (1985) second hand exposure: No alcohol intake: never substance use type: does not use and marijuana (For headaches.) Smoking Status: Former smoker alcohol intake frequency: 0-2 drinks per day Substance Use Type: does not use Exam Narrative Exam Narrative: GENERAL: Alert and oriented x three, female in mild distress. HEENT: Head normocephalic, atraumatic, EOMI, pupils reactive, face symmetric, moist mucous membranes NECK: Supple, full range of motion CARDIOVASCULAR: Regular rate and rhythm without murmurs, rubs or gallops. RESPIRATORY: Breath sounds equal bilaterally, no wheezes rales or rhonchi. ABDOMEN: Soft, positive left forquadrant tenderness. Normoactive bowel sounds all 4 quadrants. No guarding or rebound, rigidity, no mass. Nondistended. : No CVA tenderness EXTREMITIES: Normal range of motion, no clubbing or edema. Neurovascularly intact NEUROLOGICAL: Cranial nerves II through XII grossly intact. Moving all extremities SKIN: Warm, dry, no petechiae, no rashes or lesions. Initial Vital Signs Initial Vital Signs: Vital Signs Pulse Oximetry 96 07/06/21 09:38 Course Orders Ordered: ED Orders 07/06/21 11:43 CT abdomen pelvis w con Stat XR chest 1V Stat 07/06/21 12:03 EKG-12 Lead Stat 07/06/21 12:05 COVID19 -Nasal swab/Pre-Proc Stat Discontinued Medications Sodium Chloride (Normal Saline 0.9%) 1,000 mls @ 1,000 mls/hr IV BOLUS ONE Stop: 07/06/21 12:17 Last Infusion: 07/06/21 13:38 Dose: 0 mls/hr Documented by: Admin: 07/06/21 11:20 Dose: 1,000 mls/hr Documented by: ALYSSA Morphine Sulfate (Morphine 4 Mg/Ml Inj) 4 mg IV NOW ONE Stop: 07/06/21 11:44 Last Admin: 07/06/21 12:08 Dose: 4 mg Documented by: ALYSSA Vital Signs Vital signs: Vital Signs - 8 hr 07/06/21 12:11 07/06/21 12:13 07/06/21 12:30 Pulse Rate 70 72 71 Blood Pressure 166/77 H Pulse Oximetry 98 99 97 07/06/21 12:36 07/06/21 13:00 07/06/21 13:01 Pulse Rate 76 68 71 Blood Pressure 143/63 H 150/68 H Pulse Oximetry 97 97 97 MDM - Abdominal Pain Lab Data Result diagrams: 07/06/21 09:44 07/06/21 09:44 Labs: Lab Results 07/06/21 07/06/21 07/06/21 Range/Units 09:44 09:44 12:05 WBC 10.1 (4.5-11.0) X10^3/uL RBC 4.85 (4.0-5.2) X10^6/uL Hgb 13.9 (12.0-16.0) g/dL Hct 42.5 (36-46) % MCV 87.6 (80-100) fL MCH 28.6 (26-34) PG MCHC 32.6 (30-36) % RDW 14.3 (11.6-14.8) % Plt Count 272 (150-400) X10^3/uL Neut % (Auto) 74.8 (50-75) % Lymph % (Auto) 17.1 L (25-40) % [place] % (Auto) 5.9 (3-14) % Eos % (Auto) 1.5 L (2-4) % Baso % (Auto) 0.7 (0-2) % Neut # (Auto) 7500 H (9059-6779) /uL Lymph # (Auto) 1700 (7751-5975) /uL [place] # (Auto) 600 (0-900) /uL Eos # (Auto) 100 (0-450) /uL Baso # (Auto) 100 (0-100) /uL Sodium 137 (137-145) mmol/L Potassium 4.9 (3.4-5.1) mmol/L Chloride 105 (98-107) mmol/L Carbon Dioxide 24 (22-32) mmol/L BUN 11 (7-17) mg/dL Creatinine 0.81 (0.52-1.04) mg/dL Estimated GFR > 60.0 (>60) mL/min BUN/Creatinine Ratio 13.6 (6-22) Glucose 202 H (80-110) mg/dL Calcium 8.9 (8.4-10.2) mg/dL Total Bilirubin 0.5 (0.2-1.3) mg/dL AST 42 H (14-36) IU/L ALT 23 (<35) IU/L Alkaline Phosphatase 67 (38-126) U/L Total Protein 7.4 (6.3-8.2) g/dL Albumin 4.3 (3.5-5.0) g/dL Globulin 3.1 (1.7-4.1) g/dL Albumin/Globulin Ratio 1.4 (1.0-2.8) Lipase 148 (23-300) U/L SARS-CoV-2 (PCR) Negative (Negative) Point of care testing: Urine Dip Bedside Urine Glucose Negative Bedside Urine Bilirubin - Negative Bedside Urine Ketone - Negative Urine Specific [place] 1.010 Bedside Urine Occult Blood - Negative Bedside Urine pH 6.0 Bedside Urine Protein - Negative Bedside Urine Urobilinogen 0.2 Bedside Urine Nitrite - Negative Bedside Urine Leukocytes - Negative Esterase Imaging Data Chest x-ray: Radiologist's Impression: [address] [id number] ReportSigned Patient: Nuris Sanchez MMR#: [id number]: 9Acct:[id number]/Sex: 70 / FDate of Service: 07/06/21Loc: EDAccession Number: [id number] Procedure: XR chest 1V Ordering Provider: Chika Blue D.O. PROCEDURE: XR CHEST 1V INDICATIONS: abdominal pain TECHNIQUE: One view of the chest was acquired. COMPARISON: [facility], CR, XR CHEST 1V, 09/13/2020, 16:02. FINDINGS: Surgical changes and devices: None. Lungs and pleura: Lungs are clear. No pleural effusions or pneumothorax. Mediastinum: Mediastinal contours appear normal. Heart size is normal. Bones and chest wall: No suspicious bony lesions. Overlying soft tissues appear unremarkable. IMPRESSION: No acute cardiopulmonary disease process. Dictated by: Saida Meade MD, PhD on 07/06/2021 at 12:12 Approved by: Saida Meade MD, PhD on 07/06/2021 at 12:12 CT scan - abdomen/pelvis: Radiologist's Impression: Launch?[place] [address] CT Scan Report Signed Patient: Nuris Sanchez MR#: [id number] : 1950 Acct:[id number] Age/Sex: 70 / F Date of Service: 07/06/21 Loc: ED Accession Number: [id number] ?? Procedure: CT abdomen pelvis w con Ordering Provider: Chika Blue D.O. PROCEDURE:? CT ABDOMEN PELVIS W CON ? INDICATIONS:? abd pain, LUQ/LLQ and RUQ, intermittent diarrhea ? TECHNIQUE:? After the administration of intravenous contrast, axial sections acquired from the lung bases to the pubic symphysis.? Coronal and sagittal reformats were performed.? For radiation dose reduction, the following was used:? automated exposure control, adjustment of mA and/or kV according to patient size.? ? COMPARISON:? [facility], CT, CT ABDOMEN PELVIS W CON, 12/28/2019, 15:06.? [facility], CT, CT ABDOMEN PELVIS W CON, 01/16/2020, 10:54.? [facility], CT, CT ABDOMEN PELVIS W CON, 06/25/2021, 11:59. ? FINDINGS:? Image quality:? Excellent.? ? Lung bases:? There is a calcified granuloma in the anterior left lung base.? No focal infiltrate or pleural effusion.? There is concentric thickening of the distal esophagus. Heart:? No significant findings. ? ABDOMEN: Liver:? Liver is mildly prominent in size.? There is hepatic steatosis..? ? Gallbladder:? Unremarkable.? ? Biliary ducts:? Unremarkable.? ? Pancreas:? Unremarkable.? ? Spleen:? Unremarkable.? ? Adrenal Glands:? Unremarkable.? ? Kidneys and Ureters:? Unremarkable.? ? ? Stomach and Bowel:? Stomach, small bowel loops, and colon are are normal in caliber.? There are numerous colonic diverticula.? There is mild thickening of the sigmoid colon.? Normal appendix.? Peritoneum:? No abnormal intraperitoneal fluid.? No free air.? ? Ventral Wall: ? No hernias.? Abdominal Nodes:? No retroperitoneal or mesenteric adenopathy by size criteria.? Vessels:? Aorta and inferior vena cava are normal in size.? Mild atherosclerosis. ? PELVIS: Pelvic Organs:? Unremarkable.? ? Bladder:? Unremarkable.? ? Pelvic Nodes: No enlarged lymph nodes.? Miscellaneous: No hernias are seen.? Nonspecific subcutaneous stranding in the anterior abdominal wall. ? ? Bones:? Unremarkable.? IMPRESSION:? ? 1. Sigmoid diverticulosis.? There is mild colonic wall thickening involving sigmoid colon.? Differential diagnosis include mild diverticulosis versus artifact from inadequate distention. ? 2. Concentric thickening of the distal esophagus.? Differential diagnoses include esophagitis, chronic gastroesophageal reflux and esophageal neoplasm.? If clinically indicated, EGD is suggested for follow-up evaluation. ? 3. Hepatic steatosis.? ? ? Dictated by: Balbina Das M.D. on 07/06/2021 at 12:12 ? ? Approved by: Balbina Das M.D. on 07/06/2021 at 12:28? ECG Data Attestation: I personally reviewed and interpreted this ECG as follows: Interpretation: Sinus rhythm, rate of 71 MS 188 QRS of 128 QTC 467. MDM Narrative Medical decision making narrative: This is a 1-year-old female comes with abdominal pain that is been persistent since about June 14. Almost a month. Patient had chronic thickening which appeared unchanged of her sigmoid with reassuring labs on her last visit. She has had a C diff PCR which was negative. Patient continues to have symptoms and notes seems to be worse with ingestion of food. She is on insulin and states that she may have been told she has gastroparesis in the past. Patient has found Carafate helpful in the past. She is on Prevacid twice daily. So prescription for Carafate was given. Patient was encouraged to have EGD and colonoscopy to evaluate for thickening which has been chronic and unchanged and is concerning for possible malignancy. Patient has been in discussion with his physician about following with gastroenterology. Discharge Plan Departure Patient Disposition: Home Clinical Impression: Abdominal pain Instructions: DI for Abdominal Pain-Adult Activity Restrictions/Additional Instructions: Follow-up with your physician for recheck. Your imaging today shows thickening which is unchanged at the sigmoid colon. There is also some thickening in the esophageal area. Continue her Prevacid twice daily. You may find Carafate helpful but to do still need EGD and colonoscopy. I would also recommend following with Gastroenterology for scope is you do have thickening although it appears unchanged in your colon. Referrals included below. Continue home medications as prescribed. You may take Carafate 1 tablet 30 minutes before meals and sleep. Prescription sent to [facility]. Please return for fevers, new or worsening abdominal pain, persistent vomiting, lightheadedness or passing out, black or bloody stools, new chest pain or shortness of breath or other new or concerning symptoms. Prescriptions: New oxycodone 5 mg tablet 5 mg PO QID PRN (Reason: pain) Qty: 10 RF: 0 sucralfate [Carafate] 1 gram tablet 1 g PO QACHS Qty: 40 RF: 0 Discontinued oxycodone 5 mg tablet 5 mg PO Q6H PRN (Reason: pain) Qty: 5 RF: 0 No Action carboxymethylcellulose sodium [Refresh Liquigel] 1 % Drops, Liquid Gel 2 gtt OU PRN Qty: 0 RF: 0 aspirin 81 MG tablet,delayed release (DR/EC) 81 mg PO QDAY Qty: 0 RF: 0 (DME) pen needle, diabetic [Ultra-Thin II Ins Pen [place]] 29 gauge x 1/2 needle See Dose Instructions .ROUTE .MEDSUPPLY Qty: 30 RF: 0 (DME) Lancets Qty: 250 RF: 4 fluconazole [Diflucan] 150 mg tablet 150 mg PO QDAY PRN (Reason: YEAST) Qty: 4 RF: 2 Novolog Flexpen U-100 Insulin 100 unit/mL (3 mL) insulin pen 5 - 15 unit subcut Q4H PRN (Reason: HIGH BLOOD SUGAR) Qty: 45 RF: 11 qyovklel-prrqxksqt-AZ 3.5-10,000-1 mg/mL-unit/mL-% solution 4 drp otic (ear) TID PRN (Reason: ear pain) Qty: 10 RF: 3 albuterol sulfate [Ventolin HFA] 90 mcg/actuation HFA aerosol inhaler 2 puff inhalation Q4H PRN (Reason: Shortness Of Breath) Qty: 18 RF: 3 fluticasone propionate [Flonase Allergy Relief] 50 mcg/actuation spray,suspension 2 spray Intranasal BEDTIME PRN (Reason: Allergy Symptoms) Qty: 16 RF: 3 Glucocard Expression Strip See Rx Instructions .ROUTE .COMPLEX Qty: 250 RF: 11 olmesartan 40 mg tablet 40 mg PO DAILY Qty: 90 RF: 3 hydrocodone-acetaminophen 10-325 mg tablet 1 - 2 tab PO Q4HP PRN (Reason: pain) Qty: 200 RF: 0 nadolol 40 mg tablet 40 mg PO DAILY Qty: 90 RF: 3 (DME) [place] 31g x 5/16 Qty: 300 RF: 3 clonazepam [Klonopin] 1 mg tablet 1 mg PO BID Qty: 180 RF: 1 Levemir FlexTouch U-100 Insuln 100 unit/mL (3 mL) insulin pen 70 - 75 unit SUBCUT DAILY Qty: 15 RF: 11 lansoprazole 30 mg capsule,delayed release(DR/EC) 30 mg PO BID Qty: 180 RF: 3 desonide 0.05 % cream 1 applictn TOP .PRN Qty: 30 RF: 0 PreserVision AREDS-2 933-579-73-1 ro-zlmk-au-mg capsule 1 tab PO BID RF: 0 ergocalciferol (vitamin D2) 1,250 mcg (50,000 unit) capsule 1,250 mcg PO QWEEK RF: 0 ketoconazole 2 % cream 1 applic topical BID RF: 0 [place] 0.05 % dropperette See Rx Instructions .ROUTE .COMPLEX RF: 0 Eyelid Cleansing Wipes 1 ea topical .once - bid PRNRF: 0 jbgzxlpnyy-lyaekvdvrscsw-acta [Fioricet] 50-300-40 mg capsule 1 cap PO Q8H PRN (Reason: headache) Qty: 90 RF: 0 ondansetron 8 mg tablet,disintegrating 8 mg PO Q8H PRN (Reason: nausea and vomiting) 10 Days Qty: 30 RF: 0 clobetasol 0.05 % solution 1 applic TOPICAL DIRECTED PRN (Reason: as directed) RF: 0 metronidazole [Flagyl] 500 mg tablet 500 mg PO TID Qty: 30 RF: 0 ciprofloxacin HCl 500 mg tablet 500 mg PO Q12H Qty: 20 RF: 0 Disabled Parking Permit 1 ea miscellaneous PRN PRN (Reason: PARKING) RF: 0 [place] 5/16 Inch 1 ea SQ DIRECTED RF: 0 Referrals: Luis Felipe Smith MD [Physician] - Good Miller MD [Primary Care Provider] - Quique Pires MD [Physician] -
[2021-07-06] MEDS: SODIUM CHLORIDE 0.9% 1,000 ML 1000 ML IV (11:20)
--- NOTE | 2021-07-06 11:43 | DI.CT.S_ITS ---
PROCEDURE: CT ABDOMEN PELVIS W CON INDICATIONS: abd pain, LUQ/LLQ and RUQ, intermittent diarrhea TECHNIQUE: After the administration of intravenous contrast, axial sections acquired from the lung bases to the pubic symphysis. Coronal and sagittal reformats were performed. For radiation dose reduction, the following was used: automated exposure control, adjustment of mA and/or kV according to patient size. COMPARISON: [facility], CT, CT ABDOMEN PELVIS W CON, 12/28/2019, 15:06. [facility], CT, CT ABDOMEN PELVIS W CON, 01/16/2020, 10:54. [facility], CT, CT ABDOMEN PELVIS W CON, 06/25/2021, 11:59. FINDINGS: Image quality: Excellent. Lung bases: There is a calcified granuloma in the anterior left lung base. No focal infiltrate or pleural effusion. There is concentric thickening of the distal esophagus. Heart: No significant findings. ABDOMEN: Liver: Liver is mildly prominent in size. There is hepatic steatosis.. Gallbladder: Unremarkable. Biliary ducts: Unremarkable. Pancreas: Unremarkable. Spleen: Unremarkable. Adrenal Glands: Unremarkable. Kidneys and Ureters: Unremarkable. Stomach and Bowel: Stomach, small bowel loops, and colon are are normal in caliber. There are numerous colonic diverticula. There is mild thickening of the sigmoid colon. Normal appendix. Peritoneum: No abnormal intraperitoneal fluid. No free air. Ventral Wall: No hernias. Abdominal Nodes: No retroperitoneal or mesenteric adenopathy by size criteria. Vessels: Aorta and inferior vena cava are normal in size. Mild atherosclerosis. PELVIS: Pelvic Organs: Unremarkable. Bladder: Unremarkable. Pelvic Nodes: No enlarged lymph nodes. Miscellaneous: No hernias are seen. Nonspecific subcutaneous stranding in the anterior abdominal wall. Bones: Unremarkable. IMPRESSION: 1. Sigmoid diverticulosis. There is mild colonic wall thickening involving sigmoid colon. Differential diagnosis include mild diverticulosis versus artifact from inadequate distention. 2. Concentric thickening of the distal esophagus. Differential diagnoses include esophagitis, chronic gastroesophageal reflux and esophageal neoplasm. If clinically indicated, EGD is suggested for follow-up evaluation. 3. Hepatic steatosis. Dictated by: Balbina Das M.D. on 07/06/2021 at 12:12 Approved by: Balbina Das M.D. on 07/06/2021 at 12:28
--- NOTE | 2021-07-06 11:43 | DI.RAD.S_ITS ---
PROCEDURE: XR CHEST 1V INDICATIONS: abdominal pain TECHNIQUE: One view of the chest was acquired. COMPARISON: [facility], CR, XR CHEST 1V, 09/13/2020, 16:02. FINDINGS: Surgical changes and devices: None. Lungs and pleura: Lungs are clear. No pleural effusions or pneumothorax. Mediastinum: Mediastinal contours appear normal. Heart size is normal. Bones and chest wall: No suspicious bony lesions. Overlying soft tissues appear unremarkable. IMPRESSION: No acute cardiopulmonary disease process. Dictated by: Saida Meade MD, PhD on 07/06/2021 at 12:12 Approved by: Saida Meade MD, PhD on 07/06/2021 at 12:12
[2021-07-06] MEDS: MORPHINE 4 MG/ML INJ IV (12:08)
[2021-07-06 12:51] LABS: COVID19 -Nasal RAPID Negative (Negative)
== END 2021-07-06 13:40 | disposition home or self-care (01) ==
PROVIDERS: Emergency Provider Emergency Medicine; Family Provider Internal Medicine; PCP Internal Medicine
DX: R10.9 Unspecified abdominal pain (principal); R11.0 Nausea; R19.7 Diarrhea, unspecified; Z20.822 Contact with and (suspected) exposure to COVID-19
CPT/HCPCS: 36415; 71045; 74177; 80053; 81003; 83690; 85025; 87635; 93005; 96361; 96374; 99284; C9803; J2270

== ENCOUNTER → 2021-07-07 12:37 | Outpatient (CLI) | payer MEDICARE, OTHER, SELFPAY ==
[2021-07-07 14:53] LABS: Campylobacter Not Detected (Not Detect); Clostridium difficile toxin AB Not Detected (Not Detect); Enteroaggregative E.coli Not Detected (Not Detect); Enteropathogenic E.coli Not Detected (Not Detect); Plesiomonsa shigelloides Not Detected (Not Detect); Salmonella Not Detected (Not Detect); Vibrio Not Detected (Not Detect); Vibrio cholerae Not Detected (Not Detect); Yersinia enterocolitica Not Detected (Not Detect)
[2021-07-07 14:54] LABS: Adenovirus F 40/41 Not Detected (Not Detect); Astrovirus Not Detected (Not Detect); Cryptosporidium Not Detected (Not Detect); Cyclospora cayetanensis Not Detected (Not Detect); Entamoeba histolytica Not Detected (Not Detect); Enterotoxigenic E.coli It/st Not Detected (Not Detect); Giardia lamblia Not Detected (Not Detect); Norovirus GI/GII Not Detected (Not Detect); Rotavirus A Not Detected (Not Detect); Sapovirus Not Detected (Not Detect); Shiga-like toxin-prod E.coli Not Detected (Not Detect); Shigella/Enteroinvasive E.coli Not Detected (Not Detect)
== END ==
PROVIDERS: Family Provider Internal Medicine; PCP Internal Medicine; Referring Provider Emergency Medicine; Visit Provider Emergency Medicine
DX: R10.9 Unspecified abdominal pain (principal)
CPT/HCPCS: 87507

== ENCOUNTER → 2021-11-14 08:18 | Outpatient (CLI) | payer MEDICARE, OTHER, SELFPAY ==
[2021-11-14 08:50] LABS: COVID19 -Nasal RAPID Negative (Negative)
== END ==
PROVIDERS: Family Provider Internal Medicine; PCP Internal Medicine; Visit Provider Nurse Practitioner Family
DX: Z20.822 Contact with and (suspected) exposure to COVID-19 (principal)
CPT/HCPCS: 87635; C9803

== ENCOUNTER 2021-11-15 09:21 | Day surgery (SDC) | payer MEDICARE, OTHER, SELFPAY ==
--- NOTE | 2021-11-15 | PATH_ITS ---
[facility] Accession Number: [id number] . 01 Material submitted: . PART A: stomach - BIOPSY ANTRUM STOMACH PART B: esophagus - BIOPSY ESOPHAGUS . 01 Diagnosis: A. Stomach Antrum, Biopsy: Gastric antral mucosa with minimal chronic inflammation and features of reactive gastropathy. Negative for Helicobacter organisms by immunohistochemistry. Negative for intestinal metaplasia. Negative for dysplasia or malignancy. . B. Esophagus, Biopsy: Consistent with squamous papilloma. Negative for dysplasia or malignancy. . [facility] 11/18/20218 Local . 01 Electronically signed: . Epi Nelson MD, PhD, Pathologist NPI- [id number] . 01 Gross description: . Part A: BIOPSY ANTRUM STOMACH: Received in formalin are 2 fragment(s) of wills, soft tissue measuring 0.1 x 0.1 x 0.1 cm to 0.2 x 0.2 x 0.1 cm submitted entirely in 1 cassette(s) Part B: BIOPSY ESOPHAGUS: Received in formalin are 2 fragment(s) of wills, soft tissue measuring 0.1 x 0.1 x 0.1 cm in aggregate submitted entirely in 1 cassette(s) /LEOLA 11/16/20211954 Local . 01 Microscopic: . A. An immunohistochemical stain was performed to evaluate for Helicobacter organisms and is negative. The control stain showed appropriate reactivity. . * This test was developed and its performance characteristics determined by [employer]. It has not been cleared or approved by the U.S. Food and Drug Administration. The FDA has determined that such clearance or approval is not necessary. This test is used for clinical purposes. It should not be regarded as investigational or for research. . 01 Pathologist provided ICD-10: K29.70, K22.81 . 01 CPT . 627543, 290227, [id number] Performed at: 01 [facility] [address] [address], [place], [place] [id number] MD Rafael Wiggins MD Phone: [phone]
[2021-11-15 09:52] VITALS: BP 132/80; PULSE 73; RESP 16; TEMP 36.1; O2SAT 95; BMI 29.8
[2021-11-15] MEDS: SODIUM CHLORIDE 0.9% 1,000 ML 84 ML IV (09:59)
--- NOTE | 2021-11-15 10:03 | P.HP_ITS ---
History of Present Illness History of Present Illness Date Patient Seen: 11/15/21 Time Patient Seen: 10:03 Chief complaint: DX COLONOSCOPY & EGD Narrative: I reviewed my note from August 15, 2021. No significant changes. Patient History Medical History Abnormal CXR (chest x-ray) (1981) Abnormal Pap smear of cervix (1984) Anemia Ankle pain (1994) Asthma Atrophic vaginitis (11/24/14) Chronic back pain (1999) Diverticular disease (1999) Diverticulosis of colon (06/16/11) Eczema Essential hypertension (11/23/15) Fibroids (2002) Fibromyalgia (06/16/11) Foot pain (2004) Fractures (1972) Gastroparesis (2009) GERD (gastroesophageal reflux disease) Hayfever Hepatitis A (1989) History of heavy periods Hyperlipidemia Hypertension (2004) Inner ear inflammation Irritable bowel syndrome (06/16/11) Legionella pneumonia (1981) Liver disease Malaise and fatigue (07/13/15) MCTD (mixed connective tissue disease) Measles (1958) Mixed hyperlipidemia (06/16/11) Mumps (1958) Ovarian cyst (1984) Painful menstrual periods Polymyalgia rheumatica Recurrent sinusitis (2004) RLS (restless legs syndrome) (2004) Rubella (1958) Sarcoidosis (1983) Seizure, temporal lobe (1984) Sjogren's syndrome (10/01/15) Sjogren's syndrome Type 2 diabetes mellitus with hyperglycemia (06/16/11) Type 2 diabetes mellitus without complication (04/10/16) Vitamin deficiency Surgical History Anesthesia complication History of abdominal surgery (2008) History of abdominal surgery (1981) History of bilateral salpingo-oophorectomy (BSO) History of colonoscopy (12/17/14) History of esophagogastroduodenoscopy (EGD) (12/2014) History of lung biopsy (1983) History of lung biopsy (1981) History of oophorectomy Status post hysterectomy (2004) Status post knee surgery (2012) Family & Social History Family History Child Age: 51 Hx of Sjogren's disease Child Age: 49 Migraines Father Prostate cancer Cancer Heart disease Stroke Mother Diabetes mellitus Heart disease Hypertension Sister Uterine cancer Grandmother No problems noted. Grandfather Sepsis Grandmother No problems noted. Grandfather Bright's disease Sister Heart block Heart disease Social History: household members spouse lives independently Yes caregiver/support person No Tobacco & Substance use: Smoking Status Former smoker alcohol intake never alcohol intake frequency 0-2 drinks per day Substance Use Type does not use Meds Home Medications and Allergies Home Medications Medication Instructions Recorded Confirmed Type carboxymethylcellulose sodium 1 % 2 gtt OU PRN #0 05/09/12 11/15/21 History eye liquid gel drops (Refresh Liquigel) aspirin 81 mg tablet,delayed 81 mg PO QDAY #0 05/11/17 11/15/21 History release Disabled Parking Permit 1 ea MISCELLANEOUS PRN PRN 07/16/18 08/30/21 History desonide 0.05 % topical cream 1 applictn TOP .PRN #30 gram 04/24/19 11/15/21 History vit C 250 mg-vit E 90 mg-zinc 40 1 tab PO BID 10/16/19 11/15/21 History mg-copper 1 [id number]-ytzyvl capsule (PreserVision AREDS-2) clobetasol 0.05 % scalp solution 1 applic TOPICAL DIRECTED PRN 01/16/20 11/15/21 History Lancets #250 each 04/14/20 08/30/21 Rx albuterol sulfate 90 mcg/actuation 2 puff INHALATION Q4H PRN #18 g 11/25/20 11/15/21 Rx aerosol inhaler (Ventolin HFA) fluticasone propionate 50 2 spray INTRANASAL BEDTIME PRN #16 02/08/21 11/15/21 Rx mcg/actuation nasal gram spray,suspension (Flonase Allergy Relief) ketoconazole 2 % topical cream 1 applic TOPICAL BID g 03/14/21 08/30/21 History blood sugar diagnostic (Glucocard See Rx Instructions .ROUTE 04/20/21 08/30/21 Rx Expression) .COMPLEX #250 each nadolol 40 mg tablet 40 mg PO DAILY #90 tab 04/27/21 11/15/21 Rx olmesartan 40 mg tablet 40 mg PO DAILY #90 tab 04/27/21 11/15/21 Rx Whiteface 31g x 5/16 #300 each 05/23/21 08/30/21 Rx clonazepam 1 mg tablet (Klonopin) 1 mg PO BID #180 tab 06/07/21 11/15/21 Rx insulin detemir U-100 100 unit/mL 70 - 75 unit (0.7 - 0.75 mL) 06/09/21 11/15/21 Rx (3 mL) subcutaneous pen (Levemir SUBCUT DAILY #15 ml FlexTouch U-100 Insulin) lansoprazole 30 mg capsule,delayed 30 mg PO BID #180 cap 06/30/21 11/15/21 Rx release ondansetron 8 mg disintegrating 8 mg PO DAILY PRN tab 07/26/21 11/15/21 History tablet cholecalciferol (vitamin D3) 10 10 mcg PO DAILY 08/30/21 11/15/21 History mcg (400 unit) capsule hydrocodone 10 mg-acetaminophen 1 - 2 tab PO Q4HP PRN #200 tab 09/02/21 11/15/21 Rx 325 mg tablet sucralfate 1 gram tablet (Carafate) 1 g PO QACHS PRN #360 tab 10/04/21 11/15/21 Rx insulin aspart U-100 100 unit/mL 5 - 15 unit (0.05 - 0.15 mL) 11/07/21 11/15/21 Rx (3 mL) subcutaneous pen (Novolog SUBCUT Q4H PRN #45 ml Flexpen U-100 Insulin aspart) Allergies Allergy/AdvReac Type Severity Reaction Status Date / Time atorvastatin [ATORVASTATIN] Allergy Unknown Verified 08/30/21 11:05 gemfibrozil [GEMFIBROZIL] Allergy Unknown Verified 08/30/21 11:05 rosuvastatin [ROSUVASTATIN] Allergy Unknown Verified 08/30/21 11:05 tetracycline [TETRACYCLINE] Allergy Unknown Verified 08/30/21 11:05 Milk Containing Products AdvReac Severe GI issues Verified 08/30/21 11:05 [MILK CONTAINING PRODUCTS] carisoprodol [CARISOPRODOL] AdvReac Intermediate DIZZINESS Verified 08/30/21 11:05 duloxetine [DULOXETINE] AdvReac Intermediate DIARRHEA Verified 08/30/21 11:05 fenofibrate [FENOFIBRATE] AdvReac Intermediate rash Verified 08/30/21 11:05 indomethacin [INDOMETHACIN] AdvReac Intermediate GI DISTRESS Verified 08/30/21 11:05 influenza virus vaccine tvs AdvReac Intermediate severe sx, Verified 08/30/21 11:05 [id number](65 years up) RAI, N/V, [From Fluzone High-Dose SINUS, 2018- (PF)] PLEGM, etc. lisinopril [LISINOPRIL] AdvReac Intermediate EDEMA LEGS Verified 08/30/21 11:05 amoxicillin [AMOXICILLIN] AdvReac Mild itching Verified 08/30/21 11:05 Review of Systems Review of Systems ROS: Yes All systems reviewed with the patient and are negative except as otherwise documented Exam Vital Signs (past 8 hours): - 11/15/21 09:52 Temperature 97 F L Pulse Rate 73 Respiratory Rate 16 Blood Pressure 132/80 Pulse Oximetry 95 Oxygen Delivery Method Room Air Const General: cooperative and comfortable Orientation: alert HENMT Head: normocephalic Ears: external ears normal Nose: external nose normal Face and sinus: normal facial exam Mouth: oral mucosae normal Eyes General: appearance normal, both eyes and all related structures Neck Neck: normal visual inspection Chest Chest: normal inspection of the chest Resp Effort & Inspection: normal respiratory effort Cardio Rate: regular rate GI Inspection: normal to inspection Skin General: no rashes or lesions noted and No jaundice Neuro General: patient alert and moves all extremities Cognition: normal cognition Speech: speech normal Extrem General: no pedal edema Psych Appearance: grossly normal Assessment & Plan Assessment & Plan narrative: 70-year-old female with left-sided abdominal pain change in bowel habit abnormal CT imaging showing esophageal thickening. EGD and colonoscopy are pursued today. Time Spent With Patient Critical Care time: I spent a total of [] minutes of critical care time on this patient's care today; this time is exclusive of procedural time.
--- NOTE | 2021-11-15 10:09 | PM.PREOP ---
Pre-operative Note COVID-19 COVID-19 status: Negative Result date/Date tested (Pos, Neg/Pending): 11/14/21 Interval Note History & Physical reviewed/Exam performed by Physician: No Changes to H&P: Yes H&P completed within 30 days and has changed as indicated here:: No more left sided abdominal pain bowel movements were normal per patient. Weight gain of 15 lb. ASA Class (for procedural sedation): III
--- NOTE | 2021-11-15 10:47 | PM.OP.EC ---
Operative Date/Time/Diagnoses Date of procedure: 11/15/21 Time of procedure: 10:48 Pre-op diagnosis: Dysphagia Abnormal GI imaging abdominal pain altered bowel habit Post-op diagnosis: same Procedure & Clinicians Study performed: EGD with biopsies and colonoscopy Same procedure as scheduled: Yes Indications: Dysphagia Abdominal pain altered bowel habit abnormal GI imaging Surgeon: Quique Pires Procedure Notes SCOAP/Timeout: Done Procedure in detail: After the risks and benefits were explained, written and verbal informed consent was obtained. The patient was brought into the procedure room and placed into the left lateral decubitus position. Please see nurse postal mail carrier notes for sedation details. The scope was introduced into the mouth through the bite block and advanced under direct visualization to the 2nd portion of the duodenum. The scope was slowly withdrawn carefully examining the mucosa for any defects or lesions. Retroflexed views were accomplished in the stomach. The stomach was decompressed, the scope was then removed from the patient who tolerated the procedure well. The patient was then turned around a digital rectal examination accomplished mild internal hemorrhoids noted the scope was introduced into the rectum and advanced to the cecum as identified by the appendiceal orifice and ileocecal valve. The scope was slowly withdrawn to carefully examine the mucosa for any defects or lesions. Multiple direct views were made through the dentate line for exclusion of pathology the colon was decompressed scope removed the patient tolerated the procedure well Bowel prep adequate Pediatric colonoscope Scope withdrawal time: 13 minutes Sedation minutes: 37 Complications: none Impression: 1. Duodenum: No significant pathology was appreciated from the bulb through the 2nd portion. 2. Stomach: The patient had a streaky erythema in the antrum. Biopsies were acquired from this location for exclusion of Helicobacter or other pathology. Otherwise retroflexed views of the LES were unremarkable. 3. Esophagus the squamocolumnar junction correlated with the top of the gastric folds. The GEJ was at approximately 38 cm from the incisors. There was no evidence of any stricturing no mass lesions no inflammation. The patient had a slightly tortuous corkscrew type esophagus. There was obvious tension at the lower esophageal sphincter mechanism. We were required to pause for quite some time prior to it opening into the stomach proper. 4. Colon: There was no evidence of any inflammation throughout no significant polyps mass lesions throughout. The sigmoid colon did not have any mucosal anomaly. It was moderately tortuous through the sigmoid. Diverticulosis was seen there and even scattered a little more proximally in the bowel as well. Endoscopic diagnosis 1. Gastropathy 2. Tense lower esophageal sphincter mechanism 3. Corkscrew esophagus 4. Diverticulosis 5. Tortuous sigmoid colon Post-procedure Plan for aftercare: 1. Await histopathology. 2. Proceed with esophageal manometry as I suspect underlying achalasia 3. Follow-up after manometry in GI clinic. Disposition: PACU
[2021-11-15 10:55] VITALS: BP 120/59; PULSE 68; RESP 17; TEMP 36.3; O2SAT 94
[2021-11-15 10:56] VITALS: BP 124/59; PULSE 68; RESP 19; O2SAT 93
[2021-11-15 11:10] VITALS: BP 132/72; PULSE 68; RESP 15; O2SAT 98
== END 2021-11-15 11:40 | disposition home or self-care (01) ==
PROVIDERS: Family Provider Internal Medicine; PCP Internal Medicine; Referring Provider Internal Medicine Gastroenterology; Visit Provider Internal Medicine Gastroenterology
PROC: 0DJ08ZZ Inspection of Upper Intestinal Tract, Via Natural or Artificial Opening Endoscopic (ICD-10-PCS; CPT 43235; principal; 2021-11-15 10:00)
PROC: 0DJD8ZZ Inspection of Lower Intestinal Tract, Via Natural or Artificial Opening Endoscopic (ICD-10-PCS; CPT 45378; 2021-11-15 10:00)
DX: R19.4 Change in bowel habit (principal); R13.10 Dysphagia, unspecified; R93.3 Abnormal findings on diagnostic imaging of other parts of digestive tract; K57.30 Diverticulosis of large intestine without perforation or abscess without bleeding; K31.9 Disease of stomach and duodenum, unspecified; K29.50 Unspecified chronic gastritis without bleeding
CPT/HCPCS: 43239; 45378; J2704

== ENCOUNTER → 2022-01-17 10:52 | Outpatient (CLI) | payer MEDICARE, OTHER, SELFPAY ==
--- NOTE | 2022-01-17 | DI.RAD.S_ITS ---
PROCEDURE: XR ABDOMEN MIN 2V INDICATIONS: Altered Bowel Function TECHNIQUE: 2 views of the abdomen were acquired. COMPARISON: None. FINDINGS: Surgical changes and devices: None. Bowel: No pneumoperitoneum. The bowel gas pattern is normal. Soft tissues: No masses; visualized solid organ contours appear normal in size. No suspicious abdominal calcifications. Bones: No suspicious bony abnormalities. IMPRESSION: No acute intra-abdominal findings. Dictated by: Monique Portillo M.D. on 01/17/2022 at 14:34 Approved by: Monique Portillo M.D. on 01/17/2022 at 14:35
== END ==
PROVIDERS: Family Provider Internal Medicine; PCP Internal Medicine; Referring Provider Internal Medicine Gastroenterology; Visit Provider Internal Medicine Gastroenterology
DX: R10.9 Unspecified abdominal pain (principal); R19.8 Other specified symptoms and signs involving the digestive system and abdomen
CPT/HCPCS: 74019

== ENCOUNTER → 2022-02-28 09:34 | Outpatient (CLI) | payer MEDICARE, OTHER, SELFPAY ==
[2022-02-28 10:13] LABS: Hemoglobin A1C% w Est Avg Glu 7.3 % (4.0-6.0)
[2022-02-28 10:35] LABS: Alanine Aminotransferase 37 IU/L (<35); Albumin 4.4 g/dL (3.5-5.0); Albumin Globulin Ratio 1.4 (1.0-2.8); Alkaline Phosphatase 72 U/L (38-126); Aspartate Aminotransferase 43 IU/L (14-36); Bilirubin Total 0.3 mg/dL (0.2-1.3); Blood Urea Nitrogen 16 mg/dL (7-17); Calcium 9.2 mg/dL (8.4-10.2); Carbon Dioxide 30 mmol/L (22-32); Chloride 106 mmol/L (98-107); Estimated Glomerular Filt Rate 59 mL/min (>60); Globulin 3.2 g/dL (1.7-4.1); Glucose 177 mg/dL (80-110); HEMOLYSIS < 15 (0-50); Potassium 4.7 mmol/L (3.4-5.1); Sodium 141 mmol/L (137-145); Total Protein 7.6 g/dL (6.3-8.2)
== END ==
PROVIDERS: Family Provider Internal Medicine; PCP Internal Medicine; Referring Provider Internal Medicine; Visit Provider Internal Medicine
DX: E11.9 Type 2 diabetes mellitus without complications (principal); I10 Essential (primary) hypertension; Z79.4 Long term (current) use of insulin
CPT/HCPCS: 36415; 80053; 83036

== ENCOUNTER → 2022-05-16 10:29 | Outpatient (CLI) | payer MEDICARE, OTHER, SELFPAY ==
[2022-05-16 12:07] LABS: Add Manual Diff / Slide Review NO; Basophils Absolute Auto 0 /uL (0-100); Basophils Percent Auto 0.3 % (0-2); Eosinophils Absolute Auto 200 /uL (0-450); Eosinophils Percent Auto 2.9 % (2-4); Hematocrit 41.4 % (36-46); Hemoglobin 13.7 g/dL (12.0-16.0); Lymphocytes Absolute Auto 1700 /uL (1100-4500); Lymphocytes Percent Auto 23.7 % (25-40); Mean Corpuscular HGB Conc 33.2 % (30-36); Mean Corpuscular Hemoglobin 28.3 PG (26-34); Mean Corpuscular Volume 85.4 fL (80-100); Monocytes Absolute Auto 500 /uL (0-900); Monocytes Percent Auto 6.7 % (3-14); Neutrophils Absolute Auto 4800 /uL (1500-7000); Neutrophils Percent Auto 66.4 % (50-75); Platelet Count 267 X10^3/uL (150-400); Red Blood Cell Count 4.85 X10^6/uL (4.0-5.2); White Blood Cell Count 7.2 X10^3/uL (4.5-11.0)
[2022-05-16 12:32] LABS: Erythrocyte Sedimentation Rate 5 MM/HR (0-20)
[2022-05-16 13:14] LABS: C-Reactive Protein Quant 1.4 mg/dL (<1.0); Creatine Kinase 59 U/L (30-135)
[2022-05-16 14:03] LABS: TSH w/ Reflex to FT4 0.73 uIU/mL (0.47-4.68)
== END ==
PROVIDERS: Family Provider Internal Medicine; PCP Internal Medicine; Referring Provider Internal Medicine; Visit Provider Internal Medicine
DX: D86.9 Sarcoidosis, unspecified (principal); I10 Essential (primary) hypertension; M25.50 Pain in unspecified joint; M35.00 Sjogren syndrome, unspecified; M79.7 Fibromyalgia
CPT/HCPCS: 36415; 82550; 84443; 85025; 85651; 86140

== ENCOUNTER → 2022-05-18 07:10 | Outpatient (CLI) | payer MEDICARE, OTHER, SELFPAY ==
--- NOTE | 2022-05-18 07:12 | DI.MG.S_ITS ---
BILATERAL DIGITAL SCREENING MAMMOGRAM 3D/2D WITH CAD: 05/18/2022 CLINICAL: Routine screening. Comparison is made to exams dated: 05/22/2020 mammogram, 10/23/2018 mammogram, and 10/03/2017 mammogram - [facility]. There are scattered fibroglandular elements in both breasts. Current study was also evaluated with a Computer Aided Detection (CAD) system. No significant masses, calcifications, or other findings are seen in either breast. There has been no significant interval change. IMPRESSION: NEGATIVE There is no mammographic evidence of malignancy. A 1 year screening mammogram is recommended. Based on the Tyrer Cuzick model (a risk assessment model) the patient's lifetime risk is 3.0% and her 10 year risk is 2.5%. According to the ACR, ACS, and NCCN guidelines, an annual breast MRI exam along with mammogram is recommended if the patient's lifetime risk is 20% or greater. This exam was interpreted at Station ID: [id number]. NOTE: For mammograms, a report in lay terms will be sent to the patient. Approximately 15% of breast malignancies will not be visualized mammographically. In the management of a palpable breast mass, a negative mammogram must not discourage biopsy of a clinically suspicious lesion. Electronically Signed By: Gregor Pal M.D., jr/waylon:05/18/2022 12:01:58 copy to: [facility] letter sent: Normal Exam ACR BI-RADS Category 1: Negative 3341F
== END ==
PROVIDERS: Family Provider Internal Medicine; PCP Internal Medicine; Referring Provider Internal Medicine; Visit Provider Internal Medicine
DX: Z12.31 Encounter for screening mammogram for malignant neoplasm of breast (principal)
CPT/HCPCS: 77063; 77067

== ENCOUNTER → 2022-06-20 09:06 | Outpatient (CLI) | payer MEDICARE, OTHER, SELFPAY ==
[2022-06-20 10:02] LABS: Add Manual Diff / Slide Review NO; Basophils Absolute Auto 0 /uL (0-100); Basophils Percent Auto 0.5 % (0-2); Eosinophils Absolute Auto 200 /uL (0-450); Eosinophils Percent Auto 2.6 % (2-4); Hemoglobin 13.9 g/dL (12.0-16.0); Lymphocytes Absolute Auto 2200 /uL (1100-4500); Lymphocytes Percent Auto 28.8 % (25-40); Monocytes Absolute Auto 600 /uL (0-900); Monocytes Percent Auto 7.4 % (3-14); Neutrophils Absolute Auto 4700 /uL (1500-7000); Neutrophils Percent Auto 60.7 % (50-75); Platelet Count 269 X10^3/uL (150-400); Red Blood Cell Count 4.95 X10^6/uL (4.0-5.2); White Blood Cell Count 7.8 X10^3/uL (4.5-11.0)
[2022-06-20 10:24] LABS: Alanine Aminotransferase 26 IU/L (<35); Albumin 4.2 g/dL (3.5-5.0); Albumin Globulin Ratio 1.2 (1.0-2.8); Alkaline Phosphatase 86 U/L (38-126); Aspartate Aminotransferase 32 IU/L (14-36); Bilirubin Total 0.3 mg/dL (0.2-1.3); Blood Urea Nitrogen 17 mg/dL (7-17); Carbon Dioxide 28 mmol/L (22-32); Chloride 102 mmol/L (98-107); Erythrocyte Sedimentation Rate 6 MM/HR (0-20); Estimated Glomerular Filt Rate 59 mL/min (>60); Globulin 3.4 g/dL (1.7-4.1); Glucose 128 mg/dL (80-110); HEMOLYSIS < 15 (0-50); Potassium 4.4 mmol/L (3.4-5.1); Sodium 139 mmol/L (137-145); Total Protein 7.6 g/dL (6.3-8.2); Uric Acid 5.3 mg/dL (2.5-6.2)
[2022-06-20 10:29] LABS: High Sensitivity CRP - Cardiac 9.3 mg/L (1.0-3.0)
[2022-06-20 10:31] LABS: Rheumatoid Factor < 8.6 IU/mL (<12.0)
[2022-06-20 10:57] LABS: Thyroid Stimulating Hormone 1.24 uIU/mL (0.47-4.68)
[2022-06-21 17:40] LABS: SS A Ro Sjogrens Antibody < 0.2 AI (0.0-0.9); SS B La Sjogrens Antibody < 0.2 AI (0.0-0.9)
[2022-06-23 18:46] LABS: ANA Screen, IFA Negative (.)
== END ==
PROVIDERS: Family Provider Internal Medicine; PCP Internal Medicine; Referring Provider Ophthalmology; Visit Provider Ophthalmology
DX: M35.00 Sjogren syndrome, unspecified (principal)
CPT/HCPCS: 36415; 80053; 84443; 84550; 85025; 85651; 86038; 86140; 86235; 86430

== ENCOUNTER → 2022-09-25 09:58 | Outpatient (CLI) | payer MEDICARE, OTHER, SELFPAY ==
[2022-09-25 11:32] LABS: Hemoglobin A1C% w Est Avg Glu 6.8 % (4.0-6.0)
[2022-09-25 11:56] LABS: BUN Creatinine Ratio 16.8 (6-22); Blood Urea Nitrogen 17 mg/dL (7-17); Calcium 9.5 mg/dL (8.4-10.2); Carbon Dioxide 28 mmol/L (22-32); Chloride 99 mmol/L (98-107); Estimated Glomerular Filt Rate 59 mL/min (>60); Glucose 141 mg/dL (80-110); HEMOLYSIS < 15 (0-50); Potassium 4.6 mmol/L (3.4-5.1); Sodium 138 mmol/L (137-145)
== END ==
PROVIDERS: Family Provider Internal Medicine; PCP Internal Medicine; Referring Provider Internal Medicine; Visit Provider Internal Medicine
DX: E11.9 Type 2 diabetes mellitus without complications (principal)
CPT/HCPCS: 36415; 80048; 83036

== ENCOUNTER → 2022-10-10 09:59 | Outpatient (CLI) | payer MEDICARE, OTHER, SELFPAY ==
--- NOTE | 2022-10-10 10:01 | DI.CT.S_ITS ---
PROCEDURE: CT CHEST ABD PEL W CON INDICATIONS: luq pain TECHNIQUE: After the administration of oral and intravenous contrast, axial sections acquired from the supraclavicular neck to the pubic symphysis. Coronal and sagittal reformats were performed. For radiation dose reduction, the following was used: automated exposure control, adjustment of mA and/or kV according to patient size. COMPARISON: [facility], CT, CT ABDOMEN PELVIS W CON, 07/16/2018, 17:46. [facility], CT, CT CHEST HIGH RESOLUTION, 08/09/2018, 11:06. [facility], CT, CT ABDOMEN PELVIS W CON, 06/25/2021, 11:59. FINDINGS: Image quality: Excellent. CHEST: Lower Neck: No enlarged lymph nodes. Thyroid: Unremarkable. Axillae: No enlarged lymph nodes. Chest Wall: Unremarkable. Lungs and Airways: A 5 mm pulmonary nodule is present within the medial aspect of the right middle lobe, unchanged from the study dated August 09, 2018. No acute airspace opacities. No new pulmonary nodules. Pleura: No pneumothorax or pleural effusions. Heart: Heart size is normal. No pericardial effusion. Thoracic Vessels: The aorta and pulmonary arteries demonstrate normal size. Mediastinum and Melany: No enlarged lymph nodes. Esophagus: No wall thickening. There is circumferential wall thickening of the lower esophagus which is unchanged from the study dated August 09, 2018. ABDOMEN: Liver: The liver is diffusely hypodense suggesting fatty infiltration. Gallbladder: Unremarkable. Biliary ducts: Unremarkable. Pancreas: Unremarkable. Spleen: Unremarkable. Adrenal Glands: Unremarkable. Kidneys and Ureters: Unremarkable. Stomach and Bowel: Stomach, small bowel loops, and colon are unremarkable. There is a small gas and contrast filled duodenal diverticulum. There are scattered sigmoid diverticula. No evidence for diverticulitis. The appendix is thin walled and gas filled. Peritoneum: No abnormal intraperitoneal fluid. No free air. Ventral Wall: No hernia. Abdominal Nodes: No retroperitoneal or mesenteric adenopathy by size criteria. Vessels: Aorta and inferior vena cava are normal in size. There are scattered atheromatous calcifications throughout the aorta and iliac arteries bilaterally. PELVIS: Pelvic Organs: Unremarkable. Bladder: Unremarkable. Pelvic Nodes: No enlarged lymph nodes. Miscellaneous: No inguinal hernias are seen. Bones: Unremarkable. IMPRESSION: 1. Hepatic steatosis. 2. No acute intra-abdominal findings. Normal appendix. 3. Diverticulosis. No acute diverticulitis. Dictated by: Monique Portillo M.D. on 10/10/2022 at 12:43 Approved by: Monique Portillo M.D. on 10/10/2022 at 12:50
== END ==
PROVIDERS: Family Provider Internal Medicine; PCP Internal Medicine; Referring Provider Internal Medicine; Visit Provider Internal Medicine
DX: R10.12 Left upper quadrant pain (principal); K57.30 Diverticulosis of large intestine without perforation or abscess without bleeding; K76.0 Fatty (change of) liver, not elsewhere classified; R91.1 Solitary pulmonary nodule
CPT/HCPCS: 71260; 74177; Q9967

== ENCOUNTER → 2022-10-17 14:09 | Outpatient (CLI) | payer MEDICARE, OTHER, SELFPAY ==
--- NOTE | 2022-10-17 14:10 | DI.RAD.S_ITS ---
PROCEDURE: XR ACUTE ABDOMEN SERIES INDICATIONS: diarrhea TECHNIQUE: One view chest and two views of the abdomen were acquired. COMPARISON: [facility], , XR ACUTE ABDOMEN SERIES, 07/25/2018, 12:34. FINDINGS: Surgical changes and devices: None. Chest: Lungs are clear. Heart size is normal. No pleural effusions. No pneumoperitoneum. Abdomen: Bowel gas pattern is nonspecific. Scattered densities in the lower pelvis likely related to colonic diverticuli. Visualized solid organ contours appear normal. Bones: No suspicious bony lesions. IMPRESSION: Nonspecific bowel gas pattern without evidence of obstruction. If patient's symptoms persist or worsen, then repeat plain radiographs or CT scan is warranted for further evaluation. Dictated by: Saida Meade MD, PhD on 10/17/2022 at 15:34 Approved by: Saida Meade MD, PhD on 10/17/2022 at 15:35
== END ==
PROVIDERS: Family Provider Internal Medicine; PCP Internal Medicine; Referring Provider Internal Medicine; Visit Provider Internal Medicine
DX: R19.7 Diarrhea, unspecified (principal)
CPT/HCPCS: 74022

== ENCOUNTER → 2022-11-14 10:16 | Outpatient (CLI) | payer MEDICARE, OTHER, SELFPAY ==
[2022-11-14 11:18] LABS: COVID19 -Nasal RAPID Negative (Negative)
--- NOTE | 2022-11-14 14:26 | PM.TREADMILL ---
Cardiac Stress Test Report Referral & Results Date Patient Seen: 11/14/22 Requesting provider: Good Miller Indication: Chest pain Rest ECG: Unremarkable Procedure Note: After both written and verbal informed consent the patient had an IV started by the diagnostic imaging RN, and then was hooked up to the treadmill monitoring system. The Lexiscan material, and then the Cardiolite tracer, were administered sequentially. An additional 3 min was spent monitoring the patient while supine on the gurney. The patient had a normal response to all infused materials. Impression: Please see perfusion imaging for details regarding possible ischemia. Please note: Actual ECG tracings can be found in the PACS system.
--- NOTE | 2022-11-14 18:47 | DI.NM.S_ITS ---
DATE OF SERVICE: 11/14/2022 PROCEDURE: Pharmacological perfusion study. INDICATION: Chest pain, dyspnea, fatigue. RADIOPHARMACEUTICAL: 27.1 millicurie technetium-99m Myoview IV was injected at stress and 12.1 millicurie technetium-99m Myoview IV was injected at rest. CARDIAC STRESS: The patient underwent IV Lexiscan perfusion study under the supervision of an attending staff, as per standard protocol. The patient remained hemodynamically stable. Baseline rhythm was sinus. During stress, there were no convincing ischemic changes seen. No significant symptoms were recorded. Baseline rhythm was sinus with underlying right bundle branch block. During stress, there were no new convincing ischemic changes seen. No new significant arrhythmias. RAW DATA: Breast shadow seen. GATED STUDY: Resting LV ejection fraction 18 and stress LV ejection fraction 92 percent. Resting end-diastolic volume 66 mL. TID ratio 0.80, which is within normal limits. Lung/heart ratio 0.40, which is within normal limits. MYOCARDIAL PERFUSION SCAN: Stress supine and resting supine images revealed small size, mildly decreased perfusion of apex, which got resolved during prone images. Stress prone images revealed normal myocardial perfusion. CONCLUSION: This is a normal myocardial perfusion study with evidence of breast tissue attenuation artifact, which got resolved during stress prone images. The patient had a perfusion study in August,, and at that time also had normal myocardial perfusion and stress left ventricular ejection fraction 93 percent. On this study, again hyperdynamic left ventricle with left ventricular ejection fraction about 92 percent post-stress. Overall, low-risk myocardial perfusion scan. Nuris Sanchez - Marcel/ricardo doc#: [id number]/job#: [id number] dd: 11/14/2022 16:49:00 dt: 11/14/2022 17:22:00 DICTATING MD/COPIES TO: Lilliam Richardson MD COPIES MNE: SHELLIE;
== END ==
PROVIDERS: Family Provider Internal Medicine; PCP Internal Medicine; Referring Provider Internal Medicine; Visit Provider Internal Medicine
DX: R07.9 Chest pain, unspecified (principal); E11.9 Type 2 diabetes mellitus without complications; Z79.4 Long term (current) use of insulin; R06.00 Dyspnea, unspecified; R53.83 Other fatigue; Z20.822 Contact with and (suspected) exposure to COVID-19
CPT/HCPCS: 78452; 87635; 93016; 93017; 93018; A9502; J2785

== ENCOUNTER → 2023-01-17 09:04 | Outpatient (CLI) | payer MEDICARE, OTHER, SELFPAY ==
[2023-01-17 10:02] LABS: Add Manual Diff / Slide Review NO; Basophils Absolute Auto 0 /uL (0-100); Basophils Percent Auto 0.4 % (0-2); Eosinophils Absolute Auto 200 /uL (0-450); Eosinophils Percent Auto 2.6 % (2-4); Hematocrit 41.9 % (36-46); Hemoglobin 13.5 g/dL (12.0-16.0); Lymphocytes Absolute Auto 2100 /uL (1100-4500); Lymphocytes Percent Auto 28.3 % (25-40); Mean Corpuscular HGB Conc 32.2 % (30-36); Mean Corpuscular Hemoglobin 27.8 PG (26-34); Mean Corpuscular Volume 86.4 fL (80-100); Monocytes Absolute Auto 600 /uL (0-900); Monocytes Percent Auto 7.6 % (3-14); Neutrophils Absolute Auto 4500 /uL (1500-7000); Neutrophils Percent Auto 61.1 % (50-75); Platelet Count 295 X10^3/uL (150-400); Red Blood Cell Count 4.85 X10^6/uL (4.0-5.2); White Blood Cell Count 7.3 X10^3/uL (4.5-11.0)
[2023-01-17 10:13] LABS: Hemoglobin A1C% w Est Avg Glu 6.5 % (4.0-6.0)
[2023-01-17 10:28] LABS: Alanine Aminotransferase 38 IU/L (<35); Albumin 4.2 g/dL (3.5-5.0); Albumin Globulin Ratio 1.4 (1.0-2.8); Alkaline Phosphatase 85 U/L (38-126); Aspartate Aminotransferase 33 IU/L (14-36); BUN Creatinine Ratio 16.3 (6-22); Bilirubin Total 0.3 mg/dL (0.2-1.3); Blood Urea Nitrogen 14 mg/dL (7-17); C-Reactive Protein Quant 0.9 mg/dL (<1.0); Calcium 9.5 mg/dL (8.4-10.2); Carbon Dioxide 29 mmol/L (22-32); Chloride 103 mmol/L (98-107); Estimated Glomerular Filt Rate > 60 mL/min (>60); Globulin 3.1 g/dL (1.7-4.1); Glucose 104 mg/dL (80-110); HEMOLYSIS < 15 (0-50); Iron 70 ug/dL (37-170); Potassium 4.5 mmol/L (3.4-5.1); Sodium 140 mmol/L (137-145); Total Protein 7.3 g/dL (6.3-8.2)
[2023-01-17 10:32] LABS: Erythrocyte Sedimentation Rate 13 MM/HR (0-20)
[2023-01-17 10:39] LABS: Percent Iron Saturation 21 % (15-50); Total Iron Binding Capacity 326 ug/dL (265-497); Transferrin 252 mg/dL (206-381)
[2023-01-17 10:43] LABS: Free T4, Direct Thyroxine 1.29 ng/dL (0.78-2.19)
[2023-01-17 10:57] LABS: Thyroid Stimulating Hormone 0.909 uIU/mL (0.47-4.68)
== END ==
PROVIDERS: Family Provider Internal Medicine; PCP Internal Medicine; Referring Provider Internal Medicine; Visit Provider Internal Medicine
DX: D64.9 Anemia, unspecified (principal); E11.9 Type 2 diabetes mellitus without complications; D86.9 Sarcoidosis, unspecified; E56.9 Vitamin deficiency, unspecified; I10 Essential (primary) hypertension; M79.7 Fibromyalgia; R53.81 Other malaise; R53.83 Other fatigue; Z79.4 Long term (current) use of insulin
CPT/HCPCS: 36415; 80053; 83036; 83540; 83550; 84439; 84443; 85025; 85651; 86140

== ENCOUNTER → 2023-06-08 12:53 | Outpatient (CLI) | payer MEDICARE, OTHER, SELFPAY ==
--- NOTE | 2023-06-08 12:55 | DI.MG.S_ITS ---
BILATERAL DIGITAL SCREENING MAMMOGRAM 3D/2D WITH CAD: 06/08/2023 CLINICAL: Routine screening. Family history of breast cancer. Comparison is made to exams dated: 05/18/2022 mammogram, 05/22/2020 mammogram, and 10/23/2018 mammogram - [facility]. There are scattered areas of fibroglandular density in both breasts (category b / 25%-50% glandular tissue). Current study was also evaluated with a Computer Aided Detection (CAD) system. No significant masses, calcifications, or other findings are seen in either breast. There has been no significant interval change. IMPRESSION: NEGATIVE There is no mammographic evidence of malignancy. A 1 year screening mammogram is recommended. Based on the Tyrer Cuzick model (a risk assessment model) the patient's lifetime risk is 2.8% and her 10 year risk is 2.5%. According to the ACR, ACS, and NCCN guidelines, an annual breast MRI exam along with mammogram is recommended if the patient's lifetime risk is 20% or greater. This exam was interpreted at Station ID: [id number]. NOTE: For mammograms, a report in lay terms will be sent to the patient. Approximately 15% of breast malignancies will not be visualized mammographically. In the management of a palpable breast mass, a negative mammogram must not discourage biopsy of a clinically suspicious lesion. Electronically Signed By: Monique pantoja/waylon:06/08/2023 13:43:15 copy to: [facility] letter sent: Normal Exam ACR BI-RADS Category 1: Negative 3341F
== END ==
PROVIDERS: Family Provider Internal Medicine; PCP Internal Medicine; Referring Provider Internal Medicine; Visit Provider Internal Medicine
DX: Z12.31 Encounter for screening mammogram for malignant neoplasm of breast (principal); Z80.3 Family history of malignant neoplasm of breast
CPT/HCPCS: 77063; 77067

== ENCOUNTER → 2023-08-13 06:53 | Outpatient (CLI) | payer MEDICARE, OTHER, SELFPAY ==
[2023-08-13 08:13] LABS: Hemoglobin A1C% w Est Avg Glu 6.3 % (4.0-6.0)
[2023-08-13 08:24] LABS: Add Manual Diff / Slide Review NO; Basophils Absolute Auto 0 /uL (0-100); Basophils Percent Auto 0.5 % (0-2); Eosinophils Absolute Auto 100 /uL (0-450); Eosinophils Percent Auto 2.3 % (2-4); Hematocrit 40.6 % (36-46); Hemoglobin 13.4 g/dL (12.0-16.0); Lymphocytes Absolute Auto 1900 /uL (1100-4500); Lymphocytes Percent Auto 30.1 % (25-40); Mean Corpuscular Hemoglobin 27.9 PG (26-34); Mean Corpuscular Volume 84.5 fL (80-100); Monocytes Absolute Auto 500 /uL (0-900); Monocytes Percent Auto 7.2 % (3-14); Neutrophils Absolute Auto 3800 /uL (1500-7000); Neutrophils Percent Auto 59.9 % (50-75); Platelet Count 274 X10^3/uL (150-400); Red Blood Cell Count 4.81 X10^6/uL (4.0-5.2); Red Cell Distribution Width 14.6 % (11.6-14.8); White Blood Cell Count 6.3 X10^3/uL (4.5-11.0)
[2023-08-13 08:35] LABS: Alanine Aminotransferase 15 IU/L (<35); Albumin 4.1 g/dL (3.5-5.0); Albumin Globulin Ratio 1.4 (1.0-2.8); Alkaline Phosphatase 75 U/L (38-126); Aspartate Aminotransferase 22 IU/L (14-36); BUN Creatinine Ratio 15.5 (6-22); Bilirubin Total 0.5 mg/dL (0.2-1.3); Blood Urea Nitrogen 15 mg/dL (7-17); C-Reactive Protein Quant 1.1 mg/dL (<1.0); Calcium 10.1 mg/dL (8.4-10.2); Carbon Dioxide 25 mmol/L (22-32); Chloride 105 mmol/L (98-107); Cholesterol 229 mg/dL (140-199); Estimated Glomerular Filt Rate > 60 mL/min (>60); Glucose 98 mg/dL (80-110); HDL Cholesterol 42 mg/dL (40-60); HEMOLYSIS < 15 (0-50); LDL Cholesterol Calculated 140 mg/dL (<100); Potassium 4.6 mmol/L (3.4-5.1); Sodium 138 mmol/L (137-145); Total Protein 7.1 g/dL (6.3-8.2); Triglycerides 235 mg/dL (35-150)
[2023-08-13 08:38] LABS: Erythrocyte Sedimentation Rate 3 MM/HR (0-20)
== END ==
PROVIDERS: Family Provider Internal Medicine; PCP Internal Medicine; Referring Provider Internal Medicine; Visit Provider Internal Medicine
DX: E11.9 Type 2 diabetes mellitus without complications (principal); D64.9 Anemia, unspecified; M35.00 Sjogren syndrome, unspecified; I10 Essential (primary) hypertension; E78.2 Mixed hyperlipidemia
CPT/HCPCS: 36415; 80053; 80061; 83036; 85025; 85651; 86140

== ENCOUNTER → 2024-02-13 06:42 | Outpatient (CLI) | payer MEDICARE, OTHER, SELFPAY ==
[2024-02-13 08:50] LABS: Hemoglobin A1C% w Est Avg Glu 6.2 % (4.0-6.0)
[2024-02-13 09:31] LABS: Alanine Aminotransferase 16 IU/L (<35); Albumin 4.1 g/dL (3.5-5.0); Albumin Globulin Ratio 1.4 (1.0-2.8); Alkaline Phosphatase 74 U/L (38-126); Aspartate Aminotransferase 24 IU/L (14-36); BUN Creatinine Ratio 16.2 (6-22); Bilirubin Total 0.5 mg/dL (0.2-1.3); Blood Urea Nitrogen 17 mg/dL (7-17); Calcium 9.8 mg/dL (8.4-10.2); Carbon Dioxide 26 mmol/L (22-32); Chloride 104 mmol/L (98-107); Estimated Glomerular Filt Rate 55 mL/min (>60); Glucose 105 mg/dL (80-110); HEMOLYSIS < 15 (0-50); Potassium 4.7 mmol/L (3.4-5.1); Sodium 138 mmol/L (137-145); Total Protein 7.1 g/dL (6.3-8.2)
[2024-02-13 11:00] LABS: Creatinine Urine Random 79.8 mg/dL
[2024-02-13 11:04] LABS: Microalbumin Urine Random 0.8 mg/dL (0-1.6)
== END ==
PROVIDERS: Family Provider Internal Medicine; PCP Internal Medicine; Referring Provider Internal Medicine; Visit Provider Internal Medicine
DX: E11.9 Type 2 diabetes mellitus without complications (principal)
CPT/HCPCS: 36415; 80053; 82043; 82570; 83036

== ENCOUNTER 2024-02-27 21:20 | Observation (INO) | payer MEDICARE, OTHER, SELFPAY ==
[2024-02-27] VITALS (10 sets, daily range): BP systolic 143–202; BP diastolic 75–98; PULSE 57–77; RESP 12–18; TEMP 36.4; O2SAT 98–99; BMI 32.3
[2024-02-27] MEDS: DEXTROSE 5% WATER 500 ML 75 ML IV (22:11)
[2024-02-27 22:14] LABS: Add Manual Diff / Slide Review NO; Basophils Absolute Auto 100 /uL (0-100); Basophils Percent Auto 1.3 % (0-2); Eosinophils Absolute Auto 200 /uL (0-450); Eosinophils Percent Auto 2.4 % (2-4); Hematocrit 40.9 % (36-46); Hemoglobin 13.1 g/dL (12.0-16.0); Lymphocytes Absolute Auto 3100 /uL (1100-4500); Lymphocytes Percent Auto 31.6 % (25-40); Mean Corpuscular HGB Conc 32.2 % (30-36); Mean Corpuscular Hemoglobin 27.3 PG (26-34); Mean Corpuscular Volume 84.9 fL (80-100); Monocytes Absolute Auto 900 /uL (0-900); Monocytes Percent Auto 9.2 % (3-14); Neutrophils Absolute Auto 5400 /uL (1500-7000); Neutrophils Percent Auto 55.5 % (50-75); Platelet Count 288 X10^3/uL (150-400); Red Blood Cell Count 4.81 X10^6/uL (4.0-5.2); Red Cell Distribution Width 14.1 % (11.6-14.8); White Blood Cell Count 9.7 X10^3/uL (4.5-11.0)
[2024-02-27 22:27] LABS: Alanine Aminotransferase 22 IU/L (<35); Albumin 4.7 g/dL (3.5-5.0); Albumin Globulin Ratio 1.6 (1.0-2.8); Alkaline Phosphatase 71 U/L (38-126); Aspartate Aminotransferase 30 IU/L (14-36); BUN Creatinine Ratio 20.8 (6-22); Bilirubin Total 0.4 mg/dL (0.2-1.3); Blood Urea Nitrogen 22 mg/dL (7-17); Calcium 9.7 mg/dL (8.4-10.2); Carbon Dioxide 29 mmol/L (22-32); Chloride 106 mmol/L (98-107); Estimated Glomerular Filt Rate 55 mL/min (>60); Globulin 2.9 g/dL (1.7-4.1); Glucose 122 mg/dL (80-110); HEMOLYSIS 20 (0-50); Potassium 4.3 mmol/L (3.4-5.1); Sodium 140 mmol/L (137-145); Total Protein 7.6 g/dL (6.3-8.2)
--- NOTE | 2024-02-27 22:52 | ED.OVERDOSE ---
HPI - Overdose General Chief Complaint: Toxicology Problem Stated Complaint: states overdosed on insulin Time Seen by Provider: 02/27/24 21:43 Source: patient Mode of arrival: Ambulatory History of Present Illness HPI Narrative: 73-year-old female with history of diabetes, gastroparesis presents by private vehicle from home for accidental insulin overdose. Patient states she has been tired and fatigued this afternoon. At 4:00 p.m. she took her usual 55 units of Tresiba long-acting insulin. At 7:30 a.m. she woke up from a nap and forgot that she would taken her usual insulin dose. She took 39 units additional of Tresiba before she realized her mistake. Patient reports a history of severe gastroparesis and is only able to tolerate her scheduled 3 meals a day as well as occasional warm liquids. She states that she tried to drink some warm coffee with almond milk but this did not raise her blood sugars as much as she would have expected at home and so she came to the emergency department. Intent: other (Accidental) Related Data Home Medications Medication Instructions Recorded Confirmed carboxymethylcellulose sodium 1 % 2 gtt OU PRN ##0 05/09/12 02/22/24 eye liquid gel drops (Refresh Liquigel) aspirin 81 mg tablet,delayed 81 mg PO QDAY ##0 05/11/17 02/22/24 release vit C 250 mg-vit E 90 mg-zinc 40 1 tab PO BID 10/16/19 02/22/24 mg-copper 1 ai-prftlr-ckoboy capsule (PreserVision AREDS-2) ondansetron 8 mg disintegrating 8 mg PO DAILY PRN nausea and 07/26/21 02/22/24 tablet vomiting Liquid Multivitamin 1 cap PO DAILY 05/11/22 02/22/24 Liquid Probiotic 4 drp PO DAILY 05/11/22 02/22/24 Vitamin D + K2 1 tab PO DAILY 05/11/22 02/22/24 desonide 0.05 % topical cream 1 applic topical BID 11/23/23 02/22/24 ketoconazole 2 % topical cream 1 applic topical BID 11/23/23 02/22/24 Previous Rx's Medication Instructions Recorded Disabled Parking #1 ea 04/13/22 Lancing Device #1 ea 05/11/22 blood-glucose meter (Embrace PRO #1 ea 05/11/22 Blood Glucose Meter) lancets 33 gauge (OneTouch Delica #200 ea 05/11/22 Lancets) albuterol sulfate 90 mcg/actuation 2 puff inhalation Q4H PRN 01/09/23 aerosol inhaler (Ventolin HFA) Shortness Of Breath #18 grams lansoprazole 30 mg capsule,delayed 30 mg PO BID #180 caps 06/18/23 release [place] 31g x 5/16 #300 ea 06/19/23 blood sugar diagnostic (Embrace #250 ea 06/19/23 PRO test strips) olmesartan 40 mg tablet 40 mg PO DAILY #90 tabs 08/29/23 nadolol 80 mg tablet 80 mg PO DAILY #90 tabs 09/04/23 insulin aspart U-100 100 unit/mL 5 - 15 unit (0.05 - 0.15 mL) 10/23/23 (3 mL) subcutaneous pen (Novolog SUBCUT Q4H PRN HIGH BLOOD SUGAR FlexPen U-100 Insulin aspart) #45 mL desonide 0.05 % topical cream 1 applic topical BID #60 grams 11/23/23 fluticasone propionate 50 2 spray intranasal BEDTIME PRN 11/23/23 mcg/actuation nasal Allergy Symptoms #16 grams spray,suspension (Flonase Allergy Relief) fluticasone propionate 50 2 spray intranasal BEDTIME PRN 11/23/23 mcg/actuation nasal Allergy Symptoms #16 grams spray,suspension (Flonase Allergy Relief) ketoconazole 2 % topical cream 1 applic topical BID #30 grams 11/23/23 insulin degludec 100 unit/mL (3 See Rx Instructions SUBCUT DAILY 12/13/23 mL) subcutaneous pen (Tresiba #45 mL FlexTouch U-100 insulin) clonazepam 1 mg tablet (Klonopin) 1 mg PO BID #180 tabs 02/22/24 erythromycin 250 mg tablet 250 mg PO QAC #270 tabs 02/22/24 oxybutynin chloride 5 mg tablet 5 mg PO BEDTIME #90 tabs 02/22/24 Allergies Allergy/AdvReac Type Severity Reaction Status Date / Time atorvastatin [ATORVASTATIN] Allergy Unknown Verified 02/22/24 09:21 gemfibrozil [GEMFIBROZIL] Allergy Unknown Verified 02/22/24 09:21 rosuvastatin [ROSUVASTATIN] Allergy Unknown Verified 02/22/24 09:21 tetracycline [TETRACYCLINE] Allergy Unknown Verified 02/22/24 09:21 Milk Containing Products AdvReac Severe GI issues Verified 02/22/24 09:21 (Dairy) [MILK CONTAINING PRODUCTS] carisoprodol [CARISOPRODOL] AdvReac Intermediate DIZZINESS Verified 02/22/24 09:21 duloxetine [DULOXETINE] AdvReac Intermediate DIARRHEA Verified 02/22/24 09:21 fenofibrate [FENOFIBRATE] AdvReac Intermediate rash Verified 02/22/24 09:21 gabapentin AdvReac Intermediate constipatio Verified 02/22/24 09:21 n indomethacin [INDOMETHACIN] AdvReac Intermediate GI DISTRESS Verified 02/22/24 09:21 influenza virus vaccine tvs AdvReac Intermediate severe sx, Verified 02/22/24 09:21 [id number](65 years up) RAI, N/V, [From Fluzone High-Dose SINUS, (PF)] PLEGM, etc. lisinopril [LISINOPRIL] AdvReac Intermediate EDEMA LEGS Verified 02/22/24 09:21 amoxicillin [AMOXICILLIN] AdvReac Mild itching Verified 02/22/24 09:21 Review of Systems Review of Systems Narrative: See HPI Patient History Medical History Overactive bladder Gastroparesis diabeticorum Vitamin deficiency Inner ear inflammation Liver disease Diverticular disease (1999) Ovarian cyst (1984) Recurrent sinusitis (2004) Hepatitis A (1989) Ankle pain (1994) Foot pain (2004) Fractures (1972) Seizure, temporal lobe (1984) Abnormal CXR (chest x-ray) (1981) Sarcoidosis (1983) Legionella pneumonia (1981) Polymyalgia rheumatica Sjogren's syndrome MCTD (mixed connective tissue disease) Hyperlipidemia Hypertension (2004) Abnormal Pap smear of cervix (1984) Fibroids (2002) History of heavy periods Painful menstrual periods Anemia Measles (1958) Mumps (1958) Rubella (1958) Eczema Chronic back pain (1999) RLS (restless legs syndrome) (2004) Hayfever Asthma Type 2 diabetes mellitus without complication (04/10/16) Essential hypertension (11/23/15) Sjogren's syndrome (10/01/15) Atrophic vaginitis (11/24/14) Irritable bowel syndrome (06/16/11) Mixed hyperlipidemia (06/16/11) Diverticulosis of colon (06/16/11) Fibromyalgia (06/16/11) GERD (gastroesophageal reflux disease) Surgical History History of esophagogastroduodenoscopy (EGD) (12/2014) History of colonoscopy (12/17/14) History of oophorectomy History of abdominal surgery (1981) History of abdominal surgery (2008) History of lung biopsy (1981) History of lung biopsy (1983) Anesthesia complication Status post knee surgery (2012) Status post hysterectomy (2004) History of bilateral salpingo-oophorectomy (BSO) Family History Child Age: 54 Hx of Sjogren's disease Child Age: 52 Migraines Father Prostate cancer Cancer Heart disease Stroke Mother Diabetes mellitus Heart disease Hypertension Sister Uterine cancer Grandmother No problems noted. Grandfather Sepsis Grandmother No problems noted. Grandfather Bright's disease Sister Heart block Heart disease Social History marital status: number of children: 3 household members: spouse lives independently: Yes caregiver/support person: No housing: house pets and animals: Yes education level: college (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 leisure activities: exercise, reading and other (Photography, drawing, cooking, gardening) Smoking Status: Former smoker Tobacco: How many years used: 18 (off and on) Smokeless tobacco user: other (cigarettes) quit status: quit date established (1985) second hand exposure: No alcohol intake: never substance use type: does not use and marijuana (For headaches.) Smoking Status: Former smoker alcohol intake frequency: 0-2 drinks per day Substance Use Type: does not use Exam Initial Vital Signs Initial Vital Signs: Vital Signs Temperature 97.5 F L 02/27/24 21:30 Pulse Rate 59 L 02/27/24 21:30 Respiratory Rate 16 02/27/24 21:30 Blood Pressure 169/90 H 02/27/24 21:30 Pulse Oximetry 98 02/27/24 21:30 Oxygen Delivery Method Room Air 02/27/24 21:30 Const: Awake, alert, no acute distress, nontoxic appearing Cardiac: regular rate, regular rhythm RESP: unlabored, clear bilaterally, no wheezing GI: Soft, nontender, nondistended, no rebound, no guarding Skin: Warm, Dry, intact, no rashes Neuro: AO x3, CN II-XII grossly intact, moves all extremities Course Orders Ordered: ED Orders 02/27/24 22:04 CBC Auto Diff [Complete Blood Count AUTO DIFF] Stat CMP [Comprehensive Metabolic Panel] Stat Dextrose (Dextrose 5% Water) 500 mls @ 75 mls/hr IV CONT RUBY Last Infusion: 02/28/24 01:00 Dose: 75 mls/hr Documented By: Admin: 02/27/24 22:11 Dose: 75 mls/hr Documented By: ASHLEY Discontinued Medications Hydralazine HCl (Hydralazine 20 Mg/Ml Vial) 10 mg IV NOW ONE Stop: 02/27/24 23:18 Last Admin: 02/27/24 23:34 Dose: 10 mg Documented By: ASHLEY Vital Signs Vital signs: Vital Signs - 8 hr 02/27/24 21:30 02/27/24 22:09 02/27/24 22:10 Temperature 97.5 F L Pulse Rate 59 L 60 60 Respiratory Rate 16 14 12 Blood Pressure 169/90 H Pulse Oximetry 98 98 98 Oxygen Delivery Method Room Air Room Air Room Air 02/27/24 22:10 02/27/24 22:32 02/27/24 22:34 Temperature Pulse Rate 62 59 L Respiratory Rate 17 16 Blood Pressure 143/81 H Pulse Oximetry 98 99 Oxygen Delivery Method Room Air Room Air 02/27/24 22:34 02/27/24 23:00 02/27/24 23:23 Temperature Pulse Rate 63 57 L Respiratory Rate 14 15 Blood Pressure 202/98 H Pulse Oximetry 99 Oxygen Delivery Method Room Air 02/27/24 23:23 02/27/24 23:30 02/27/24 23:30 Temperature Pulse Rate 58 L Respiratory Rate 15 Blood Pressure 172/77 H 171/75 H Pulse Oximetry 99 Oxygen Delivery Method Room Air MDM - Overdose Differential Diagnosis Differential diagnosis: Likely poisoning by opiate or related narcotic, drug overdose and accidental drug ingestion Lab Data 02/27/24 22:04 02/27/24 22:04 Labs: Lab Results 02/27/24 Range/Units 22:04 WBC 9.7 (4.5-11.0) X10^3/uL RBC 4.81 (4.0-5.2) X10^6/uL Hgb 13.1 (12.0-16.0) g/dL Hct 40.9 (36-46) % MCV 84.9 (80-100) fL MCH 27.3 (26-34) PG MCHC 32.2 (30-36) % RDW 14.1 (11.6-14.8) % Plt Count 288 (150-400) X10^3/uL Neut % (Auto) 55.5 (50-75) % Lymph % (Auto) 31.6 (25-40) % [place] % (Auto) 9.2 (3-14) % Eos % (Auto) 2.4 (2-4) % Baso % (Auto) 1.3 (0-2) % Neut # (Auto) 5400 (6551-1619) /uL Lymph # (Auto) 3100 (2526-9269) /uL [place] # (Auto) 900 (0-900) /uL Eos # (Auto) 200 (0-450) /uL Baso # (Auto) 100 (0-100) /uL Sodium 140 (137-145) mmol/L Potassium 4.3 (3.4-5.1) mmol/L Chloride 106 (98-107) mmol/L Carbon Dioxide 29 (22-32) mmol/L BUN 22 H (7-17) mg/dL Creatinine 1.06 H (0.52-1.04) mg/dL Estimated GFR 55 L (>60) mL/min BUN/Creatinine Ratio 20.8 (6-22) Glucose 122 H (80-110) mg/dL Calcium 9.7 (8.4-10.2) mg/dL Total Bilirubin 0.4 (0.2-1.3) mg/dL AST 30 (14-36) IU/L ALT 22 (<35) IU/L Alkaline Phosphatase 71 (38-126) U/L Total Protein 7.6 (6.3-8.2) g/dL Albumin 4.7 (3.5-5.0) g/dL Globulin 2.9 (1.7-4.1) g/dL Albumin/Globulin Ratio 1.6 (1.0-2.8) Point of Care Testing Glucose POC 161 MDM Narrative Medical decision making narrative: Accidental overdose of insulin. Patient states that she had forgotten that she took her nighttime dose and accidentally gave herself nearly a full additional dose. Accu-Chek 119 on arrival. Patient reports severe gastroparesis and states that because of this she was only able to occasionally tolerate warm liquids and is not comfortable with relying on PO intake to correct glucose. Call made to poison control for recommendations. Patient states that she is feeling drowsy and like her blood sugar is decreasing. A small dose of D5 started since patient is stating she can not take p.o. fluids at this time Nursing spoke to poison control, recommends that since patient is either unable or unwilling to do p.o. glucose supplementation she should be monitored in the hospital 42 hours with Q 1 hour Accu-Cheks. Admitted to hospitalist service, who agrees to accept patient. Naloxone at Discharge Meets criteria for naloxone at discharge?: No Discharge Plan Departure Patient Disposition: Admitted As Inpatient Clinical Impression: Accidental overdose of insulin, Diabetic gastroparesis Admit Date/Time: 02/27/24 23:32 Admit Provider: Cleve Morrow
--- NOTE | 2024-02-27 23:22 | PC.NURSE ---
Patient reports taking 8 units regular insulin at 1530, that is her sliding scale. At 16:00 patient took 55units triceba insulin which is her normal dose. Patient then fell asleep and woke up 19:30 and was confused and she took 39 units of triceba again on accident. Patient reports she has gastroparesis and cannot take any oral intake, unless is it for her scheduled three meals a day. D5% currently running at 75ml/hour Called poison control at and spoke with Afshan pharmacist. Reported the above to Afshan and their recommendation is to monitor patient for at least 42 hours. Because of the gastroparesis, Afshan advised we monitor her in the hospital and be checking blood sugars every hour. Dr. Sellers notified and aware.
[2024-02-27] MEDS: HYDRALAZINE 20 MG/ML VIAL 10 MG IV (23:34)
[2024-02-28] VITALS (7 sets, daily range): BP systolic 114–176; BP diastolic 44–98; PULSE 59–77; RESP 17–19; TEMP 36–36.5; O2SAT 96; BMI 32.3
--- NOTE | 2024-02-28 00:38 | PC.NURSE ---
Patient reports taking 250mg erythromycin with her meals that helps with the gastrpoparesis.
[2024-02-28] MEDS: ACETAMINOPHEN 325 MG TABLET 650 MG PO ×4 (02:00→23:07)
[2024-02-28] MEDS: DEXTROSE 5% WATER 500 ML 75 ML IV (04:56)
--- NOTE | 2024-02-28 07:19 | PM.HP.1 ---
History of Present Illness History of Present Illness Date Patient Seen: 02/28/24 Time Patient Seen: 07:19 Chief complaint: states overdosed on insulin Narrative: 73-year-old female well known to me in fact seen in the clinic on the february who presented to the emergency department after inadvertently taking an extra dose of long-acting insulin. She apparently was feeling as though she might be becoming hypoglycemic and so came to the emergency department Fingerstick blood sugar in the emergency department was 119 but after consultation with poison control Center it was recommended that she be admitted to the hospital for continued monitoring a probable parental glucose given that she was severe gastroparesis and is unable to really reliably support herself with oral intake, especially in the setting of urgent needs due to hypoglycemia etcetera Patient appears to have taken an extra 39 units of long-acting insulin on top of a usual dose of 55 units (about 3 hours later). Overnight on D5W at 75 cc an hour blood sugar has been as high as 199 and not dipped below 130 PFSH Medical History Overactive bladder Gastroparesis diabeticorum Vitamin deficiency Inner ear inflammation Liver disease Diverticular disease (1999) Ovarian cyst (1984) Recurrent sinusitis (2004) Hepatitis A (1989) Ankle pain (1994) Foot pain (2004) Fractures (1972) Seizure, temporal lobe (1984) Abnormal CXR (chest x-ray) (1981) Sarcoidosis (1983) Legionella pneumonia (1981) Polymyalgia rheumatica Sjogren's syndrome MCTD (mixed connective tissue disease) Hyperlipidemia Hypertension (2004) Abnormal Pap smear of cervix (1984) Fibroids (2002) History of heavy periods Painful menstrual periods Anemia Measles (1958) Mumps (1958) Rubella (1958) Eczema Chronic back pain (1999) RLS (restless legs syndrome) (2004) Hayfever Asthma Type 2 diabetes mellitus without complication (04/10/16) Essential hypertension (11/23/15) Sjogren's syndrome (10/01/15) Atrophic vaginitis (11/24/14) Irritable bowel syndrome (06/16/11) Mixed hyperlipidemia (06/16/11) Diverticulosis of colon (06/16/11) Fibromyalgia (06/16/11) GERD (gastroesophageal reflux disease) Surgical History History of esophagogastroduodenoscopy (EGD) (12/2014) History of colonoscopy (12/17/14) History of oophorectomy History of abdominal surgery (1981) History of abdominal surgery (2008) History of lung biopsy (1981) History of lung biopsy (1983) Anesthesia complication Status post knee surgery (2012) Status post hysterectomy (2004) History of bilateral salpingo-oophorectomy (BSO) Family History Child Age: 54 Hx of Sjogren's disease Child Age: 52 Migraines Father Prostate cancer Cancer Heart disease Stroke Mother Diabetes mellitus Heart disease Hypertension Sister Uterine cancer Grandmother No problems noted. Grandfather Sepsis Grandmother No problems noted. Grandfather Bright's disease Sister Heart block Heart disease Social History marital status: number of children: 3 household members: spouse lives independently: Yes caregiver/support person: No housing: house pets and animals: Yes education level: college (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: [employer] leisure activities: exercise, reading and other (Photography, drawing, cooking, gardening) Smoking Status: Former smoker Tobacco: How many years used: 18 (off and on) Smokeless tobacco user: other (cigarettes) quit status: quit date established (1985) second hand exposure: No alcohol intake: never substance use type: does not use and marijuana (For headaches.) Meds Home Medications and Allergies Home Medications Medication Instructions Recorded Confirmed Type carboxymethylcellulose sodium 1 % 2 gtt OU PRN ##0 05/09/12 02/28/24 History eye liquid gel drops (Refresh Liquigel) aspirin 81 mg tablet,delayed 81 mg PO QDAY ##0 05/11/17 02/28/24 History release Disabled Parking #1 ea 04/13/22 02/28/24 Rx Lancing Device #1 ea 05/11/22 02/28/24 Rx Liquid Multivitamin 1 cap PO DAILY 05/11/22 02/28/24 History Liquid Probiotic 4 drp PO DAILY 05/11/22 02/28/24 History Vitamin D + K2 1 tab PO DAILY 05/11/22 02/28/24 History blood-glucose meter (Embrace PRO #1 ea 05/11/22 02/28/24 Rx Blood Glucose Meter) lancets 33 gauge (OneTouch Delica #200 ea 05/11/22 02/28/24 Rx Lancets) albuterol sulfate 90 mcg/actuation 2 puff inhalation Q4H PRN 01/09/23 02/28/24 Rx aerosol inhaler (Ventolin HFA) Shortness Of Breath #18 grams lansoprazole 30 mg capsule,delayed 30 mg PO BID #180 caps 06/18/23 02/28/24 Rx release [place] 31g x 5/16 #300 ea 06/19/23 02/28/24 Rx blood sugar diagnostic (Embrace #250 ea 06/19/23 02/28/24 Rx PRO test strips) olmesartan 40 mg tablet 40 mg PO DAILY #90 tabs 08/29/23 02/28/24 Rx nadolol 80 mg tablet 80 mg PO DAILY #90 tabs 09/04/23 02/28/24 Rx insulin aspart U-100 100 unit/mL 5 - 15 unit (0.05 - 0.15 mL) 10/23/23 02/28/24 Rx (3 mL) subcutaneous pen (Novolog SUBCUT Q4H PRN HIGH BLOOD SUGAR FlexPen U-100 Insulin aspart) #45 mL desonide 0.05 % topical cream 1 applic topical BID 11/23/23 02/28/24 History fluticasone propionate 50 2 spray intranasal BEDTIME PRN 11/23/23 02/28/24 Rx mcg/actuation nasal Allergy Symptoms #16 grams spray,suspension (Flonase Allergy Relief) ketoconazole 2 % topical cream 1 applic topical BID 11/23/23 02/28/24 History insulin degludec 100 unit/mL (3 See Rx Instructions SUBCUT DAILY 12/13/23 02/28/24 Rx mL) subcutaneous pen (Tresiba #45 mL FlexTouch U-100 insulin) clonazepam 1 mg tablet (Klonopin) 1 mg PO BID #180 tabs 02/22/24 02/28/24 Rx erythromycin 250 mg tablet 250 mg PO QAC #270 tabs 02/22/24 02/28/24 Rx faricimab-svoa 6 mg/0.05 mL mg intravitreal Q12W 02/28/24 History intravitreal solution (Vabysmo) Allergies Allergy/AdvReac Type Severity Reaction Status Date / Time atorvastatin [ATORVASTATIN] Allergy Unknown Verified 02/22/24 09:21 gemfibrozil [GEMFIBROZIL] Allergy Unknown Verified 02/22/24 09:21 rosuvastatin [ROSUVASTATIN] Allergy Unknown Verified 02/22/24 09:21 tetracycline [TETRACYCLINE] Allergy Unknown Verified 02/22/24 09:21 Milk Containing Products AdvReac Severe GI issues Verified 02/22/24 09:21 (Dairy) [MILK CONTAINING PRODUCTS] carisoprodol [CARISOPRODOL] AdvReac Intermediate DIZZINESS Verified 02/22/24 09:21 duloxetine [DULOXETINE] AdvReac Intermediate DIARRHEA Verified 02/22/24 09:21 fenofibrate [FENOFIBRATE] AdvReac Intermediate rash Verified 02/22/24 09:21 gabapentin AdvReac Intermediate constipatio Verified 02/22/24 09:21 n indomethacin [INDOMETHACIN] AdvReac Intermediate GI DISTRESS Verified 02/22/24 09:21 influenza virus vaccine tvs AdvReac Intermediate severe sx, Verified 02/22/24 09:21 [id number](65 years up) RAI, N/V, [From Fluzone High-Dose SINUS, 2018- (PF)] PLEGM, etc. lisinopril [LISINOPRIL] AdvReac Intermediate EDEMA LEGS Verified 02/22/24 09:21 amoxicillin [AMOXICILLIN] AdvReac Mild itching Verified 02/22/24 09:21 Review of Systems Review of Systems ROS: Yes All systems reviewed with the patient and are negative except as otherwise documented Exam Vital Signs (past 8 hours): - 02/27/24 23:23 02/27/24 23:23 02/27/24 23:30 Temperature Pulse Rate 57 L 58 L Respiratory Rate 15 15 Blood Pressure 172/77 H Pulse Oximetry 99 99 Oxygen Delivery Method Room Air Room Air 02/27/24 23:30 02/27/24 23:34 02/27/24 23:58 Temperature Pulse Rate 57 L 77 Respiratory Rate 18 Blood Pressure 171/75 H 171/75 H Pulse Oximetry Oxygen Delivery Method 02/28/24 00:00 02/28/24 00:22 02/28/24 01:15 Temperature 97.1 F L Pulse Rate 77 59 L Respiratory Rate 17 Blood Pressure 176/77 H 176/77 H 147/57 H Pulse Oximetry 96 Oxygen Delivery Method Oxygen Delivery Method Room Air Narrative Exam Narrative: HEENT-unremarkable, normocephalic atraumatic Neck-no lymphadenopathy no bruits Lungs-clear anteriorly and posteriorly no wheezes no crackles good breath sounds Heart-regular rate and rhythm, no murmur, rub, or gallop. normal S1-S2 Abdomen-positive bowel tones, soft, nontender, nondistended, no hepatosplenomegaly, no masses palpable Neuro-normal to screening exam, gait not tested Extremities-no cyanosis clubbing or edema Objective Labs 02/27/24 22:04 02/27/24 22:04 Labs: Laboratory Results - last 24 hr 02/27/24 22:04 WBC 9.7 RBC 4.81 Hgb 13.1 Hct 40.9 MCV 84.9 MCH 27.3 MCHC 32.2 RDW 14.1 Plt Count 288 Neut % (Auto) 55.5 Lymph % (Auto) 31.6 [place] % (Auto) 9.2 Eos % (Auto) 2.4 Baso % (Auto) 1.3 Neut # (Auto) 5400 Lymph # (Auto) 3100 [place] # (Auto) 900 Eos # (Auto) 200 Baso # (Auto) 100 Sodium 140 Potassium 4.3 Chloride 106 Carbon Dioxide 29 BUN 22 H Creatinine 1.06 H Estimated GFR 55 L BUN/Creatinine Ratio 20.8 Glucose 122 H Calcium 9.7 Total Bilirubin 0.4 AST 30 ALT 22 Alkaline Phosphatase 71 Total Protein 7.6 Albumin 4.7 Globulin 2.9 Albumin/Globulin Ratio 1.6 Assessment & Plan Assessment & Plan narrative: 1. Inadvertent insulin administration-patient without objective evidence of hypoglycemia but now on continuous glucose infusion. Maybe able to back off on her IV D5W. Encourage oral intake. Continue to monitor for least the next 24 hours and if stable probably okay to discharge sometime tomorrow 2. Hypertension-continue patient's usual antihypertensives including her nadolol and olmesartan. Continue to monitor 3. Asthma-will have albuterol available as needed 4. Gastroparesis diabeticorum-patient has been using erythromycin with some benefit for this purpose. Will continue that here in the hospital 5. GERD-continue patient's proton pump inhibitor 6. VTE prophylaxis-Lovenox makes sense while hospitalized 7. Code status-full code is entirely appropriate and desired by patient Quality VTE Deep Vein Thrombosis/Pulmonary Embolism Present on Admission: No IH PROFEE Charge Codes Initial inpatient/observation care: [id number]
[2024-02-28] MEDS: ERYTHROMYCIN BASE 250 MG TABLET PO ×3 (08:37→16:02)
[2024-02-28] MEDS: clonazePAM 0.5 MG TABLET 1 MG PO ×2 (08:38→16:30)
[2024-02-28] MEDS: ASPIRIN EC 81 MG TABLET PO (10:00)
[2024-02-28] MEDS: ENOXAPARIN 40 MG/0.4 ML SYRINGE SUBCUT (10:02)
[2024-02-28] MEDS: LANSOPRAZOLE 30 MG 30 EACH PO ×2 (10:02→16:24)
[2024-02-28] MEDS: [UNRECOGNIZED DRUG - OTHER] 1 EACH EYE-BOTH ×3 (10:04→23:37)
[2024-02-28] MEDS: CHOLECALCIFEROL (VITAMIN D3) 5,000 UNIT TABLET 5000 UNIT PO (10:19)
[2024-02-28] MEDS: DEXTROSE 5% WATER 500 ML 60 ML IV (10:29)
--- NOTE | 2024-02-28 11:11 | DIET.CONS2 ---
Dietary Inpatient Consultation Note Admission Date: 02/27/2024 23:32 73 y F admitted for accidental insulin overdose. Nutrition consulted for strict meal regimen, gastroparesis, DM2. Met with pt at bedside. Reports well-versed in nutritional information regarding gastroparesis and DM2. 3 meals per day with lean protein, soft, low fiber carb, and well-cooked vegetable. Follows list of recommended foods at home. Is on erythromycin TID before meals. Answered pt questions on specific foods. Coordinated care with unit host/kitchen on meal needs. No weight loss noted. Will continue to monitor po intakes and BG. Diet: 02/28/24 Breakfast Carbohydrate Consistent Diet Diet Modifications: Carbohydrate level: Small (2 CHO) Bedtime snack: Yes Reflex DM orders: No Electronically Signed by: Imelda Garcia 02/28/24 11:11 Clinical Dietitian [address] [address]
--- NOTE | 2024-02-28 11:22 | CM.DANOTE ---
Initial DCP Assessment Visit Note Reviewed EMR and team rounds for status updates, met with pt at bedside to introduce self and role. Pt was found to be resting in bed, expressing feeling concerned about the new insulin she is on, and how her BG keeps dropping farther below what her previous insulin did. She lives independently in her own home w/spouse in [place]. Her spouse will transport her home once she's medically cleared for d/c, which is anticipated for tomorrow, Sunday02/29/24. Payor: Medicare PCP: Dr. Miller Pt is a 73 year-old F who presented to the ED last evening after realizing that she had doubled up on her insulin doses, and was fearful of an acute hypoglycemic emergency. She was admitted from the ED after staff consulted with Poison Control, which recommended a protocol of monitoring for 48-hours, IV glucose, and monitoring insulin/BG checks. Pt shared that she has several autoimmune disorders due to having contracted Legionnaires' disease several years ago while travelling. This QUALITY ANALYST/TECHNICAL WRITER offered information re: what to expect with a referral to Endocrinology/Diabetes Education at [facility], and recommended that she talk to her PCP post-discharge to initiate a referral. QUALITY ANALYST/TECHNICAL WRITER offered supportive counseling and encouragement in moving forward with her efforts to achieve better control and understanding of her diabetic issues and needs. DCP will continue to follow and assist with any further evolving needs during this admission. Discharge Planning/Care Management CM Discharge Assessment Start: 02/28/24 11:21 Freq: Status: Active Protocol: Document 02/28/24 11:21 DPL (Rec: 02/28/24 11:22 DPL [id number]) Discharge Planning Assessment Assigned Senior Enlisted Advisor VIRGINIA Vázquez Advance Directives? Yes: DPOA, VIOLETA Directive Advance Directives on File Yes History Provided By Patient,Medical Record Has Patient been admitted in last 30 No days? Prior Living Arrangements House Household Members spouse Type of transporation used prior to Drives own vehicle admit Independent with ADL's Yes Is patient alert and oriented? Yes Caregiver for Another No Comment No identified d/c needs at this time. Barriers to Discharge No Discharge Plan Home Transportation Arrangement Spouse Referrals Initiated None needed Whiteboard Updated in Patient Room with Yes name and ext. # of Senior Enlisted Advisor Review Status In Process Please Provide Date Initial DC 02/28/24 Assessment Was Performed
--- NOTE | 2024-02-28 13:29 | PC.NURSE ---
Patient is A&OX1, VSS, afebrile on RA. She is medically cleared for discharge by hospitalist this a.m. at bedside assisting patient. He verbalizes understanding of medications, site care, s/sx of worsening infection as well as follow up plan. Patient is showered after lunch and dressed. She is escorted by RN via w/ch with all of her belongings including CPAP machine to private vehicle with her for discharge home today at 1315.
[2024-02-28] MEDS: OLMESARTAN 40 MG 40 EACH PO (16:22)
[2024-02-28] MEDS: NADOLOL 80 MG 80 EACH PO (16:22)
[2024-02-28] MEDS: DEXTROSE 5% WATER 1,000 ML 60 ML IV (23:03)
[2024-02-29] MEDS: ACETAMINOPHEN 325 MG TABLET 650 MG PO (04:21)
[2024-02-29] MEDS: [UNRECOGNIZED DRUG - OTHER] 1 EACH EYE-BOTH ×2 (04:26→07:49)
[2024-02-29 07:00] VITALS: BP 120/72; PULSE 65; RESP 16; TEMP 36.1; O2SAT 96; O2SAT 99
[2024-02-29] MEDS: ERYTHROMYCIN BASE 250 MG TABLET PO (07:33)
[2024-02-29] MEDS: CHOLECALCIFEROL (VITAMIN D3) 5,000 UNIT TABLET 5000 UNIT PO (07:39)
[2024-02-29] MEDS: ASPIRIN EC 81 MG TABLET PO (07:39)
[2024-02-29] MEDS: ENOXAPARIN 40 MG/0.4 ML SYRINGE SUBCUT (07:41)
[2024-02-29] MEDS: LANSOPRAZOLE 30 MG 30 EACH PO (07:47)
[2024-02-29] MEDS: clonazePAM 0.5 MG TABLET 1 MG PO (07:48)
--- NOTE | 2024-02-29 08:17 | PM.DS.1 ---
History of Present Illness History of Present Illness Date Patient Seen: 02/29/24 Time Patient Seen: 08:17 Chief complaint: states overdosed on insulin Narrative: 73-year-old female well known to me in fact seen in the clinic on the february who presented to the emergency department after inadvertently taking an extra dose of long-acting insulin. She apparently was feeling as though she might be becoming hypoglycemic and so came to the emergency department Fingerstick blood sugar in the emergency department was 119 but after consultation with poison control Center it was recommended that she be admitted to the hospital for continued monitoring a probable parental glucose given that she was severe gastroparesis and is unable to really reliably support herself with oral intake, especially in the setting of urgent needs due to hypoglycemia etcetera Patient appears to have taken an extra 39 units of long-acting insulin on top of a usual dose of 55 units (about 3 hours later). Overnight on D5W at 75 cc an hour blood sugar has been as high as 199 and not dipped below 130 Discharge Providers Provider Date of admission: 02/27/24 23:32 Discharge Date: 02/29/24 Primary care physician: Good Miller MD Consults: 02/28/24 01:12 Consult to Pastoral Services Routine Comment: per pt preference 02/28/24 01:18 Consult to Dietitian, Adult Routine Comment: Reason For Exam: strict meal regimen, gastroparesis, DM2 Discharge provider: Good Miller MD Summary Hospital Course Discharge Diagnosis: 1. Inadvertent insulin overdose 2. Diabetic gastroparesis 3. Diabetes type 2 on long-term insulin 4. Sjogren syndrome 5. Hypertension 6. Hyperlipidemia 7. Migraine headache disorder 8. Temporal lobe epilepsy Hospital Course: Patient inadvertently administered an additional large dose of long-acting insulin prior to arrival in emergency department as above. She never really demonstrated any the objective hypoglycemia but was immediately started on continuous infusion of dextrose. She did not receive any additional insulin. Blood sugars remained under 200 and over 100 during her hospitalization. She was able to eat adequately which is a concern given her gastroparesis but seem to have no trouble with that during this hospitalization After inappropriate mount of time (48 hours or so was suggested by poison control) without evidence of significant hypoglycemia or effect from her insulin, was felt to be safe to discharge home to resume all of her usual medications including her long-acting insulin with more cautioned about timing of administration etcetera Status at Discharge Cognitive/behavioral status at discharge: oriented Functional status at discharge: independent ambulation Overall status at discharge: patient is back to baseline Time Spent with Patient Time spent: Less than 30 minutes Exam Vital Signs (past 8 hours): Oxygen Delivery Method Room Air Oxygen Flow Rate 0 Objective Labs 02/27/24 22:04 02/27/24 22:04 [facility] Medical History Overactive bladder Gastroparesis diabeticorum Vitamin deficiency Inner ear inflammation Liver disease Diverticular disease (1999) Ovarian cyst (1984) Recurrent sinusitis (2004) Hepatitis A (1989) Ankle pain (1994) Foot pain (2004) Fractures (1972) Seizure, temporal lobe (1984) Abnormal CXR (chest x-ray) (1981) Sarcoidosis (1983) Legionella pneumonia (1981) Polymyalgia rheumatica Sjogren's syndrome MCTD (mixed connective tissue disease) Hyperlipidemia Hypertension (2004) Abnormal Pap smear of cervix (1984) Fibroids (2002) History of heavy periods Painful menstrual periods Anemia Measles (1958) Mumps (1958) Rubella (1958) Eczema Chronic back pain (1999) RLS (restless legs syndrome) (2004) Hayfever Asthma Type 2 diabetes mellitus without complication (04/10/16) Essential hypertension (11/23/15) Sjogren's syndrome (10/01/15) Atrophic vaginitis (11/24/14) Irritable bowel syndrome (06/16/11) Mixed hyperlipidemia (06/16/11) Diverticulosis of colon (06/16/11) Fibromyalgia (06/16/11) GERD (gastroesophageal reflux disease) Surgical History History of esophagogastroduodenoscopy (EGD) (12/2014) History of colonoscopy (12/17/14) History of oophorectomy History of abdominal surgery (1981) History of abdominal surgery (2008) History of lung biopsy (1981) History of lung biopsy (1983) Anesthesia complication Status post knee surgery (2012) Status post hysterectomy (2004) History of bilateral salpingo-oophorectomy (BSO) Family History Child Age: 54 Hx of Sjogren's disease Child Age: 52 Migraines Father Prostate cancer Cancer Heart disease Stroke Mother Diabetes mellitus Heart disease Hypertension Sister Uterine cancer Grandmother No problems noted. Grandfather Sepsis Grandmother No problems noted. Grandfather Bright's disease Sister Heart block Heart disease Social History marital status: number of children: 3 household members: spouse lives independently: Yes caregiver/support person: No housing: house pets and animals: Yes education level: college ([employer].) occupational status: other (Retired) Previous occupational history: [employer] and [employer] work [employer]: [employer] leisure activities: exercise, reading and other (Photography, drawing, cooking, gardening) Smoking Status: Former smoker Tobacco: How many years used: 18 (off and on) Smokeless tobacco user: other (cigarettes) quit status: quit date established (1985) second hand exposure: No alcohol intake: never substance use type: does not use and marijuana (For headaches.) Discharge Plan Discharge Plan Patient Disposition: Home Discharge orders & Medications Prescriptions: Continued carboxymethylcellulose sodium [Refresh Liquigel] 1 % Drops, Liquid Gel 2 gtt OU PRN Qty: 0 aspirin 81 MG tablet,delayed release (DR/EC) 81 mg PO QDAY Qty: 0 (DME) Disabled Parking See Rx Instructions .ROUTE .MEDSUPPLY Qty: 1 0RF Rx Instructions: Patient qualifies for disabled parking as per the attached form. albuterol sulfate [Ventolin HFA] 90 mcg/actuation HFA aerosol inhaler 2 puff inhalation Q4H PRN (Reason: Shortness Of Breath) Qty: 18 3RF lansoprazole 30 mg capsule,delayed release(DR/EC) 30 mg PO BID Qty: 180 3RF (DME) Embrace PRO test strips Strip See Rx Instructions .Route Qty: 250 12RF Rx Instructions: check blood glucose up to 6x/day (DME) [place] 31g x 5/16 Qty: 300 11RF Dose Instruction: As directed Rx Instructions: Use to inject insulin up to 6x a day olmesartan 40 mg tablet 40 mg PO DAILY Qty: 90 3RF nadolol 80 mg tablet 80 mg PO DAILY Qty: 90 3RF insulin degludec [Tresiba FlexTouch U-100] 100 unit/mL (3 mL) insulin pen See Rx Instructions SUBCUT DAILY Qty: 45 6RF Rx Instructions: 50 units in pm. May increase pm insulin up to 70 units as necessary to control blood sugar desonide 0.05 % cream 1 applic topical BID PRN (Reason: skin condition) fluticasone propionate [Flonase Allergy Relief] 50 mcg/actuation spray,suspension 2 spray Intranasal BEDTIME PRN (Reason: Allergy Symptoms) Qty: 16 2RF ketoconazole 2 % cream 1 applic topical BID Vitamin D + K2 5,000 units 1 tab PO DAILY Liquid Multivitamin 1 cap PO DAILY Liquid Probiotic 4 drp PO DAILY (DME) Lancing Device See Rx Instructions .Route .MEDSUPPLY Qty: 1 0RF Rx Instructions: One Touch Delica (DME) lancets [OneTouch Delica Lancets] 33 gauge misc See Rx Instructions .Route Qty: 200 12RF Rx Instructions: As directed (DME) blood-glucose meter [Embrace PRO Glucose meter] Misc See Rx Instructions .Route Qty: 1 0RF Rx Instructions: As directed erythromycin 250 mg tablet 250 mg PO QAC Qty: 270 3RF clonazepam [Klonopin] 1 mg tablet 1 mg PO BID Qty: 180 1RF Rx Instructions: for seizures Vabysmo 6 mg/0.05 mL Solution 6 mg INTRAVITREAL Q12W insulin aspart U-100 [Novolog FlexPen U-100 Insulin] 100 unit/mL (3 mL) insulin pen 5 - 15 unit subcut TIDWMEAL Follow up/Referrals: Good Miller MD [Primary Care Provider] - (Keep 04/25/24 appointment) Discharge Health Status Multidrug resistant organism: No MDRO Diet/Activity/Treatments Diet: Diet as Tolerated and Carb-consistent/Diabetic Visit Report/Discharge Packet Stand Alone Forms: Patient Portal/API Discharge Data Primary Care Provider: Good Miller Attending Provider: Good Miller Admit Date/Time: 02/27/24 23:32 Quality VTE Deep Vein Thrombosis/Pulmonary Embolism Present on Admission: No IH PROFEE Charge Codes Discharge inpatient/observation: [id number]
--- NOTE | 2024-02-29 09:40 | PC.NURSE ---
Patient is A&OX4, VSS, afebrile on RA. She is ambulating in her room independenlty, tolerates breafast well no s/sx of hyper or hypoglycemia. She reports a mild headache since yesterday. MD at bedside clearing patient for discharge home today with . She verbalizes understanding of discharge medications, activity, worsening symptoms, as well as follow up appointment. She is escorted by RN via w/ch with all of her belongings for discharge home with her in private vehicle at approximately 0920 this a.m.
== END 2024-02-29 09:30 | disposition home or self-care (01) ==
LOC: ED 21:43 → AC 02-28 01:01
PROVIDERS: Admitting Provider Family Medicine; Emergency Provider Emergency Medicine; Family Provider Internal Medicine; PCP Internal Medicine; Referring Provider Emergency Medicine; Visit Provider Internal Medicine
DX: T38.3X1A Poisoning by insulin and oral hypoglycemic [antidiabetic] drugs, accidental (unintentional), initial encounter (principal); E11.43 Type 2 diabetes mellitus with diabetic autonomic (poly)neuropathy; K31.84 Gastroparesis; Z79.4 Long term (current) use of insulin; M35.00 Sjogren syndrome, unspecified; I10 Essential (primary) hypertension; E78.5 Hyperlipidemia, unspecified; G40.802 Other epilepsy, not intractable, without status epilepticus; G93.81 Temporal sclerosis; G43.909 Migraine, unspecified, not intractable, without status migrainosus
CPT/HCPCS: 36415; 80053; 82962; 85025; 96361; 96372; 96374; 99284; G0378; A9270; J0360; J1650

== ENCOUNTER → 2024-08-18 09:24 | Outpatient (CLI) | payer MEDICARE, OTHER, SELFPAY ==
[2024-04-25 10:14] VITALS: BMI 32.3
[2024-08-18 10:55] LABS: Hemoglobin A1C% w Est Avg Glu 6.6 % (4.0-6.0)
[2024-08-18 11:01] LABS: Hematocrit 39.4 % (36-46); Hemoglobin 13.1 g/dL (12.0-16.0); Mean Corpuscular HGB Conc 33.1 % (30-36); Mean Corpuscular Hemoglobin 27.1 PG (26-34); Mean Corpuscular Volume 81.8 fL (80-100); Platelet Count 340 X10^3/uL (150-400); Red Blood Cell Count 4.82 X10^6/uL (4.0-5.2); Red Cell Distribution Width 15.1 % (11.6-14.8); White Blood Cell Count 9.9 X10^3/uL (4.5-11.0)
== END ==
PROVIDERS: Family Provider Internal Medicine; PCP Internal Medicine; Referring Provider Internal Medicine; Visit Provider Internal Medicine
DX: E11.9 Type 2 diabetes mellitus without complications (principal); I10 Essential (primary) hypertension; E78.2 Mixed hyperlipidemia
CPT/HCPCS: 36415; 83036; 85027

== ENCOUNTER → 2024-11-21 11:02 | Outpatient (CLI) | payer MEDICARE, OTHER, SELFPAY ==
[2024-04-25 10:14] VITALS: BMI 32.3
--- NOTE | 2024-11-21 11:05 | DI.CT.S_ITS ---
PROCEDURE: CT ABDOMEN PELVIS W CON INDICATIONS: abd pain/diarrhea TECHNIQUE: After the administration of intravenous contrast, axial sections acquired from the lung bases to the pubic symphysis. Coronal and sagittal reformats were performed. For radiation dose reduction, the following was used: automated exposure control, adjustment of mA and/or kV according to patient size. COMPARISON: [facility], CT, CT ABDOMEN PELVIS W [facility], 07/06/2021, 11:51. [facility], CT, CT ABDOMEN PELVIS W CON, 06/25/2021, 11:59. FINDINGS: Image quality: Diagnostic. Lower Chest: No significant findings. ABDOMEN: Liver: No solid mass. Gallbladder: No radiopaque gallstones or wall thickening. Biliary ducts: No biliary dilation. Pancreas: No ductal dilation. Spleen: Size is within normal limits. Adrenal Glands: No adrenal nodules. Kidneys and Ureters: No hydronephrosis. No solid mass. No complex renal cystic lesion which requires follow up. Stomach and Bowel: Normal colonic caliber, without significant wall thickening. Peritoneum: No abnormal intraperitoneal fluid. No free air. Ventral Wall: No significant ventral hernia. Abdominal Nodes: No retroperitoneal or mesenteric adenopathy by size criteria. Vessels: Aorta and inferior vena cava are normal in size. PELVIS: Pelvic Organs: Unremarkable. Bladder: No bladder wall thickening, accounting for underdistention. Pelvic Nodes: No enlarged lymph nodes. Miscellaneous: No inguinal hernias are seen. There is [id number] sigmoid diverticulosis without evidence of acute diverticulitis at this time. Normal appendix found. Bones: No aggressive osseous abnormality. IMPRESSION: Ieud-[id number] sigmoid diverticulosis, no acute diverticulitis. Normal appendix found right lower quadrant. Dictated by: Duran Brown M.D. on 11/21/2024 at 14:44 Approved by: Duran Brown M.D. on 11/21/2024 at 14:46
[2024-11-21 11:42] LABS: Alanine Aminotransferase 19 IU/L (<35); Albumin 4.6 g/dL (3.5-5.0); Albumin Globulin Ratio 1.5 (1.0-2.8); Alkaline Phosphatase 87 U/L (38-126); Aspartate Aminotransferase 34 IU/L (14-36); BUN Creatinine Ratio 13.3 (6-22); Bilirubin Total 0.5 mg/dL (0.2-1.3); Blood Urea Nitrogen 15 mg/dL (7-17); C-Reactive Protein Quant 0.8 mg/dL (<1.0); Calcium 9.8 mg/dL (8.4-10.2); Carbon Dioxide 26 mmol/L (22-32); Chloride 104 mmol/L (98-107); Estimated Glomerular Filt Rate 51 mL/min (>60); Globulin 3.1 g/dL (1.7-4.1); Glucose 134 mg/dL (80-110); HEMOLYSIS < 15 (0-50); Lipase 149 U/L (23-300); Potassium 4.8 mmol/L (3.4-5.1); Sodium 138 mmol/L (137-145); Total Protein 7.7 g/dL (6.3-8.2)
[2024-11-21 12:11] LABS: Add Manual Diff / Slide Review NO; Basophils Absolute Auto 0 /uL (0-100); Basophils Percent Auto 0.5 % (0-2); Eosinophils Absolute Auto 200 /uL (0-450); Eosinophils Percent Auto 2.2 % (2-4); Hemoglobin 12.7 g/dL (12.0-16.0); Lymphocytes Absolute Auto 2000 /uL (1100-4500); Lymphocytes Percent Auto 24.6 % (25-40); Mean Corpuscular HGB Conc 31.8 % (30-36); Mean Corpuscular Hemoglobin 25.9 PG (26-34); Mean Corpuscular Volume 81.4 fL (80-100); Monocytes Absolute Auto 600 /uL (0-900); Monocytes Percent Auto 7.8 % (3-14); Neutrophils Absolute Auto 5400 /uL (1500-7000); Neutrophils Percent Auto 64.9 % (50-75); Platelet Count 343 X10^3/uL (150-400); Red Blood Cell Count 4.92 X10^6/uL (4.0-5.2); White Blood Cell Count 8.3 X10^3/uL (4.5-11.0)
== END ==
PROVIDERS: Family Provider Internal Medicine; PCP Internal Medicine; Referring Provider Internal Medicine; Visit Provider Internal Medicine
DX: K57.30 Diverticulosis of large intestine without perforation or abscess without bleeding (principal); R19.7 Diarrhea, unspecified; R10.9 Unspecified abdominal pain
CPT/HCPCS: 36415; 74177; 80053; 83690; 85025; 86140; Q9967

== ENCOUNTER → 2025-02-06 07:21 | Outpatient (CLI) | payer MEDICARE, OTHER, SELFPAY ==
[2024-04-25 10:14] VITALS: BMI 32.3
[2025-02-06 07:47] LABS: Hemoglobin A1C% w Est Avg Glu 6.5 % (4.0-6.0)
[2025-02-06 08:01] LABS: Alanine Aminotransferase 26 IU/L (<35); Albumin 4.5 g/dL (3.5-5.0); Albumin Globulin Ratio 1.4 (1.0-2.8); Alkaline Phosphatase 83 U/L (38-126); Aspartate Aminotransferase 35 IU/L (14-36); BUN Creatinine Ratio 15.1 (6-22); Bilirubin Total 0.5 mg/dL (0.2-1.3); Blood Urea Nitrogen 16 mg/dL (7-17); Calcium 9.8 mg/dL (8.4-10.2); Carbon Dioxide 26 mmol/L (22-32); Chloride 103 mmol/L (98-107); Estimated Glomerular Filt Rate 54 mL/min (>60); Globulin 3.3 g/dL (1.7-4.1); Glucose 166 mg/dL (80-110); HEMOLYSIS < 15 (0-50); Potassium 4.7 mmol/L (3.4-5.1); Sodium 139 mmol/L (137-145); Total Protein 7.8 g/dL (6.3-8.2)
[2025-02-06 08:18] LABS: Vitamin D 25 Hydroxy (D3) 61.4 ng/mL (30.0-100.0)
== END ==
PROVIDERS: Family Provider Internal Medicine; PCP Internal Medicine; Referring Provider Internal Medicine; Visit Provider Internal Medicine
DX: E11.9 Type 2 diabetes mellitus without complications (principal); E55.9 Vitamin D deficiency, unspecified; E56.9 Vitamin deficiency, unspecified
CPT/HCPCS: 36415; 80053; 82306; 83036

== ENCOUNTER → 2025-02-16 09:34 | Outpatient (CLI) | payer MEDICARE, OTHER, SELFPAY ==
[2024-04-25 10:14] VITALS: BMI 32.3
--- NOTE | 2025-02-16 09:35 | DI.RAD.S_ITS ---
PROCEDURE: XR SHOULDER LT MIN 2V INDICATIONS: left shoulder pain TECHNIQUE: Three views of the left shoulder were acquired. COMPARISON: None. FINDINGS: Bones: Probable nondisplaced fracture of the coracoid tip appreciated. This is likely chronic Acromioclavicular and glenohumeral joints: Moderate acromioclavicular degeneration noted. Glenohumeral joint is normal. Soft tissues: Heart is mildly enlarged IMPRESSION: Suspect chronic fracture of the coracoid process tip. Moderate acromioclavicular degeneration Dictated by: Good Kapoor M.D. on 02/17/2025 at 7:41 Approved by: Good Kapoor M.D. on 02/17/2025 at 7:43
== END ==
PROVIDERS: Family Provider Internal Medicine; PCP Internal Medicine; Referring Provider Internal Medicine; Visit Provider Internal Medicine
DX: M19.012 Primary osteoarthritis, left shoulder (principal); M25.512 Pain in left shoulder
CPT/HCPCS: 73030

== ENCOUNTER 2025-03-24 09:45 | Outpatient (RCR) | payer MEDICARE, OTHER, SELFPAY ==
[2024-04-25 10:14] VITALS: BMI 32.3
--- NOTE | 2025-03-10 17:15 | PT.OIE ---
Current Diagnoses Unspecified osteoarthritis, unspecified site (03/10/25) Past Medical History (Last Updated 04/25/24 @ 10:37 by Good Miller MD) Abnormal CXR (chest x-ray) (1981) Abnormal Pap smear of cervix (1984) Anemia Ankle pain (1994) Asthma Atrophic vaginitis (11/24/14) Chronic back pain (1999) Diverticular disease (1999) Diverticulosis of colon (06/16/11) Eczema Essential hypertension (11/23/15) Fibroids (2002) Fibromyalgia (06/16/11) Foot pain (2004) Fractures (1972) Gastroparesis diabeticorum GERD (gastroesophageal reflux disease) Hayfever Hepatitis A (1989) History of heavy periods Hyperlipidemia Hypertension (2004) Inner ear inflammation Irritable bowel syndrome (06/16/11) Legionella pneumonia (1981) Liver disease MCTD (mixed connective tissue disease) Measles (1958) Mixed hyperlipidemia (06/16/11) Mumps (1958) Ovarian cyst (1984) Overactive bladder Painful menstrual periods Polymyalgia rheumatica Psoriasis Recurrent sinusitis (2004) RLS (restless legs syndrome) (2004) Rubella (1958) Sarcoidosis (1983) Seizure, temporal lobe (1984) Sjogren's syndrome (10/01/15) Sjogren's syndrome Type 2 diabetes mellitus without complication (04/10/16) Vitamin deficiency Past Surgical History (Last Reviewed 02/29/24 @ 08:19 by Good Miller MD) Anesthesia complication History of abdominal surgery (2008) History of abdominal surgery (1981) History of bilateral salpingo-oophorectomy (BSO) History of colonoscopy (12/17/14) History of esophagogastroduodenoscopy (EGD) (12/2014) History of lung biopsy (1983) History of lung biopsy (1981) History of oophorectomy Status post hysterectomy (2004) Status post knee surgery (2012) Visit Care Team Role Provider Type Good Miller MD Attending Provider Physician Family Provider Primary Care Provider Referring Provider Specialty: Internal Medicine Address: [address] [place] [address], [address], [facility] Email: [email or web address] Physical Therapy Initial Evaluation PT-OP-A Visit Information Start: 03/05/25 14:56 Freq: Status: Active Protocol: Document 03/10/25 11:35 LRN (Rec: 03/10/25 12:42 LRN Laptop) Out-Patient Physical Therapy Visit Information Visit Information Visit Type Initial Evaluation Visit Start Time 11:35 Visit Stop Time 12:20 Visit Number 1 Evaluation Information Evaluation Date 03/10/25 Precautions Precautions Shogrens, arthritis, diabetes type I, 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 PT-OP-B Current Condition Start: 03/05/25 14:56 Freq: Status: Active Protocol: Document 03/10/25 11:35 LRN (Rec: 03/10/25 12:42 LRN Laptop) Current Condition History of Current Condition Onset Date 2 months ago Current Complaints L shoulder pain and pain down the arm. History of Current Condition Has had pain for awhile in most of her joints for past 15 yrs. Has tried pain meds and doesn't want to take anymore meds. Had a bad fall down stairs 2 months ago, and hip the floor on the L side at bottom of stairs (concrete floor). At first didn't notice a change, but later had difficulty moving the L arm with shooting tingling pain on inside and outside of the L arm. Told she had an old fx in L arm. X-ray shows Suspect chronic fracture of the coracoid process tip. Moderate acromioclavicular degeneration. States R arm is pretty. Sleeping on the arm makes the pain much worse. Worse mvmt is backward w/hand and upward. Will only do 5 appts due to spouse having a cardiac surgery in 5 wks ( first 2 wks of april). Prior Treatments and Tests Neck pain treatments in past with neck stretches. Developmental History Developmental History Walks daily, and does neck stretches, and stationary bike . Treatment Goals Patient/Caregiver Goals Pt goals: Move with less pain (50% less) dressing (reaching L hand for things above shoulder hgt, don/doff hoodie or top) and reaching to feet to put/tie shoe laces. HEP. 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 Hip, knee ankle and ankle pain onset due to psoriatic arthritis. PT-OP-C Subjective Start: 03/05/25 14:56 Freq: Status: Active Protocol: Document 03/10/25 11:35 LRN (Rec: 03/10/25 12:42 LRN Laptop) Patient Questionnaires Quick Dash- Upper Extremity Quick Dash UE Score 72.72 Quick Dash UE Impairment 60 to 79% Impaired (Score 60- 79) OP-PT Pain Assessment Pain Assessment Grid Paper Pain Assessment Grid Completed Yes Location R lateral low back Intensity 6 Scale Used Numeric (0 - 10) L lateral upper glut Intensity 6 Scale Used Numeric (0 - 10) Low Back Pain Location Details Across the Low back Intensity 6 Scale Used Numeric (0 - 10) L lateral trunk Pain Location Details L Upper lateral trunk Intensity 7 Scale Used Numeric (0 - 10) L brachium Intensity 7 Description Acute,Sharp,Shooting PT-OP-H Neuro Start: 03/05/25 14:56 Freq: Status: Active Protocol: Document 03/10/25 11:35 LRN (Rec: 03/10/25 12:42 LRN Laptop) Sensation Evaluation Gross Sensation Gross Sensation WNL PT-OP-J Posture/Palpation/Skin Start: 03/05/25 14:56 Freq: Status: Active Protocol: Document 03/10/25 11:35 LRN (Rec: 03/10/25 12:42 LRN Laptop) Posture Evaluation Comments Posture Comments L shoulder foward rounded and low, forward head, increased kyphosis. Palpation Assessment Location L Coracoid process Palpation Findings Tenderness L Lateral trunk under shoulder Palpation Location L lateral trunk and inferior L brachium Palpation Findings Tenderness Supraspintus Palpation Location Supraspinatus at suprapinatus fossa Palpation Findings Soft Tissue Tightness, Tenderness PT-OP-K Range of Motion Start: 03/05/25 14:56 Freq: Status: Active Protocol: Document 03/10/25 11:35 LRN (Rec: 03/10/25 12:42 LRN Laptop) Shoulder Goniometric Range of Motion Shoulder Right Active Shoulder ROM WFL Yes Testing Position Sitting Flexion 140 Extension 60 Abduction 132 External Rotation at 0 degrees Abduction 70 Internal Rotation Behind Back (text) L3 Left Active Shoulder ROM WFL Yes Testing Position Sitting Flexion 55 Extension 30 Abduction 55 External Rotation at 0 degrees Abduction 50 Internal Rotation Behind Back (text) side of L buttock Comments Pt arm shaking with movement. Shoulder ER is 20 deg's w/o pain, 50 deg's max w/pain. PT-OP-L Special Tests Start: 03/05/25 14:56 Freq: Status: Active Protocol: Document 03/10/25 11:35 LRN (Rec: 03/10/25 12:42 LRN Laptop) Special Tests Shoulder Special Tests UE neural test Test Results + Left IR/Horizontal ADD Impingement Test Results + Left Elevation Impingement Test Results + Left PT-OP-M Strength Start: 03/05/25 14:56 Freq: Status: Active Protocol: Document 03/10/25 11:35 LRN (Rec: 03/10/25 12:42 LRN Laptop) Shoulder Strength Shoulder Manual Muscle Testing Right Comments Strength is 5/5. Left Flexion 2 Poor Extension 4+ Good+ Abduction (C5) 2 Poor Adduction 3+ Fair+ External Rotation 2 Poor Internal Rotation 3+ Fair+ PT-OP-Q Treatments Start: 03/05/25 14:56 Freq: Status: Active Protocol: Document 03/10/25 11:35 LRN (Rec: 03/10/25 12:42 LRN Laptop) Therapeutic Exercises Sitting Exercises Shdr ER/IR Side bilateral Reps/Minutes 10x Comments Cued to keep elbows tucked in and painfree range. Scapular pinches Side bilateral Reps/Minutes 8x Comments Phys cuing to rhomboids, educ pt in possible diff btn ms/ neural pain Self-Care/Home Management Treatment Education Other Education Discussed results of evaluation, goals, treatment, and plan of care (POC) with pt ; pt agreeable to evaluation, goals, treatment and POC. Activities Self-Care/Home Management Activities Reviewed & issued HEP: Scapular pinches & active sitting painfree shoulder ER/ IR. PT-OP-T Assessment and Plan Start: 03/05/25 14:56 Freq: Status: Active Protocol: Document 03/10/25 11:35 LRN (Rec: 03/10/25 12:42 LRN Laptop) Physical Therapy Assessment Rehab Potential Rehabilitation Potential Fair Evaluation Complexity Number of Personal Factors/Comorbidities 3 or More Number of Body Systems Impaired 4 or More Clinical Presentation at Evaluation Evolving Impairments Impairments Activity Tolerance,Pain, Posture,ROM,Soft Tissue Mobility,Strength Goals Two Impairment Decreased ability to dress & reach her feet to put socks/ shoes on, pn 7/10 Short Term Goal (STG) Improve L shoulder AROM with pt able to reach feet to put socks/shoes on. STG Duration 03/17/25 Care Home Goal (LTG) Move with 50% L shoulder pain dressing (reaching L hand for things above shoulder hgt, don /doff hoodie or top). LTG Duration 03/27/25 One Impairment Lacks appropriate self care HEP Short Term Goal (STG) Pt will be educated and able to provide self care for pain management at home. STG Duration 03/17/25 Care Home Goal (LTG) Pt will be independent in self care HEP of RC/scapular stabilizer and UE neural tension ex's. 03/10/25: HEP: Scapular pinches & active sitting painfree shoulder ER/IR. LTG Duration 03/27/25 progressed 03/10/25 Assessment Summary Assessment Pt is a 74 yo female who presents with limited and painful L shoulder with RC dysfunction and UE neural involvement as her provocative tests are positive for impingement and neural tension. Poor posture and decreased L shoulder strength are limiting her functional ability for dressing and self care. Pt's has many comorbidities and a spouse who is planning on having a cardiac surgery in 3 weeks that will prevent her from participating in a full rehab program, but she is agreeable to decreasing her pain and gaining as much functional mobility as possible, as well as learning a home exercise program before her spouse's surgery. The pt will benefit from skilled physical therapy to achieve the goals as previously noted and as goals listed above. Physical Therapy Plan Frequency and Duration Frequency of Treatment 2x/Week Duration of treatment (weeks) 2 Plan of Care Start Date 03/10/25 Plan of Care End Date 03/27/25 Therapeutic Interventions Therapeutic Interventions Home Exercise Program,Joint Mobilizations,Manual Therapy, Neuromuscular Re-education, Self-Care/Home Management,Soft Tissue Mobilization, Therapeutic Activities, Therapeutic Exercises Next Visit Focus/Plan Next Note Type Treatment Note Next Visit Plan Next: 3 wks PT. Review issued HEP. Educ in self care pain mgmt. Initiate downward FF L shoulder ROM (pendulum) for reaching of feet, progress RC/Scap stab strengthening and placement on HEP. POC: L shoulder rehab RC dysfunction/pain/UE neural tension and education of self care treatments in 3 wks for pt to continue independently on discharge from therapy with post therapy half-way goal of return to function.
--- NOTE | 2025-03-20 09:47 | PT.OTN ---
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 PT-OP-B Current Condition Start: 03/05/25 14:56 Freq: Status: Active Protocol: Document 03/10/25 11:35 LRN (Rec: 03/10/25 12:42 LRN Laptop) Current Condition History of Current Condition Onset Date 2 months ago Current Complaints L shoulder pain and pain down the arm. History of Current Condition Has had pain for awhile in most of her joints for past 15 yrs. Has tried pain meds and doesn't want to take anymore meds. Had a bad fall down stairs 2 months ago, and hip the floor on the L side at bottom of stairs (concrete floor). At first didn't notice a change, but later had difficulty moving the L arm with shooting tingling pain on inside and outside of the L arm. Told she had an old fx in L arm. X-ray shows Suspect chronic fracture of the coracoid process tip. Moderate acromioclavicular degeneration. States R arm is pretty. Sleeping on the arm makes the pain much worse. Worse mvmt is backward w/hand and upward. Will only do 5 appts due to spouse having a cardiac surgery in 5 wks ( first 2 wks of april). Prior Treatments and Tests Neck pain treatments in past with neck stretches. Developmental History Developmental History Walks daily, and does neck stretches, and stationary bike . Treatment Goals Patient/Caregiver Goals Pt goals: Move with less pain (50% less) dressing (reaching L hand for things above shoulder hgt, don/doff hoodie or top) and reaching to feet to put/tie shoe laces. HEP. 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 Hip, knee ankle and ankle pain onset due to psoriatic arthritis. PT-OP-C Subjective Start: 03/05/25 14:56 Freq: Status: Active Protocol: Document 03/17/25 09:52 LRN (Rec: 03/17/25 10:46 LRN Laptop) OP-PT Subjective Patient Comments Patient Comments Wet AMD shot by Dr. Zheng next week, and wants to come on TH after but can't shower 3 days and can't touch eyes. PT-OP-H Neuro Start: 03/05/25 14:56 Freq: Status: Active Protocol: Document 03/10/25 11:35 LRN (Rec: 03/10/25 12:42 LRN Laptop) Sensation Evaluation Gross Sensation Gross Sensation WNL PT-OP-J Posture/Palpation/Skin Start: 03/05/25 14:56 Freq: Status: Active Protocol: Document 03/10/25 11:35 LRN (Rec: 03/10/25 12:42 LRN Laptop) Posture Evaluation Comments Posture Comments L shoulder foward rounded and low, forward head, increased kyphosis. Palpation Assessment Location L Coracoid process Palpation Findings Tenderness L Lateral trunk under shoulder Palpation Location L lateral trunk and inferior L brachium Palpation Findings Tenderness Supraspintus Palpation Location Supraspinatus at suprapinatus fossa Palpation Findings Soft Tissue Tightness, Tenderness PT-OP-K Range of Motion Start: 03/05/25 14:56 Freq: Status: Active Protocol: Document 03/10/25 11:35 LRN (Rec: 03/10/25 12:42 LRN Laptop) Shoulder Goniometric Range of Motion Shoulder Right Active Shoulder ROM WFL Yes Testing Position Sitting Flexion 140 Extension 60 Abduction 132 External Rotation at 0 degrees Abduction 70 Internal Rotation Behind Back (text) L3 Left Active Shoulder ROM WFL Yes Testing Position Sitting Flexion 55 Extension 30 Abduction 55 External Rotation at 0 degrees Abduction 50 Internal Rotation Behind Back (text) side of L buttock Comments Pt arm shaking with movement. Shoulder ER is 20 deg's w/o pain, 50 deg's max w/pain. PT-OP-L Special Tests Start: 03/05/25 14:56 Freq: Status: Active Protocol: Document 03/10/25 11:35 LRN (Rec: 03/10/25 12:42 LRN Laptop) Special Tests Shoulder Special Tests UE neural test Test Results + Left IR/Horizontal ADD Impingement Test Results + Left Elevation Impingement Test Results + Left PT-OP-M Strength Start: 03/05/25 14:56 Freq: Status: Active Protocol: Document 03/10/25 11:35 LRN (Rec: 03/10/25 12:42 LRN Laptop) Shoulder Strength Shoulder Manual Muscle Testing Right Comments Strength is 5/5. Left Flexion 2 Poor Extension 4+ Good+ Abduction (C5) 2 Poor Adduction 3+ Fair+ External Rotation 2 Poor Internal Rotation 3+ Fair+ PT-OP-Q Treatments Start: 03/05/25 14:56 Freq: Status: Active Protocol: Document 03/17/25 09:52 LRN (Rec: 03/17/25 10:46 LRN Laptop) Therapeutic Exercises Supine Exercises Shoulder ER/IR Supine Exercise Name support under elbows: angle AB : 0, ~10, ~40 deg's. Side bilateral Reps/Minutes 10x 3 Comments Cued to keep elbows tucked in and painfree range, xtra time for positioning Scap pinches Supine Exercise Name Towel roll down spine for scap pinches Reps/Minutes 10x Comments Much extra time needed for tolerated positioning. Sitting Exercises Shoulder flex Sitting Exercise Name Forward bending for flexion Side bilateral Reps/Minutes 15 x 2 Manual Therapy Treatment Consent Patient gave verbal consent for manual Yes treatment Soft Tissue Mobilization Pec Aristides/minor Body Location L Pec Aristides/Min Mobilization Type Strumming,Trigger Point Release Intensity/Depth Superficial Body Position Supine Comments towel rolls under elbows. Self-Care/Home Management Treatment Activities Self-Care/Home Management Activities Reviewed & Issued HEP: Shoulder active ER/IR in 3 positions (AB - 0?, ~20?, ~40 ?). I/S pt in active sitting fwd bend for L shdr flex stretch. PT-OP-T Assessment and Plan Start: 03/05/25 14:56 Freq: Status: Active Protocol: Document 03/17/25 09:52 LRN (Rec: 03/17/25 10:46 LRN Laptop) Physical Therapy Assessment Goals Two Impairment Decreased ability to dress & reach her feet to put socks/ shoes on, pn 7 Short Term Goal (STG) Improve L shoulder AROM with pt able to reach feet to put socks/shoes on. STG Duration 03/17/25 Residential Goal (LTG) Move with 50% L shoulder pain dressing (reaching L hand for things above shoulder hgt, don /doff hoodie or top). LTG Duration 03/27/25 One Impairment Lacks appropriate self care HEP Short Term Goal (STG) Pt will be educated and able to provide self care for pain management at home. 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 03/10/25: HEP: Scapular pinches & active sitting painfree shoulder ER/IR. 03/17/25: HEP: Shoulder active ER/IR in 3 positions ( AB - 0?, ~20?, ~40?). I/S pt in active sitting fwd bend for L shdr flex stretch. LTG Duration 03/27/25 progressed 03/17/25 Assessment Summary Assessment 74 yo w/painful L shdr due to RC dysfunction & UE neural symptoms (impingement & + neural tension). Today, L shoulder ER AROM improved with repetitive AROM (ER/IR) and STM to pec. Pt ability to reach fwd for feet also appears to be less painful. Pt has 2 more visits to be placed on HEP; therefore will need to progress her RC strengthening to TB resistance next visit. Physical Therapy Plan Frequency and Duration Frequency of Treatment 2x/Week Duration of treatment (weeks) 2 Plan of Care Start Date 03/10/25 Plan of Care End Date 03/27/25 Next Visit Focus/Plan Next Note Type Treatment Note Next Visit Plan DC in 2 visits due to pt spouse having cardiac surgery. Next: Educ in self care pain mgmt. Progress FF L shoulder AROM for reaching of feet (try table slides w/scap mvmt), progress RC/Scap stab strengthening (add L1 TB) and HEP. UE neural glides. PT visit: review for DC. POC: L shoulder rehab RC dysfunction/pain/UE neural tension and education of self care treatments in 3 wks for pt to continue independently on discharge from therapy with post therapy long-term goal of return to function.
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
== END 2025-03-26 09:45 | disposition home or self-care (01) ==
LOC: PHYS 09:45
PROVIDERS: Family Provider Internal Medicine; PCP Internal Medicine; Referring Provider Internal Medicine; Visit Provider Internal Medicine
DX: M19.90 Unspecified osteoarthritis, unspecified site (principal)
CPT/HCPCS: 97110; 97140; 97162; 97535

== ENCOUNTER 2025-04-03 00:17 | Emergency (ER) | payer MEDICARE, OTHER, SELFPAY ==
[2024-04-25 10:14] VITALS: BMI 32.3
[2025-04-03 00:31] VITALS: BP 182/77; PULSE 64; RESP 16; TEMP 36.8; O2SAT 97; BMI 29.9
--- NOTE | 2025-04-03 00:59 | EKG_ITS ---
[address] [address] Test Date: 2025-04-03 Pat Name: Nuris Sanchez Department: [facility] Room: Gender: Female Wool Scourer: TAMI SANCHEZ : 1950 Requested By: Order Number: [id number] Reading MD: Cale Ackerman Measurements Intervals [place] Rate: 60 P: -18 IN: 168 QRS: 24 QRSD: 126 T: 11 QT: 432 QTc: 432 Interpretive Statements Normal sinus rhythm Right bundle branch block Electronically Signed On 04-04-2025 16:23:17 PDT by Cale Ackerman
[2025-04-03 01:11] LABS: Add Manual Diff / Slide Review NO; Basophils Absolute Auto 0 /uL (0-100); Basophils Percent Auto 0.6 % (0-2); Eosinophils Absolute Auto 200 /uL (0-450); Eosinophils Percent Auto 2.8 % (2-4); Hematocrit 35.3 % (36-46); Hemoglobin 11.3 g/dL (12.0-16.0); Lymphocytes Absolute Auto 2300 /uL (1100-4500); Lymphocytes Percent Auto 28.9 % (25-40); Mean Corpuscular HGB Conc 31.9 % (30-36); Mean Corpuscular Volume 81.3 fL (80-100); Monocytes Absolute Auto 700 /uL (0-900); Monocytes Percent Auto 9.3 % (3-14); Neutrophils Absolute Auto 4600 /uL (1500-7000); Neutrophils Percent Auto 58.4 % (50-75); Platelet Count 314 X10^3/uL (150-400); Red Blood Cell Count 4.34 X10^6/uL (4.0-5.2); Red Cell Distribution Width 15.7 % (11.6-14.8); White Blood Cell Count 7.9 X10^3/uL (4.5-11.0)
--- NOTE | 2025-04-03 01:20 | DI.CT.S_ITS ---
PROCEDURE: CT ABDOMEN PELVIS W CON INDICATIONS: abd pain llq TECHNIQUE: After the administration of intravenous contrast, axial sections acquired from the lung bases to the pubic symphysis. Coronal and sagittal reformats were performed. For radiation dose reduction, the following was used: automated exposure control, adjustment of mA and/or kV according to patient size. COMPARISON: [facility], CT, CT ABDOMEN PELVIS W CON, 11/21/2024, 12:29. FINDINGS: Image quality: Diagnostic. Lower Chest: Small hiatal hernia. Circumferential thickening of the lower esophagus. ABDOMEN: Liver: No solid mass. Gallbladder: No radiopaque gallstones or wall thickening. Biliary ducts: No biliary dilation. Pancreas: No ductal dilation. Spleen: Size is within normal limits. Adrenal Glands: No adrenal nodules. Kidneys and Ureters: No hydronephrosis. No solid mass. No complex renal cystic lesion which requires follow up. Stomach and Bowel: Along segment of wall thickening of the sigmoid colon, without associated pericolonic fat stranding or a distinctly inflamed diverticulum. Peritoneum: No abnormal intraperitoneal fluid. No free air. Ventral Wall: No significant ventral hernia. Abdominal Nodes: No retroperitoneal or mesenteric adenopathy by size criteria. Vessels: Aorta and inferior vena cava are normal in size. PELVIS: Pelvic Organs: Unremarkable. Bladder: No bladder wall thickening, accounting for underdistention. Pelvic Nodes: No enlarged lymph nodes. Miscellaneous: No inguinal hernias are seen. Bones: No aggressive osseous abnormality. IMPRESSION: Colitis of the sigmoid colon versus chronic diverticulitis, with a long segment of sigmoid colonic wall thickening without pericolonic fat stranding or an inflamed diverticulum. Malignancy is considered less likely given the long segment of affected bowel, and the lack adjacent lymphadenopathy. Dictated by: Chase Hill M.D. on 04/03/2025 at 2:12 Approved by: Chase Hill M.D. on 04/03/2025 at 2:14
[2025-04-03 01:21] LABS: Alanine Aminotransferase 15 IU/L (<35); Albumin 4.4 g/dL (3.5-5.0); Albumin Globulin Ratio 1.4 (1.0-2.8); Alkaline Phosphatase 84 U/L (38-126); Aspartate Aminotransferase 29 IU/L (14-36); Bilirubin Total 0.3 mg/dL (0.2-1.3); Blood Urea Nitrogen 20 mg/dL (7-17); Calcium 9.5 mg/dL (8.4-10.2); Carbon Dioxide 26 mmol/L (22-32); Chloride 105 mmol/L (98-107); Estimated Glomerular Filt Rate 58 mL/min (>60); Globulin 3.1 g/dL (1.7-4.1); Glucose 79 mg/dL (70-99); HEMOLYSIS < 15 (0-50); Lipase 145 U/L (23-300); Potassium 4.1 mmol/L (3.4-5.1); Sodium 141 mmol/L (137-145); Total Protein 7.5 g/dL (6.3-8.2)
--- NOTE | 2025-04-03 01:23 | ED.ABDPAIN ---
HPI - Abdominal Pain General Chief Complaint: Abdominal Pain Stated Complaint: Abd x 4 days , Lt abd pain Time Seen by Provider: 04/03/25 01:07 Source: patient Mode of arrival: Ambulatory History of Present Illness HPI narrative: Patient is a 74-year-old female with a history of type 2 diabetes, hyperlipidemia, hypertension, psoriasis, and fibromyalgia who presents with diarrhea over last several days after completing a course of antibiotics, now experiencing left lower quadrant pain. She denies any history of kidney stones. She has one functional kidney, with the other being very small, but she does not require dialysis. On review of systems, she reports left lower quadrant abdominal tenderness on exam, and denies history of kidney stones. No mention of fever, chills, dysuria, hematuria, or gastrointestinal symptoms. Past Medical History: Type 2 diabetes, hyperlipidemia, hypertension, psoriasis, fibromyalgia, one functional kidney (other kidney is very small), no history of kidney stones. Medications: Currently on antibiotics for infection (specific agent not mentioned). Related Data Home Medications Medication Instructions Recorded Confirmed carboxymethylcellulose sodium 1 % 2 gtt OU PRN ##0 05/09/12 02/16/25 eye liquid gel drops (Refresh Liquigel) aspirin 81 mg tablet,delayed 81 mg PO QDAY ##0 05/11/17 02/16/25 release Liquid Multivitamin 1 cap PO DAILY 05/11/22 02/16/25 Vitamin D + K2 1 tab PO DAILY 05/11/22 02/16/25 desonide 0.05 % topical cream 1 applic topical BID PRN skin 11/23/23 02/16/25 condition faricimab-svoa 6 mg/0.05 mL 6 mg intravitreal Q12W 02/28/24 02/16/25 intravitreal solution (Vabysmo) clobetasol 0.05 % topical cream 1 applic topical DAILY 04/25/24 02/16/25 ivermectin 1 % topical cream 1 applic topical DAILY 04/25/24 02/16/25 selenium sulfide 2.5 % lotion 1 applic topical 3XW 04/25/24 02/16/25 Previous Rx's Medication Instructions Recorded Disabled Parking #1 ea 04/13/22 albuterol sulfate 90 mcg/actuation 2 puff inhalation Q4H PRN 06/09/24 aerosol inhaler (Ventolin HFA) Shortness Of Breath #18 grams fluticasone propionate 50 2 spray intranasal BEDTIME PRN 07/09/24 mcg/actuation nasal Allergy Symptoms #16 grams spray,suspension (Flonase Allergy Relief) [place] 31g x / #300 ea 07/21/24 blood glucose control, normal #1 ea 07/21/24 (OneTouch Ultra Control solution) lancets 30 gauge #100 ea 07/21/24 lansoprazole 30 mg capsule,delayed 30 mg PO BID #180 caps 07/21/24 release nadolol 80 mg tablet 80 mg PO DAILY #90 tabs 07/21/24 blood glucose control, normal #1 ea 07/25/24 (OneTouch Verio Mid Control solution) blood sugar diagnostic (OneTouch #250 ea 07/25/24 Verio test strips) blood-glucose meter (OneTouch #1 ea 07/25/24 Verio Flex Meter) insulin aspart U-100 100 unit/mL 5 - 15 unit (0.05 - 0.15 mL) 07/25/24 (3 mL) subcutaneous pen (Novolog SUBCUT TIDWMEAL #30 mL FlexPen U-100 Insulin aspart) olmesartan 40 mg tablet 40 mg PO DAILY #90 tabs 08/19/24 ondansetron 4 mg disintegrating 4 mg PO Q6H PRN nausea and 11/21/24 tablet vomiting #30 tabs sulfamethoxazole 800 1 tab PO BID 2 weeks #28 tabs 11/21/24 mg-trimethoprim 160 mg tablet insulin degludec 100 unit/mL (3 See Rx Instructions SUBCUT DAILY 01/27/25 mL) subcutaneous pen (Tresiba #45 mL FlexTouch U-100 insulin) clonazepam 1 mg tablet (Klonopin) 1 mg PO BID #180 tabs 02/06/25 tramadol 50 mg tablet 50 mg PO TID PRN pain #30 tabs 02/18/25 erythromycin 250 mg tablet 250 mg PO QAC #270 tabs 03/09/25 Allergies Allergy/AdvReac Type Severity Reaction Status Date / Time atorvastatin [ATORVASTATIN] Allergy Unknown Verified 02/16/25 08:51 gemfibrozil [GEMFIBROZIL] Allergy Unknown Verified 02/16/25 08:51 rosuvastatin [ROSUVASTATIN] Allergy Unknown Verified 02/16/25 08:51 tetracycline [TETRACYCLINE] Allergy Unknown Verified 02/16/25 08:51 Milk Containing Products AdvReac Severe GI issues Verified 02/16/25 08:51 (Dairy) [MILK CONTAINING PRODUCTS] carisoprodol [CARISOPRODOL] AdvReac Intermediate DIZZINESS Verified 02/16/25 08:51 duloxetine [DULOXETINE] AdvReac Intermediate DIARRHEA/se Verified 02/16/25 08:51 dation fenofibrate [FENOFIBRATE] AdvReac Intermediate rash Verified 02/16/25 08:51 gabapentin AdvReac Intermediate constipatio Verified 02/16/25 08:51 n indomethacin [INDOMETHACIN] AdvReac Intermediate GI DISTRESS Verified 02/16/25 08:51 influenza virus vaccine tvs AdvReac Intermediate severe sx, Verified 02/16/25 08:51 [id number](65 years up) RAI, N/V, [From Fluzone High-Dose SINUS, 2018- (PF)] PLEGM, etc. lisinopril [LISINOPRIL] AdvReac Intermediate EDEMA LEGS Verified 02/16/25 08:51 amoxicillin [AMOXICILLIN] AdvReac Mild itching Verified 02/16/25 08:51 Review of Systems Review of Systems ROS Unobtainable: All systems reviewed & are unremarkable except as noted in HPI and below Patient History Medical History (Updated 04/03/25 @ 02:55 by Nelson Fernandez MD) Psoriasis Overactive bladder Gastroparesis diabeticorum Vitamin deficiency Inner ear inflammation Liver disease Diverticular disease (1999) Ovarian cyst (1984) Recurrent sinusitis (2004) Hepatitis A (1989) Ankle pain (1994) Foot pain (2004) Fractures (1972) Seizure, temporal lobe (1984) Abnormal CXR (chest x-ray) (1981) Sarcoidosis (1983) Legionella pneumonia (1981) Polymyalgia rheumatica Sjogren's syndrome MCTD (mixed connective tissue disease) Hyperlipidemia Hypertension (2004) Abnormal Pap smear of cervix (1984) Fibroids (2002) History of heavy periods Painful menstrual periods Anemia Measles (1958) Mumps (1958) Rubella (1958) Eczema Chronic back pain (1999) RLS (restless legs syndrome) (2004) Hayfever Asthma Type 2 diabetes mellitus without complication (04/10/16) Essential hypertension (11/23/15) Sjogren's syndrome (10/01/15) Atrophic vaginitis (11/24/14) Irritable bowel syndrome (06/16/11) Mixed hyperlipidemia (06/16/11) Diverticulosis of colon (06/16/11) Fibromyalgia (06/16/11) GERD (gastroesophageal reflux disease) Surgical History History of esophagogastroduodenoscopy (EGD) (12/2014) History of colonoscopy (12/17/14) History of oophorectomy History of abdominal surgery (1981) History of abdominal surgery (2008) History of lung biopsy (1981) History of lung biopsy (1983) Anesthesia complication Status post knee surgery (2012) Status post hysterectomy (2004) History of bilateral salpingo-oophorectomy (BSO) Family History Child Age: 55 Hx of Sjogren's disease Child Age: 53 Migraines Father Prostate cancer Cancer Heart disease Stroke Mother Diabetes mellitus Heart disease Hypertension Sister Uterine cancer Grandmother No problems noted. Grandfather Sepsis Grandmother No problems noted. Grandfather Bright's disease Sister Heart block Heart disease Social History marital status: number of children: 3 household members: spouse lives independently: Yes caregiver/support person: No housing: house pets and animals: Yes education level: college occupational status: other Previous occupational history: [employer] and [employer] ([employer]) work fredrick/episcopalian: [employer] leisure activities: exercise, reading and other Smoking Status: Never smoker Tobacco: How many years used: 18 Smokeless tobacco user: other quit status: quit date established second hand exposure: No alcohol intake: never substance use type: does not use and marijuana Smoking Status: Never smoker alcohol intake frequency: 0-2 drinks per day Exam Narrative Exam Narrative: General: Well appearing, well nourished, in no distress. Skin: Good turgor, no rash, unusual bruising or prominent lesions Head: Normocephalic, atraumatic HEENT: Conjunctiva clear, EOM intact, PERRL, Mucous membranes moist. Neck: Supple, normal ROM Heart: Regular rate and rhythm, no murmur or gallop or rubs Lungs: Clear to auscultation. No rales rhonchi or wheezes. Abdomen: Soft and non-distended; tenderness to palpation in the left lower quadrant; no rebound or guarding. Back: Spine normal without deformity or tenderness, no CVA tenderness Extremities: No deformities, edema. peripheral pulses intact Neurologic: CN 2-12 normal. Normal sensation and motor exam. Psychiatric: Oriented X3. normal mood and affect. Initial Vital Signs Initial Vital Signs: Vital Signs Temperature 98.3 F 04/03/25 00:31 Pulse Rate 64 04/03/25 00:31 Respiratory Rate 16 04/03/25 00:31 Blood Pressure 182/77 H 04/03/25 00:31 Pulse Oximetry 97 04/03/25 00:31 Oxygen Delivery Method Room Air 04/03/25 00:31 Course Orders Ordered: ED Orders 04/03/25 00:31 EKG-12 Lead Stat 04/03/25 00:39 Complete Blood Count AUTO DIFF Stat Comprehensive Metabolic Panel Stat Lipase Stat 04/03/25 01:15 GI Panel (Film Array) Stat 04/03/25 01:20 CT abdomen pelvis w con Stat Discontinued Medications Lactated Ringer's (Lactated Ringers) 1,000 mls @ 1,000 mls/hr IV BOLUS ONE Stop: 04/03/25 02:51 Last Infusion: 04/03/25 02:57 Dose: Infused Documented By: Admin: 04/03/25 01:56 Dose: 1,000 mls/hr Documented By: TAMIKA Ondansetron HCl (Ondansetron 4 Mg/2 Ml Inj) 4 mg IV NOW PRN PRN Reason: Nausea And Vomiting Ondansetron HCl (Ondansetron 4 Mg Odt) 4 mg PO NOW PRN PRN Reason: Nausea And Vomiting Vital Signs Vital signs: Vital Signs - 8 hr 04/03/25 00:31 04/03/25 02:00 04/03/25 02:16 Temperature 98.3 F Pulse Rate 64 60 69 Respiratory Rate 16 19 21 Blood Pressure 182/77 H 143/65 H Pulse Oximetry 97 96 100 Oxygen Delivery Method Room Air Room Air Room Air 04/03/25 02:16 04/03/25 02:30 04/03/25 02:30 Temperature Pulse Rate 65 Respiratory Rate 18 Blood Pressure 146/67 H 153/68 H Pulse Oximetry 100 Oxygen Delivery Method MDM - Abdominal Pain Lab Data Lab results narrative: I reviewed patient's labs that shows no significant leukocytosis patient's hemoglobin is 11.3, she does not endorse any blood in the stool however. Patient does not have any significant thrombocytopenia fortunately there is no signs of electrolyte abnormalities such as hyponatremia hyperkalemia and she does not have significant abnormality to her renal function. Patient's lipase within normal limits lower suspicion for pancreatitis, AST, ALT and alkaline phosphatase without significant abnormalities lower suspicion for gallbladder pathology or obstructive pathology. 04/03/25 00:39 04/03/25 00:39 Labs: Lab Results 04/03/25 04/03/25 Range/Units 00:39 01:15 WBC 7.9 (4.5-11.0) X10^3/uL RBC 4.34 (4.0-5.2) X10^6/uL Hgb 11.3 L (12.0-16.0) g/dL Hct 35.3 L (36-46) % MCV 81.3 (80-100) fL MCH 26.0 (26-34) PG MCHC 31.9 (30-36) % RDW 15.7 H (11.6-14.8) % Plt Count 314 (150-400) X10^3/uL Neut % (Auto) 58.4 (50-75) % Lymph % (Auto) 28.9 (25-40) % [place] % (Auto) 9.3 (3-14) % Eos % (Auto) 2.8 (2-4) % Baso % (Auto) 0.6 (0-2) % Neut # (Auto) 4600 (7615-5677) /uL Lymph # (Auto) 2300 (9723-9185) /uL [place] # (Auto) 700 (0-900) /uL Eos # (Auto) 200 (0-450) /uL Baso # (Auto) 0 (0-100) /uL Sodium 141 (137-145) mmol/L Potassium 4.1 (3.4-5.1) mmol/L Chloride 105 (98-107) mmol/L Carbon Dioxide 26 (22-32) mmol/L BUN 20 H (7-17) mg/dL Creatinine 1.00 (0.52-1.04) mg/dL Estimated GFR 58 L (>60) mL/min BUN/Creatinine Ratio 20.0 (6-22) Glucose 79 (70-99) mg/dL Calcium 9.5 (8.4-10.2) mg/dL Total Bilirubin 0.3 (0.2-1.3) mg/dL AST 29 (14-36) IU/L ALT 15 (<35) IU/L Alkaline Phosphatase 84 (38-126) U/L Total Protein 7.5 (6.3-8.2) g/dL Albumin 4.4 (3.5-5.0) g/dL Globulin 3.1 (1.7-4.1) g/dL Albumin/Globulin Ratio 1.4 (1.0-2.8) Lipase 145 (23-300) U/L Stl C. cayetanensis PCR Not detected (Not Detect) Stool Rotavirus (PCR) Not detected (Not Detect) Stool Adenovirus (PCR) Not detected (Not Detect) Stool Astrovirus (PCR) Not detected (Not Detect) Stool Cryptosporidium PCR Not detected (Not Detect) Stl E.coli Shiga Tox PCR Not detected (Not Detect) St Sh/Enteroin Ecoli PCR Not detected (Not Detect) Stl Enterotoxigenic E PCR Not detected (Not Detect) Stool EPEC (PCR) Not detected (Not Detect) Stl E. histolytica PCR Not detected (Not Detect) Stool Giardia Lamblia PCR Not detected (Not Detect) Stool Sapovirus (PCR) Not detected (Not Detect) Stl P. shigelloides PCR Not detected (Not Detect) St Y.enterocolitica PCR Not detected (Not Detect) Stool Vibrio (PCR) Not detected (Not Detect) Stl Vibrio cholerae PCR Not detected (Not Detect) Stl Enteroaggr Ecoli PCR Not detected (Not Detect) Stl Norovirus GI/GII PCR Not detected (Not Detect) Campylobacter (PCR) Not detected (Not Detect) C. difficile Tox (PCR) Not detected (Not Detect) Salmonella (PCR) Not detected (Not Detect) Point of care testing: Urine Dip Bedside Urine Glucose Negative Bedside Urine Bilirubin - Negative Bedside Urine Ketone - Negative Urine Specific [place] 1.010 Bedside Urine Occult Blood - Negative Bedside Urine pH 6.0 Bedside Urine Protein - Negative Bedside Urine Urobilinogen - Negative Bedside Urine Nitrite - Negative Bedside Urine Leukocytes - Negative Esterase Imaging Data CT scan - abdomen/pelvis: My Impression: Patient appears to have evidence of diverticulitis or diverticulosis, no free fluid in the abdomen my review no signs of significant air-fluid levels or volvulus Radiologist's Impression: PELVIS: Pelvic Organs: Unremarkable. Bladder: No bladder wall thickening, accounting for underdistention. Pelvic Nodes: No enlarged lymph nodes. Miscellaneous: No inguinal hernias are seen. Bones: No aggressive osseous abnormality. IMPRESSION: Colitis of the sigmoid colon versus chronic diverticulitis, with a long segment of sigmoid colonic wall thickening without pericolonic fat stranding or an inflamed diverticulum. Malignancy is considered less likely given the long segment of affected bowel, and the lack adjacent lymphadenopathy. MDM Narrative Medical decision making narrative: 74-year-old female presenting with left lower quadrant abdominal pain multiple episodes of watery diarrhea after completing a course of antibiotics. Patient presents hemodynamically stable no acute distress but has had 2 episodes of diarrhea while in the emergency department. No blood in the stool. Differential Diagnoses: C diff, Pyelonephritis, Renal abscess, Diverticulitis, Nephrolithiasis, gastroenteritis Complexity of Problems Addressed: 1. Patient Factors: - 74-year-old female with new onset diarrhea, left lower quadrant abdominal pain - History of type 2 diabetes and having only one functional kidney, increasing risk of complications and morbidity. 2. External Information Sources: - Information obtained from patient history and current antibiotic treatment. 3. Historians: - Patient herself provided the history, which was consistent and reliable. We will obtain labs, CT imaging, stool sample for evaluation of diverticulitis, C diff, pyelonephritis urinary tract infection or other cause of her symptoms. -patient's GI PCR was negative for C difficile or other infectious colitis. Patient's CT imaging shows evidence of potential diverticulitis however given patient was just recently on antibiotics do not believe repeat antibiotics would be significantly beneficial for the patient at this time. Otherwise her laboratory evaluation as discussed above is reassuring with no significant electrolyte abnormalities no signs of kidney dysfunction or OLIVIA. Patient given return precautions to the emergency department and discharged with instructions for oral rehydration and follow up with primary care doctor in the future. She will likely need a colonoscopy in the future as well for further evaluation. -patient's urinalysis negative for infection or significant blood products lower suspicion for nephrolithiasis, pyelonephritis as cause of symptoms Discharge Plan Departure Patient Disposition: Home Clinical Impression: Diverticulitis Activity Restrictions/Additional Instructions: You were seen in the emergency department for diverticulitis/colitis I suspect that this is also potentially a complication from your antibiotic use fortunately your GI panel was negative for C diff infection which required additional antibiotics. Please stay hydrated at home using electrolyte containing fluids in order to keep up with your ongoing GI losses if you continue to have high-volume diarrhea feel dehydrated or have significant abdominal tenderness pain or fevers and chills please return to the emergency department for re-evaluation. Currently based on labs and imaging and do not believe we need to be admitted to the hospital however if you have worsening symptoms please do not hesitate to return for re-evaluation Prescriptions: No Action carboxymethylcellulose sodium [Refresh Liquigel] 1 % Drops, Liquid Gel 2 gtt OU PRN Qty: 0 aspirin 81 MG tablet,delayed release (DR/EC) 81 mg PO QDAY Qty: 0 (DME) Disabled Parking See Rx Instructions .ROUTE .MEDSUPPLY Qty: 1 0RF Rx Instructions: Patient qualifies for disabled parking as per the attached form. albuterol sulfate [Ventolin HFA] 90 mcg/actuation HFA aerosol inhaler 2 puff inhalation Q4H PRN (Reason: Shortness Of Breath) Qty: 18 3RF fluticasone propionate [Flonase Allergy Relief] 50 mcg/actuation spray,suspension 2 spray Intranasal BEDTIME PRN (Reason: Allergy Symptoms) Qty: 16 2RF (DME) lancets 30 gauge misc See Rx Instructions .Route Qty: 100 6RF Rx Instructions: Use to check BS 1-2x daily or as directed by PCP (DME) blood glucose control, normal [OneTouch Ultra Control] Solution See Rx Instructions .Route Qty: 1 1RF Rx Instructions: As directed (DME) [place] 31g x 5/16 Qty: 300 11RF Dose Instruction: As directed Rx Instructions: Use to inject insulin up to 6x a day nadolol 80 mg tablet 80 mg PO DAILY Qty: 90 3RF lansoprazole 30 mg capsule,delayed release(DR/EC) 30 mg PO BID Qty: 180 3RF (DME) OneTouch Verio test strips Strip See Rx Instructions .Route Qty: 250 6RF Rx Instructions: Use to check BS 6x daily or as written by PCP (DME) blood-glucose meter [OneTouch Verio Flex meter] Misc See Rx Instructions .Route Qty: 1 0RF Rx Instructions: Use to check BS 6x daily or as written by PCP insulin aspart U-100 [Novolog FlexPen U-100 Insulin] 100 unit/mL (3 mL) insulin pen 5 - 15 unit subcut TIDWMEAL Qty: 30 6RF (DME) blood glucose control, normal [OneTouch Verio Mid Control] Solution See Rx Instructions .Route Qty: 1 1RF Rx Instructions: As directed olmesartan 40 mg tablet 40 mg PO DAILY Qty: 90 3RF insulin degludec [Tresiba FlexTouch U-100] 100 unit/mL (3 mL) insulin pen See Rx Instructions SUBCUT DAILY Qty: 45 6RF Rx Instructions: 45-50 units in pm. May increase pm insulin up to 70 units as necessary to control blood sugar clonazepam [Klonopin] 1 mg tablet 1 mg PO BID Qty: 180 1RF Rx Instructions: for seizures tramadol 50 mg tablet 50 mg PO TID PRN (Reason: pain) Qty: 30 0RF erythromycin 250 mg tablet 250 mg PO QAC Qty: 270 3RF desonide 0.05 % cream 1 applic topical BID PRN (Reason: skin condition) selenium sulfide 2.5 % lotion 1 applic topical 3XW ivermectin 1 % cream 1 applic topical DAILY clobetasol 0.05 % cream 1 applic topical DAILY ondansetron 4 mg tablet,disintegrating 4 mg PO Q6H PRN (Reason: nausea and vomiting) Qty: 30 0RF sulfamethoxazole-trimethoprim 800-160 mg tablet 1 tab PO BID 14 Days Qty: 28 1RF Vitamin D + K2 5,000 units 1 tab PO DAILY Liquid Multivitamin 1 cap PO DAILY Vabysmo 6 mg/0.05 mL Solution 6 mg INTRAVITREAL Q12W Referrals: Good Miller MD [Primary Care Provider] - Stand Alone Forms: Patient Portal/API/Survey
--- NOTE | 2025-04-03 01:31 | PC.NURSE ---
Pt to imaging via ED stretcher with environmental services floor tech
[2025-04-03] MEDS: LACTATED RINGERS 1,000 ML 1000 ML IV (01:56)
[2025-04-03 02:00] VITALS: BP 143/65; PULSE 60; RESP 19; O2SAT 96
--- NOTE | 2025-04-03 02:14 | PC.NURSE ---
Ambulatory to restroom without difficulty or assistance
[2025-04-03 02:16] VITALS: BP 146/67; PULSE 69; RESP 21; O2SAT 100
[2025-04-03 02:30] VITALS: BP 153/68; PULSE 65; RESP 18; O2SAT 100
[2025-04-03 02:46] LABS: Adenovirus F 40/41 Not Detected (Not Detect); Astrovirus Not Detected (Not Detect); Campylobacter Not Detected (Not Detect); Clostridium difficile toxin AB Not Detected (Not Detect); Cryptosporidium Not Detected (Not Detect); Cyclospora cayetanensis Not Detected (Not Detect); Entamoeba histolytica Not Detected (Not Detect); Enteroaggregative E.coli Not Detected (Not Detect); Enteropathogenic E.coli Not Detected (Not Detect); Enterotoxigenic E.coli It/st Not Detected (Not Detect); Giardia lamblia Not Detected (Not Detect); Norovirus GI/GII Not Detected (Not Detect); Plesiomonsa shigelloides Not Detected (Not Detect); Rotavirus A Not Detected (Not Detect); Salmonella Not Detected (Not Detect); Sapovirus Not Detected (Not Detect); Shiga-like toxin-prod E.coli Not Detected (Not Detect); Shigella/Enteroinvasive E.coli Not Detected (Not Detect); Vibrio Not Detected (Not Detect); Vibrio cholerae Not Detected (Not Detect); Yersinia enterocolitica Not Detected (Not Detect)
== END 2025-04-03 03:12 | disposition home or self-care (01) ==
PROVIDERS: Emergency Provider Emergency Medicine; Family Provider Internal Medicine; PCP Internal Medicine
DX: K57.92 Diverticulitis of intestine, part unspecified, without perforation or abscess without bleeding (principal)
CPT/HCPCS: 36415; 74177; 80053; 81003; 83690; 85025; 87507; 93005; 96361; 96374; 99284; Q9967

== ENCOUNTER → 2025-04-14 13:58 | Outpatient (CLI) | payer MEDICARE, OTHER, SELFPAY ==
[2024-04-25 10:14] VITALS: BMI 32.3
[2025-04-14 14:22] LABS: Add Manual Diff / Slide Review NO; Basophils Absolute Auto 0 /uL (0-100); Basophils Percent Auto 0.5 % (0-2); Eosinophils Absolute Auto 200 /uL (0-450); Eosinophils Percent Auto 1.9 % (2-4); Hematocrit 35.6 % (36-46); Hemoglobin 11.4 g/dL (12.0-16.0); Lymphocytes Absolute Auto 2400 /uL (1100-4500); Lymphocytes Percent Auto 28.2 % (25-40); Mean Corpuscular HGB Conc 32.1 % (30-36); Mean Corpuscular Hemoglobin 26.2 PG (26-34); Mean Corpuscular Volume 81.7 fL (80-100); Monocytes Absolute Auto 600 /uL (0-900); Monocytes Percent Auto 6.6 % (3-14); Neutrophils Absolute Auto 5400 /uL (1500-7000); Neutrophils Percent Auto 62.8 % (50-75); Platelet Count 335 X10^3/uL (150-400); Red Blood Cell Count 4.36 X10^6/uL (4.0-5.2); Red Cell Distribution Width 16.1 % (11.6-14.8); White Blood Cell Count 8.6 X10^3/uL (4.5-11.0)
[2025-04-14 14:44] LABS: Alanine Aminotransferase 17 IU/L (<35); Albumin 4.4 g/dL (3.5-5.0); Albumin Globulin Ratio 1.5 (1.0-2.8); Alkaline Phosphatase 86 U/L (38-126); Aspartate Aminotransferase 26 IU/L (14-36); BUN Creatinine Ratio 15.4 (6-22); Bilirubin Total 0.4 mg/dL (0.2-1.3); Blood Urea Nitrogen 19 mg/dL (7-17); Calcium 9.5 mg/dL (8.4-10.2); Carbon Dioxide 24 mmol/L (22-32); Chloride 102 mmol/L (98-107); Estimated Glomerular Filt Rate 46 mL/min (>60); Globulin 2.9 g/dL (1.7-4.1); Glucose 154 mg/dL (70-99); HEMOLYSIS < 15 (0-50); Lipase 204 U/L (23-300); Potassium 5.1 mmol/L (3.4-5.1); Sodium 135 mmol/L (137-145); Total Protein 7.3 g/dL (6.3-8.2)
--- NOTE | 2025-04-14 15:19 | DI.CT.S_ITS ---
PROCEDURE: CT ABDOMEN PELVIS W CON INDICATIONS: llq abd pain TECHNIQUE: After the administration of intravenous contrast, axial sections acquired from the lung bases to the pubic symphysis. Coronal and sagittal reformats were performed. For radiation dose reduction, the following was used: automated exposure control, adjustment of mA and/or kV according to patient size. COMPARISON: [facility], CT, CT ABDOMEN PELVIS W CON, 04/03/2025, 1:33. FINDINGS: Image quality: Diagnostic. Lower Chest: Lower esophageal wall thickening. Presumed reflux within the esophageal lumen. ABDOMEN: Liver: No solid mass. Gallbladder: No radiopaque gallstones or wall thickening. Biliary ducts: No biliary dilation. Pancreas: No ductal dilation. Spleen: Size is within normal limits. Adrenal Glands: No adrenal nodules. Kidneys and Ureters: No hydronephrosis. No solid mass. No complex renal cystic lesion which requires follow up. Stomach and Bowel: Diffuse wall thickening of the sigmoid colon. No distinct inflamed diverticulum present. Normal appendix. Small duodenal diverticulum extending into the pancreatic head, without obstruction. Peritoneum: No abnormal intraperitoneal fluid. No free air. Ventral Wall: Small umbilical hernia containing fat. Abdominal Nodes: No retroperitoneal or mesenteric adenopathy by size criteria. Vessels: Aorta and inferior vena cava are normal in size. PELVIS: Pelvic Organs: Unremarkable. Bladder: No bladder wall thickening, accounting for underdistention. Pelvic Nodes: No enlarged lymph nodes. Miscellaneous: No inguinal hernias are seen. Bones: No aggressive osseous abnormality. L5 transition vertebrae. IMPRESSION: Diffuse wall thickening of the sigmoid colon. No distinctly inflamed diverticulum is present. Differential includes colitis or chronic diverticulitis. Dictated by: Chase Hill M.D. on 04/14/2025 at 15:42 Approved by: Chase Hill M.D. on 04/14/2025 at 15:47
== END ==
PROVIDERS: Family Provider Internal Medicine; PCP Internal Medicine; Referring Provider Internal Medicine; Visit Provider Internal Medicine
DX: R10.9 Unspecified abdominal pain (principal); K57.92 Diverticulitis of intestine, part unspecified, without perforation or abscess without bleeding
CPT/HCPCS: 36415; 74177; 80053; 83690; 85025; Q9967

== ENCOUNTER → 2025-05-11 06:53 | Outpatient (CLI) | payer MEDICARE, OTHER, SELFPAY ==
[2024-04-25 10:14] VITALS: BMI 32.3
[2025-05-11 07:42] LABS: Add Manual Diff / Slide Review NO; Hematocrit 37.3 % (36-46); Hemoglobin 11.8 g/dL (12.0-16.0); Lymphocytes Absolute Auto 1900 /uL (1100-4500); Mean Corpuscular HGB Conc 31.7 % (30-36); Mean Corpuscular Hemoglobin 25.4 PG (26-34); Mean Corpuscular Volume 80.1 fL (80-100); Platelet Count 308 X10^3/uL (150-400)
[2025-05-11 07:51] LABS: Hemoglobin A1C% w Est Avg Glu 6.4 % (4.0-6.0)
[2025-05-11 08:08] LABS: Alanine Aminotransferase 17 IU/L (<35); Albumin 4.4 g/dL (3.5-5.0); Albumin Globulin Ratio 1.5 (1.0-2.8); Alkaline Phosphatase 77 U/L (38-126); Blood Urea Nitrogen 13 mg/dL (7-17); Calcium 9.9 mg/dL (8.4-10.2); Carbon Dioxide 29 mmol/L (22-32); Chloride 102 mmol/L (98-107); Estimated Glomerular Filt Rate > 60 mL/min (>60); Globulin 2.9 g/dL (1.7-4.1); Glucose 124 mg/dL (70-99); HEMOLYSIS < 15 (0-50); Potassium 4.6 mmol/L (3.4-5.1); Sodium 139 mmol/L (137-145); Total Protein 7.3 g/dL (6.3-8.2)
== END ==
PROVIDERS: Family Provider Internal Medicine; PCP Internal Medicine; Referring Provider Internal Medicine; Visit Provider Internal Medicine
DX: I10 Essential (primary) hypertension (principal); E11.9 Type 2 diabetes mellitus without complications; Z79.4 Long term (current) use of insulin; D64.9 Anemia, unspecified
CPT/HCPCS: 36415; 80053; 83036; 85025

== ENCOUNTER → 2025-06-08 07:03 | Outpatient (CLI) | payer MEDICARE, OTHER, SELFPAY ==
[2024-04-25 10:14] VITALS: BMI 32.3
--- NOTE | 2025-06-08 08:10 | EKG_ITS ---
[place] [address] [place] [id number] Test Date: 2025-06-08 Pat Name: Nuris Sanchez Department: [facility] Room: Gender: Female Turn Operator: LSY : 1950 Requested By: Order Number: [id number] Reading MD: Ángel Gonzalez Measurements Intervals [place] Rate: 65 P: -5 CT: 168 QRS: 19 QRSD: 124 T: 9 QT: 426 QTc: 443 Interpretive Statements Normal sinus rhythm Right bundle branch block Electronically Signed On 06-13-2025 7:31:01 PDT by Ángel Gonzalez
[2025-06-08 08:23] LABS: Add Manual Diff / Slide Review NO; Hematocrit 37.1 % (36-46); Hemoglobin 11.8 g/dL (12.0-16.0); Lymphocytes Absolute Auto 1900 /uL (1100-4500); Mean Corpuscular HGB Conc 31.8 % (30-36); Mean Corpuscular Hemoglobin 25.4 PG (26-34); Mean Corpuscular Volume 79.8 fL (80-100); Platelet Count 311 X10^3/uL (150-400)
[2025-06-08 08:45] LABS: Alanine Aminotransferase 14 IU/L (<35); Albumin 4.2 g/dL (3.5-5.0); Albumin Globulin Ratio 1.4 (1.0-2.8); Alkaline Phosphatase 76 U/L (38-126); Blood Urea Nitrogen 11 mg/dL (7-17); Calcium 9.9 mg/dL (8.4-10.2); Carbon Dioxide 26 mmol/L (22-32); Chloride 104 mmol/L (98-107); Estimated Glomerular Filt Rate > 60 mL/min (>60); Globulin 3.0 g/dL (1.7-4.1); Glucose 102 mg/dL (70-99); HEMOLYSIS < 15 (0-50); Potassium 4.8 mmol/L (3.4-5.1); Sodium 139 mmol/L (137-145); Total Protein 7.2 g/dL (6.3-8.2)
== END ==
PROVIDERS: Family Provider Internal Medicine; PCP Internal Medicine; Referring Provider Internal Medicine Gastroenterology; Visit Provider Internal Medicine Gastroenterology
DX: Z01.818 Encounter for other preprocedural examination (principal)
CPT/HCPCS: 36415; 80053; 85025; 93005

== ENCOUNTER → 2025-08-27 09:52 | Outpatient (CLI) | payer MEDICARE, OTHER, SELFPAY ==
[2024-04-25 10:14] VITALS: BMI 32.3
== END ==
PROVIDERS: Family Provider Internal Medicine; PCP Internal Medicine; Referring Provider Internal Medicine; Visit Provider Internal Medicine
DX: M25.50 Pain in unspecified joint (principal)
CPT/HCPCS: 36415; 85651; 86140

== ENCOUNTER 2025-09-18 06:05 | Emergency (ER) | payer MEDICARE, OTHER, SELFPAY ==
[2024-04-25 10:14] VITALS: BMI 32.3
[2025-09-18] VITALS (25 sets, daily range): BP systolic 139–184; BP diastolic 65–83; PULSE 57–104; RESP 15–25; TEMP 36.4; O2SAT 96–99; BMI 29.9
--- NOTE | 2025-09-18 06:15 | EKG_ITS ---
[address] [address] Test Date: 2025-09-18 Pat Name: Nuris Sanchez Department: Room: Gender: Female Pipe Supervisor: KIERA : 1950 Requested By: Order Number: [id number] Reading MD: Good Miller MD Measurements Intervals [place] Rate: 68 P: -11 TX: 164 QRS: 52 QRSD: 126 T: 40 QT: 396 QTc: 421 Interpretive Statements Normal sinus rhythm Right bundle branch block NO SIGNIFICANT CHANGE FROM PRIOR TRACING Electronically Signed On 09-18-2025 7:26:38 PST by Good Miller MD
--- NOTE | 2025-09-18 06:18 | DI.RAD.S_ITS ---
PROCEDURE: XR CHEST 1V INDICATIONS: chest pain TECHNIQUE: One view of the chest was acquired. COMPARISON: [facility], CR, XR CHEST 1V, 07/06/2021, 11:44. FINDINGS: Surgical changes and devices: None. Lungs and pleura: Lungs are clear. No pleural effusions or pneumothorax. Pulmonary vascular congestion Mediastinum: Mediastinal contours appear normal. Heart size is normal. Bones and chest wall: No suspicious bony lesions. Overlying soft tissues appear unremarkable. IMPRESSION: Pulmonary vascular congestion. Dictated by: Vicente Santana M.D. on 09/18/2025 at 8:06 Approved by: Vicente Santana M.D. on 09/18/2025 at 8:09
[2025-09-18 06:43] LABS: Add Manual Diff / Slide Review NO; Hematocrit 39.9 % (36-46); Hemoglobin 12.7 g/dL (12.0-16.0); Lymphocytes Absolute Auto 1300 /uL (1100-4500); Mean Corpuscular HGB Conc 31.8 % (30-36); Mean Corpuscular Hemoglobin 26.1 PG (26-34); Mean Corpuscular Volume 82.0 fL (80-100); Platelet Count 277 X10^3/uL (150-400)
[2025-09-18 07:06] LABS: Alanine Aminotransferase 19 IU/L (<35); Albumin 4.4 g/dL (3.5-5.0); Albumin Globulin Ratio 1.5 (1.0-2.8); Alkaline Phosphatase 69 U/L (38-126); Blood Urea Nitrogen 17 mg/dL (7-17); Calcium 9.4 mg/dL (8.4-10.2); Carbon Dioxide 25 mmol/L (22-32); Chloride 104 mmol/L (98-107); Estimated Glomerular Filt Rate 58 mL/min (>60); Globulin 3.0 g/dL (1.7-4.1); Glucose 211 mg/dL (70-99); HEMOLYSIS < 15 (0-50); Lipase 139 U/L (23-300); Magnesium 2.0 mg/dL (1.6-2.3); Potassium 4.3 mmol/L (3.4-5.1); Sodium 138 mmol/L (137-145); Total Protein 7.4 g/dL (6.3-8.2)
[2025-09-18 07:17] LABS: NT-proBNP (BNP-Adult 18+) 349 pg/mL (<450); Troponin I < 0.012 ng/mL (0.01-0.034)
--- NOTE | 2025-09-18 07:21 | ED.CHESTPAIN ---
HPI - Chest Pain General Chief Complaint: Chest Pain Stated Complaint: High blood, low heart rate this morning,On BP meds Time Seen by Provider: 09/18/25 06:18 Source: patient Mode of arrival: Ambulatory Limitations: no limitations History of Present Illness HPI narrative: patient here with . Patient complains of multiple complaints. Patient sees Dr. Good Miller for primary care. Patient currently treated for PMR with steroids and finished tapering a week ago. Patient is currently tapering off of clonazepam. Patient has history of hypertension hyperlipidemia diabetes. No recent stress test. Patient complains of dizziness chest pressure headache and has noted her blood pressure elevated this past week. Currently chest discomfort 5/10. She does get chest discomfort with walking she states. Related Data Home Medications ?Medication ?Instructions ?Recorded ?Confirmed carboxymethylcellulose sodium 1 % 2 gtt OU PRN ##0 05/09/12 08/27/25 eye liquid gel drops (Refresh Liquigel) aspirin 81 mg tablet,delayed 81 mg PO QDAY ##0 05/11/17 08/27/25 release Vitamin D + K2 1 tab PO DAILY 05/11/22 08/27/25 desonide 0.05 % topical cream 1 applic topical BID PRN skin 11/23/23 08/27/25 condition faricimab-svoa 6 mg/0.05 mL 6 mg intravitreal Q12W 02/28/24 08/27/25 intravitreal solution (Vabysmo) clobetasol 0.05 % topical cream 1 applic topical DAILY 04/25/24 08/27/25 Previous Rx's ?Medication ?Instructions ?Recorded Disabled Parking #1 ea 04/13/22 albuterol sulfate 90 mcg/actuation 2 puff inhalation Q4H PRN 06/09/24 aerosol inhaler (Ventolin HFA) Shortness Of Breath #18 grams blood glucose control, normal #1 ea 07/21/24 (OneTouch Ultra Control solution) lancets 30 gauge #100 ea 07/21/24 blood glucose control, normal #1 ea 07/25/24 (OneTouch Verio Mid Control solution) blood-glucose meter (OneTouch #1 ea 07/25/24 Verio Flex Meter) ondansetron 4 mg disintegrating 4 mg PO Q6H PRN nausea and 11/21/24 tablet vomiting #30 tabs insulin degludec 100 unit/mL (3 See Rx Instructions SUBCUT DAILY 01/27/25 mL) subcutaneous pen (Tresiba #45 mL FlexTouch U-100 insulin) erythromycin 250 mg tablet 250 mg PO QAC #270 tabs 05/15/25 blood sugar diagnostic (OneTouch #250 ea 07/14/25 Verio test strips) nadolol 80 mg tablet 80 mg PO DAILY #90 tabs 07/20/25 lansoprazole 30 mg capsule,delayed 30 mg PO BID #180 caps 07/21/25 release [place] 31g x 516 #300 ea 08/07/25 clonazepam 1 mg tablet (Klonopin) 1 mg PO BID #180 tabs 08/07/25 fluticasone propionate 50 2 spray intranasal BEDTIME PRN 08/07/25 mcg/actuation nasal Allergy Symptoms #16 grams spray,suspension (Flonase Allergy Relief) olmesartan 40 mg tablet 40 mg PO DAILY #90 tabs 08/07/25 prednisone 10 mg tablet 10 - 20 mg (1 - 2 x 10 mg) PO 08/27/25 DAILY #60 tabs insulin aspart U-100 100 unit/mL 5 - 15 unit (0.05 - 0.15 mL) 09/02/25 (3 mL) subcutaneous pen (Novolog SUBCUT TIDWMEAL #30 mL FlexPen U-100 Insulin aspart) Allergies Allergy/AdvReac Type Severity Reaction Status Date / Time atorvastatin (ATORVASTATIN) Allergy Unknown Verified 08/27/25 09:19 gemfibrozil (GEMFIBROZIL) Allergy Unknown Verified 08/27/25 09:19 rosuvastatin (ROSUVASTATIN) Allergy Unknown Verified 08/27/25 09:19 tetracycline (TETRACYCLINE) Allergy Unknown Verified 08/27/25 09:19 Milk Containing Products AdvReac Severe GI issues Verified 08/27/25 09:19 (Dairy) (MILK CONTAINING PRODUCTS) carisoprodol (CARISOPRODOL) AdvReac Intermediate DIZZINESS Verified 08/27/25 09:19 duloxetine (DULOXETINE) AdvReac Intermediate DIARRHEA/se Verified 08/27/25 09:19 dation fenofibrate (FENOFIBRATE) AdvReac Intermediate rash Verified 08/27/25 09:19 gabapentin AdvReac Intermediate constipatio Verified 08/27/25 09:19 n indomethacin (INDOMETHACIN) AdvReac Intermediate GI DISTRESS Verified 08/27/25 09:19 influenza virus vaccine tvs AdvReac Intermediate severe sx, Verified 08/27/25 09:19 [id number](65 years up) (From RAI, N/V, Fluzone High-Dose SINUS, (PF)) PLEGM, etc. lisinopril (LISINOPRIL) AdvReac Intermediate EDEMA LEGS Verified 08/27/25 09:19 amoxicillin (AMOXICILLIN) AdvReac Mild itching Verified 08/27/25 09:19 Review of Systems Review of Systems Narrative: GENERAL: Negative chills, fatigue, malaise, fever, sweats. HEENT: Negative sinus pain, ear pain, sore throat RESPIRATORY: Negative dyspnea, cough CARDIOVASCULAR: positive chest pain, negativepalpitations GASTROINTESTINAL: Negative vomiting, nausea, abdominal pain : Negative dysuria, frequency, hematuria MUSCULOSKELETAL: Negative muscle or bony pain SKIN: Negative rash, skin lesions NEUROLOGIC: Negative weakness, numbness, positive dizziness. Positive headache ROS Unobtainable: All systems reviewed & are unremarkable except as noted in HPI and below Patient History Medical History (Updated 09/18/25 @ 10:50 by Zafar Jiang MD) Gluten intolerance Tubular adenoma of colon Psoriasis Overactive bladder Gastroparesis diabeticorum Vitamin deficiency Inner ear inflammation Liver disease Diverticular disease (1999) Ovarian cyst (1984) Recurrent sinusitis (2004) Hepatitis A (1989) Ankle pain (1994) Foot pain (2004) Fractures (1972) Seizure, temporal lobe (1984) Abnormal CXR (chest x-ray) (1981) Sarcoidosis (1983) Legionella pneumonia (1981) Polymyalgia rheumatica Sjogren's syndrome MCTD (mixed connective tissue disease) Hyperlipidemia Hypertension (2004) Abnormal Pap smear of cervix (1984) Fibroids (2002) History of heavy periods Painful menstrual periods Anemia Measles (1958) Mumps (1958) Rubella (1958) Eczema Chronic back pain (1999) RLS (restless legs syndrome) (2004) Hayfever Asthma Type 2 diabetes mellitus without complication (04/10/16) Essential hypertension (11/23/15) Sjogren's syndrome (10/01/15) Atrophic vaginitis (11/24/14) Irritable bowel syndrome (06/16/11) Mixed hyperlipidemia (06/16/11) Diverticulosis of colon (06/16/11) Fibromyalgia (06/16/11) GERD (gastroesophageal reflux disease) Surgical History History of esophagogastroduodenoscopy (EGD) (12/2014) History of colonoscopy (12/17/14) History of oophorectomy History of abdominal surgery (1981) History of abdominal surgery (2008) History of lung biopsy (1981) History of lung biopsy (1983) Anesthesia complication Status post knee surgery (2012) Status post hysterectomy (2004) History of bilateral salpingo-oophorectomy (BSO) Family History Child Age: 55 Hx of Sjogren's disease Child Age: 53 Migraines Father Prostate cancer Cancer Heart disease Stroke Mother Diabetes mellitus Heart disease Hypertension Sister Uterine cancer Grandmother No problems noted. Grandfather Sepsis Grandmother No problems noted. Grandfather Bright's disease Sister Heart block Heart disease Social History marital status: number of children: 3 household members: spouse lives independently: Yes caregiver/support person: No housing: house pets and animals: Yes education level: college occupational status: other Previous occupational history: [employer] and [employer] work fredrick/cheondoism: [employer] leisure activities: exercise, reading and other Tobacco: How many years used: 18 Smokeless tobacco user: other quit status: quit date established second hand exposure: No alcohol intake: never substance use type: does not use and marijuana Smoking Status: Never smoker alcohol intake frequency: 0-2 drinks per day Exam Narrative Exam Narrative: GENERAL: in no distress, not toxic not dyspneic HEAD: Normocephalic. EYES: Pupils equal round ENT: Mucous membranes moist. NECK: Trachea midline. CARDIOVASCULAR: Regular rate and rhythm RESPIRATORY: Clear to auscultation. Breath sounds equal bilaterally. No wheezes, rales, or rhonchi. GASTROINTESTINAL: Abdomen soft, non-tender BACK: No flank tenderness. EXTREMITIES: No gross deformities. NEURO: AOx4. Clear speech. Fast exam is negative. Lams score is 0. Clear speech no facial droop light touch intact bilateral face hands and legs strong equal frame catcher negative pronator drift. SKIN: Warm and dry PSYCH: Not anxious, is cooperative Initial Vital Signs Initial Vital Signs: Vital Signs Pulse Rate 70 09/18/25 06:12 Blood Pressure 184/83 H 09/18/25 06:12 Pulse Oximetry 97 09/18/25 06:12 Course Orders Ordered: ED Orders 09/18/25 06:18 XR chest 1V Stat EKG-12 Lead Stat 09/18/25 06:30 Complete Blood Count AUTO DIFF Stat Comprehensive Metabolic Panel Stat Lipase Stat Magnesium Stat NT-proBNP (BNP-Adult 18+) Stat Troponin I Stat 09/18/25 07:34 CT head/brain wo con Stat Discontinued Medications Aspirin (Aspirin 81 Mg Chew Tab) 324 mg PO NOW ONE Stop: 09/18/25 07:39 Last Admin: 09/18/25 07:50 Dose: 324 mg Documented By: KEVIN Metoprolol Tartrate (Metoprolol Tartrate 5 Mg/5 Ml Inj) 5 mg IV NOW ONE Stop: 09/18/25 10:42 Last Admin: 09/18/25 10:50 Dose: Not Given Documented By: NILAM Nitroglycerin (Nitroglycerin Oint 1 Inch/Gm Oint...G.) 1 inch TOP NOW ONE Stop: 09/18/25 07:35 Last Admin: 09/18/25 07:49 Dose: 1 inch Documented By: KEVIN Ondansetron HCl (Ondansetron 4 Mg/2 Ml Inj) 4 mg IV NOW ONE Stop: 09/18/25 09:11 Last Admin: 09/18/25 09:13 Dose: 4 mg Documented By: KEVIN Vital Signs Vital signs: Vital Signs - 8 hr 09/18/25 06:30 09/18/25 06:31 09/18/25 06:31 Pulse Rate 66 66 Respiratory Rate Blood Pressure 149/67 H Pulse Oximetry 97 98 09/18/25 07:00 09/18/25 07:01 09/18/25 07:01 Pulse Rate 63 62 Respiratory Rate 21 16 Blood Pressure 152/67 H Pulse Oximetry 96 96 09/18/25 07:13 09/18/25 07:13 09/18/25 07:30 Pulse Rate 66 63 Respiratory Rate 16 Blood Pressure 170/70 H Pulse Oximetry 98 98 09/18/25 07:31 09/18/25 07:31 09/18/25 07:50 Pulse Rate 63 Respiratory Rate 15 Blood Pressure 178/73 H 174/71 H Pulse Oximetry 98 09/18/25 07:50 09/18/25 08:00 09/18/25 08:00 Pulse Rate 63 62 Respiratory Rate Blood Pressure 161/70 H Pulse Oximetry 96 98 09/18/25 08:21 09/18/25 08:21 09/18/25 08:30 Pulse Rate 62 Respiratory Rate 17 Blood Pressure 155/68 H 158/68 H Pulse Oximetry 99 09/18/25 08:30 09/18/25 08:45 09/18/25 08:45 Pulse Rate 61 61 Respiratory Rate Blood Pressure 155/69 H Pulse Oximetry 98 98 09/18/25 08:56 09/18/25 08:56 09/18/25 09:08 Pulse Rate 104 H 63 Respiratory Rate Blood Pressure 139/65 Pulse Oximetry 09/18/25 09:16 09/18/25 09:16 09/18/25 09:30 Pulse Rate 61 Respiratory Rate 15 Blood Pressure 178/74 H 153/68 H Pulse Oximetry 97 09/18/25 09:30 09/18/25 09:45 09/18/25 09:45 Pulse Rate 59 L 61 Respiratory Rate 25 H Blood Pressure 144/65 H Pulse Oximetry 97 97 09/18/25 10:00 09/18/25 10:01 09/18/25 10:01 Pulse Rate 59 L 59 L Respiratory Rate 17 17 Blood Pressure 174/75 H Pulse Oximetry 97 97 09/18/25 10:15 09/18/25 10:15 09/18/25 10:30 Pulse Rate 58 L Respiratory Rate 18 Blood Pressure 158/72 H 173/72 H Pulse Oximetry 97 09/18/25 10:30 09/18/25 10:46 09/18/25 10:46 Pulse Rate 58 L 57 L Respiratory Rate 20 21 Blood Pressure 153/66 H Pulse Oximetry 97 96 MDM - Chest Pain Lab Data 09/18/25 06:30 09/18/25 06:30 Labs: Lab Results 09/18/25 09/18/25 Range/Units 06:30 09:19 WBC 6.5 (4.5-11.0) X10^3/uL RBC 4.86 (4.0-5.2) X10^6/uL Hgb 12.7 (12.0-16.0) g/dL Hct 39.9 (36-46) % MCV 82.0 (80-100) fL MCH 26.1 (26-34) PG MCHC 31.8 (30-36) % RDW 18.7 H (11.6-14.8) % Plt Count 277 (150-400) X10^3/uL Neut % (Auto) 71.6 (50-75) % Lymph % (Auto) 20.1 L (25-40) % [place] % (Auto) 5.2 (3-14) % Eos % (Auto) 2.3 (2-4) % Baso % (Auto) 0.8 (0-2) % Neut # (Auto) 4600 (4864-9193) /uL Lymph # (Auto) 1300 (3500-8413) /uL [place] # (Auto) 300 (0-900) /uL Eos # (Auto) 100 (0-450) /uL Baso # (Auto) 0 (0-100) /uL Sodium 138 (137-145) mmol/L Potassium 4.3 (3.4-5.1) mmol/L Chloride 104 (98-107) mmol/L Carbon Dioxide 25 (22-32) mmol/L BUN 17 (7-17) mg/dL Creatinine 1.01 (0.52-1.04) mg/dL Estimated GFR 58 L (>60) mL/min BUN/Creatinine Ratio 16.8 (6-22) Glucose 211 H (70-99) mg/dL POC Whole Bld Glucose 100 H (70-99) mg/dL Calcium 9.4 (8.4-10.2) mg/dL Magnesium 2.0 (1.6-2.3) mg/dL Total Bilirubin 0.4 (0.2-1.3) mg/dL AST 27 (14-36) IU/L ALT 19 (<35) IU/L Alkaline Phosphatase 69 (38-126) U/L Troponin I < 0.012 (0.01-0.034) ng/mL NT-Pro-B Natriuret Pep 349 (<450) pg/mL Total Protein 7.4 (6.3-8.2) g/dL Albumin 4.4 (3.5-5.0) g/dL Globulin 3.0 (1.7-4.1) g/dL Albumin/Globulin Ratio 1.5 (1.0-2.8) Lipase 139 (23-300) U/L Urine Dip Bedside Urine Glucose Negative Bedside Urine Bilirubin - Negative Bedside Urine Ketone - Negative Urine Specific [place] 1.010 Bedside Urine Occult Blood - Negative Bedside Urine pH 6.0 Bedside Urine Protein - Negative Bedside Urine Urobilinogen - Negative Bedside Urine Nitrite - Negative Bedside Urine Leukocytes - Negative Esterase Imaging Data Chest x-ray: Radiologist's Impression: [address] [address] XRay Report Signed Patient: Nuris Sanchez MR#: [id number] : 1950 Acct:[id number] Age/Sex: 74 / F Date of Service: 09/18/25 Loc: ED Accession Number: [id number] Procedure: XR chest 1V Ordering Provider: Angelica Navarro D.O. PROCEDURE: XR CHEST 1V INDICATIONS: chest pain TECHNIQUE: One view of the chest was acquired. COMPARISON: [facility], , XR CHEST 1V, 07/06/2021, 11:44. FINDINGS: Surgical changes and devices: None. Lungs and pleura: Lungs are clear. No pleural effusions or pneumothorax. Pulmonary vascular congestion Mediastinum: Mediastinal contours appear normal. Heart size is normal. Bones and chest wall: No suspicious bony lesions. Overlying soft tissues appear unremarkable. IMPRESSION: Pulmonary vascular congestion. Dictated by: Vicente Santana M.D. on 09/18/2025 at 8:06 Approved by: Vicente Santana M.D. on 09/18/2025 at 8:09 CT scan - head: Radiologist's Impression: [address] [address] [address] Scan Report Signed Patient: Nuris Sanchez MR#: [id number] : 1950 Acct:[id number] Age/Sex: 74 / F Date of Service: 09/18/25 Loc: ED Accession Number: [id number] Procedure: CT head/brain wo con Ordering Provider: Zafar Jiang MD PROCEDURE: CT HEAD/BRAIN WO CON INDICATIONS: Dizzy/headache TECHNIQUE: Noncontrast 4.5 mm thick angled axial sections acquired from the foramen magnum to the vertex, with coronal and sagittal reformats. For radiation dose reduction, the following was used: automated exposure control, adjustment of mA and/or kV according to patient size. COMPARISON: [facility], CT, CT HEAD/BRAIN WO CON, 09/13/2020, 17:03. FINDINGS: Image quality: Diagnostic. CSF spaces: Basal cisterns are patent. No extra-axial fluid collections. The ventricles are symmetric in size and shape. Brain: No intracranial bleeds or mass effect. There is cerebral volume loss, with resultant ventricular and sulcal prominence. There are periventricular and deep white matter chronic small vessel ischemic changes. There is intracranial internal carotid artery atherosclerosis. Skull and face: Calvarium and visualized facial bones appear intact, without suspicious lesions. Sinuses: Visualized sinuses and mastoids are clear. IMPRESSION: No acute intracranial pathology. Dictated by: Giorgi Suazo M.D. on 09/18/2025 at 8:52 Approved by: Giorgi Suazo M.D. on 09/18/2025 at 8:53 MDM Narrative Medical decision making narrative: patient here with . Patient complains of multiple complaints. Patient sees Dr. Good Miller for primary care. Patient currently treated for PMR with steroids and finished tapering a week ago. Patient is currently tapering off of clonazepam. Patient has history of hypertension hyperlipidemia diabetes. No recent stress test. Patient complains of dizziness chest pressure headache and has noted her blood pressure elevated this past week. Currently chest discomfort 5/10. She does get chest discomfort with walking she states. MDM After history and exam, CT head chest x-ray EKG troponin CBC CMP nitro paste aspirin Differential considered: Includes but not limited to TIA stroke hypertensive urgency STEMI non-STEMI angina Medical records reviewed: primary care office notes August 07, 2025 as well as August 27, 2025 Lab Test results independently reviewed as above. Pertinent findings: WBC 6.5 hemoglobin 12.7 sodium 130 potassium 4.3 BUN 17 creatinine 1.01 GFR 58 glucose 211 magnesium 2.0 troponin less than 0.012 BNP 349 Independently reviewed EKG normal sinus rhythm rate 68 right bundle branch block Imaging studies independently reviewed: chest x-ray no acute finding CT head no acute finding Consultations: 10:[address] Miller, primary care provider. He knows the patient very well. He does not want patient transferred for cardiac workup or monitoring or admission here. Patient here for hypertensive urgency chest pain headache. Patient did have some relief with nitro paste. He would like patient given Lopressor 5 mg IV for blood pressure improvement and can be discharged home. He will follow up with patient in 3 days on Sunday. patient just completed steroids/ tapering and blood pressure likely related as well as weaning off of clonazepam. He states patient had a nuclear stress test just 2 years ago and it was normal. Re-evaluations: 10:45 a.m.. Patient feeling better. Reviewed with her results as well as discussion with her family doctor Dr. Miller. Symptoms likely related to recent steroid use and weaning off of clonazepam. He would like to see her next Sunday. Return precautions reviewed. They desire discharge home. Blood pressure has improved 153/66. No need for Lopressor Discussion: appropriate for discharge home. Exam and laboratory studies are reassuring. Primary care provider contacted and nose patent very well. You will follow up patient on Sunday. no repeat troponin as patient has had symptoms through the week. Diagnosis: hypertensive urgency, chest pain Discharge Plan Departure Patient Disposition: Home Clinical Impression: Hypertensive urgency Chest pain Qualifiers: Chest pain type: unspecified Qualified Code(s): R07.9 - Chest pain, unspecified Instructions: Essential Hypertension, DI for Chest Pain Activity Restrictions/Additional Instructions: your exam and laboratory studies and imaging studies are reassuring. Your primary care provider has been contacted today and feels you can be discharged home and follow up with him on Sunday. Continue home medications. Return if worse if any questions or concerns. Prescriptions: No Action carboxymethylcellulose sodium [Refresh Liquigel] 1 % Drops, Liquid Gel 2 gtt OU PRN Qty: 0 aspirin 81 MG tablet,delayed release (DR/EC) 81 mg PO QDAY Qty: 0 (DME) Disabled Parking See Rx Instructions .ROUTE .MEDSUPPLY Qty: 1 0RF Rx Instructions: Patient qualifies for disabled parking as per the attached form. albuterol sulfate [Ventolin HFA] 90 mcg/actuation HFA aerosol inhaler 2 puff inhalation Q4H PRN (Reason: Shortness Of Breath) Qty: 18 3RF (DME) lancets 30 gauge misc See Rx Instructions .Route Qty: 100 6RF Rx Instructions: Use to check BS 1-2x daily or as directed by PCP (DME) blood glucose control, normal [OneTouch Ultra Control] Solution See Rx Instructions .Route Qty: 1 1RF Rx Instructions: As directed (DME) blood-glucose meter [OneTouch Verio Flex meter] Misc See Rx Instructions .Route Qty: 1 0RF Rx Instructions: Use to check BS 6x daily or as written by PCP (DME) blood glucose control, normal [OneTouch Verio Mid Control] Solution See Rx Instructions .Route Qty: 1 1RF Rx Instructions: As directed insulin degludec [Tresiba FlexTouch U-100] 100 unit/mL (3 mL) insulin pen See Rx Instructions SUBCUT DAILY Qty: 45 6RF Rx Instructions: 45-50 units in pm. May increase pm insulin up to 70 units as necessary to control blood sugar (DME) OneTouch Verio test strips Strip See Rx Instructions .Route Qty: 250 6RF Rx Instructions: Use to check BS 6x daily or as written by PCP nadolol 80 mg tablet 80 mg PO DAILY Qty: 90 3RF lansoprazole 30 mg capsule,delayed release(DR/EC) 30 mg PO BID Qty: 180 3RF insulin aspart U-100 [Novolog FlexPen U-100 Insulin] 100 unit/mL (3 mL) insulin pen 5 - 15 unit subcut TIDWMEAL Qty: 30 6RF desonide 0.05 % cream 1 applic topical BID PRN (Reason: skin condition) clobetasol 0.05 % cream 1 applic topical DAILY ondansetron 4 mg tablet,disintegrating 4 mg PO Q6H PRN (Reason: nausea and vomiting) Qty: 30 0RF erythromycin 250 mg tablet 250 mg PO QAC Qty: 270 3RF Rx Instructions: only for large meals Vitamin D + K2 5,000 units 1 tab PO DAILY (DME) [place] 31g x 5/16 Qty: 300 11RF Dose Instruction: As directed Rx Instructions: Use to inject insulin up to 6x a day olmesartan 40 mg tablet 40 mg PO DAILY Qty: 90 3RF fluticasone propionate [Flonase Allergy Relief] 50 mcg/actuation spray,suspension 2 spray Intranasal BEDTIME PRN (Reason: Allergy Symptoms) Qty: 16 2RF clonazepam [Klonopin] 1 mg tablet 1 mg PO BID Qty: 180 1RF Rx Instructions: for seizures prednisone 10 mg tablet 10 - 20 mg PO DAILY Qty: 60 0RF Rx Instructions: take 2 tabs daily for 4 days, then 1 tab daily Vabysmo 6 mg/0.05 mL Solution 6 mg INTRAVITREAL Q12W Referrals: Good Miller MD [Primary Care Provider, Internal Medicine] Stand Alone Forms: Patient Portal/API
--- NOTE | 2025-09-18 07:34 | DI.CT.S_ITS ---
PROCEDURE: CT HEAD/BRAIN WO CON INDICATIONS: Dizzy/headache TECHNIQUE: Noncontrast 4.5 mm thick angled axial sections acquired from the foramen magnum to the vertex, with coronal and sagittal reformats. For radiation dose reduction, the following was used: automated exposure control, adjustment of mA and/or kV according to patient size. COMPARISON: [facility], CT, CT HEAD/BRAIN WO CON, 09/13/2020, 17:03. FINDINGS: Image quality: Diagnostic. CSF spaces: Basal cisterns are patent. No extra-axial fluid collections. The ventricles are symmetric in size and shape. Brain: No intracranial bleeds or mass effect. There is cerebral volume loss, with resultant ventricular and sulcal prominence. There are periventricular and deep white matter chronic small vessel ischemic changes. There is intracranial internal carotid artery atherosclerosis. Skull and face: Calvarium and visualized facial bones appear intact, without suspicious lesions. Sinuses: Visualized sinuses and mastoids are clear. IMPRESSION: No acute intracranial pathology. Dictated by: Giorgi Suazo M.D. on 09/18/2025 at 8:52 Approved by: Giorgi Suazo M.D. on 09/18/2025 at 8:53
[2025-09-18] MEDS: NITROGLYCERIN OINT 1 INCH/GM OINT...G. TOP (07:49)
[2025-09-18] MEDS: ASPIRIN 81 MG CHEW TAB 324 MG PO (07:50)
[2025-09-18] MEDS: ONDANSETRON 4 MG/2 ML INJ IV (09:13)
== END 2025-09-18 11:02 | disposition home or self-care (01) ==
PROVIDERS: Emergency Medicine; Emergency Provider Emergency Medicine; Family Provider Internal Medicine; PCP Internal Medicine
DX: I16.0 Hypertensive urgency (principal); R07.9 Chest pain, unspecified
CPT/HCPCS: 36415; 70450; 71045; 80053; 81003; 82962; 83690; 83735; 83880; 84484; 85025; 93005; 96374; 99284; J2405

== ENCOUNTER → 2025-09-30 09:08 | Outpatient (CLI) | payer MEDICARE, OTHER, SELFPAY ==
[2024-04-25 10:14] VITALS: BMI 32.3
== END ==
LOC: ECHO 09:12
PROVIDERS: Family Provider Internal Medicine; PCP Internal Medicine; Referring Provider Internal Medicine; Visit Provider Internal Medicine
DX: I35.1 Nonrheumatic aortic (valve) insufficiency (principal); I50.9 Heart failure, unspecified
CPT/HCPCS: 93306

== ENCOUNTER → 2025-10-02 07:09 | Outpatient (CLI) | payer MEDICARE, OTHER, SELFPAY ==
[2024-04-25 10:14] VITALS: BMI 32.3
[2025-10-02 08:58] LABS: Add Manual Diff / Slide Review NO; Hematocrit 38.9 % (36-46); Hemoglobin 12.7 g/dL (12.0-16.0); Lymphocytes Absolute Auto 2300 /uL (1100-4500); Mean Corpuscular HGB Conc 32.6 % (30-36); Mean Corpuscular Hemoglobin 26.8 PG (26-34); Mean Corpuscular Volume 82.4 fL (80-100); Platelet Count 292 X10^3/uL (150-400)
[2025-10-02 09:13] LABS: HEMOLYSIS < 15 (0-50); Iron 72 ug/dL (37-170)
[2025-10-02 09:17] LABS: Alanine Aminotransferase 17 IU/L (<35); Albumin 4.3 g/dL (3.5-5.0); Albumin Globulin Ratio 1.5 (1.0-2.8); Alkaline Phosphatase 72 U/L (38-126); Blood Urea Nitrogen 22 mg/dL (7-17); Calcium 9.9 mg/dL (8.4-10.2); Carbon Dioxide 28 mmol/L (22-32); Chloride 105 mmol/L (98-107); Estimated Glomerular Filt Rate 50 mL/min (>60); Globulin 2.8 g/dL (1.7-4.1); Glucose 97 mg/dL (70-99); HEMOLYSIS < 15 (0-50); Potassium 4.8 mmol/L (3.4-5.1); Sodium 140 mmol/L (137-145); Total Protein 7.1 g/dL (6.3-8.2)
[2025-10-02 09:23] LABS: Hemoglobin A1C% w Est Avg Glu 6.4 % (4.0-6.0)
[2025-10-02 09:24] LABS: Percent Iron Saturation 22 % (15-50); Total Iron Binding Capacity 330 ug/dL (265-497); Transferrin 283 mg/dL (206-381)
[2025-10-02 09:26] LABS: NT-proBNP (BNP-Adult 18+) 134 pg/mL (<450)
== END ==
PROVIDERS: Family Provider Internal Medicine; PCP Internal Medicine; Referring Provider Internal Medicine; Visit Provider Internal Medicine
DX: E11.9 Type 2 diabetes mellitus without complications (principal); I11.0 Hypertensive heart disease with heart failure; I50.9 Heart failure, unspecified; D64.9 Anemia, unspecified; Z79.4 Long term (current) use of insulin
CPT/HCPCS: 36415; 80053; 83036; 83540; 83550; 83880; 85025

== ENCOUNTER 2025-10-03 01:32 | Emergency (ER) | payer MEDICARE, OTHER, SELFPAY ==
[2024-04-25 10:14] VITALS: BMI 32.3
[2025-10-03] VITALS (28 sets, daily range): BP systolic 155–207; BP diastolic 65–84; PULSE 57–116; RESP 11–51; TEMP 36.8; O2SAT 94–100; BMI 29.5
--- NOTE | 2025-10-03 01:47 | DI.RAD.S_ITS ---
PROCEDURE: XR CHEST 1V INDICATIONS: dizziness TECHNIQUE: One view of the chest was acquired. COMPARISON: [facility], CR, XR CHEST 1V, 09/18/2025, 6:20. FINDINGS: Surgical changes and devices: None. Lungs and pleura: Lungs are clear. No pleural effusions or pneumothorax. Mediastinum: Mediastinal contours appear normal. Heart size is normal. Bones and chest wall: No suspicious bony lesions. Overlying soft tissues appear unremarkable. IMPRESSION: No acute pulmonary process. Dictated by: Cassy Mccray M.D. on 10/03/2025 at 2:03 Approved by: Cassy Mccray M.D. on 10/03/2025 at 2:03
--- NOTE | 2025-10-03 01:49 | PC.NURSE ---
Turning head to the left worsens symptoms. Unable to tolerate orthostatic BPs.
--- NOTE | 2025-10-03 01:57 | EKG_ITS ---
[address] [address] Test Date: 2025-10-03 Pat Name: Nuris Sanchez Department: [facility] Room: Gender: Female Trick Rodeo Rider: JIGAR : 1950 Requested By: Order Number: [id number] Reading MD: Measurements Intervals [place] Rate: 59 P: 46 [place]: 184 QRS: 24 QRSD: 122 T: 20 QT: 442 QTc: 437 Interpretive Statements Sinus bradycardia Right bundle branch block
--- NOTE | 2025-10-03 02:07 | ED_ITS ---
HPI - Dizziness General Chief Complaint: Dizziness Stated Complaint: RAI/Dizziness Time Seen by Provider: 10/03/25 01:38 Source: patient and EMS Mode of arrival: EMS History of Present Illness HPI Narrative: Patient is a 74-year-old female who presents with headache, hypertension, dizziness. Past medical history is significant for hypertension, hyperlipidemia, diabetes, sarcoidosis, polymyalgia rheumatica, Sjogren's syndrome, mixed connective tissue disease. Patient states that she was in her usual state of health when she woke up tonight around 0130 and was unable to stand or sit up secondary to dizziness. had to assist her to the bathroom. Blood sugar at home was 134. She states that she has a sensation of room spinning with head movement to the left and right. She is unable to sit up or lay down completely without dizziness and nausea. No similar symptoms in the past. She denies any focal neurologic deficits, dysphagia or dysarthria, no prior history of strokes or hypercoagulability. No chest pain, dyspnea, diaphoresis. No fevers, chills, nausea, vomiting. Related Data Home Medications ?Medication ?Instructions ?Recorded ?Confirmed carboxymethylcellulose sodium 1 % 2 gtt OU PRN ##0 03/1609/25/25 eye liquid gel drops (Refresh Liquigel) aspirin 81 mg tablet,delayed 81 mg PO QDAY ##0 7 09/25/25 release Vitamin D + K2 1 tab PO DAILY 05/11/2209/06 desonide 0.05 % topical cream 1 applic topical BID PRN skin 11/23/23 09/25/25 condition faricimab-svoa 6 mg/0.05 mL 6 mg intravitreal Q12W 09/25/25 intravitreal solution (Vabysmo) clobetasol 0.05 % topical cream 1 applic topical DAILY 04/25/24 09/25/25 Previous Rx's ?Medication ?Instructions ?Recorded Disabled Parking #1 ea 04/13/22 albuterol sulfate 90 mcg/actuation 2 puff inhalation Q 4H PRN 06/09/24 aerosol inhaler (Ventolin HFA) Shortness Of Breath #18 grams blood glucose control, normal #1 ea 07/21/24 (OneTouch Ultra Control solution) lancets 30 gauge #100 ea 07/21/24 blood glucose control, normal #1 ea 07/25/24 (OneTouch Verio Mid Control solution) blood-glucose meter (OneTouch #1 ea 07/25/24 Verio Flex Meter) ondansetron 4 mg disintegrating 4 mg PO Q6H PRN nausea and 11/21/24 tablet vomiting #30 tabs insulin degludec 100 unit/mL (3 See Rx Instructions REILLY BCUT DAILY 01/27/25 mL) subcutaneous pen (Tresiba #45 mL FlexTouch U-100 insulin) erythromycin 250 mg tablet 250 mg PO QAC #270 tabs 09/29 blood sugar diagnostic (OneTouch #250 ea 07/14/25 Verio test strips) nadolol 80 mg tablet 80 mg PO DAILY #90 tabs 07/06 03/29 lansoprazole 30 mg capsule,delayed 30 mg PO BID #180 c aps 07/21/25 release [place] 31g x 03/20 #300 ea 08/07/25 fluticasone propionate 50 2 spray intranasal BEDTIME P RN 08/07/25 mcg/actuation nasal Allergy Symptoms #16 grams spray,suspension (Flonase Allergy Relief) olmesartan 40 mg tablet 40 mg PO DAILY #90 tabs 1001/27 prednisone 10 mg tablet 10 - 20 mg (1 - 2 x 10 mg) P O 08/27/25 DAILY #60 tabs insulin aspart U-100 100 unit/mL 5 - 15 unit (0.05 - 0 .15 mL) 09/02/25 (3 mL) subcutaneous pen (Novolog SUBCUT TIDWMEAL #30 m L FlexPen U-100 Insulin aspart) clonazepam 1 mg tablet (Klonopin) 0.5 mg (1/2 x 1 mg) PO DAILY #180 09/25/25 tabs furosemide 20 mg tablet 20 mg PO DAILY #30 tabs 11/11/29 meclizine 12.5 mg tablet 12.5 mg PO TID PRN dizziness #41 10/03/25 tabs meclizine 12.5 mg tablet 12.5 mg PO TID PRN dizziness #42 10/03/25 tabs Allergies Allergy/AdvReac Type Severity Reaction Status Date / Time atorvastatin (ATORVASTATIN) Allergy Unknown Verified 10/03/25 01:40 gemfibrozil (GEMFIBROZIL) Allergy Unknown Verified 10/03/25 01:40 rosuvastatin (ROSUVASTATIN) Allergy Unknown Verified 10/03/25 01:40 tetracycline (TETRACYCLINE) Allergy Unknown Verified 10/03/25 01:40 Milk Containing Products AdvReac Severe GI issues Verified 10/03/25 01:40 (Dairy) (MILK CONTAINING PRODUCTS) carisoprodol (CARISOPRODOL) AdvReac Intermediate DIZZINESS Verified 10/03/25 01:40 duloxetine (DULOXETINE) AdvReac Intermediate DIARRHEA/se Verified 10/03/25 01:40 dation fenofibrate (FENOFIBRATE) AdvReac Intermediate rash Verified 10/03/25 01:40 gabapentin AdvReac Intermediate constipatio Verified 10/03/25 01:40 n indomethacin (INDOMETHACIN) AdvReac Intermediate GI DISTRESS Verified 10/03/25 01:40 influenza virus vaccine tvs AdvReac Intermediate severe sx, Verified 10/03/25 01:40 [id number](65 years up) (From RAI, N/V, Fluzone High-Dose SINUS, (PF)) PLEGM, etc. lisinopril (LISINOPRIL) AdvReac Intermediate EDEMA LEGS Verified 10/03/25 01:40 amoxicillin (AMOXICILLIN) AdvReac Mild itching Verified 10/03/25 01:40 Review of Systems Review of Systems Narrative: Pertinent positives and negatives as per HPI. Patient History Medical History (Updated 10/03/25 @ 07:30 by Cassandra Jason MD) Gluten intolerance Tubular adenoma of colon Psoriasis Overactive bladder Gastroparesis diabeticorum Vitamin deficiency Inner ear inflammation Liver disease Diverticular disease (1999) Ovarian cyst (1984) Recurrent sinusitis (2004) Hepatitis A (1989) Ankle pain (1994) Foot pain (2004) Fractures (1972) Seizure, temporal lobe (1984) Abnormal CXR (chest x-ray) (1981) Sarcoidosis (1983) Legionella pneumonia (1981) Polymyalgia rheumatica Sjogren's syndrome MCTD (mixed connective tissue disease) Hyperlipidemia Hypertension (2004) Abnormal Pap smear of cervix (1984) Fibroids (2002) History of heavy periods Painful menstrual periods Anemia Measles (1958) Mumps (1958) Rubella (1958) Eczema Chronic back pain (1999) RLS (restless legs syndrome) (2004) Hayfever Asthma Type 2 diabetes mellitus without complication (04/10/16) Essential hypertension (11/23/15) Sjogren's syndrome (10/01/15) Atrophic vaginitis (11/24/14) Irritable bowel syndrome (06/16/11) Mixed hyperlipidemia (06/16/11) Diverticulosis of colon (06/16/11) Fibromyalgia (06/16/11) GERD (gastroesophageal reflux disease) Surgical History History of esophagogastroduodenoscopy (EGD) (12/2014) History of colonoscopy (12/17/14) History of oophorectomy History of abdominal surgery (1981) History of abdominal surgery (2008) History of lung biopsy (1981) History of lung biopsy (1983) Anesthesia complication Status post knee surgery (2012) Status post hysterectomy (2004) History of bilateral salpingo-oophorectomy (BSO) Family History Child Age: 55 Hx of Sjogren's disease Child Age: 53 Migraines Father Prostate cancer Cancer Heart disease Stroke Mother Diabetes mellitus Heart disease Hypertension Sister Uterine cancer Grandmother No problems noted. Grandfather Sepsis Grandmother No problems noted. 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 HR 60, BP 186/78, mean 114, RR 20, SpO2 99 % room air, T 98.2? F. Const Other: Well-developed, we will nurse female in no acute distress. HENCO Ears: external ears normal and TM's normal bilaterally Eyes Other: Mila, EOMI. No visual field defects. No nystagmus horizontal or vertical. Resp Other: Normal work of breathing. Clear to auscultation all lung barriga. GI Other: Soft, nondistended, nontender to palpation quadrants. Neuro Other: Cranial nerves intact. Speech clear. Gait shuffled, however patient did not sway tiny particular side. Motor and sensory grossly intact. HINTs exam negative. Psych Other: Normal appearance. A&O x4. Speech is slowed. Thought process and content appropriate. Scores NIH Stroke Scale Citation:: Zero. Course Course Course Narrative: 0130 Patient evaluated. As several clarifying questions as well as observed patient sitting up and ambulating however she is inconsistent with swaying and stability--at times she is stable wears others she may sway to one particular side. No nystagmus. Likely peripheral etiology for vertigo however will obtain CT head and neck to rule out any cerebellar involvement. 0629 No acute abnormalities with major arteries of the head and neck. 0635 I discussed these findings with patient and at bedside. Discussed performing Mariana maneuver as well as administration of meclizine and re- evaluation, in which patient was in agreement with. 0640 Patient reports moderate improvement with Mariana maneuver bilaterally. Administered meclizine. 0730 Patient discharged in improved condition. Discharge her vitals remained stable. She was given a prescription to fill at her pharmacy of choice. Orders Ordered: ED Orders 10/03/25 01:30 BNP [NT-proBNP (BNP-Adult 18+)] Stat CBC Auto Diff [Complete Blood Count AUTO DIFF] Stat CMP [Comprehensive Metabolic Panel] Stat 10/03/25 01:47 CXR [XR chest 1V] Stat EKG-12 Lead Stat 10/03/25 02:42 CT angio head and neck Stat Discontinued Medications Meclizine HCl (Meclizine Hcl 12.5 Mg Tablet) 25 mg PO NOW ONE Stop: 10/03/25 07:09 Last Admin: 10/03/25 07:20 Dose: 25 mg Documented By: KARIE Vital Signs Vital signs: Vital Signs - 8 hr 10/03/25 01:36 10/03/25 01:37 10/03/25 01:37 Temperature Pulse Rate 61 Respiratory Rate Blood Pressure 186/78 H Pulse Oximetry 99 100 Oxygen Delivery Method 10/03/25 01:40 10/03/25 02:00 10/03/25 02:01 Temperature 98.2 F Pulse Rate 60 60 59 L Respiratory Rate 20 15 20 Blood Pressure 186/78 H Pulse Oximetry 99 97 96 Oxygen Delivery Method Room Air 10/03/25 02:01 10/03/25 02:30 10/03/25 02:31 Temperature Pulse Rate 63 Respiratory Rate 18 Blood Pressure 171/74 H 207/84 H Pulse Oximetry 96 Oxygen Delivery Method 10/03/25 02:31 10/03/25 03:00 10/03/25 03:01 Temperature Pulse Rate 60 61 Respiratory Rate 22 18 Blood Pressure 173/73 H Pulse Oximetry 98 94 Oxygen Delivery Method 10/03/25 03:01 10/03/25 03:01 10/03/25 03:12 Temperature Pulse Rate 60 66 Respiratory Rate 20 15 Blood Pressure 173/73 H Pulse Oximetry 96 94 Oxygen Delivery Method 10/03/25 03:12 10/03/25 03:30 10/03/25 04:06 Temperature Pulse Rate 58 L 67 Respiratory Rate 16 Blood Pressure 185/80 H Pulse Oximetry 98 Oxygen Delivery Method 10/03/25 04:07 10/03/25 04:07 10/03/25 04:30 Temperature Pulse Rate 66 59 L Respiratory Rate 11 L 11 L Blood Pressure 198/79 H Pulse Oximetry 98 98 Oxygen Delivery Method 10/03/25 04:31 10/03/25 04:31 10/03/25 05:00 Temperature Pulse Rate 60 57 L Respiratory Rate 12 15 Blood Pressure 168/75 H Pulse Oximetry 96 98 Oxygen Delivery Method 10/03/25 05:01 10/03/25 05:01 10/03/25 05:30 Temperature Pulse Rate 59 L 59 L Respiratory Rate 11 L 11 L Blood Pressure 167/72 H Pulse Oximetry 96 98 Oxygen Delivery Method 10/03/25 05:31 10/03/25 05:31 10/03/25 05:39 Temperature Pulse Rate 59 L Respiratory Rate 20 Blood Pressure 195/77 H 201/80 H Pulse Oximetry 97 Oxygen Delivery Method 10/03/25 05:39 10/03/25 06:00 10/03/25 06:05 Temperature Pulse Rate 63 116 H Respiratory Rate 20 51 H Blood Pressure 164/72 H Pulse Oximetry Oxygen Delivery Method 10/03/25 06:05 10/03/25 06:30 10/03/25 06:31 Temperature Pulse Rate 73 67 Respiratory Rate 21 31 H Blood Pressure 178/78 H Pulse Oximetry Oxygen Delivery Method 10/03/25 06:31 10/03/25 07:00 10/03/25 07:01 Temperature Pulse Rate 62 60 Respiratory Rate 17 17 Blood Pressure 169/70 H Pulse Oximetry Oxygen Delivery Method 10/03/25 07:01 10/03/25 07:30 10/03/25 07:31 Temperature Pulse Rate 59 L 68 Respiratory Rate 15 Blood Pressure 155/65 H Pulse Oximetry Oxygen Delivery Method MDM - Dizziness Lab Data 10/03/25 01:30 10/03/25 01:30 Labs: Lab Results 10/03/25 Range/Units 01:30 WBC 6.8 (4.5-11.0) X10^3/uL RBC 4.99 (4.0-5.2) X10^6/uL Hgb 13.3 (12.0-16.0) g/dL Hct 40.9 (36-46) % MCV 82.1 (80-100) fL MCH 26.6 (26-34) PG MCHC 32.4 (30-36) % RDW 17.4 H (11.6-14.8) % Plt Count 284 (150-400) X10^3/uL Neut % (Auto) 60.5 (50-75) % Lymph % (Auto) 28.9 (25-40) % [place] % (Auto) 8.0 (3-14) % Eos % (Auto) 2.1 (2-4) % Baso % (Auto) 0.5 (0-2) % Neut # (Auto) 4100 (5685-2855) /uL Lymph # (Auto) 2000 (3766-3512) /uL [place] # (Auto) 500 (0-900) /uL Eos # (Auto) 100 (0-450) /uL Baso # (Auto) 0 (0-100) /uL Sodium 141 (137-145) mmol/L Potassium 4.3 (3.4-5.1) mmol/L Chloride 105 (98-107) mmol/L Carbon Dioxide 27 (22-32) mmol/L BUN 19 H (7-17) mg/dL Creatinine 1.12 H (0.52-1.04) mg/dL Estimated GFR 51 L (>60) mL/min BUN/Creatinine Ratio 17.0 (6-22) Glucose 129 H (70-99) mg/dL Calcium 9.6 (8.4-10.2) mg/dL Total Bilirubin 0.4 (0.2-1.3) mg/dL AST 28 (14-36) IU/L ALT 18 (<35) IU/L Alkaline Phosphatase 70 (38-126) U/L NT-Pro-B Natriuret Pep 165 (<450) pg/mL Total Protein 7.6 (6.3-8.2) g/dL Albumin 4.4 (3.5-5.0) g/dL Globulin 3.2 (1.7-4.1) g/dL Albumin/Globulin Ratio 1.4 (1.0-2.8) ECG Data Interpretation: 0157 sinus bradycardia, HR 59, CA, QRS 122, QTC of 437, right bundle branch block, no evidence of ischemia. This is compared to patient's prior EKGs which were similar in appearance. MDM Narrative Medical decision making narrative: Acute dizziness in elderly female with multiple comorbidities. On evaluation, her presentation most consistent with benign paroxysmal positional vertigo (BPPV) given positional nature, lack of focal neurologic deficits, however there was some concern for cerebellar stroke therefore CTA head and neck was obtained which was negative for large vessel occlusion. CBC was without leukocytosis, anemia, thrombocytopenia or left shift. CMP with mildly of the elevated BUN (19) in the setting of known CKD (Cr 1.12, eGFR 51), normal LFTs. BNP normal. Mariana maneuver was performed with near improvement of symptoms. Patient was given a dose of meclizine in the ER (dosed appropriately for her known CKD) with continued improvement of her dizziness with near resolution. She was discharged with a prescription for his medication. At discharge she had mild elevation of her blood pressure, otherwise her vitals were within normal range. Patient was able to ambulate independently outside at the ER without any dizziness. Discharge Plan Departure Patient Disposition: Home Clinical Impression: Benign paroxysmal positional vertigo Qualifiers: Laterality: unspecified laterality Qualified Code(s): H81.10 - Benign paroxysmal vertigo, unspecified ear Instructions: DI for Vertigo Activity Restrictions/Additional Instructions: You were seen in the emergency department for dizziness. In the ER, had CC was obtained to rule out any central causes (stroke) for your dizziness and imbalance. Your CT scan was negative. The Mariana maneuver was performed on both sides which alleviated her symptoms. You were also given meclizine to assist with symptoms of vertigo. General safety and management * Move slowly:?Get up slowly from sitting or lying down. Avoid sudden movements. * Sit or lie down immediately:?If you feel dizzy, stop what you're doing and sit or lie down to prevent falling. * Avoid triggers:?Avoid activities that cause dizziness, such as driving, operating heavy machinery, or looking up too quickly. * Hydrate:?Drink plenty of fluids to prevent dehydration. * Home safety:?Keep your home clear of clutter and consider adding nightlights or grab bars to prevent falls.? Specific instructions (if you had the Mariana maneuver) * Avoid certain positions:?For a day or a few days, avoid bending over or sleeping on the side that causes symptoms. * Use pillows:?Sleep with a pillow to prop your head up slightly. * Limit head movements:?Avoid large or fast head movements for a couple of days. A collar or towel can help.? Exercises and follow-up? * Perform exercises:?Your doctor may have you perform the Mariana maneuver at home or suggest balance exercises to improve your condition. * Gradual return to activity:?Slowly increase your activity level as you start to feel better. * Avoid certain activities:?Wait one week after a severe episode before climbing, driving, or operating heavy machinery, or ask your doctor for advice. Thank you for trusting me in the management of your care. - Dr. Jason Prescriptions: New meclizine 12.5 mg tablet 12.5 mg PO TID PRN (Reason: dizziness) Qty: 42 0RF meclizine 12.5 mg tablet 12.5 mg PO TID PRN (Reason: dizziness) Qty: 41 0RF No Action carboxymethylcellulose sodium [Refresh Liquigel] 1 % Drops, Liquid Gel 2 gtt OU PRN Qty: 0 aspirin 81 MG tablet,delayed release (DR/EC) 81 mg PO QDAY Qty: 0 (DME) Disabled Parking See Rx Instructions .ROUTE .MEDSUPPLY Qty: 1 0RF Rx Instructions: Patient qualifies for disabled parking as per the attached form. albuterol sulfate [Ventolin HFA] 90 mcg/actuation HFA aerosol inhaler 2 puff inhalation Q4H PRN (Reason: Shortness Of Breath) Qty: 18 3RF (DME) lancets 30 gauge misc See Rx Instructions .Route Qty: 100 6RF Rx Instructions: Use to check BS 1-2x daily or as directed by PCP (DME) blood glucose control, normal [OneTouch Ultra Control] Solution See Rx Instructions .Route Qty: 1 1RF Rx Instructions: As directed (DME) blood-glucose meter [OneTouch Verio Flex meter] Misc See Rx Instructions .Route Qty: 1 0RF Rx Instructions: Use to check BS 6x daily or as written by PCP (DME) blood glucose control, normal [OneTouch Verio Mid Control] Solution See Rx Instructions .Route Qty: 1 1RF Rx Instructions: As directed insulin degludec [Tresiba FlexTouch U-100] 100 unit/mL (3 mL) insulin pen See Rx Instructions SUBCUT DAILY Qty: 45 6RF Rx Instructions: 45-50 units in pm. May increase pm insulin up to 70 units as necessary to control blood sugar (DME) OneTouch Verio test strips Strip See Rx Instructions .Route Qty: 250 6RF Rx Instructions: Use to check BS 6x daily or as written by PCP nadolol 80 mg tablet 80 mg PO DAILY Qty: 90 3RF lansoprazole 30 mg capsule,delayed release(DR/EC) 30 mg PO BID Qty: 180 3RF insulin aspart U-100 [Novolog FlexPen U-100 Insulin] 100 unit/mL (3 mL) insulin pen 5 - 15 unit subcut TIDWMEAL Qty: 30 6RF desonide 0.05 % cream 1 applic topical BID PRN (Reason: skin condition) clobetasol 0.05 % cream 1 applic topical DAILY ondansetron 4 mg tablet,disintegrating 4 mg PO Q6H PRN (Reason: nausea and vomiting) Qty: 30 0RF erythromycin 250 mg tablet 250 mg PO QAC Qty: 270 3RF Rx Instructions: only for large meals furosemide 20 mg tablet 20 mg PO DAILY Qty: 30 3RF clonazepam [Klonopin] 1 mg tablet 0.5 mg PO DAILY Qty: 180 1RF Rx Instructions: for seizures Vitamin D + K2 5,000 units 1 tab PO DAILY (DME) [place] 31g x 03/20 Qty: 300 11RF Dose Instruction: As directed Rx Instructions: Use to inject insulin up to 6x a day olmesartan 40 mg tablet 40 mg PO DAILY Qty: 90 3RF fluticasone propionate [Flonase Allergy Relief] 50 mcg/actuation spray,suspension 2 spray Intranasal BEDTIME PRN (Reason: Allergy Symptoms) Qty: 16 2RF prednisone 10 mg tablet 10 - 20 mg PO DAILY Qty: 60 0RF Rx Instructions: take 2 tabs daily for 4 days, then 1 tab daily Vabysmo 6 mg/0.05 mL Solution 6 mg INTRAVITREAL Q12W Referrals: Good Miller MD [Primary Care Provider, Internal Medicine] Stand Alone Forms: Patient Portal/API
[2025-10-03 02:12] LABS: Alanine Aminotransferase 18 IU/L (<35); Albumin 4.4 g/dL (3.5-5.0); Albumin Globulin Ratio 1.4 (1.0-2.8); Alkaline Phosphatase 70 U/L (38-126); Blood Urea Nitrogen 19 mg/dL (7-17); Calcium 9.6 mg/dL (8.4-10.2); Carbon Dioxide 27 mmol/L (22-32); Chloride 105 mmol/L (98-107); Estimated Glomerular Filt Rate 51 mL/min (>60); Globulin 3.2 g/dL (1.7-4.1); Glucose 129 mg/dL (70-99); HEMOLYSIS < 15 (0-50); Potassium 4.3 mmol/L (3.4-5.1); Sodium 141 mmol/L (137-145); Total Protein 7.6 g/dL (6.3-8.2)
[2025-10-03 02:18] LABS: Add Manual Diff / Slide Review NO; Hematocrit 40.9 % (36-46); Hemoglobin 13.3 g/dL (12.0-16.0); Lymphocytes Absolute Auto 2000 /uL (1100-4500); Mean Corpuscular HGB Conc 32.4 % (30-36); Mean Corpuscular Hemoglobin 26.6 PG (26-34); Mean Corpuscular Volume 82.1 fL (80-100); Platelet Count 284 X10^3/uL (150-400)
[2025-10-03 02:21] LABS: NT-proBNP (BNP-Adult 18+) 165 pg/mL (<450)
--- NOTE | 2025-10-03 02:42 | DI.CT.S_ITS ---
PROCEDURE: CT ANGIO HEAD AND NECK INDICATIONS: dizziness, unable to walk TECHNIQUE: After the administration of intravenous contrast, 1 mm thick sections acquired from the aortic arch through the [place] of [place]. 3-dimensional oyypqal-nnoxizhbf-fgrbnzxbrh (MIP) and/or volume rendering reformats were acquired of the central intracranial vasculature and neck separately. For radiation dose reduction, the following was used: automated exposure control, adjustment of mA and/or kV according to patient size. COMPARISON: [facility], CR, XR CHEST 1V, 10/03/2025, 1:42. [facility], CT, CT HEAD/BRAIN WO CON, 09/18/2025, 8:02. (Additional prior imaging is not available for review from the archive at the time of this dictation.) FINDINGS: Image quality: Limited by bolus timing, with venous contamination. There is streak artifact seen through the level of the shoulders. Cerebral CT Angiogram: Internal carotid arteries: No acute findings. Intracranial ICA are patent with no significant stenosis. No occlusion. No aneurysm. Anterior cerebral arteries: Unremarkable. No significant stenosis. No occlusion. No aneurysm. Middle cerebral arteries: Unremarkable. No significant stenosis. No occlusion. No aneurysm. Posterior cerebral arteries: Unremarkable. No significant stenosis. No occlusion. No aneurysm. Basilar artery: Unremarkable. No significant stenosis. No occlusion. No aneurysm. Vertebral arteries: Unremarkable as visualized. Dural venous sinuses: Unremarkable given phase of enhancement. Other: Arterial phase appearance of the brain parenchyma is unremarkable. Neck CT Angiogram: Internal carotid arteries: Unremarkable. No significant stenosis. No dissection or occlusion. Common carotid arteries: Unremarkable. No significant stenosis. No dissection or occlusion. External carotid arteries: Unremarkable. No occlusion. Vertebral arteries: Unremarkable. No significant stenosis. No dissection or occlusion. Aortic Arch and Mediastinum: Partially visualized aortic arch unremarkable without evidence of aneurysm. Origins of the great vessels unremarkable. Other: Mild ground-glass opacity can be seen involving the lung apices. Presumed apical scarring can be seen. IMPRESSION: No significant intracranial arterial abnormality is seen. No significant abnormality is seen within the arteries of the neck. Within the lung apices, there is ground-glass opacity seen. Please consider mild pulmonary edema versus atypical/viral infection. Note: No significant discrepancy from the preliminary report. Any quantitative measurements of stenosis were performed using NASCET criteria. Dictated by: Emmanuel Mejia M.D. on 10/03/2025 at 7:21 Approved by: Emmanuel Mejia M.D. on 10/03/2025 at 7:24
--- NOTE | 2025-10-03 02:52 | PC.NURSE ---
assisted pt to BSC without difficulty, pt c/o being dizzy but was not unsteady, pt states when she raises her head it increases her dizziness, feels likes the world is spinning around her and she is going to fall
[2025-10-03] MEDS: MECLIZINE HCL 12.5 MG TABLET 25 MG PO (07:20)
== END 2025-10-03 07:50 | disposition home or self-care (01) ==
PROVIDERS: Emergency Provider Student in an Organized Health Care Education/Training Program; Family Provider Internal Medicine; PCP Internal Medicine
DX: H81.10 Benign paroxysmal vertigo, unspecified ear (principal); R51.9 Headache, unspecified; I10 Essential (primary) hypertension; Z87.891 Personal history of nicotine dependence
CPT/HCPCS: 70496; 70498; 71045; 80053; 83880; 85025; 93005; 99283; 99284; Q9967

== ENCOUNTER → 2025-10-15 11:58 | Outpatient (CLI) | payer MEDICARE, OTHER, SELFPAY ==
[2024-04-25 10:14] VITALS: BMI 32.3
--- NOTE | 2025-10-15 12:00 | DI.CT.S_ITS ---
PROCEDURE: CT CHEST ABD PEL W CON INDICATIONS: cough/chest pain/abd pain/pelvic pain TECHNIQUE: After the administration of intravenous contrast, 5 mm thick sections acquired from the lung apices to the symphysis. 5 mm coronal and sagittal reformats were performed, with additional 7 mm MIP reformats through the lungs. For radiation dose reduction, the following was used: automated exposure control, adjustment of mA and/or kV according to patient size. COMPARISON: [facility], CT, CT ABDOMEN PELVIS W CON, 04/14/2025, 15:10. [facility], CT, CT CHEST ABD PEL W CON, 10/10/2022, 11:31. FINDINGS: Image quality: Excellent. CHEST: Lower Neck: No enlarged lymph nodes. Thyroid: No thyroid nodules which require sonographic follow up, per consensus guidelines. Axillae: No enlarged lymph nodes. Chest Wall: Unremarkable. Lungs and Pleura: No pneumothorax or pleural effusions. Areas of linear atelectasis versus scarring of present. Stable 5 mm nodule along the medial aspect of the right middle lobe (3/142). Some calcified granulomata are noted. Heart: Heart size is normal. No pericardial effusion. Thoracic Vessels: The aorta and pulmonary arteries demonstrate normal size. Atherosclerotic vascular calcifications. Mediastinum and Melany: No enlarged lymph nodes. Calcified mediastinal lymph nodes are noted. Esophagus: Again seen wall thickening of the mid to distal esophagus which is stable compared to prior.. No hiatal hernia. ABDOMEN: Liver: No solid mass. Gallbladder: No radiopaque gallstones or wall thickening. Biliary ducts: No biliary dilation. Pancreas: No ductal dilation. Spleen: Size is within normal limits. Adrenal Glands: No adrenal nodules. Kidneys and Ureters: No hydronephrosis. No solid mass. No complex renal cystic lesion which requires follow up. Stomach and Bowel: Duodenal diverticulum is noted. Normal colonic caliber, without significant wall thickening. Diverticulosis without evidence of acute diverticulitis. Stable wall thickening of the sigmoid colon where diverticulosis is most pronounced. Normal appendix. Peritoneum: No abnormal intraperitoneal fluid. No free air. Ventral Wall: No significant ventral hernia. Abdominal Nodes: No retroperitoneal or mesenteric adenopathy by size criteria. Vessels: Aorta and inferior vena cava are normal in size. Atherosclerotic vascular calcifications. PELVIS: Pelvic Organs: Hysterectomy. Bladder: No bladder wall thickening, accounting for underdistention. Pelvic Nodes: No enlarged lymph nodes. Miscellaneous: No inguinal hernias are seen. Bones: No aggressive osseous abnormality. Degenerative changes of the spine. Decreased osseous mineralization. IMPRESSION: 1. No acute findings within the chest, abdomen or pelvis. 2. Diverticulosis at evidence of acute diverticulitis. Wall thickening of the sigmoid colon is again seen and stable, may represent chronic diverticulitis. 3. Wall thickening of the mid and distal esophagus is stable compared to prior exams. If not previously obtained, EGD can be performed to further evaluate. 4. Please see above for additional findings. Approved by: Prateek Molina M.D. on 10/18/2025 at 14:35
--- NOTE | 2025-10-15 12:00 | DI.MRI.S_ITS ---
PROCEDURE: MR HEAD/BRAIN WO CON INDICATIONS: dizziness TECHNIQUE: Noncontrast axial T1 spin echo, axial T2 fast spin echo, sagittal and axial FLAIR, coronal T2 fast spin echo, axial gradient echo, axial diffusion and ADC through the brain. COMPARISON: [facility], , MR HEAD/BRAIN WO CON, 04/24/2020, 14:42. FINDINGS: Image quality: Excellent. CSF Spaces: Basal cisterns are patent. No extra-axial fluid collections. Ventricles are normal in size and shape. Brain: No intracranial masses or hemorrhage. Powell/white matter interface is normal. Brainstem appears normal. Diffusion-weighted images demonstrate no acute infarct. No chronic ischemic insults. Normal intravascular flow voids are present. Skull and face: Calvarium has normal marrow signal. Bilateral lens replacements. Otherwise, the orbits are unremarkable. Sinuses: Sinuses and mastoids are clear. IMPRESSION: No acute or subacute infarct. No acute intracranial abnormalities. Age-related global volume loss and chronic microvascular ischemic change. Dictated by: Prateek Molina M.D. on 10/15/2025 at 13:52 Approved by: Prateek Molina M.D. on 10/15/2025 at 13:55
== END ==
PROVIDERS: PCP Internal Medicine; Referring Provider Internal Medicine; Visit Provider Internal Medicine
DX: R42 Dizziness and giddiness (principal); R05.9 Cough, unspecified; R10.9 Unspecified abdominal pain; R10.20 Pelvic and perineal pain unspecified side; R91.8 Other nonspecific abnormal finding of lung field; K57.10 Diverticulosis of small intestine without perforation or abscess without bleeding; K57.90 Diverticulosis of intestine, part unspecified, without perforation or abscess without bleeding; Z90.710 Acquired absence of both cervix and uterus
CPT/HCPCS: 70551; 71260; 74177; Q9967